=== PATIENT | male | born 1950 | race Caucasian/White ===

== ENCOUNTER 2024-05-25 21:58 | Inpatient (IN) ==
[2024-05-25] MEDS: ALBUT/IPRATROP 3MG/0.5MG NEB 3 ML VIAL NEB STA (22:26)
[2024-05-25] MEDS: methylPREDNISolone 125 MG/2 ML VIAL IV STA (22:26)
[2024-05-25 22:27] LABS: Basophils # (auto) 0.03 K/uL (0.00-0.20); Basophils % (auto) 0.2 %; Eosinophils # (auto) 0.05 K/uL (0.00-0.50); Eosinophils % (auto) 0.3 %; Hematocrit (blood only) 29.8 % (42.0-52.0); Hemoglobin 9.2 g/dl (14.0-18.0); Immature Granulocytes # (auto) 0.15 K/uL (0.01-0.20); Immature Granulocytes % (auto) 0.8 %; Lymphocytes # (auto) 3.88 K/uL (1.20-3.40); Mean Corpuscular Hemoglobin 24.3 pg (25.0-34.0); Mean Corpuscular Hgb Conc 30.9 g/dL (32.0-36.0); Mean Corpuscular Volume 78.6 fL (80.0-100.0); Mean Platelet Volume 9.2 fL (9.4-12.4); Monocytes % (auto) 7.2 %; Neutrophils # (auto) 13.93 K/uL (1.40-6.50); Neutrophils % (auto) 71.5 %; Platelet Count 342 K/uL (130-400); RDW Coefficient of Variation 16.8 % (11.5-14.5); RDW Standard Deviation 47.7 fL (36.4-46.3); Red Blood Count 3.79 M/uL (4.70-6.10); White Blood Count 19.44 K/ul (4.8-10.8)
[2024-05-25 22:44] LABS: Albumin Globulin Ratio 1.2 (0.9-2); BUN Creatinine Ratio 24.3 (10-20); Bilirubin,Total 0.3 mg/dl (0.2-1.0); Calcium 9.4 mg/dl (8.6-10.3); Creatinine Clr Calc Pharmacy 61.7 ml/min; Globulin 3.4 gm/dl (2.5-4.0); Magnesium 2.1 mg/dl (1.7-2.4); Potassium 4.4 mmol/L (3.5-5.1); Total Protein 7.4 gm/dl (6.0-8.3)
--- NOTE | 2024-05-25 22:45 | Emergency Department Note ---
Impression & Plan SOB (shortness of breath), COVID-19, COPD exacerbation, Leukocytosis, CHF (congestive heart failure), Cardiomegaly, Atrial fibrillation, Anemia ED Provider Note NAME: YOSHI ESTRADA AGE: 74 SEX: M : 1950 ARRIVES VIA: Walk-In INFORMANT: [Patient] ED PROVIDER(S): [Ramin Carlson MD] CHIEF COMPLAINT: Illness HISTORY OF PRESENT ILLNESS: The patient is a 74-year-old male who has felt weak, washed out and short of breath for several weeks. He saw his doctor's office and they told him he had a COPD flare. He was placed on antibiotics. He finished the antibiotics a week ago and does not think they have helped. Patient does have a nebulizer machine at home. He states that he feels he has to cough but when he coughs, he cannot get anything out. There has been no fever, no vomiting, no chest pain. No sick contacts. He lives alone. PMHx/PSHx/Social Hx: See Below PHYSICAL EXAM: GENERAL: Patient is in no acute distress. HEENT: No acute trauma, normocephalic atraumatic, mucous membranes moist, no nasal congestion. NECK: No stridor, no adenopathy, no meningismus, trachea is midline. LUNGS: Scattered wheezing heard, no crackles, breath sounds quite diminished bilaterally HEART: Irregular rhythm, no obvious murmur. Mildly tachycardic. ABDOMEN: Soft, nontender, no peritonitis. EXTREMITIES: No cyanosis, full range of motion of all the joints without pain or difficulty. Mild bilateral pedal edema. NEUROLOGIC: Oriented x 3, no acute motor or sensory deficits, no focal weakness. SKIN: No jaundice, no diaphoresis. DIFFERENTIAL DIAGNOSIS: Exacerbation of COPD, viral illness, pneumonia, CHF, anemia, [place], among others. EMERGENCY DEPARTMENT PROCEDURES: MEDICAL DECISION MAKING: There is a significant leukocytosis at 19,000, this could be consistent with infection or just the stress of his situation. Looking back at previous testing, he has had a slightly elevated white count before, last year the value was around 15. The patient was anemic with a hemoglobin of 9.2. This is a 3 point drop for him, certainly, this could be contributing to his dyspnea. There was a normal platelet count. No coagulopathy. VBG did not show acidosis or CO2 retention. Renal panel testing was essentially unrevealing. No electrolyte abnormality in need of emergent correction. No worrisome liver enzyme elevation. ECG shows atrial fibrillation, no acute ischemia. Cardiac enzyme testing x 1 was not consistent with acute cardiac injury. BNP was elevated consistent with CHF and fluid overload. Chest x-ray does appear to show heart failure as well as cardiomegaly. No focal infiltrate. Patient did have pedal edema on exam. Respiratory bio fire was positive for COVID-19. The patient was given IV Lasix to encourage diuresis. He received IV Solu- Medrol, 1 inch of nitroglycerin paste, he was given 2 DuoNebs. Patient is feeling improved, he has had a significant diuresis. He is breathing easier. He feels less short of breath. Given the x-ray findings and his presentation, a CT of the chest was ordered. There was no PE or focal pneumonia. I do think the patient requires a hospital stay. He is fluid overloaded, he is anemic, he has been short of breath for weeks despite outpatient treatment, he has COVID-19 and this is flared his COPD. He requires further diuresis and respiratory care. His hemoglobin will need to be trended. I did speak with the patient, I spoke with case management and the on-call hospitalist. The reason for his dyspnea is multifactorial. Prior/Outside records/notes reviewed: None ECG per my interpretation: Indication was shortness of breath. The ECG shows atrial fibrillation with some nonspecific ST change and some baseline artifact. There is no ST elevation, no PVCs. The QTc is 442. Continuous Cardiac Monitoring per my interpretation: An order was placed for continuous cardiac monitoring. The monitor shows a rate of 109 with atrial fibrillation. Imaging/x-ray results per my interpretation: Chest x-ray shows cardiomegaly and what appears to be heart failure. Chronic Medical/Social conditions affecting care: Advanced age, history of COPD. Care/Management discussed with: Case management and the on-call hospitalist. Level of care consideration(s): After review of the information above and other included data: --I believe the patient requires escalation of care to admission Critical Care Note: I have personally spent 43 minutes of critical care time in the direct management of this patient. This includes bedside care, interpretation of diagnostic studies, and testing, discussion with consultants, patient, and family members, and other required patient management activities. This 43 minutes is in excess of all separately billable procedures. DISPOSITION: Admission Past Med/Surg History Problem List Anemia (Acute) Atrial fibrillation (Acute) Cardiomegaly (Acute) CHF (congestive heart failure) (Acute) Leukocytosis (Acute) COPD exacerbation (Acute) COVID-19 (Acute) SOB (shortness of breath) (Acute) Facial contusion (Acute) Stomach problems (Chronic) Renal failure (Acute) Dehydration (Acute) Hyperkalemia (Acute) Dehydration (Acute 02/13/13) Acute renal failure (Acute 02/13/13) Cellulitis (Acute) Cellulitis (Acute) Medical History COPD (chronic obstructive pulmonary disease) Social History Smoking Status: Current every day smoker Tobacco Type: Cigarettes Feels Safe at Home: Yes Allergies Allergies Allergy/AdvReac Type Severity Reaction Status Date / Time sulfamethoxazole Allergy Intermediate HIVES-PER Verified 05/26/24 01:42 [From Bactrim] [facility] [place] trimethoprim [From Bactrim] Allergy Intermediate HIVES-PER Verified 05/26/24 01:42 [facility] [place] Home Meds Home Medications Medication Instructions Recorded Confirmed albuterol sulfate 90 mcg/actuation 2 puff inhalation Q4H PRN Wheezing 05/26/24 05/26/24 aerosol inhaler amlodipine 5 mg tablet 5 mg PO QAM 05/26/24 05/26/24 apixaban 5 mg tablet (Eliquis) 5 mg PO BID 05/26/24 05/26/24 atorvastatin 40 mg tablet 40 mg PO QAM 05/26/24 05/26/24 budesonide-formoterol HFA 160 2 puff inhalation BID 05/26/24 05/26/24 mcg-4.5 mcg/actuation aerosol inhaler (Symbicort) esomeprazole magnesium 40 mg 40 mg PO DAILYBB 05/26/24 05/26/24 capsule,delayed release famotidine 40 mg tablet 40 mg PO HS 05/26/24 05/26/24 fluvoxamine 100 mg tablet 100 mg PO HS 05/26/24 05/26/24 folic acid 1 mg tablet 1 mg PO QAM 05/26/24 05/26/24 furosemide 40 mg tablet (Lasix) 60 mg PO QAM 05/26/24 05/26/24 levocetirizine 5 mg tablet (Xyzal) 2.5 mg PO PM 05/26/24 05/26/24 metoprolol tartrate 50 mg tablet 50 mg PO BID 05/26/24 05/26/24 montelukast 10 mg tablet 10 mg PO HS 05/26/24 05/26/24 (Singulair) mupirocin 2 % topical ointment 1 applic topical BID PRN Skin 05/26/24 05/26/24 Irritation nitroglycerin 0.4 mg sublingual 0.4 mg sublingual DIRECTED PRN 05/26/24 05/26/24 tablet (Nitrostat) Chest Pain nystatin 100,000 unit/gram topical 1 applic topical TID 05/26/24 05/26/24 powder ondansetron 4 mg disintegrating 4 mg PO Q8H PRN NAUSEA/VOMITING 05/26/24 05/26/24 tablet potassium chloride 10 mEq 10 meq PO QAM 05/26/24 05/26/24 tablet,extended release quetiapine 25 mg tablet (Seroquel) 50 mg PO HS 05/26/24 05/26/24 sodium chloride 0.65 % nasal spray 1 spray intranasal DIRECTED PRN 05/26/24 05/26/24 aerosol (Saline Nasal) Congestion Results & Data (ED) Vital Signs Vital Signs - 24 hr 05/25/24 22:00 05/25/24 22:06 05/25/24 22:13 Temperature 36.6 C Temperature Source Oral Pulse Rate 101 H 79 109 H Pulse Rate [Apical] Pulse Rhythm Regular Regular Pulse Rhythm [Apical] Pulse Strength Normal Pulse Strength [Apical] Respiratory Rate 22 18 Respiratory Effort / Characteristics Non-Labored Spontaneous Respiratory Depth Normal Respiratory Pattern Regular Blood Pressure 153/79 H Blood Pressure [Right Arm] Blood Pressure Mean 103 Blood Pressure Mean [Right Arm] Blood Pressure Position Sitting Blood Pressure Position [Right Arm] Pulse Oximetry 94 96 Oxygen Delivery Method Room Air Room Air Sepsis Recent Fever Within 48 Hours No Sepsis New/Unexplained Change in Mental Status No Sepsis Action Taken by Nursing No Action Required 05/26/24 00:00 05/26/24 01:52 Temperature Temperature Source Pulse Rate 105 H Pulse Rate [Apical] 85 Pulse Rhythm Pulse Rhythm [Apical] Regular Pulse Strength Pulse Strength [Apical] Normal Respiratory Rate 18 Respiratory Effort / Characteristics Non-Labored Spontaneous Respiratory Depth Normal Respiratory Pattern Regular Blood Pressure Blood Pressure [Right Arm] 151/75 H Blood Pressure Mean Blood Pressure Mean [Right Arm] 100 Blood Pressure Position Blood Pressure Position [Right Arm] Sitting Pulse Oximetry 97 Oxygen Delivery Method Room Air Sepsis Recent Fever Within 48 Hours Sepsis New/Unexplained Change in Mental Status Sepsis Action Taken by Custodial Medications Current Medication List: was personally reviewed by me Laboratory Data Attestation: I reviewed the patient's lab results. 05/25/24 22:11 05/25/24 22:11 Lab Results 05/25/24 05/25/24 05/26/24 Range/Units 22:11 22:25 00:26 WBC 19.44 H (4.8-10.8) K/ul RBC 3.79 L (4.70-6.10) M/uL Hgb 9.2 L (14.0-18.0) g/dl Hct 29.8 L (42.0-52.0) % MCV 78.6 L (80.0-100.0) fL MCH 24.3 L (25.0-34.0) pg MCHC 30.9 L (32.0-36.0) g/dL RDW Std Deviation 47.7 H (36.4-46.3) fL RDW Coeff of [place] 16.8 H (11.5-14.5) % Plt Count 342 (130-400) K/uL MPV 9.2 L (9.4-12.4) fL Immature Gran % (Auto) 0.8 % Neut % (Auto) 71.5 % Lymph % (Auto) 20.0 % [place] % (Auto) 7.2 % Eos % (Auto) 0.3 % Baso % (Auto) 0.2 % Neut # (Auto) 13.93 H (1.40-6.50) K/uL Lymph # (Auto) 3.88 H (1.20-3.40) K/uL [place] # (Auto) 1.40 H (0.11-0.59) K/uL Eos # (Auto) 0.05 (0.00-0.50) K/uL Baso # (Auto) 0.03 (0.00-0.20) K/uL Immature Gran # (Auto) 0.15 (0.01-0.20) K/uL PT 11.9 (9.0-12.0) Seconds INR 1.1 (0.9-1.1) APTT 26 (21-31) Seconds PTT Ratio 1.0 VBG pH 7.42 H (7.36-7.41) VBG pCO2 40 (38-50) mmHg VBG pO2 51 mmHg VBG HCO3 26 mmol/L VBG O2 Saturation 83.8 % VBG Base Excess 1.3 mEq/L Sodium 138 (136-145) mmol/L Potassium 4.4 (3.5-5.1) mmol/L Chloride 104 (98-107) mmol/L Carbon Dioxide 26 (21-32) mmol/L Anion Gap 8 (3-11) BUN 28 H (6-23) mg/dl Creatinine 1.15 (0.6-1.4) mg/dl Est Cr Clr Drug Dosing 61.7 ml/min eGFR 66.37 BUN/Creatinine Ratio 24.3 H (10-20) Glucose 245 H (70-99(Fasting)) mg/dl Calcium 9.4 (8.6-10.3) mg/dl Magnesium 2.1 (1.7-2.4) mg/dl Total Bilirubin 0.3 (0.2-1.0) mg/dl AST 18 (13-39) U/L ALT 24 (7-52) U/L Alkaline Phosphatase 91 (34-104) U/L Troponin I High Sens 7.9 (0-20) pg/ml B-Natriuretic Peptide 532 H (0-100) pg/ml Total Protein 7.4 (6.0-8.3) gm/dl Albumin 4.0 (3.4-5.0) gm/dl Globulin 3.4 (2.5-4.0) gm/dl Albumin/Globulin Ratio 1.2 (0.9-2) Urine Color Yellow Urine Appearance Clear (Clear) Urine pH 7.5 (4.5-7.5) Ur Specific [place] 1.011 (1.000-1.030) Urine Protein Negative (Negative) Urine Glucose (UA) Negative (Negative) Urine Ketones Negative (Negative) Urine Blood 1+ H (Negative) Urine Nitrite Negative (Negative) Urine Bilirubin Negative (Negative) Urine Urobilinogen Negative (Negative) Ur Leukocyte Esterase Negative (Negative) Urine WBC (Auto) 0-5 (0-5) /hpf Urine RBC (Auto) 11-20 H (0-2) /hpf U Hyaline Cast (Auto) 0-2 (0-2) /lpf U Epithel Cells (Auto) 0-2 (0-2) /hpf Urine Bacteria (Auto) None Seen (None Seen) Adenovirus (PCR) Not Detected (NotDetected) B. pertussis DNA (PCR) Not Detected (NotDetected) B.parapertussis DNA PCR Not Detected (NotDetected) C. pneumoniae DNA (PCR) Not Detected (NotDetected) Coronavirus OC43 (PCR) Not Detected (NotDetected) Coronavirus HKU1 (PCR) Not Detected (NotDetected) Coronavirus 229E (PCR) Not Detected (NotDetected) SARS-CoV-2 (PCR) DETECTED A (NotDetected) Coronavirus NL63 (PCR) Not Detected (NotDetected) Human Metapneumovir PCR Not Detected (NotDetected) Influenza Type A (PCR) Not Detected (NotDetected) Influenza Type B (PCR) Not Detected (NotDetected) M. pneumoniae (PCR) Not Detected (NotDetected) Parainfluenza 1 (PCR) Not Detected (NotDetected) Parainfluenza 2 (PCR) Not Detected (NotDetected) Parainfluenza 3 (PCR) Not Detected (NotDetected) Parainfluenza 4 (PCR) Not Detected (NotDetected) RSV (PCR) Not Detected (NotDetected) Entero/Rhino (PCR) Not Detected (NotDetected) Administered Medications Discontinued Medications Albuterol (Albut/Ipratrop 3mg/0.5mg Neb 3 Ml Vial) 3 ml NEB NOW STA; Protocol Stop: 05/25/24 22:21 Last Admin: 05/25/24 22:26 Dose: 3 ml Documented By: IDD Albuterol (Albut/Ipratrop 3mg/0.5mg Neb 3 Ml Vial) 3 ml NEB NOW STA; Protocol Stop: 05/26/24 00:09 Last Admin: 05/26/24 01:26 Dose: 3 ml Documented By: TERRY Furosemide (Furosemide 40 Mg/4 Ml Vial) 40 mg IV ONE ONE Stop: 05/25/24 23:25 Last Admin: 05/25/24 23:51 Dose: 40 mg Documented By: JERRELL Ioversol (Optiray 320 125ml) 125 ml IV ONCE ONE Stop: 05/25/24 23:57 Last Admin: 05/25/24 23:56 Dose: 118 ml Documented By: MICHAEL Methylprednisolone (Methylprednisolone 125 Mg/2 Ml Vial) 60 mg IV NOW STA Stop: 05/25/24 22:21 Last Admin: 05/25/24 22:26 Dose: 60 mg Documented By: JERRELL Nitroglycerin (Nitroglycerin 2% Ointment 30gm Tube) 1 inch EXT NOW STA Stop: 05/25/24 23:25 Last Admin: 05/25/24 23:51 Dose: 1 inch Documented By: JERRELL Imaging Data Radiologist's Impression: Chest X-Ray 05/25/24 22:06 Exam(s): XR CXR 1 VIEW EXAM: XR Chest, 1 View CLINICAL HISTORY: Reason for exam: Dyspnea. TECHNIQUE: Frontal view of the chest. COMPARISON: January 05, 2013. FINDINGS: Lungs: Generalized prominence of interstitial vascular markings likely representing mild CHF. No focal pulmonary consolidation. No pulmonary mass. Pleural space: Unremarkable. No pneumothorax or pleural fluid. Heart: Cardiomegaly. Mediastinum: Unremarkable. Normal mediastinal contour. Bones/joints: No acute findings. IMPRESSION: Generalized prominence of interstitial vascular markings likely representing mild CHF. Cardiomegaly. Electronically signed by: Jc Storey MD 05/26/24 00:52 AM Chest CTA 05/25/24 23:24 EXAM: CT angio chest PE protocol CLINICAL HISTORY: PE. CHEST PAIN WITH COUGH TECHNIQUE: Contiguous 3.[address] angiographic images of the chest were acquired with the administration of intravenous contrast. Coronal and sagittal reconstructions were obtained. 118 ml optiray 320 intravenous contrast was administered for post-contrast images. One of these 3D techniques was utilized: Maximum Intensity Pixel (MIP), 3D Reconstructed Images, Volume Rendered Images, Surface Shaded Rendering. One of the following dose reduction techniques was utilized for this exam: Automated exposure control, adjustment of the mA and/or kV according to patient size, and use of iterative reconstruction. DLP: 933.97 mGy-cm COMPARISON: None. FINDINGS: Aorta: The thoracic aorta is normal in caliber. No evidence of an aneurysm, or dissection. The aortic arch and descending thoracic aorta are unremarkable apart from atherosclerotic vascular calcifications Pulmonary Arteries: Pulmonary arteries are normal in size and opacification. No evidence of pulmonary embolism. No stenosis or filling defects. Superior Vena Cava (SVC) and Inferior Vena Cava (IVC): Normal opacification and caliber. No evidence of thrombus or obstruction. Reflux of contrast is seen in the IVC. Coronary Arteries: Coronary artery calcifications are seen. Mediastinum: Subcentimeter mediastinal lymph nodes are seen. Heart: The heart size appears enlarged. No pericardial effusion. Lungs: Lungs are clear with no evidence of consolidation, nodules, or masses. Paraseptal emphysematous changes are seen in the apical regions. No pleural effusion or thickening. Atelectatic changes in the lingula and right middle lobe. The evaluation is limited due to motion-related artifacts. Bones: Degenerative changes in the visualized spine. Soft Tissues: Normal appearance of the visualized soft tissues. No abnormal masses or fluid collections. IMPRESSION: 1. No evidence of acute pulmonary embolism. 2. The evaluation is limited due to motion-related artifacts. 3. Reflux of contrast is seen in the IVC. 4. Atherosclerotic aortic and coronary artery calcifications. 5. Paraseptal emphysematous changes are seen in the apical regions. 6. Atelectatic changes in the lingula and right middle lobe. Electronically signed by Drew Sands 05-26-2024 01:58 AM Discharge Plan Visit Data Chief Complaint: Illness Stated Complaint: "DOESN'T FEEL RIGHT" ED Provider: Ramin Carlson Discharge Problem: SOB (shortness of breath), COVID-19, COPD exacerbation, Leukocytosis, CHF (congestive heart failure), Cardiomegaly, Atrial fibrillation, Anemia Patient Disposition: Admitted As Inpatient Condition: Serious Forms Stand Alone Forms: [employer] Prescriptions Prescriptions: No Action quetiapine [Seroquel] 25 mg Tablet 50 mg PO HS furosemide [Lasix] 40 mg Tablet 60 mg PO QAM atorvastatin 40 mg Tablet 40 mg PO QAM famotidine 40 mg Tablet 40 mg PO HS potassium chloride 10 mEq Tablet Extended Release 10 meq PO QAM amlodipine 5 mg Tablet 5 mg PO QAM fluvoxamine 100 mg Tablet 100 mg PO HS esomeprazole magnesium 40 mg Capsule,Delayed Release(Dr/Ec) 40 mg PO DAILYBB metoprolol tartrate 50 mg Tablet 50 mg PO BID nitroglycerin [Nitrostat] 0.4 mg Tablet, Sublingual 0.4 mg sublingual DIRECTED PRN (Reason: Chest Pain) folic acid 1 mg Tablet 1 mg PO QAM montelukast [Singulair] 10 mg Tablet 10 mg PO HS mupirocin 2 % Ointment 1 applic TOPICAL BID PRN (Reason: Skin Irritation) nystatin 100,000 unit/gram Powder 1 applic TOPICAL TID Rx Instructions: APPLY TO LOWER ABD albuterol sulfate 90 mcg/actuation Hfa Aerosol Inhaler 2 puff INHALATION Q4H PRN (Reason: Wheezing) ondansetron [Zofran ODT] 4 mg Tablet,Disintegrating 4 mg PO Q8H PRN (Reason: NAUSEA/VOMITING) Saline Nasal 0.65 % Aerosol,[place] 1 spray INTRANASAL DIRECTED PRN (Reason: Congestion) budesonide-formoterol [Symbicort] 160-4.5 mcg/actuation Hfa Aerosol Inhaler 2 puff INHALATION BID levocetirizine [Xyzal] 5 mg Tablet 2.5 mg PO PM Eliquis 5 mg Tablet 5 mg PO BID Referrals Referrals: PCP,NO [Physician] - Discharge Problem: Leukocytosis Qualifiers: Leukocytosis type: unspecified Qualified Code(s): D72.829 - Elevated white blood cell count, unspecified CHF (congestive heart failure) Qualifiers: Heart failure type: unspecified Heart failure chronicity: acute Qualified Code(s): I50.9 - Heart failure, unspecified Atrial fibrillation Qualifiers: Atrial fibrillation type: unspecified Qualified Code(s): I48.91 - Unspecified atrial fibrillation Anemia Qualifiers: Anemia type: unspecified type Qualified Code(s): D64.9 - Anemia, unspecified
[2024-05-25 22:49] LABS: Base Excess VBG 1.3 mEq/L; HCO3 VBG 26 mmol/L; Oxygen Saturation VBG 83.8 %; PCO2 VBG 40 mmHg (38-50); PO2 VBG 51 mmHg; pH VBG 7.42 (7.36-7.41)
[2024-05-25 22:51] LABS: Troponin I High Sensitivity 7.9 pg/ml (0-20)
[2024-05-25 23:20] LABS: INR 1.1 (0.9-1.1); Partial Thromboplastin Time 26 Seconds (21-31); Prothrombin Time 11.9 Seconds (9.0-12.0)
[2024-05-25 23:25] LABS: Adenovirus PCR Not Detected (NotDetected); Bordetella parapertussis PCR Not Detected (NotDetected); Bordetella pertussis PCR Not Detected (NotDetected); Chlamydia pneumoniae PCR Not Detected (NotDetected); Coronavirus 229E PCR Not Detected (NotDetected); Coronavirus CoV-2 (COVID19)PCR DETECTED (NotDetected); Coronavirus HKU1 PCR Not Detected (NotDetected); Coronavirus NL63 PCR Not Detected (NotDetected); Coronavirus OC43PCR Not Detected (NotDetected); Human Metapneumovirus PCR Not Detected (NotDetected); Influenza A PCR Not Detected (NotDetected); Influenza B PCR Not Detected (NotDetected); Mycoplasma pneumoniae PCR Not Detected (NotDetected); Parainfluenza Virus 1 PCR Not Detected (NotDetected); Parainfluenza Virus 2 PCR Not Detected (NotDetected); Parainfluenza Virus 3 PCR Not Detected (NotDetected); Parainfluenza Virus 4 PCR Not Detected (NotDetected); Respiratory Syncytial VirusPCR Not Detected (NotDetected); Rhinovirus/Enterovirus PCR Not Detected (NotDetected)
[2024-05-25] MEDS: NITROGLYCERIN 2% OINTMENT 30GM TUBE EXT STA (23:51)
[2024-05-25] MEDS: FUROSEMIDE 40 MG/4 ML VIAL IV ONE (23:51)
[2024-05-25] MEDS: OPTIRAY 320 125ml IV ONE (23:56)
[2024-05-26 00:52] LABS: Appearance Urine Clear (Clear); Bacteria Urine Automated None Seen (None Seen); Bilirubin Urine Negative (Negative); Blood Urine 1+ (Negative); Cast Urine Automated 0-2 /lpf (0-2); Color Urine Yellow; Epithelial Cell Urine Auto 0-2 /hpf (0-2); Glucose Urine UA Negative (Negative); Ketones Urine Negative (Negative); Leukocyte Esterase Urine Negative (Negative); Nitrite Urine Negative (Negative); Protein Urine Negative (Negative); Specific Gravity Urine 1.011 (1.000-1.030); Urobilinogen Urine Negative (Negative); WBC Urine Automated 0-5 /hpf (0-5); pH Urine 7.5 (4.5-7.5)
--- NOTE | 2024-05-26 00:54 | XRay Report ---
Exam(s): XR CXR 1 VIEW EXAM: XR Chest, 1 View CLINICAL HISTORY: Reason for exam: Dyspnea. TECHNIQUE: Frontal view of the chest. COMPARISON: January 05, 2013. FINDINGS: Lungs: Generalized prominence of interstitial vascular markings likely representing mild CHF. No focal pulmonary consolidation. No pulmonary mass. Pleural space: Unremarkable. No pneumothorax or pleural fluid. Heart: Cardiomegaly. Mediastinum: Unremarkable. Normal mediastinal contour. Bones/joints: No acute findings. IMPRESSION: Generalized prominence of interstitial vascular markings likely representing mild CHF. Cardiomegaly. Electronically signed by: Jc Storey MD 05/26/24 00:52 AM
[2024-05-26] MEDS: ALBUT/IPRATROP 3MG/0.5MG NEB 3 ML VIAL NEB STA (01:26)
--- NOTE | 2024-05-26 01:58 | CT Scan Report ---
EXAM: CT angio chest PE protocol CLINICAL HISTORY: PE. CHEST PAIN WITH COUGH TECHNIQUE: Contiguous 3.[address] angiographic images of the chest were acquired with the administration of intravenous contrast. Coronal and sagittal reconstructions were obtained. 118 ml optiray 320 intravenous contrast was administered for post-contrast images. One of these 3D techniques was utilized: Maximum Intensity Pixel (MIP), 3D Reconstructed Images, Volume Rendered Images, Surface Shaded Rendering. One of the following dose reduction techniques was utilized for this exam: Automated exposure control, adjustment of the mA and/or kV according to patient size, and use of iterative reconstruction. DLP: 933.97 mGy-cm COMPARISON: None. FINDINGS: Aorta: The thoracic aorta is normal in caliber. No evidence of an aneurysm, or dissection. The aortic arch and descending thoracic aorta are unremarkable apart from atherosclerotic vascular calcifications Pulmonary Arteries: Pulmonary arteries are normal in size and opacification. No evidence of pulmonary embolism. No stenosis or filling defects. Superior Vena Cava (SVC) and Inferior Vena Cava (IVC): Normal opacification and caliber. No evidence of thrombus or obstruction. Reflux of contrast is seen in the IVC. Coronary Arteries: Coronary artery calcifications are seen. Mediastinum: Subcentimeter mediastinal lymph nodes are seen. Heart: The heart size appears enlarged. No pericardial effusion. Lungs: Lungs are clear with no evidence of consolidation, nodules, or masses. Paraseptal emphysematous changes are seen in the apical regions. No pleural effusion or thickening. Atelectatic changes in the lingula and right middle lobe. The evaluation is limited due to motion-related artifacts. Bones: Degenerative changes in the visualized spine. Soft Tissues: Normal appearance of the visualized soft tissues. No abnormal masses or fluid collections. IMPRESSION: 1. No evidence of acute pulmonary embolism. 2. The evaluation is limited due to motion-related artifacts. 3. Reflux of contrast is seen in the IVC. 4. Atherosclerotic aortic and coronary artery calcifications. 5. Paraseptal emphysematous changes are seen in the apical regions. 6. Atelectatic changes in the lingula and right middle lobe. Electronically signed by Drew Sands 05-26-2024 01:58 AM
--- NOTE | 2024-05-26 06:27 | History & Physical Report ---
Date of Service May 26, 2024 Assessment & Plan (1) COVID: Plan: 74-year-old male with past medical history significant for hyperlipidemia, diabetes, COPD, obstructive sleep apnea, chronic heart failure with preserved ejection fraction, paroxysmal atrial fibrillation, aortic root enlargement, ascending aortic aneurysm, hypertension, nonrheumatic aortic valve insufficiency, GERD, obesity, BPH, decreased hearing of both ears, tobacco use disorder, insomnia, depression, anxiety presents with ongoing cough and found to have COVID. Looking at the epic he also had COVID-positive on April 16, 2024. Patient was having cough and congestion and went to [facility] on 05/14/2024 and was prescribed azithromycin and prednisone. Seems patient did not tolerated the azithromycin. Patient says he has an antibiotic at home, 750 mg tablet possibly Levaquin. He comes t today because of feeling weak and short of breath and ongoing cough per er. in the ER received Solu-Medrol, Lasix and nebs and Nitropaste. Currently patient sitting in the chair. Very hard of hearing. Says his main complaint is cough. Sometimes bringing up phlegm. He is not getting better. Currently denies any shortness of breath. Denies chest pain. Denies headache. Denies runny nose or sore throat. Denies abdominal pain. Denies body aches. States appetite is good. Normal bowel and bladder movements. Hemodynamics are okay. COVID Has cough Seems initially complained of shortness of breath and weak CTA chest no PE and no acute findings Because of his COVID conditions we will do remdesivir possibly short course and follow remdesivir labs IV Decadron 6 mg daily COVID precautions Close monitor Possible COPD exacerbation Continue home inhalers Nebs as needed Decadron as above Heart failure with preserved ejection fraction Has some edema in the legs Please a dose of IV Lasix 40 mg in the ER Continue home Lasix 60 mg daily potassium supplement We will monitor Atrial fibrillation On metoprolol tartrate and Eliquis Hypertension Continue amlodipine, Lasix and metoprolol tartrate IV labetalol as needed Anemia Hemoglobin 9.2 Hemoglobin was 12.2 on 07/2023 on outpatient labs Will check stool for Hemoccult Will follow iron studies, vitamin B12 folate levels Follow labs. Leukocytosis Recent steroid His baseline WBC seems 13-15 on outpatient labs Possibly from smoking Follow labs Diabetes Not on meds Insulin sliding scale Closely monitor while on steroids Follow HbA1c levels Depression Anxiety Insomnia On Seroquel, fluvoxamine GERD Esomeprazole and famotidine Hyperlipidemia Statin Ongoing tobacco abuse Counseling DVT prophylaxis Eliquis Disposition Med/telemetry Full code History of Present Illness Chief Complaint: Cough and COVID Primary Care Provider: Julia Harman MD 74-year-old male with past medical history significant for hyperlipidemia, diabetes, COPD, obstructive sleep apnea, chronic heart failure with preserved ejection fraction, paroxysmal atrial fibrillation, aortic root enlargement, ascending aortic aneurysm, hypertension, nonrheumatic aortic valve insufficiency , GERD, obesity, BPH, decreased hearing of both ears, tobacco use disorder, insomnia, depression, anxiety presents with ongoing cough and found to have COVID. Looking at the epic he also had COVID-positive on April 16, 2024. Patient was having cough and congestion and went to [facility] clinic on 05/14/2024 and was prescribed azithromycin and prednisone. Seems patient did not tolerated the azithromycin. Patient says he has an antibiotic at home, 750 mg tablet possibly Levaquin. He comes t today because of feeling weak and short of breath and ongoing cough per er. in the ER received Solu-Medrol, Lasix and nebs and Nitropaste. Currently patient sitting in the chair. Very hard of hearing. Says his main complaint is cough. Sometimes bringing up phlegm. He is not getting better. Currently denies any shortness of breath. Denies chest pain. Denies headache. Denies runny nose or sore throat. Denies abdominal pain. Denies body aches. States appetite is good. Normal bowel and bladder movements. Hemodynamics are okay. Past medical history. As mentioned above Past surgical history. Colonoscopy cystoscopy EGD. EGD with endoscopic ultrasound. DC cardioversion. Vein stripping. Knee arthroscopies. Nasal polypectomy. Appendectomy. TURP. Tonsillectomy and adenoidectomy. Social history. Smokes 1.5 pack a day for last 30 years. No alcohol use. No drug use. Family history. Mother had diabetes. Father had stroke. Allergies Allergy/AdvReac Type Severity Reaction Status Date / Time sulfamethoxazole Allergy Intermediate HIVES-PER Verified 05/26/24 01:42 [From Bactrim] [facility] MED LIST trimethoprim [From Bactrim] Allergy Intermediate HIVES-PER Verified 05/26/24 01:42 [facility] MED LIST Home Medications Medication Instructions Recorded Confirmed Type albuterol sulfate 90 mcg/actuation 2 puff inhalation Q4H PRN Wheezing 05/26/24 05/26/24 History aerosol inhaler amlodipine 5 mg tablet 5 mg PO QAM 05/26/24 05/26/24 History apixaban 5 mg tablet (Eliquis) 5 mg PO BID 05/26/24 05/26/24 History atorvastatin 40 mg tablet 40 mg PO QAM 05/26/24 05/26/24 History budesonide-formoterol HFA 160 2 puff inhalation BID 05/26/24 05/26/24 History mcg-4.5 mcg/actuation aerosol inhaler (Symbicort) esomeprazole magnesium 40 mg 40 mg PO DAILYBB 05/26/24 05/26/24 History capsule,delayed release famotidine 40 mg tablet 40 mg PO HS 05/26/24 05/26/24 History fluvoxamine 100 mg tablet 100 mg PO HS 05/26/24 05/26/24 History folic acid 1 mg tablet 1 mg PO QAM 05/26/24 05/26/24 History furosemide 40 mg tablet (Lasix) 60 mg PO QAM 05/26/24 05/26/24 History levocetirizine 5 mg tablet (Xyzal) 2.5 mg PO PM 05/26/24 05/26/24 History metoprolol tartrate 50 mg tablet 50 mg PO BID 05/26/24 05/26/24 History montelukast 10 mg tablet 10 mg PO HS 05/26/24 05/26/24 History (Singulair) mupirocin 2 % topical ointment 1 applic topical BID PRN Skin 05/26/24 05/26/24 History Irritation nitroglycerin 0.4 mg sublingual 0.4 mg sublingual DIRECTED PRN 05/26/24 05/26/24 History tablet (Nitrostat) Chest Pain nystatin 100,000 unit/gram topical 1 applic topical TID 05/26/24 05/26/24 History powder ondansetron 4 mg disintegrating 4 mg PO Q8H PRN NAUSEA/VOMITING 05/26/24 05/26/24 History tablet potassium chloride 10 mEq 10 meq PO QAM 05/26/24 05/26/24 History tablet,extended release quetiapine 25 mg tablet (Seroquel) 50 mg PO HS 05/26/24 05/26/24 History sodium chloride 0.65 % nasal spray 1 spray intranasal DIRECTED PRN 05/26/24 05/26/24 History aerosol (Saline Nasal) Congestion Past Med/Surg History Problem List (Updated 05/26/24 @ 06:23 by Luis Fernando Velasco MD) COVID Anemia (Acute) Atrial fibrillation (Acute) Cardiomegaly (Acute) CHF (congestive heart failure) (Acute) Leukocytosis (Acute) COPD exacerbation (Acute) COVID-19 (Acute) SOB (shortness of breath) (Acute) Facial contusion (Acute) Stomach problems (Chronic) Renal failure (Acute) Dehydration (Acute) Hyperkalemia (Acute) Dehydration (Acute 02/13/13) Acute renal failure (Acute 02/13/13) Cellulitis (Acute) Cellulitis (Acute) Medical History COPD (chronic obstructive pulmonary disease) Social History Smoking Status: Current every day smoker Tobacco Type: Cigarettes Feels Safe at Home: Yes Review of Systems Review of Systems: All systems reviewed & are unremarkable except as noted in HPI & below Physical Exam Physical Exam: General- Not in distress Head- atraumatic Eyes- PERRL. ENT- oropharynx clear Neck- supple, no JVD. Lungs- clear to auscultation mild b/l rhonchi Heart- regular rhythm; no murmur, no gallop. Abdomen- normal bowel sounds, soft, nontender, no distension Extremities- b/l pretibial edema present, no erythema seen Neuro- alert, oriented PERRL, no facial palsy; no dysarthria; moves extremities Results & Data Results & Data Vital Signs (Past 12 Hours) Vital Signs Temp Pulse Pulse Resp BP BP Pulse Ox 05/26/24 06:10 87 05/26/24 04:00 89 18 171/83 H 99 05/26/24 02:00 93 H 18 145/74 H 97 05/26/24 01:52 105 H 05/26/24 00:00 85 18 151/75 H 97 05/25/24 22:13 109 H 05/25/24 22:06 79 18 96 03/17/25 22:00 36.6 C 101 H 22 153/79 H 94 O2 Del Method 05/26/24 06:10 05/26/24 04:00 Room Air 05/26/24 02:00 Room Air 05/26/24 01:52 05/26/24 00:00 Room Air 05/25/24 22:13 05/25/24 22:06 Room Air 05/25/24 22:00 Room Air Diagnostic Findings Laboratory Results WBC 19.44 K/ul (4.8-10.8) H 05/25/24 22:11 RBC 3.79 M/uL (4.70-6.10) L 05/25/24 22:11 Hgb 9.2 g/dl (14.0-18.0) L 05/25/24 22:11 Hct 29.8 % (42.0-52.0) L 05/25/24 22:11 MCV 78.6 fL (80.0-100.0) L 05/25/24 22:11 MCH 24.3 pg (25.0-34.0) L 05/25/24 22:11 MCHC 30.9 g/dL (32.0-36.0) L 05/25/24 22:11 RDW Std Deviation 47.7 fL (36.4-46.3) H 05/25/24 22:11 RDW Coeff of [place] 16.8 % (11.5-14.5) H 05/25/24 22:11 Plt Count 342 K/uL (130-400) 05/25/24 22:11 MPV 9.2 fL (9.4-12.4) L 05/25/24 22:11 Immature Gran % (Auto) 0.8 % 05/25/24 22:11 Neut % (Auto) 71.5 % 05/25/24 22:11 Lymph % (Auto) 20.0 % 05/25/24 22:11 [place] % (Auto) 7.2 % 05/25/24 22:11 Eos % (Auto) 0.3 % 05/25/24 22:11 Baso % (Auto) 0.2 % 05/25/24 22:11 Neut # (Auto) 13.93 K/uL (1.40-6.50) H 05/25/24 22:11 Lymph # (Auto) 3.88 K/uL (1.20-3.40) H 05/25/24 22:11 [place] # (Auto) 1.40 K/uL (0.11-0.59) H 05/25/24 22:11 Eos # (Auto) 0.05 K/uL (0.00-0.50) 05/25/24 22:11 Baso # (Auto) 0.03 K/uL (0.00-0.20) 05/25/24 22:11 Immature Gran # (Auto) 0.15 K/uL (0.01-0.20) 05/25/24 22:11 PT 11.9 Seconds (9.0-12.0) 05/25/24 22:11 INR 1.1 (0.9-1.1) 05/25/24 22:11 APTT 26 Seconds (21-31) 05/25/24 22:11 PTT Ratio 1.0 05/25/24 22:11 VBG pH 7.42 (7.36-7.41) H 05/25/24 22:25 VBG pCO2 40 mmHg (38-50) 05/25/24 22:25 VBG pO2 51 mmHg 05/25/24 22:25 VBG HCO3 26 mmol/L 05/25/24 22:25 VBG O2 Saturation 83.8 % 05/25/24 22:25 VBG Base Excess 1.3 mEq/L 05/25/24 22:25 Sodium 138 mmol/L (136-145) 05/25/24 22:11 Potassium 4.4 mmol/L (3.5-5.1) 05/25/24 22:11 Chloride 104 mmol/L (98-107) 05/25/24 22:11 Carbon Dioxide 26 mmol/L (21-32) 05/25/24 22:11 Anion Gap 8 (3-11) 05/25/24 22:11 BUN 28 mg/dl (6-23) H 05/25/24 22:11 Creatinine 1.15 mg/dl (0.6-1.4) 05/25/24 22:11 Est Cr Clr Drug Dosing 61.7 ml/min 05/25/24 22:11 eGFR 66.37 05/25/24 22:11 BUN/Creatinine Ratio 24.3 (10-20) H 05/25/24 22:11 Glucose 245 mg/dl (70-99(Fasting)) H 05/25/24 22:11 Calcium 9.4 mg/dl (8.6-10.3) 05/25/24 22:11 Magnesium 2.1 mg/dl (1.7-2.4) 05/25/24 22:11 Total Bilirubin 0.3 mg/dl (0.2-1.0) 05/25/24 22:11 AST 18 U/L (13-39) 05/25/24 22:11 ALT 24 U/L (7-52) 05/25/24 22:11 Alkaline Phosphatase 91 U/L (34-104) 05/25/24 22:11 Troponin I High Sens 7.9 pg/ml (0-20) 05/25/24 22:11 B-Natriuretic Peptide 532 pg/ml (0-100) H 05/25/24 22:11 Total Protein 7.4 gm/dl (6.0-8.3) 05/25/24 22:11 Albumin 4.0 gm/dl (3.4-5.0) 05/25/24 22:11 Globulin 3.4 gm/dl (2.5-4.0) 05/25/24 22:11 Albumin/Globulin Ratio 1.2 (0.9-2) 05/25/24 22:11 Urine Color Yellow 05/26/24 00:26 Urine Appearance Clear (Clear) 05/26/24 00: Urine pH 7.5 (4.5-7.5) 05/26/24 00:26 Ur Specific [place] 1.011 (1.000-1.030) 05/26/24 00:26 Urine Protein Negative (Negative) 05/26/24 00:26 Urine Glucose (UA) Negative (Negative) 05/26/24 00: Urine Ketones Negative (Negative) 05/26/24 00: Urine Blood 1+ (Negative) H 05/26/24 00:26 Urine Nitrite Negative (Negative) 05/26/24 00: Urine Bilirubin Negative (Negative) 05/26/24 00: Urine Urobilinogen Negative (Negative) 05/26/24 00:26 Ur Leukocyte Esterase Negative (Negative) 05/26/24 00:26 Urine WBC (Auto) 0-5 /hpf (0-5) 05/26/24 00:26 Urine RBC (Auto) 11-20 /hpf (0-2) H 05/26/24 00:26 U Hyaline Cast (Auto) 0-2 /lpf (0-2) 05/26/24 00:26 U Epithel Cells (Auto) 0-2 /hpf (0-2) 05/26/24 00:26 Urine Bacteria (Auto) None Seen (None Seen) 05/26/24 00:26 Adenovirus (PCR) Not Detected (NotDetected) 05/25/24 22:11 B. pertussis DNA (PCR) Not Detected (NotDetected) 05/25/24 22:11 B.parapertussis DNA PCR Not Detected (NotDetected) 05/25/24 22:11 C. pneumoniae DNA (PCR) Not Detected (NotDetected) 05/25/24 22:11 Coronavirus OC43 (PCR) Not Detected (NotDetected) 05/25/24 22:11 Coronavirus HKU1 (PCR) Not Detected (NotDetected) 05/25/24 22:11 Coronavirus 229E (PCR) Not Detected (NotDetected) 05/25/24 22:11 SARS-CoV-2 (PCR) DETECTED (NotDetected) A 05/25/24 22:11 Coronavirus NL63 (PCR) Not Detected (NotDetected) 05/25/24 22:11 Human Metapneumovir PCR Not Detected (NotDetected) 05/25/24 22:11 Influenza Type A (PCR) Not Detected (NotDetected) 05/25/24 22:11 Influenza Type B (PCR) Not Detected (NotDetected) 05/25/24 22:11 M. pneumoniae (PCR) Not Detected (NotDetected) 05/25/24 22:11 Parainfluenza 1 (PCR) Not Detected (NotDetected) 05/25/24 22:11 Parainfluenza 2 (PCR) Not Detected (NotDetected) 05/25/24 22:11 Parainfluenza 3 (PCR) Not Detected (NotDetected) 05/25/24 22:11 Parainfluenza 4 (PCR) Not Detected (NotDetected) 05/25/24 22:11 RSV (PCR) Not Detected (NotDetected) 05/25/24 22:11 Entero/Rhino (PCR) Not Detected (NotDetected) 05/25/24 22:11 Impressions Chest X-Ray 05/25/24 22:06 Exam(s): XR CXR 1 VIEW EXAM: XR Chest, 1 View CLINICAL HISTORY: Reason for exam: Dyspnea. TECHNIQUE: Frontal view of the chest. COMPARISON: January 05, 2013. FINDINGS: Lungs: Generalized prominence of interstitial vascular markings likely representing mild CHF. No focal pulmonary consolidation. No pulmonary mass. Pleural space: Unremarkable. No pneumothorax or pleural fluid. Heart: Cardiomegaly. Mediastinum: Unremarkable. Normal mediastinal contour. Bones/joints: No acute findings. IMPRESSION: Generalized prominence of interstitial vascular markings likely representing mild CHF. Cardiomegaly. Electronically signed by: Jc Storey MD 05/26/24 00:52 AM Chest CTA 05/25/24 23:24 EXAM: CT angio chest PE protocol CLINICAL HISTORY: PE. CHEST PAIN WITH COUGH TECHNIQUE: Contiguous 3.[address] angiographic images of the chest were acquired with the administration of intravenous contrast. Coronal and sagittal reconstructions were obtained. 118 ml optiray 320 intravenous contrast was administered for post-contrast images. One of these 3D techniques was utilized: Maximum Intensity Pixel (MIP), 3D Reconstructed Images, Volume Rendered Images, Surface Shaded Rendering. One of the following dose reduction techniques was utilized for this exam: Automated exposure control, adjustment of the mA and/or kV according to patient size, and use of iterative reconstruction. DLP: 933.97 mGy-cm COMPARISON: None. FINDINGS: Aorta: The thoracic aorta is normal in caliber. No evidence of an aneurysm, or dissection. The aortic arch and descending thoracic aorta are unremarkable apart from atherosclerotic vascular calcifications Pulmonary Arteries: Pulmonary arteries are normal in size and opacification. No evidence of pulmonary embolism. No stenosis or filling defects. Superior Vena Cava (SVC) and Inferior Vena Cava (IVC): Normal opacification and caliber. No evidence of thrombus or obstruction. Reflux of contrast is seen in the IVC. Coronary Arteries: Coronary artery calcifications are seen. Mediastinum: Subcentimeter mediastinal lymph nodes are seen. Heart: The heart size appears enlarged. No pericardial effusion. Lungs: Lungs are clear with no evidence of consolidation, nodules, or masses. Paraseptal emphysematous changes are seen in the apical regions. No pleural effusion or thickening. Atelectatic changes in the lingula and right middle lobe. The evaluation is limited due to motion-related artifacts. Bones: Degenerative changes in the visualized spine. Soft Tissues: Normal appearance of the visualized soft tissues. No abnormal masses or fluid collections. IMPRESSION: 1. No evidence of acute pulmonary embolism. 2. The evaluation is limited due to motion-related artifacts. 3. Reflux of contrast is seen in the IVC. 4. Atherosclerotic aortic and coronary artery calcifications. 5. Paraseptal emphysematous changes are seen in the apical regions. 6. Atelectatic changes in the lingula and right middle lobe. Electronically signed by Drew Sands 05-26-2024 01:58 AM ECG Additional Comments: ECG. Atrial fibrillation rate of 86. No acute ST changes seen. Code Status & VTE Plan VTE Prophylaxis Plan VTE Prophylaxis will be ordered: Yes
--- OUTSIDE RECORDS SUMMARY | 2024-05-26 06:28 | External Medical Summary | Summary of Care ---
Author Name Unknown Organization [facility] Address [address] [place] [address] Phone [phone] Care Team Providers Care Pigment Pusher Name Role Phone Julia Harman MD Primary Care Provi radhika Reason for Visit * Reason Onset Date Comments Appointment 05/22/2024 Encounter Details Date Type Department Care Team ([facility] st Contact Info) Description 05/22/2024 Telephone Family [address] [phone] Julia Harman MD [address] [place] [phone] Appointment Allergies Active Allergy Reactions Criticality Noted Date Comments Sulfamethoxazole-Trimethoprim Hives 2021 denies documented as of this encounter (statuses as of 05/25/2024) Medications CPAP every night at bedtime. Active Nicotine 7 MG/24HR Transdermal Patch 24 Hour (Nicoderm CQ)Indications:Toba account development representative use disorder One 7 mg patch daily for 2 weeks; Remove old patch daily; and then stop. 14 Patch 1 07/16/19 24 Active Additional Information Patient not taking.Reported on 05/14/2024 Nitroglycerin 0.4 MG Sublingual Tablet Sublingual (Nitrostat) Place 1 Tablet under the tongue as needed for Pain, Chest. Maximum 3 doses. 30 Tablet 07/23/19 24 Active Folic Acid 1 MG Oral TabletIndications:F olic acid deficiency Take 1 Tablet by mouth in the morning. 90 Tablet 3 09/10/19 24 Active Montelukast Sodium 10 MG Oral Tablet (Singulair)Indicati ons:Allergic rhinitis TAKE ONE TABLET BY MOUTH EVERY DAY AT BEDTIME 100 Tablet 3 09/18/19 24 Active Atorvastatin Calcium 40 MG Oral Tablet (Lipitor)Indication s:SOB (shortness of breath),Aortic root enlargement (HCC) Take 1 Tablet by mouth in the morning. 100 Tablet 3 10/21/19 24 Active Levocetirizine Dihydrochloride 5 MG Oral Tablet Take 0.5 Tablets by mouth every evening. 90 Tablet 1 12/16/19 24 Active Furosemide 40 MG Oral Tablet (Lasix)Indications: Chronic heart failure with preserved ejection fraction (HCC) Take 1.5 Tablets by mouth in the morning. 45 Tablet 5 12/17/19 24 Active Potassium Chloride ER 10 MEQ Oral Tablet Extended Release Take 1 Tablet by mouth in the morning. 90 Tablet 1 01/16/20 24 Active Eliquis 5 MG Oral Tablet (Apixaban)Indicatio ns:Atrial fibrillation, unspecified type (HCC) Take 1 Tablet by mouth in the morning and 1 Tablet before bedtime. 60 Tablet 5 02/18/20 24 Active amLODIPine Besylate 5 MG Oral Tablet (Norvasc) Take 1 Tablet by mouth in the morning. 90 Tablet 1 02/24/20 24 Active fluvoxaMINE Maleate 100 MG Oral Tablet (Luvox) TAKE ONE TABLET BY MOUTH EVERY DAY AT BEDTIME 90 Tablet 1 03/06/20 24 Active Metoprolol Tartrate 50 MG Oral Tablet (Lopressor)Indicati ons:Persistent atrial fibrillation (HCC) Take 1 Tablet by mouth in the morning and 1 Tablet before bedtime. 90 Tablet 1 03/25/19 25 Active Saline Nasal Rodessa 0.65 % Nasal Solution (SM Nasal Rodessa Saline)Indications: Nasal dryness Administer 1 Rodessa into nostril as needed for Congestion. 30 mL 12 5 3:38 PM EST 03/27/19 25 Active Nystatin 709874 UNIT/GM External Powder (Nystop)Indications :Intertrigo Apply topically to affected area 3 times a day. Apply to lower abdomen 15 g 04/13/19 25 Active QUEtiapine Fumarate 25 MG Oral Tablet (SEROquel)Indicatio ns:Insomnia, unspecified type Take 2 Tablets by mouth at bedtime. 60 Tablet 2 04/11/19 25 Active Esomeprazole Magnesium 40 MG Oral Capsule Delayed Release Take 1 Capsule by mouth daily before breakfast. 90 Capsule 3 04/25/19 25 Active Budesonide-Formoter ol Fumarate 160-4.5 MCG/ACT Inhalation Aerosol (Symbicort)Indicati ons:COPD, moderate (HCC) inhale 2 puffs by mouth in the morning and 2 puffs before bedtime 30.6 g 3 05/01/19 25 Active Albuterol Sulfate HFA 108 (90 Base) MCG/ACT Inhalation Aerosol SolutionIndications :COPD, moderate (HCC) INHALE TWO PUFFS BY MOUTH EVERY FOUR HOURS NEEDED FOR WHEEZING 54 g 3 05/01/19 25 Active Mupirocin 2 % External Ointment (Bactroban)Indicati ons:Nasal vestibulitis Apply topically to affected area 2 times a day. 22 g 5 3:44 PM EST 05/01/19 25 Active Famotidine 40 MG Oral Tablet (Pepcid)Indications :Gastroesophageal reflux disease without esophagitis Take 1 Tablet by mouth every night at bedtime. 90 Tablet 05/06/19 25 Active Ondansetron 4 MG Oral Tablet Disintegrating (Zofran)Indications :Nausea Place 1 Tablet on tongue every 8 hours as needed for Nausea. dissolve on tongue. 10 Tablet 05/20/19 25 Active documented as of this encounter (statuses as of 05/25/2024) Active Problems Problem Noted Date Diagnosed Date Nonrheumatic mitral valve regurgitation 01/14/20 24 Hypertensive heart disease with congestive heart failure 12/30/2023 PAF (paroxysmal atrial fibrillation) 10/21/2023 Aortic root enlargement 10/21/2023 Diabetes mellitus without complication Assessment & Plan (10/18/2023 3:00 PM EDT): A1C has been slowly trending up. Now at 7.0 Ascending aortic aneurysm 08/09/2023 Nonrheumatic aortic valve insufficiency 08/09/19 24 Chronic heart failure with preserved ejection fr action 08/09/2023 Assessment & Plan (10/30/2023 1:49 PM EDT): Lasix 40mg daily Assessment & Plan (10/18/2023 3:00 PM EDT): Lasix 40mg daily Body mass index (BMI) 40.0-44.9, adult Assessment & Plan (07/17/2023 8:49 AM EDT): Pt has been losing weight. We discussed food options and I provided education surrounding healthier food choices. Persistent atrial fibrillation 07/01/2023 Assessment & Plan (10/30/2023 1:49 PM EDT): Eliqus 5mg BID Metoprolol 50mg BID Assessment & Plan (10/18/2023 2:56 PM EDT): Eliqus 5mg BID Metoprolol 50mg BID Assessment & Plan (07/17/2023 8:57 AM EDT): Eliqus 5mg BID Metoprolol 50mg BID COPD, group C, by GOLD 2017 classification 06/18 Overview: Per COPD GOLD Classification Assessment & Plan (10/30/2023 1:49 PM EDT): Symbicort 2 puffs twice daily Assessment & Plan (10/18/2023 3:02 PM EDT): Symbicort 2 puffs twice daily BPH (benign prostatic hyperplasia) 05/16/2022 Overview (05/16/2022): Added automatically from request for surgery [id number] Decreased hearing of both ears 11/11/2021 Wears dentures 01/01/2020 Anxiety state 03/17/2019 Assessment & Plan (07/17/2023 8:56 AM EDT): Luvox 100mg QHS Moderate episode of recurrent major depressive d isorder 01/06/2018 Assessment & Plan (10/18/2023 2:58 PM EDT): Currently on Luvox 100mg daily Hyperlipidemia with target LDL less than 130 Overview (07/11/2015): ICD-10 update of inactive term ARMIDA (obstructive sleep apnea) 02/20/2013 Insomnia 02/20/2013 HTN, GOAL BELOW 140/90 01/31/2009 Overview (01/31/2009): Modified per HTN protocol #16. Gastroesophageal reflux disease without esophagi tis Assessment & Plan (07/17/2023 2:53 PM EDT): Esomeprazole and Pepcid daily Tobacco use disorder Assessment & Plan (10/30/2023 1:54 PM EDT): Claims that he is trying to quit smoking. Assessment & Plan (10/18/2023 2:56 PM EDT): Claims that he is trying to quit smoking. Assessment & Plan (07/17/2023 8:48 AM EDT): Pt expresses the wish to quit smoking. Nicotine patch explained to pt and ordered. documented as of this encounter (statuses as of 05/25/2024) Resolved Problems Problem Noted Date Diagnosed Date Resolved Date SOB (shortness of breath) 10/21/2023 Acute CHF (congestive heart failure) 07/23/2023 08/09/2023 ELFEGO (acute kidney injury) 07/23/2023 Leukocytosis 07/23/2023 12/11/2023 Chest pain 07/23/2023 07/29/2023 Depression, unspecified 07/16/202307/09 Overview (07/24/2023): A more specified dx for depression is on the PL Prediabetes 02/21/2023 12/17/2023 Morbid obesity with body mas s index (BMI) of 40.0 to 44.9 in adult 01/06/2018 07/12/2022 Senile purpura 06/17/2017 05/15/2021 Body mass index (BMI) of 40. 0 to 44.9 in adult 12/10/2016 01/06/2018 Overview: Per Obesity protocol #1 Morbid obesity due to excess calories 12/03/2016 01/06/2018 History of hematuria 05/30/2016 017 Loose stools 11/19/2013 05/31/2014 Stress at home 11/19/2013 05/31/2014 COPD, moderate 04/07/2013 06/21/2022 Overview: Per COPD GOLD Classification Arthritis of back 02/20/2013 12/03/2016 ALLERGIC RHINITIS - MIXED TYPE 01/19/2008 12/03/2016 HTN, goal to be determined 1 04/02/2008 Overview (01/31/2009): Modified per HTN protocol #16. Major depressive disorder Overview (01/01/2017): ICD-10 update of inactive term documented as of this encounter (statuses as of 05/25/2024) Immunizations Name Administration Dates Next Due COVID-19 mRNA, LNP-s, No Pre serve, 2-Dose Series (Moderna) 05/17/2020,04/19/2020 Pneumococcal Conjugate Vacc, 13 Valent (Prevnar) 12/09/2017,08/01/2015 Pneumococcal Conjugate Vacci ne, 20-valent ([id number]) 12/18/2023(Deferred: Patient Refused) Pneumococcal Polysaccharide PPV23 (Pneumovax) 12/15/2018,02/14/2013 Seasonal Influenza Vac., MDV , IM, 0.5 mL (Fluzone) 12/01/2013,11/23/2012 Seasonal Influenza, High Dos e, Trivalent, PF, IM (Fluzone HD) 12/18/2023(Deferred: Patient Refused) Seasonal Influenza, PF, 6 M & above, IM , (FluLaval or Fluzone) 12/03/2016 Seasonal Influenza, Quadriva lent Hd (Fluzone Hd) 12/25/2022,11/10/2021,11/19/2020 Seasonal Influenza, Quadriva lent Hd, 65+ Yrs 12/18/2019 Seasonal Influenza, Quadriva lent, No Preserve, IM 12/09/2014 Seasonal Influenza, Trivalen t, Adjuvanted, 65+ YRS, PF, (Fluad) 12/01/2018,12/09/2017 TD - Tetanus/Diptheria (ADULT) 11/10/2022 TDAP (age 10 and older)(Boostrix) 12/01/2013 Varicella Zoster Vaccine (Adult) 07/15/2013 Zoster Vaccine Recombinant (Shingrix) 03/30/2019 ,12/15/2018 documented as of this encounter Social History Tobacco Use Types Packs/Day Years Used Date Smoking Tobacco: Some Days Cigarettes 1.5 30 Smokeless Tobacco: Never Alcohol Use Standard Drinks/Week Comments No 0 (1 standard drink = 0.6 oz pur e alcohol) PHQ-2 Answer Date Recorded PHQ Adult Total Score 0 03/30/2024 Hunger Vital Sign Answer Date Recorded Within the past 12 months, y ou worried that your food would run out before you got the money to buy more. Never true 03/30/19 25 Within the past 12 months, t he food you bought just didn't last and you didn't have money to get more. Never true 03/30/2024 Childcare Answer Date Recorded Do you feel overwhelmed with taking care of a child, family member or friend? No 03/30/2024 Does your family need help f inding childcare? (Household - for ages 0-17 years) Not on file 03/30/2024 Clothing Answer Date Recorded Have you been unable to get clothing when it was really needed? No 03/30/2024 Is your family able to get c lothes or diapers when needed? (Household - for ages 0-17 years) Not on file 03/30/2024 Personal Safety Answer Date Recorded Do you feel unsafe or have concerns for your saf ety? No 03/30/2024 Do you have concerns for you r family's safety? (Household - for ages 0-17 years) Not on file 03/30/2024 Utilities Answer Date Recorded Do you have trouble paying y our heating, water, or electric bill? No 03/30/2024 Is your family able to pay t he heat, water, or electric bill? (Household - for ages 0-17 years) Not on file 03/30/2024 Does your family have access to good internet? (Household - for ages 0-17 years) Not on file 03/30/2024 Employment Status Answer Date Recorded Are you unemployed or without regular income? No 03/30/2024 Does the household have a re gular source of income? (Household - for ages 0-17 years) Not on file 03/30/2024 Social Connections Answer Date Recorded How often do you feel lonely or isolated from th ose around you? Never 03/30/2024 Financial Resource Strain Answer Date R ecorded Do you have any trouble payi ng for your medications, or do you think you might in the future? No 03/30/2024 Does your family have troubl e paying for medicine? (Household - for ages 0-17 years) Not on file 03/30/2024 Transportation Needs Answer Date Record ed READ ONLY Do you have troubl e getting a ride to medical visits or work? Never True 03/30/2024 Does your family have a hard time getting a ride to doctors visits? (Household - for ages 0-17 years) Not on file 03/30/2024 Has lack of transportation k ept you from medical appointments, meetings, work, or from getting things needed for daily living? Check all that apply. No 03/30/2024 Do you (or your family) have trouble finding or paying for a ride (transportation)? (Household - for ages 0-17 years) Not on file 03/30/2024 Housing Stability Answer Date Recorded Do you currently live in a s helter or have no steady place to sleep at night? No 03/30/2024 READ ONLY Do you think you a re at risk of becoming homeless? No 03/30/2024 Does your family worry about paying for your home or becoming homeless? (Household - for ages 0-17 years) Not on file 0 03/30/2024 Are you homeless or worried that you might be in the future? No 03/30/2024 Are you (or your family) dorian eless or worried that you might be in the future? (Household - for ages 0-17 years) Not on file Food Insecurity Answer Date Recorded Do you need food for this week? No 03/30/2024 Are you able to get enough f ood for your family? (Household - for ages 0-17 years) Not on file 03/30/2024 Does your family need food t his week? (Household - for ages 0-17 years) Not on file 03/30/2024 Do you always have enough fo od for your family? (Household - for ages 0-17 years) Not on file 03/30/2024 Food Insecurity Answer Date Recorded Within the past 12 months, y ou worried that your food would run out before you got the money to buy more. Never true 03/30/19 25 Within the past 12 months, t he food you bought just didn't last and you didn't have money to get more. Never true 03/30/2024 Do you need food for this week? No 03/30/2024 Sex and Gender Information Value Date Recorded Sex Assigned at Male 07/14/2018 2:42 PM EDT Legal Sex Male 5:14 AM EST Gender Identity Male 07/14/2018 2:42 PM EDT Sexual Orientation Straight 07/14/2018 2: 42 PM EDT documented as of this encounter Functional Status * Are you deaf or do you have serious difficulty hearing? Answer Date of Assessment Author No 07/23/2023 1:27 AM Karen Garcia RN * Are you blind or do you have serious difficulty seeing, even when wearing glasses? Answer Date of Assessment Author No 07/23/2023 1:27 AM Karen Garcia RN * Do you have serious difficulty walking or climbing stairs? (5 years old or older) Answer Date of Assessment Author No 07/23/2023 1:27 AM Karen Garcia RN * Do you have difficulty dressing or bathing? (5 years old or older) Answer Date of Assessment Author No 07/23/2023 1:27 AM Karen Garcia RN * Because of a physical, mental, or emotional condition, do you have difficulty doing errands alone such as visiting a doctors office or shopping? (15 years old or older) Answer Date of Assessment Author No 07/23/2023 1:27 AM Karen Garcia RN documented as of this encounter Mental Status * Because of a physical, mental, or emotional condition, do you have serious difficulty concentrating, remembering, or making decisions? (5 years old or older) Answer Entry Date Author No 07/23/2023 1:27 AM EDT Karen Montenegro RN documented in this encounter Miscellaneous Notes * Telephone Encounter - Angeles Luna LPN - 05/25/2024 2:14 PM EDT Phone call to pt to schedule appt for back pain. Pt states "I'm not coming. Bye." and hung up phone. * Telephone Encounter - Krystal Bhakta OSA - 05/22/2024 2:31 PM EDT No Appointments Available What Visit Type is needed? Acute Were surrounding clinics offered? No, explain no appt were available in surrounding area Call Details are required. Please review Patient declined available appointment(s)?: No Were other providers in the clinic offered? N/A Pt was notified of 48 turn around time documented in this encounter Plan of Treatment Upcoming Encounters Date Type Department Care Team ([facility] st Contact Info) Description 06/24/2024 2:45 PM EDT Office Visit Cardiology [facility] [address] [place] [phone] Vero Gee CRNP [address] [place] [address] 06/29/2024 4:40 PM EDT Office Visit Family Practice [facility] [address] [place] [address] Lexie Ball PA-C [address] [place] [address] 07/13/2024 3:20 PM EDT Office Visit [facility] [address] [place] [phone] Sandra Vuong, [address] [place] [address] Health Maintenance Due Date Last Done Comments Diabetic Foot Exam 05/20/1968 Adult Wellness Visit 05/20/2015 COVID-19 Vaccine ( season) 2023 05/17/2020, 04/19/2020 Influenza Vaccine (FLU shot) (#1) 2023 12/25/2022, 11/10/2021, 11/19/2020, Additional history exists HbA1c 01/23/2024 07/23/2023, 07/09, 12/25/2022, Additional history exists Albumin/Creatinine Ratio 07/21/2024 07/22/2023, 05/09 GFR 07/22/2024 07/23/2023, 07/09, 07/22/2023, Additional history exists DISCUSS TOBACCO CESSATION (REFER TO SMARTSET #3293) 12/16/2024 12/17/2023 (Discussed), 08/01/2015 (Discussed) Depression Monitoring 03/30/2025 03/30/2024 Diabetic Eye Exam 05/01/2025 05/01/2024, , 11/03/2013 O2 ASSESSMENT COMPLETED IN PAST YEAR FOR COPD 05/14/2025 05/14/2024 DTap/Tdap Vaccines (3 - Td or Tdap) 11/10/2032 11/10/2022, 11/10/2022, 12/01/2013 Colonoscopy Discontinued 09/05/2018, 05/11, 06/07/2008 Colorectal Cancer Screening Discontinued Pneumococcal Vaccine: 50+ Years Completed 12/15/2018, 12/09/2017, 08/01/2015, Additional history exists Zoster Vaccines Completed 03/30/2019, 09/2018, 07/15/2013 Lung Cancer Screening Completed 06/01/2021 Alpha-1 Antitrypsin Completed 07/22/2023 Cologuard Discontinued Fecal Occult Blood Test Discontinued HPV (Gardasil) Vaccine Aged Out No lo nger eligible based on patient's age to complete this topic Hepatitis B Vaccine Aged Out No longe r eligible based on patient's age to complete this topic MENINGOCOCCAL (MENACTRA/MENVEO) Aged Out No longer eligible based on patient's age to complete this topic Meningitis B Vaccine (Bexsero/Trumemba) Aged Out No longer eligible based on patient's age to complete this topic Sigmoidoscopy Discontinued documented as of this encounter Medical Devices Not on filedocumented as of this encounter Advance Directives * Full Code (Latest Code Status on File) Date Activated Date Inactivated Comments 07/23/2023 1:26 AM 07/23/2023 5:33 PM This order r eflects the patients wishes and were consensually agreed upon. Question Answer Comments Discussion of Advance Directives occurred with: Patient Does the patient have a Living Will? No Does the patient have Health Care Power of Attor rizwana? No * Full Code Date Activated Date Inactivated Comments 07/12/2022 3:05 PM 07/13/2022 4:33 PM This order ref lects the patients wishes and were consensually agreed upon. Question Answer Comments Discussion of Advance Directives occurred with: Patient * Full Code Date Activated Date Inactivated Comments 07/12/2022 10:30 AM 07/12/2022 3:05 PM This order re flects the patients wishes and were consensually agreed upon. Question Answer Comments Discussion of Advance Directives occurred with: Patient Healthcare Agents on File Name Relationship Healthcare Agent Relationshi p Communication Jam Angellatesha Cousin First Alternate Health Care Agent (per Health Care Power of Glass Beveler document) Care Teams Pigment Pusher Relationship Specialty Start Date End Date Julia Harman MD [address] [place] [phone] PCP - General Family Medicine 06/15/23 documented as of this encounter
--- OUTSIDE RECORDS SUMMARY | 2024-05-26 06:28 | External Medical Summary | Summary of Care ---
Author Name Unknown Organization [facility] Address [address] [place] [address] Phone [phone] Care Team Providers Care Data Management Specialist Name Role Phone Julia Harman MD Primary Care Provi radhika Reason for Visit * Reason Onset Date Comments Scheduling 05/25/2024 Encounter Details Date Type Department Care Team ([facility] st Contact Info) Description 05/25/2024 Telephone Family [address] [phone] Julia Harman MD [address] [place] [phone] Scheduling Allergies Active Allergy Reactions Criticality Noted Date Comments Sulfamethoxazole-Trimethoprim Hives 2021 denies documented as of this encounter (statuses as of 05/25/2024) Medications CPAP every night at bedtime. 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 30 mL 12 5 3:38 PM EST 03/27/19 25 Active Nystatin 214817 UNIT/GM External Powder (Nystop)Indications :Intertrigo Apply topically [...] (05/16/2022): Added automatically from request for surgery [id number] Decreased hearing of both ears 11/11/2021 Wears [...] (Prevnar) 12/09/2017,08/01/2015 Pneumococcal Conjugate Vacci ne, 20-valent ([id number]) 12/18/2023(Deferred: Patient Refused) Pneumococcal Polysaccharide PPV23 (Pneumovax) [...] encounter Miscellaneous Notes * Telephone Encounter - Francine Adame TECH - 05/25/2024 2:20 PM EDT Patient calling to request new PCP. Transferred pt to scheduling for further assistance. Thank you, Francine Adame [employer] [facility] 05/25/2024, 2:21 PM documented in this encounter Plan of Treatment Upcoming Encounters Date Type Department Care Team ([facility] st Contact Info) Description 06/24/2024 2:45 PM EDT Office Visit Cardiology [facility] [address] [place] [phone] Vero Gee CRNP [address] [place] [address] 06/29/2024 4:40 PM EDT Office Visit Family Practice [facility] [address] [place] [phone] Lexie Ball PA-C [address] [place] [address] 07/13/2024 3:20 PM EDT Office Visit [facility] Disorders Ctr [facility] [address] [place] [phone] Sandra Vuong, [address] [place] [address] Health Maintenance Due Date Last Done Comments Diabetic Foot Exam 05[birth year]20/1968 Adult Wellness Visit 05/20/2015 COVID-19 Vaccine ( season) 2023 05/17/2020, 04/19/2020 Influenza Vaccine (FLU shot) (#1) 2023 12/25/2022, 11/10/2021, 11/19/2020, Additional history exists HbA1c 01/23/2024 07/23/2023, 07/09, 12/25/2022, Additional history exists Albumin/Creatinine Ratio 07/21/2024 07/22/2023, 05/09 GFR 07/22/2024 07/23/2023, 07/09, 07/22/2023, Additional history exists DISCUSS TOBACCO CESSATION (REFER TO SMARTSET #3291) 12/16/2024 12/17/2023 (Discussed), 08/01/2015 (Discussed) Depression Monitoring [...] Agents on File Name Relationship [facility] Jam Rachel Cousin First Alternate Health Care Agent (per Health Care Power of Administrative Resources Associate document) Care Teams Data Management Specialist Relationship Specialty Start Date End Date Julia Harman MD [address] [place] [phone] PCP - General Family Medicine 06/15/23 documented as of this encounter
--- OUTSIDE RECORDS SUMMARY | 2024-05-26 06:28 | External Medical Summary ---
Author Name Unknown Address Unknown Organization [id number] [address] [place] [address] Laboratory Report Ordering Provider Test Date Status PADMINI ALVARADO 05/23/2024 19:50:00 Jess l Observation Date Value Abnormality Reference (Units ) Status aPTT 05/23/2024 20:13 39.0 Above high normal 22.6- 34.3 (SEC) Final Performing Location [facility] [address] [place] [address]
--- OUTSIDE RECORDS SUMMARY | 2024-05-26 06:28 | External Medical Summary ---
Author Name Unknown Address Unknown Organization R4H:[facility] [address] [address] Laboratory Report Ordering Provider Test Date Status YANIV MEDARDOAVISJOSEFINA 05/23/2024 19:50:00 Jess l Observation Date Value Abnormality Reference (Units ) Status WBC 05/23/2024 20:04 12.9 Above high normal 4.0-9.1 (X10E+09/L) Final RBC 05/23/2024 20:04 3.72 Below low normal 4.6-6.1 (X10E+12/L) Final Hemoglobin 05/23/2024 20:04 9.1 Below low normal 13.4-17.5 (g/dL) Final Hematocrit 05/23/2024 20:04 28.5 Below low normal 40.0-51.0 (%) Final MCV 05/23/2024 20:04 76.7 Below low normal 79-92 (fL) Final MCH 05/23/2024 20:04 24.4 Below low normal 26.0-32.0 (pg) Final MCHC 05/23/2024 20:04 31.9 Below low normal 32-37 (g/dL) Final Platelets 05/23/2024 20:04 342 Above high normal 150-330 (X10E+09/L) Final RDW 05/23/2024 20:04 18.0 Above high normal 11.6-14.4 (%) Final Neutrophils 05/23/2024 20:04 67.1 34.0-67.9 (%) Final Lymphocytes 05/23/2024 20:04 20.9 Below low normal 21.8-53.1 (%) Final Monocytes 05/23/2024 20:04 7.6 5.3-12.2 (%) Final Eosinophils 05/23/2024 20:04 3.7 0.8-7.0 (%) Final Basophils 05/23/2024 20:04 0.7 0.1-1.2 (%) Final Absolute Neutrophils 05/23/2024 20:04 8.70 Above high normal 1.6-6.1 (X10E+09/L) Final Absolute Lymphocytes 05/23/2024 20:04 2.70 1.3-3.6 (X10e+03/uL) Final Absolute Monocytes 05/23/2024 20:04 1.00 Above high normal 0.3-0.8 (X10E+09/L) Final Absolute Eosinophils 05/23/2024 20:04 0.50 0.00-0.50 (X10E+09/L) Final Absolute Basophils 05/23/2024 20:04 0.10 0.00-0.10 (X10E+09/L) Final Performing Location [facility] [address] [address]
--- OUTSIDE RECORDS SUMMARY | 2024-05-26 06:28 | External Medical Summary ---
Author Name Unknown Address Unknown Organization R4LH:[facility] [address] [address] Laboratory Report Ordering Provider Test Date Status PADMINI ALVARADO 05/23/2024 20:51:00 Jess l Observation Date Value Abnormality Reference (Units ) Status High Sensitivity Troponin I 05/23/2024 21:16 3 <18 (ng/L) Final H[employer] Access hs-Tro ponin I assay Performing Location [facility] [address] [address]
--- OUTSIDE RECORDS SUMMARY | 2024-05-26 06:28 | External Medical Summary ---
Author Name Unknown Address Unknown Organization R4LH:[facility] [address] [address] Laboratory Report Ordering Provider Test Date Status PADMINI ALVARADO 05/23/2024 19:50:00 Jess l Observation Date Value Abnormality Reference (Units ) Status Prothrombin Time 05/23/2024 20:12 16.5 Above high garcia l 11.9-14.5 (Sec) Final INR 05/23/2024 20:12 1.3 Fin al Performing Location [facility] [address] [address]
--- OUTSIDE RECORDS SUMMARY | 2024-05-26 06:28 | External Medical Summary ---
Author Name Unknown Address Unknown Organization R4LH:[facility] [address] [address] Laboratory Report Ordering Provider Test Date Status PADMINI ALVARADO 05/23/2024 19:50:00 Jess l Observation Date Value Abnormality Reference (Units ) Status B-Type Natriuretic Peptide 05/23/2024 20:27 318 Above high normal <100 (pg/mL) Final Less than 100 pg/mL: heart f ailure is improbable. Greater than 100 pg/mL; heart failure is increasingly probable. At levels greater than 500 pg/mL; heart failure is the most likely diagnosis. BNP results should always be interpreted in the context of other clinical information, especially in the range between 100 and 500 pg/mL. *NEJM 350, No.7; [id number]; 04/22/03 Performing Location [facility] [address] [address]
--- OUTSIDE RECORDS SUMMARY | 2024-05-26 06:29 | External Medical Summary | Summary of Care ---
Author Name Unknown Organization [facility] Address [address] [place] [address] Phone [phone] Care Team Providers Care Supervisor Vegetable Farming Name Role Phone Julia Harman MD Primary Care Provi radhika Reason for Visit * Reason Onset Date Comments Information 05/11/2024 DM eye Encounter Details Date Type Department Care Team ([facility] st Contact Info) Description 05/11/2024 Telephone Family [address] [phone] Julia Harman MD [address] [place] [phone] Information (DM eye) Allergies Active Allergy Reactions Criticality Noted Date Comments Sulfamethoxazole-Trimethoprim Hives 2021 denies documented as of this encounter (statuses as of 05/12/2024) Medications CPAP every night at bedtime. Active Nicotine 7 MG/24HR Transdermal Patch 24 Hour (Nicoderm CQ)Indications:Toba manager account management use disorder One 7 mg patch daily for 2 weeks; Remove old patch daily; and then stop. 14 Patch 1 07/16/19 24 Active Additional Information Patient not taking.Reported on 05/01/2024 Nitroglycerin 0.4 MG Sublingual Tablet Sublingual (Nitrostat) [...] Tablet 1 03/25/19 25 Active Saline Nasal Dexter 0.65 % Nasal Solution (SM Nasal Dexter Saline)Indications: Nasal dryness Administer 1 Dexter into nostril as needed for Congestion. 30 mL 12 5 3:38 PM EST 03/27/19 25 Active Additional Information Patient not taking.Reported on 04/09/2024 Nystatin 372337 UNIT/GM External Powder (Nystop)Indications :Intertrigo Apply topically [...] WHEEZING 54 g 3 05/01/19 25 Active Cephalexin 500 MG Oral Capsule (Keflex)Indications :Nasal vestibulitis Take 1 Capsule by mouth in the morning and 1 Capsule at noon and 1 Capsule before bedtime. 21 Capsule 5 3:44 PM EST 05/01/19 25 Active Mupirocin 2 % External Ointment (Bactroban)Indicati ons:Nasal vestibulitis Apply topically to affected area 2 times a day. 22 g 5 3:44 PM EST 05/01/19 25 Active Famotidine 40 MG Oral Tablet (Pepcid)Indications :Gastroesophageal reflux disease without esophagitis Take 1 Tablet by mouth every night at bedtime. 90 Tablet 05/06/19 25 Active documented as of this encounter (statuses as of 05/12/2024) Active Problems Problem Noted Date Diagnosed Date [...] (05/16/2022): Added automatically from request for surgery [id number] Decreased hearing of both ears 11/11/2021 Wears [...] as of this encounter (statuses as of 05/12/2024) Resolved Problems Problem Noted Date Diagnosed Date Resolved Date SOB (shortness of breath) 10/21/2023 Acute CHF (congestive heart failure) 07/23/2023 08/09/2023 ELFEGO (acute kidney injury) 07/23/2023 Leukocytosis 07/23/2023 12/11/2023 Chest pain 07/23/2023 07/29/2023 Depression, unspecified 07/16/2023 0507/2023 Overview (07/24/2023): A more specified dx for [...] as of this encounter (statuses as of 05/12/2024) Immunizations Name Administration Dates Next Due COVID-19 mRNA, LNP-s, No Pre serve, 2-Dose Series (Moderna) 05/17/2020,04/19/2020 Pneumococcal Conjugate Vacc, 13 Valent (Prevnar) 12/09/2017,08/01/2015 Pneumococcal Conjugate Vacci ne, 20-valent ([id number]) 12/18/2023(Deferred: Patient Refused) Pneumococcal Polysaccharide PPV23 (Pneumovax) [...] encounter Miscellaneous Notes * Telephone Encounter - Yessenia Mullen LPN - 05/11/2024 3:34 PM EST Patient with a positive Diabetic Retinopathy scan OR uninterpretable Diabetic Retinopathy exam. Theimages are not able to be interpreted. Outreach action taken: Left Message Yessenia Mullen LPN documented in this encounter Plan of Treatment Upcoming Encounters Date Type Department Care Team ([facility] Contact Info) Description 05/22/2024 2:15 PM EDT Office Visit Podiatry [facility] [address] [facility] [address] [place] [phone] Drew Carbajal, LEOBARDO [address] [place] [address] 06/24/2024 2:45 PM EDT Office Visit Cardiology [address] [place] [phone] Vero Gee CRNP [address] [place] [address] 06/29/2024 4:40 PM EDT Office Visit Family Practice [facility] [address] [place] [address] Lexie Ball PA-C [address] [place] [address] 07/13/2024 3:20 PM EDT Office Visit Sleep Disorders Ctr [facility] [address] [phone] Sandra Vuong, [address] [address] Health Maintenance Due Date Last Done Comments Diabetic Foot Exam 05/20/1967 Cologuard 1994 Fecal Occult Blood Test 1994 Sigmoidoscopy 1994 Adult Wellness Visit 05/20/2015 COVID-19 Vaccine ( [...] ASSESSMENT COMPLETED IN PAST YEAR FOR COPD 05/01/2025 05/01/2024 Lipid Panel 07/21/2028 07/22/2023, 03/12, 08/24/2020, Additional history exists Colonoscopy 09/05/2028 09/05/2018, 05/11, 06/07/2008 Colorectal Cancer Screening 09/05/2028 DTap/Tdap Vaccines (3 - Td or Tdap) 11/10/2032 11/10/2022, 11/10/2022, 12/01/2013 Pneumococcal Vaccine: 50+ Years Completed 12/15/2018, 12/09/2017, 08/01/2015, Additional history exists Zoster Vaccines Completed 03/30/2019, 09/2018, 07/15/2013 AAA Screening Completed 12/09/2020, 07/10, 08/06/2018, Additional history exists Lung Cancer Screening Completed 06/01/2021 Alpha-1 Antitrypsin Completed 07/22/2023 HPV (Gardasil) Vaccine Aged Out No lo [...] on patient's age to complete this topic documented as of this encounter Medical Devices [...] Agents on File Name Relationship [facility] Jam Rachel Cousin First Alternate Health Care Agent (per Health Care Power of Internet Manager document) Care Teams Supervisor Vegetable Farming Relationship Specialty Start Date End Date Julia Harman MD [address] [place] [phone] PCP - General Family Medicine 06/15/23 documented as of this encounter
--- OUTSIDE RECORDS SUMMARY | 2024-05-26 06:29 | External Medical Summary ---
Author Name Unknown Address Unknown Organization R4H:[facility] [address] [address] Laboratory Report Ordering Provider Test Date Status AVIS ALVARADOJOSEFINA 05/23/2024 19:50:00 Jess l Observation Date Value Abnormality Reference (Units ) Status Glucose 05/23/2024 20:18 226 Above high normal 70-99 (mg/dL) Final BUN 05/23/2024 20:18 20 Above high normal 7-18 (mg/dL) Final Creatinine 05/23/2024 20:18 1.07 0.60-1.30 (m g/dL) Final eGFR 05/23/2024 20:18 72 >59 (mL/min/1 .73m2) Final eGFR = 142 X [min(Scr/k,1)]* *a [max(Scr/k,1)-1.200x0.9938age X 1.012 [if female] Where Scr is serum creatinine; k is 0.7 for females and 0.9 males; a is -0.241 for females and -0.302 for males; min indicates the minimum of Scr/k or 1, max indicates the maximum of Scr/k or 1 Sodium 05/23/2024 20:18 138 136-145 (mmol /L) Final Potassium 05/23/2024 20:18 4.3 3.6-5.0 (mmol /L) Final Chloride 05/23/2024 20:18 104 101-111 (mmol /L) Final CO2 05/23/2024 20:18 21 21-31 (mmol/L ) Final Anion Gap 05/23/2024 20:18 17 Above high normal 6-16 (mmol/L) Final Calcium 05/23/2024 20:18 8.7 8.4-10.5 (mg/ dL) Final Total Protein 05/23/2024 20:18 6.7 6.0-8.3 ( g/dL) Final Albumin 05/23/2024 20:18 3.3 3.2-5.5 (g/dL ) Final Bilirubin, Total 05/23/2024 20:18 0.3 0.2-1. 0 (mg/dL) Final AST 05/23/2024 20:18 21 10-42 (U/L) F inal ALT 05/23/2024 20:18 16 10-60 (U/L) F inal Alkaline Phosphatase 05/23/2024 20:18 92 42 -121 (U/L) Final Performing Location [facility] [address] [place] [address]
--- OUTSIDE RECORDS SUMMARY | 2024-05-26 06:29 | External Medical Summary | Summary of Care ---
Author Name Unknown Organization [facility] Address [address] [place] [address] Phone [phone] Care Team Providers Care School Speech Language Pathologist Name Role Phone Julia Veras MD Primary Care Provi radhkia Reason for Visit * Reason Comments eRx-Medication Refill Encounter Details Date Type Department Care Team ([facility] Contact Info) Description 05/04/2024 Refill Family Practice [address] [phone] Julia Veras MD [address] [place] [phone] Gastroesophageal reflux disease without esophagitis Allergies Active Allergy Reactions Criticality Noted Date Comments Sulfamethoxazole-Trimethoprim Hives 2021 denies documented as of this encounter (statuses as of 05/06/2024) Medications CPAP every night at bedtime. Active Nicotine 7 MG/24HR Transdermal Patch 24 Hour (Nicoderm CQ)Indications:Tob acco use disorder One 7 mg patch daily for 2 weeks; Remove old patch daily; and then stop. 14 Patch 1 Active Additional Information Patient not taking.Reported on 05/01/2024 Nitroglycerin 0.4 MG Sublingual Tablet Sublingual (Nitrostat) Place 1 Tablet under the tongue as needed for Pain, Chest. Maximum 3 doses. 30 Tablet Active Folic Acid 1 MG Oral TabletIndications: Folic acid deficiency Take 1 Tablet by mouth in the morning. 90 Tablet 3 024 Active Montelukast Sodium 10 MG Oral Tablet (Singulair)Indicat ions:Allergic rhinitis TAKE ONE TABLET BY MOUTH EVERY DAY AT BEDTIME 100 Tablet 3 024 Active Atorvastatin Calcium 40 MG Oral Tablet (Lipitor)Indicatio ns:SOB (shortness of breath),Aortic root enlargement (HCC) Take 1 Tablet by mouth in the morning. 100 Tablet 3 024 Active Levocetirizine Dihydrochloride 5 MG Oral Tablet Take 0.5 Tablets by mouth every evening. 90 Tablet 1 024 Active Furosemide 40 MG Oral Tablet (Lasix)Indications :Chronic heart failure with preserved ejection fraction (HCC) Take 1.5 Tablets by mouth in the morning. 45 Tablet 5 024 Active Potassium Chloride ER 10 MEQ Oral Tablet Extended Release Take 1 Tablet by mouth in the morning. 90 Tablet 1 024 Active Eliquis 5 MG Oral Tablet (Apixaban)Indicati ons:Atrial fibrillation, unspecified type (HCC) Take 1 Tablet by mouth in the morning and 1 Tablet before bedtime. 60 Tablet 5 024 Active amLODIPine Besylate 5 MG Oral Tablet (Norvasc) Take 1 Tablet by mouth in the morning. 90 Tablet 1 024 Active fluvoxaMINE Maleate 100 MG Oral Tablet (Luvox) TAKE ONE TABLET BY MOUTH EVERY DAY AT BEDTIME 90 Tablet 1 024 Active Metoprolol Tartrate 50 MG Oral Tablet (Lopressor)Indicat ions:Persistent atrial fibrillation (HCC) Take 1 Tablet by mouth in the morning and 1 Tablet before bedtime. 90 Tablet 1 025 Active Saline Nasal [place] 0.65 % Nasal Solution (SM Nasal [place] Saline)Indications :Nasal dryness Administer 1 [place] into nostril as needed for Congestion. 30 mL 12 03/27/19 25 3:38 PM EST 025 Active Additional Information Patient not taking.Reported on 04/09/2024 Nystatin [id number] UNIT/GM External Powder (Nystop)Indication s:Intertrigo Apply topically to affected area 3 times a day. Apply to lower abdomen 15 g 025 Active QUEtiapine Fumarate 25 MG Oral Tablet (SEROquel)Indicati ons:Insomnia, unspecified type Take 2 Tablets by mouth at bedtime. 60 Tablet 2 025 Active Esomeprazole Magnesium 40 MG Oral Capsule Delayed Release Take 1 Capsule by mouth daily before breakfast. 90 Capsule 3 025 Active Budesonide-Formote rol Fumarate 160-4.5 MCG/ACT Inhalation Aerosol (Symbicort)Indicat ions:COPD, moderate (HCC) inhale 2 puffs by mouth in the morning and 2 puffs before bedtime 30.6 g 3 025 Active Albuterol Sulfate HFA 108 (90 Base) MCG/ACT Inhalation Aerosol SolutionIndication s:COPD, moderate (HCC) INHALE TWO PUFFS BY MOUTH EVERY FOUR HOURS NEEDED FOR WHEEZING 54 g 3 025 Active Cephalexin 500 MG Oral Capsule (Keflex)Indication s:Nasal vestibulitis Take 1 Capsule by mouth in the morning and 1 Capsule at noon and 1 Capsule before bedtime. 21 Capsule 05/01/19 25 3:44 PM EST 025 Active Mupirocin 2 % External Ointment (Bactroban)Indicat ions:Nasal vestibulitis Apply topically to affected area 2 times a day. 22 g 05/01/19 25 3:44 PM EST 025 Active Famotidine 40 MG Oral Tablet (Pepcid)Indication s:Gastroesophageal reflux disease without esophagitis Take 1 Tablet by mouth every night at bedtime. 90 Tablet 025 Active Famotidine 40 MG Oral Tablet (Pepcid)Indication s:Gastroesophageal reflux disease without esophagitis Take 1 Tablet by mouth every night at bedtime. 90 Tablet 2 024 2024 Discontinued documented as of this encounter (statuses as of 05/06/2024) Active Problems Problem Noted Date Diagnosed Date [...] (05/16/2022): Added automatically from request for surgery [id number] Decreased hearing of both ears 11/11/2021 Wears [...] as of this encounter (statuses as of 05/06/2024) Resolved Problems Problem Noted Date Diagnosed Date [...] as of this encounter (statuses as of 05/06/2024) Immunizations Name Administration Dates Next Due COVID-19 mRNA, LNP-s, No Pre serve, 2-Dose Series (Moderna) 05/17/2020,04/19/2020 Pneumococcal Conjugate Vacc, 13 Valent (Prevnar) 12/09/2017,08/01/2015 Pneumococcal Conjugate Vacci ne, 20-valent ([id number]) 12/18/2023(Deferred: Patient Refused) Pneumococcal Polysaccharide PPV23 (Pneumovax) [...] 03/30/2024 Does the household have a re lar source of income? (Household - for ages [...] of Assessment Author No 07/23/2023 1:27 AM EDT Karen Montenegro, RN * Are you blind or do you have serious difficulty seeing, even when wearing glasses? Answer Date of Assessment Author No 07/23/2023 1:27 AM EDT Karen Montenegro, RN * Do you have serious difficulty walking or climbing stairs? (5 years old or older) Answer Date of Assessment Author No 07/23/2023 1:27 AM YELENAT Karen Montenegro, RN * Do you have difficulty dressing or bathing? (5 years old or older) Answer Date of Assessment Author No 07/23/2023 1:27 AM Karen Garcia, RN * Because of a physical, mental, or emotional condition, do you have difficulty doing errands alone such as visiting a doctors office or shopping? (15 years old or older) Answer Date of Assessment Author No 07/23/2023 1:27 AM EDT Karen Montenegro, RN documented as of this encounter Mental Status * Because of a physical, mental, or emotional condition, do you have serious difficulty concentrating, remembering, or making decisions? (5 years old or older) Answer Entry Date Author No 07/23/2023 1:27 AM EDT Karen Montenegro RN documented in this encounter Miscellaneous Notes * Telephone Encounter - Katherine Aguirre RP - 05/06/2024 2:23 PM EST Signed Prescriptions: Disp Refills Famotidine 40 MG Oral Tablet (Pepcid) 90 Tab*0 Sig: Take 1 Tablet by mouth every night at bedtime.Authorizing Provider: JULIA VERAS User: KATHERINE AGUIRRE * Telephone Encounter - Katherine Aguirre RPh - 05/06/2024 2:23 PM EST RX authorized for this fill only as pt will be due for labs around the time of next refill . Zero additional refills given until upcoming appt. 06/29/2024 Thank you, Katherine Aguirre, PharmD Clinical Pharmacist [facility] 05/06/24 2:23 PM [phone] documented in this encounter Plan of Treatment Upcoming Encounters Date Type Department Care Team (Late st Contact Info) Description 05/22/2024 2:15 PM EDT Office Visit Podiatry [address] [place] [address] Drew Carbajal, LEOBARDO [address] [place] [address] 06/24/2024 2:45 PM EDT Office Visit Cardiology [facility] [address] [facility] [address] [place] [phone] Vero Gee CRNP [address] [place] [address] 06/29/2024 4:40 PM EDT Office Visit Family Practice [facility] [address] [place] [phone] Lexie Ball PA-C [address] [place] [address] 07/13/2024 3:20 PM EDT Office Visit Sleep Disorders Ctr [facility] [address] [phone] Sandra Vuong, [address] [address] Health Maintenance Due Date Last Done Comments [...] exists DISCUSS TOBACCO CESSATION (REFER TO SMARTSET #[id number]) 12/16/2024 12/17/2023 (Discussed), 08/01/2015 (Discussed) Depression Monitoring [...] Not on filedocumented as of this encounter Visit Diagnoses Diagnosis Tobacco use disorder- Primary Body mass index (BMI) 40.0-44.9, adult (HCC) Anxiety state Anxiety state, unspecified Persistent atrial fibrillation (HCC) Atrial fibrillation COPD, group C, by GOLD 2017 classification (HCC) ARMIDA (obstructive sleep apnea) Obstructive sleep apnea (adult) (pediatric) Hyperlipidemia with target LDL less than 130 Other and unspecified hyperlipidemia Gastroesophageal reflux disease without esophagitis Esophageal reflux Benign prostatic hyperplasia (BPH) with straining on urination Tobacco use disorder- Primary Moderate episode of recurrent major depressive disorder (HCC) Diabetes mellitus without complication (HCC) Type II or unspecified type diabetes mellitus without mention of complication, not stated as uncontrolled Chronic heart failure with preserved ejection fraction (HCC) Persistent atrial fibrillation (HCC) Atrial fibrillation COPD, group C, by GOLD 2017 classification (HCC) Skin lesion- Primary Unspecified disorder of skin and subcutaneous tissue Chronic heart failure with preserved ejection fraction (HCC) Persistent atrial fibrillation (HCC) Atrial fibrillation COPD, group C, by GOLD 2017 classification (HCC) Tobacco use disorder Gastroesophageal reflux disease without esophagitis Esophageal reflux documented in this encounter Advance Directives * Full Code [...] Agents on File Name Relationship Healthcare Agent [facility] p Communication Jam Rachel Cousin First Alternate Health Care Agent (per Health Care Power of Simulation Analyst document) Care Teams School Speech Language Pathologist Relationship Specialty Start Date End Date Julia Veras MD [address] [place] [phone] PCP - General Family Medicine 06/15/23 documented as of this encounter
--- OUTSIDE RECORDS SUMMARY | 2024-05-26 06:29 | External Medical Summary | Summary of Care ---
Author Name Unknown Organization [facility] Address [address] [place] [address] Phone [phone] Care Team Providers Care Student Records Coordinator Name Role Phone Julia Harman MD Primary Care Provi radhika Reason for Visit * Reason Comments Acute Pt reports a head co ld and a lot of sneezing. Encounter Details Date Type Department Care Team ([facility] Contact Info) Description 05/14/2024 2:00 PM EST Office Visit [facility] [address] [place] [phone] Megan Coker PA-C [address] [place] [address] Risk and functional assessment*; Sinobronchitis Allergies Active Allergy Reactions Criticality Noted Date Comments Sulfamethoxazole-Trimethoprim Hives 2021 denies documented as of this encounter (statuses as of 05/14/2024) Medications CPAP every night at bedtime. Active Nicotine 7 MG/24HR Transdermal Patch 24 Hour (Nicoderm CQ)Indications:Toba tobacco scrap sifter use disorder One 7 mg patch daily [...] Tablet 1 03/25/19 25 Active Saline Nasal [place] 0.65 % Nasal Solution (SM Nasal [place] Saline)Indications: Nasal dryness Administer 1 [place] into nostril as needed for Congestion. 30 mL 12 5 3:38 PM EST 03/27/19 25 Active Nystatin 793968 UNIT/GM External Powder (Nystop)Indications :Intertrigo Apply topically [...] at bedtime. 90 Tablet 05/06/19 25 Active Azithromycin 250 MG Oral Tablet (Zithromax Z-Eder)Indications:S inobronchitis Take two tablets by mouth on first day, then 1 tablet daily until gone 6 Tablet 5 2:21 PM EST 05/15/19 25 Active predniSONE 20 MG Oral Tablet (Deltasone)Indicati ons:Sinobronchitis Take 2 Tablets by mouth in the morning for 5 days. 10 Tablet 5 2:21 PM EST 05/15/19 25 025 Active GNP Earwax Removal Drops 6.5 % Otic Solution (Carbamide Peroxide)Indication s:Impacted cerumen of right ear Administer 4 Drops to the right ear in the morning and 4 Drops before bedtime. Do all this for 5 days. Fill ear canal and insert cotton plug. Remove plug after 15 to 30 minutes.. 15 mL 5 4:20 PM EST 04/16/19 25 025 Discontin ued(Medic ation List Clean Up) Cephalexin 500 MG Oral Capsule (Keflex)Indications :Nasal vestibulitis Take 1 Capsule by mouth in the morning and 1 Capsule at noon and 1 Capsule before bedtime. 21 Capsule 5 3:44 PM EST 05/01/19 25 025 Discontin ued(Medic ation List Clean Up) documented as of this encounter (statuses as of 05/14/2024) Active Problems Problem Noted Date Diagnosed Date Nonrheumatic mitral valve regurgitation 01/14/20 24 Hypertensive heart disease with congestive heart failure 12/30/2023 PAF (paroxysmal atrial fibrillation) 10/21/2023 Aortic root enlargement 10/21/2023 Diabetes mellitus without complication Assessment & Plan (10/18/2023 3:00 PM EDT): A1C has been slowly trending up. Now at 7.0 Ascending aortic aneurysm 08/09/2023 Nonrheumatic aortic valve insufficiency 08/09/19 Chronic heart failure with preserved ejection fr action 08/09/2023 Assessment & Plan (10/30/2023 1:49 PM EDT): Lasix 40mg daily Assessment & Plan (10/18/2023 3:00 PM EDT): Lasix 40mg daily Body mass index (BMI) 40.0-44.9, adult 4 Assessment & Plan (07/17/2023 8:49 AM EDT): [...] (05/16/2022): Added automatically from request for surgery [id number] Decreased hearing of both ears 11/11/2021 Wears [...] as of this encounter (statuses as of 05/14/2024) Resolved Problems Problem Noted Date Diagnosed Date [...] as of this encounter (statuses as of 05/14/2024) Immunizations Name Administration Dates Next Due COVID-19 mRNA, LNP-s, No Pre serve, 2-Dose Series (Moderna) 05/17/2020,04/19/2020 Pneumococcal Conjugate Vacc, 13 Valent (Prevnar) 12/09/2017,08/01/2015 Pneumococcal Conjugate Vacci ne, 20-valent ([id number]) 12/18/2023(Deferred: Patient Refused) Pneumococcal Polysaccharide PPV23 (Pneumovax) [...] PM EDT documented as of this encounter Last Filed Vital Signs Vital Sign Reading Time Taken Comments Blood Pressure 111/68 05/14/2024 1:54 PM EST Pulse 57 05/14/2024 1:54 PM EST Temperature 36.7 C (98.1 F) 05/14/2024 1:54 PM ES T Respiratory Rate 18 05/14/2024 1:54 PM EST Oxygen Saturation 98% 05/14/2024 1:54 PM EST Inhaled Oxygen Concentration - - Weight 119.3 kg (263 lb) 05/14/2024 1:54 PM EST Height - - Body Mass Index 42.47 03/27/2024 2:51 PM EST documented in this encounter Functional Status * Are you [...] Entry Date Author No 07/23/2023 1:27 AM Karen Garcia RN documented in this encounter Patient Instructions * Patient Instructions* Pamela Mims, MED ASSIST - 05/14/2024 1:57 PM EST Treating Urinary Incontinence in Men (This education is for all patients over 65 regardless of symptoms) You can't always control the release of urine. You may leak urine. Or you may not be able to hold your urine until you can get to a bathroom. This is called urinary incontinence. The problem can be managed. Talk to your doctor about your treatment options. Taking Medications Prescription medications may help you. They may: Help the sphincter to work better. (This is the muscle that closes to keep urine from leaking out of the bladder.) Help stop the bladder from meggan too often to push urine out. Help the bladder muscles contract with more force. Help relax the sphincter muscle and allow urine to flow more freely. Making Changes to Your Routine Certain changes in your daily routine may help. These include: Avoiding caffeine and alcohol. Using timed voiding. This is following a schedule for drinking fluids and urinating. Doing Kegel exercises daily. These exercises involve tightening the muscles in your sphincter and around your bladder to help strengthen them. Your doctor can explain how to do them. Using a Catheter A catheter is a narrow tube that is inserted through the urethra into the bladder. It drains urine.A condom catheter covers the penis. It channels urine into a collection bag. It is worn most of thetime. Intermittent catheterization means inserting a catheter to drain the bladder, then removing it. This is done on a regular schedule. Having Surgery If other options don't work, surgery may be recommended. If surgery is an option, your healthcare provider can discuss it with you and explain its risks and benefits. Healing After Prostate Surgery Surgery on the prostate gland can cause incontinence. Most often, the incontinence is only for a short time. It clears up when healing is complete. Very rarely, prostate surgery can result in permanent incontinence. documented in this encounter Progress Notes * Megan Coker PA-C - 05/14/2024 2:10 PM EST Images from the original note were not included. History of Present Illness Gaurav Hall is a 73 year old male that presents for Acute (Pt reports a head cold and a lot of sneezing. ) Pt here today for evaluation cough and congestion. Pt states that it started last week. Pt states that productive cough is getting worse. Pt denies any fever. He does admit to some slight shortness of breath. He states that he does not feel himself. Azithromycin 250 MG Oral Tablet (Zithromax Z-Eder) predniSONE 20 MG Oral Tablet (Deltasone) Famotidine 40 MG Oral Tablet (Pepcid) Albuterol Sulfate HFA 108 (90 Base) MCG/ACT Inhalation Aerosol Solution Budesonide-Formoterol Fumarate 160-4.5 MCG/ACT Inhalation Aerosol (Symbicort) Mupirocin 2 % External Ointment (Bactroban) Esomeprazole Magnesium 40 MG Oral Capsule Delayed Release Nystatin 264565 UNIT/GM External Powder (Nystop) QUEtiapine Fumarate 25 MG Oral Tablet (SEROquel) Saline Nasal [place] 0.65 % Nasal Solution (SM Nasal [place] Saline) Metoprolol Tartrate 50 MG Oral Tablet (Lopressor) fluvoxaMINE Maleate 100 MG Oral Tablet (Luvox) amLODIPine Besylate 5 MG Oral Tablet (Norvasc) Eliquis 5 MG Oral Tablet (Apixaban) Potassium Chloride ER 10 MEQ Oral Tablet Extended Release Furosemide 40 MG Oral Tablet (Lasix) Levocetirizine Dihydrochloride 5 MG Oral Tablet Atorvastatin Calcium 40 MG Oral Tablet (Lipitor) Montelukast Sodium 10 MG Oral Tablet (Singulair) Folic Acid 1 MG Oral Tablet Nitroglycerin 0.4 MG Sublingual Tablet Sublingual (Nitrostat) CPAP Cephalexin 500 MG Oral Capsule (Keflex) Nicotine 7 MG/24HR Transdermal Patch 24 Hour (Nicoderm CQ) Review of patient's allergies indicates: Allergen Reactions Bactrim [Sulfamethoxazole-Trimethoprim] Hives denies Patient Active Problem List Diagnosis Date Noted Nonrheumatic mitral valve regurgitation [I34.0] 01/14/2024 Hypertensive heart disease with congestive heart failure (HCC) [I11.0] 12/30/2023 PAF (paroxysmal atrial fibrillation) ([facility]) [I48.0] 10/21/2023 Aortic root enlargement ([facility]) [I77.89] 10/21/2023 Diabetes mellitus without complication ([facility]) [E11.9] 10/18/2023 Ascending aortic aneurysm ([facility]) [I71.21] 08/09/2023 Nonrheumatic aortic valve insufficiency [I35.1] 08/09/2023 Chronic heart failure with preserved ejection fraction ([facility]) [I50.32] 08/09/2023 Body mass index (BMI) 40.0-44.9, adult ([facility]) [Z68.41] 07/16/2023 Persistent atrial fibrillation ([facility]) [I48.19] 07/01/2023 COPD, group C, by GOLD 2017 classification ([facility]) [J44.9] 06/18/2022 Per COPD GOLD Classification BPH (benign prostatic hyperplasia) [N40.0] 05/16/2022 Added automatically from request for surgery [id number] Decreased hearing of both ears [H91.93] 11/11/2021 Wears dentures [Z97.2] 01/01/2020 Anxiety state [F41.1] 03/17/2019 Moderate episode of recurrent major depressive disorder (HCC) [F33.1] 01/06/2018 Hyperlipidemia with target LDL less than 130 [E78.5] 02/20/2013 ICD-10 update of inactive term ARMIDA (obstructive sleep apnea) [G47.33] 02/20/2013 Insomnia [G47.00] 02/20/2013 HTN, GOAL BELOW 140/90 [I10] 01/31/2009 Modified per HTN protocol #16. Gastroesophageal reflux disease without esophagitis [K21.9] Tobacco use disorder [F17.200] Social History Socioeconomic History Marital status: Single Spouse name: Not on file Number of children: Not on file Years of education: Not on file Highest education level: Not on file Occupational History Not on file Tobacco Use Smoking status: Some Days Current packs/day: 1.50 Average packs/day: 1.5 packs/day for 30.0 years (45.0 ttl pk-yrs) Types: Cigarettes Smokeless tobacco: Never Vaping Use Vaping status: Never Used Substance and Sexual Activity Alcohol use: No Drug use: No Sexual activity: Not Currently Other Topics Concern Not on file Social History Narrative [employer] INFORMATION ENVIRONMENTAL HISTORY: Type of Home: Apartment - floor level 2nd Type of Heating System: Oil Air Conditioning: Yes Patient's bedroom and Living room Basement: Unfinished Home have cockroaches: No Irritants in the home: None Patient's bedroom location: Floor: second Type of selena: Carpeting Beds: Number: 1 Type of beds: Mattress and Box spring Pillows: Number: 2 Type of pillows: Synthetic (hypoallergenic, polyester) Bedroom contains: Stuffed animals Pets: none [place]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 (Adult - for ages 18 years and over): No Does your family have trouble paying for medicine? (Household - for ages 0-17 years): Not on file Food Insecurity: No Food Insecurity (03/30/2024) Food Insecurity Worried About Running Out of Food in the Last Year: Never true Ran Out of Food in the Last Year: Never true Do you need food for this week? (Adult - for ages 18 years and over): No Transportation Needs: No Transportation Needs (03/30/2024) Transportation Needs Do you have trouble getting a ride to medical visits or work? (Adult - for ages 18 years and over):Never True Does your family have a hard time getting a ride to doctors visits? (Household - for ages 0-17 years): Not on file Has lack of transportation kept you from medical appointments, meetings, work, or from getting things needed for daily living? Check all that apply. (Adult - for ages 18 years and over): No Do you (or your family) have trouble finding or paying for a ride (transportation)? (Household - for ages 0-17 years): Not on file Social Connections: Socially Integrated (03/30/2024) Social Connections How often do you feel lonely or isolated from those around you? (Adult - for ages 18 years and over): Never Housing Stability: Low Risk (03/30/2024) Housing Stability Do you currently live in a long-term or have no steady place to sleep at night? (Adult - for ages 18 years and over): No Do you think you are at risk of becoming homeless? (Adult - for ages 18 years and over): No Does your family worry about paying for your home or becoming homeless? (Household - for ages 0-17 years): Not on file Are you homeless or worried that you might be in the future? (Adult - for ages 18 years and over): No Are you (or your family) homeless or worried that you might be in the future? (Household - for ages0-17 years): Not on file Past Surgical History: Procedure Laterality Date COLONOSCOPY 06/07/2008 diverticulosis CYSTOSCOPY 12/24/2014 EGD, FLEXIBLE, DIAGNOSTIC 10/17/2011 hiatal hernia EGD, FLEXIBLE, DIAGNOSTIC 12/07/2019 gastritis / ESOPHAGOGASTRODUODENOSCOPY (EGD), FLEXIBLE, TRANSORAL, DIAGNOSTIC performed by Bryanna Hurt DO at ENDOSCOPY [facility] EGD, W/ENDOSCOPIC US 12/07/2019 normal / ESOPHAGOGASTRODUODENOSCOPY (EGD), FLEXIBLE, TRANSORAL, ENDOSCOPIC ULTRASOUND performed by Bryanna Shah DO at ENDOSCOPY [facility] HEART ELECTROCONVERSION, EXTERNAL N/A 08/16/2023 DC CARDIOVERSION performed by Thiago Celeste DO at [facility] INFORMATION Vein Stripping INFORMATION knee arthroscopies at [place] INTRANASAL BIOPSY Nasal polypectomy - Dr. Akhtar REMOVAL OF APPENDIX REMOVAL OF PROSTATE (TURP) N/A 07/12/2022 TRANSURETHRAL RESECTION PROSTATE ELECTROSURGICAL performed by Robbie Moreno MD at [facility] REMOVE TONSILS & ADENOIDS, UNDER 12 T & A, age<12 Family History Problem Relation Name Age of Onset Diabetes Mother Stroke Father Review of Systems Constitutional: Positive for fatigue. HENT: Positive for congestion, postnasal drip, sinus pressure and sneezing. Respiratory: Positive for cough. Cardiovascular: Negative. Physical Exam BP 111/68 | Pulse 57 | Temp 98.1 F (36.7 C) (Tympanic) | Resp 18 | Wt 263 lb (119.3 kg) | SpO2 98% | BMI 42.47 kg/m | BSA 2.36 m Physical Exam Constitutional: Appearance: Normal appearance. Cardiovascular: Rate and Rhythm: Normal rate and regular rhythm. Pulmonary: Effort: Pulmonary effort is normal. Breath sounds: Wheezing present. Skin: General: Skin is warm. Neurological: Mental Status: He is alert. I have reviewed most recent labs CMP Assessment and Plan Risk and functional assessment Sinobronchitis - Azithromycin 250 MG Oral Tablet (Zithromax Z-Eder); Take two tablets by mouth on first day, then 1tablet daily until gone - predniSONE 20 MG Oral Tablet (Deltasone); Take 2 Tablets by mouth in the morning for 5 days. - Fluids, rest. Pt can continue with mucinex. Take all of meds as prescribed. Call office if symptoms worsen or persist. Wrap-Up Time: I spent a total of 20-29 minutes (exact time 25 mins) on the date of service in preparation, delivery, and documentation of the care provided to Gaurav Hall excluding any time spent in the performance of separately billed services. documented in this encounter Nursing Notes * Pamela Mims MED ASSIST - 05/14/2024 1:57 PM EST The patient has been properly identified by confirmation of name and date of . Chief Complaint Patient presents with Acute Pt reports a head cold and a lot of sneezing. documented in this encounter Plan of Treatment Upcoming Encounters Date Type Department Care Team (Late st Contact Info) Description 05/22/2024 2:15 PM EDT Office Visit Podiatry [address] [phone] Drew Carbajal, DPM [address] [place] [address] 06/24/2024 2:45 PM EDT Office Visit Cardiology [address] [place] [phone] Vero Gee CRNP [address] [place] [phone] 06/29/2024 4:40 PM EDT Office Visit Family Practice [address] [phone] Lexie Ball PA-C [address] [place] [phone] 07/13/2024 3:20 PM EDT Office Visit [facility] [address] [place] [phone] Sandra Vuong, DO [address] [place] [id number] Health Maintenance Due Date Last Done Comments [...] IN PAST YEAR FOR COPD 05/14/2025 05/14/2024 Lipid Panel 07/21/2028 07/22/2023, 03/12, 08/24/2020, Additional [...] COPD, group C, by GOLD 2017 classification ([facility]) ARMIDA (obstructive sleep apnea) Obstructive sleep apnea [...] GOLD 2017 classification (HCC) Tobacco use disorder Risk and functional assessment- Primary Screening for unspecified condition Sinobronchitis Unspecified sinusitis (chronic) documented in this encounter Advance Directives * [...] Agents on File Name Relationship Healthcare Agent [facility] Communication Jam Virginie Cousin First Alternate Health Care Agent (per Health Care Power of Power Plant Operator document) Care Teams Student Records Coordinator Relationship Specialty Start Date End Date Julia Harman MD [address] [place] [phone] PCP - General Family Medicine 06/15/23 documented as of this encounter
--- OUTSIDE RECORDS SUMMARY | 2024-05-26 06:30 | External Medical Summary | Summary of Care ---
Author Name Unknown Organization [facility] Address [address] [place] [address] Phone [phone] Care Team Providers Care Drapery Seamstress Name Role Phone Julia Harman MD Primary Care Provi radhika Reason for Visit * Reason Comments Acute Pt had head cold sta rt 3-4 days ago , symptoms include fatigue, coughing, headache, nausea. Denies productive cough and fever.Would also like right nostril looked at, says it is in pain today. Diabetic Eye exam accepted after appointment. Encounter Details Date Type Department Care Team ([facility] st Contact Info) Description 05/01/2024 3:00 PM EST Office Visit [address] [phone] Aggie Aguirre MD 21 [facility] [place] [id number] Upper respiratory tract infection, unspecified type*; Nasal vestibulitis; COPD, moderate (HCC); Diabetes mellitus without complication (HCC) Allergies Active Allergy Reactions Criticality Noted Date Comments Sulfamethoxazole-Trimethoprim Hives 2021 denies documented as of this encounter (statuses as of 05/02/2024) Medications CPAP every night at bedtime. Active Nicotine 7 MG/24HR Transdermal Patch 24 Hour (Nicoderm CQ)Indications:Tob acco use disorder One 7 mg patch daily for 2 weeks; Remove old patch daily; and then stop. 14 Patch 1 024 Active Additional Information Patient not taking.Reported on 05/01/2024 Nitroglycerin 0.4 MG Sublingual Tablet Sublingual (Nitrostat) Place 1 Tablet under the tongue as needed for Pain, Chest. Maximum 3 doses. 30 Tablet 024 Active Famotidine 40 MG Oral Tablet (Pepcid)Indication s:Gastroesophageal reflux disease without esophagitis Take 1 Tablet by mouth every night at bedtime. 90 Tablet 2 024 Active Folic Acid 1 MG Oral TabletIndications: [...] 90 Tablet 1 025 Active Saline Nasal [place] 0.65 % Nasal Solution (SM Nasal [place] Saline)Indications :Nasal dryness Administer 1 [place] into nostril as needed for Congestion. 30 mL 12 03/27/19 25 3:38 PM EST 025 Active Additional Information Patient not taking.Reported on 04/09/2024 Nystatin 392644 UNIT/GM External Powder (Nystop)Indication s:Intertrigo Apply topically [...] 05/01/19 25 3:44 PM EST 025 Active Budesonide-Formote rol Fumarate 160-4.5 MCG/ACT Inhalation Aerosol (Symbicort)Indicat ions:COPD, moderate (HCC) inhale 2 puffs by mouth in the morning and 2 puffs before bedtime 30.6 g 3 024 2024 Discontinued(R efill) Albuterol Sulfate HFA 108 (90 Base) MCG/ACT Inhalation Aerosol SolutionIndication s:COPD, moderate (HCC) INHALE TWO PUFFS BY MOUTH EVERY FOUR HOURS NEEDED FOR WHEEZING 54 g 3 024 2024 Discontinued(R efill) Dextromethorphan-g uaiFENesin 10-100 MG/5ML Oral SyrupIndications:A cute cough Take 5 mL by mouth every 6 hours as needed for Cough. 120 mL 04/16/19 25 4:20 PM EST 025 2024 Discontinued(M edication List Clean Up) Cephalexin 500 MG Oral Capsule (Keflex)Indication s:Nasal vestibulitis Take 1 Capsule by mouth in the morning and 1 Capsule at noon and 1 Capsule before bedtime. Do all this for 7 days. 21 Capsule 025 2024 Discontinued Mupirocin 2 % External Ointment (Bactroban)Indicat ions:Nasal vestibulitis Apply topically to affected area 2 times a day for 7 days. 22 g 025 2024 Discontinued documented as of this encounter (statuses as of 05/02/2024) Active Problems Problem Noted Date Diagnosed Date Nonrheumatic mitral valve regurgitation 01/14/20 24 Hypertensive heart disease with congestive heart failure 12/30/2023 PAF (paroxysmal atrial fibrillation) 10/21/2023 Aortic root enlargement 10/21/2023 Diabetes mellitus without complication 4 Assessment & Plan (10/18/2023 3:00 PM EDT): [...] (05/16/2022): Added automatically from request for surgery [id number] Decreased hearing of both ears 11/11/2021 Wears [...] as of this encounter (statuses as of 05/02/2024) Resolved Problems Problem Noted Date Diagnosed Date [...] as of this encounter (statuses as of 05/02/2024) Immunizations Name Administration Dates Next Due COVID-19 mRNA, LNP-s, No Pre serve, 2-Dose Series (Moderna) 05/17/2020,04/19/2020 Pneumococcal Conjugate Vacc, 13 Valent (Prevnar) 12/09/2017,08/01/2015 Pneumococcal Conjugate Vacci ne, 20-valent ([id number]) 12/18/2023(Deferred: Patient Refused) Pneumococcal Polysaccharide PPV23 (Pneumovax) [...] Sign Reading Time Taken Comments Blood Pressure 126/72 05/01/2024 3:05 PM EST Pulse 55 05/01/2024 3:05 PM EST Temperature 36.8 C (98.2 F) 05/01/2024 3:05 PM ES T Respiratory Rate - - Oxygen Saturation 98% 05/01/2024 3:05 PM EST Inhaled Oxygen Concentration - - Weight 120.3 kg (265 lb 3.2 oz) 05/01/2024 3:05 PM EST Height - - Body Mass Index 42.83 03/27/2024 2:51 PM EST documented in this encounter Functional Status * Are you deaf or do you have serious difficulty hearing? Answer Date of Assessment Author No 07/23/2023 1:27 AM Karen Garcia, PORTIA * Are you blind or do you have serious difficulty seeing, even when wearing glasses? Answer Date of Assessment Author No 07/23/2023 1:27 AM Karen Garcia, PORTIA * Do you have serious difficulty walking or climbing stairs? (5 years old or older) Answer Date of Assessment Author No 07/23/2023 1:27 AM Karen Garcia, RN * Do you have difficulty dressing [...] of Assessment Author No 07/23/2023 1:27 AM EDKaren Guardado RN documented as of this encounter Mental Status * Because of a physical, mental, or emotional condition, do you have serious difficulty concentrating, remembering, or making decisions? (5 years old or older) Answer Entry Date Author No 07/23/2023 1:27 AM Karen Garcia RN documented in this encounter Progress Notes * Ra Prasad CMA - 05/01/2024 4:05 PM EST The importance of having a yearly diabetic eye exam has been discussed with patient. Order and/or Referral placed along with patient instructions. Provider made aware. Ra Prasad CMA The importance of having a yearly diabetic eye exam has been discussed with patient. Order and/or Referral placed along with patient instructions. Provider made aware. Ra Prasad CMA * Aggie Aguirre MD - 05/01/2024 3:11 PM EST Images from the original note were not included. History of Present Illness Gaurav Hall is a 73 year old male that presents for Acute (Pt had head cold start 3-4 days ago , symptoms include fatigue, coughing, headache, nausea. Denies productive cough and fever./Would also like right nostril looked at, says it is in pain today. /Diabetic Eye exam accepted after appointment. ) Acute visit. Patient reports "head cold" for couple of days (mild cough, nasal congestion, "not feeling right" , +/- wheezing). No fever/chills/SOB/BLACKWELL. Normal appetite Pain in the right nostril for 2 weeks, no injury No known sick contact. No OTC medications. Recent COVID-19 infection two weeks ago Tobacco use: 1 cig per day. Known COPD, needs refills. Physical Exam Vitals: 05/01/24 1505 Temp: 98.2 F (36.8 C) Pulse: 55 SpO2: 98% BP: 126/72 BP Readings from Last 3 Encounters: 05/01/24 126/72 04/16/24 128/68 03/27/24 122/70 Wt Readings from Last 3 Encounters: 05/01/24 265 lb 3.2 oz (120.3 kg) 04/16/24 260 lb 8 oz (118.2 kg) 03/27/24 265 lb 8 oz (120.4 kg) BMI Readings from Last 3 Encounters: 05/01/24 42.83 kg/m 04/16/24 42.07 kg/m 03/27/24 42.87 kg/m Physical Exam Constitutional: General: He is not in acute distress. Appearance: Normal appearance. He is obese. He is not ill-appearing. HENT: Head: Normocephalic and atraumatic. Right Ear: Ear canal and external ear normal. There is impacted cerumen. Left Ear: Tympanic membrane, ear canal and external ear normal. Nose: Nose normal. Comments: Tenderness inside right nostril Mouth/Throat: Mouth: Mucous membranes are moist. Pharynx: Oropharynx is clear. Eyes: Conjunctiva/sclera: Conjunctivae normal. Pupils: Pupils are equal, round, and reactive to light. Cardiovascular: Rate and Rhythm: Normal rate and regular rhythm. Pulses: Normal pulses. Pulmonary: Effort: Pulmonary effort is normal. Breath sounds: Wheezing present. Comments: Few wheezes BL, decreased at bases Abdominal: General: Bowel sounds are normal. There is no distension. Palpations: Abdomen is soft. Tenderness: There is no abdominal tenderness. Musculoskeletal: Cervical back: Neck supple. Right lower leg: No edema. Left lower leg: No edema. Skin: General: Skin is warm and dry. Findings: No rash. Neurological: Mental Status: He is alert and oriented to person, place, and time. Psychiatric: Mood and Affect: Mood normal. Behavior: Behavior normal. I have reviewed the following results: None Assessment and Plan 1. Upper respiratory tract infection, unspecified type (Primary) - supportive care discussed 2. Nasal vestibulitis - Cephalexin 500 MG Oral Capsule (Keflex); Take 1 Capsule by mouth in the morning and 1 Capsule at noon and 1 Capsule before bedtime. Dispense: 21 Capsule; Refill: 0 - Mupirocin 2 % External Ointment (Bactroban); Apply topically to affected area 2 times a day. Dispense: 22 g; Refill: 0 3. COPD, moderate (HCC) - Budesonide-Formoterol Fumarate 160-4.5 MCG/ACT Inhalation Aerosol (Symbicort); inhale 2 puffs by mouth in the morning and 2 puffs before bedtime Dispense: 30.6 g; Refill: 3 - Albuterol Sulfate HFA 108 (90 Base) MCG/ACT Inhalation Aerosol Solution; INHALE TWO PUFFS BY MOUTH EVERY FOUR HOURS NEEDED FOR WHEEZING Dispense: 54 g; Refill: 3 - refills 4. Diabetes mellitus without complication (HCC) - TELEMEDICINE DIABETIC EYE Wrap-Up As needed Time: I spent a total of 20-29 minutes (exact time 25 mins) on the date of service in preparation, delivery, and documentation of the care provided to Gaurav Hall excluding any time spent in the performance of separately billed services. documented in this encounter Plan of Treatment Upcoming Encounters Date Type Department Care Team ([facility] Contact Info) Description 05/22/2024 2:15 PM EDT Office Visit Podiatry [address] [phone] Drew Carbajal, DPDarien [address] [place] [address] 06/24/2024 2:45 PM EDT Office Visit Cardiology [address] [place] [phone] Vero Gee CRNP [address] [place] [address] 06/29/2024 4:40 PM EDT Office Visit Family Practice [address] [phone] Lexie Ball PA-C [address] [place] [address] 07/13/2024 3:20 PM EDT Office Visit Sleep Disorders Ctr [facility] [address] [phone] VuongSandra Marla, DO [address] [address] Health Maintenance Due Date Last Done Comments [...] Not on filedocumented as of this encounter Procedures Procedure Name Priority Date/Time Associated Diagnosis Comments TELEMEDICINE DIABETIC EYE Routine 05/01/2024 Diabetes mellitus without complication (HCC) documented in this encounter Results * TELEMEDICINE DIABETIC EYE (05/01/2024) 05/01/2024 us Aggie Aguirre MD DIGITAL PHOTOGRAPHY Final Result documented in this encounter Visit Diagnoses Diagnosis Tobacco use [...] GOLD 2017 classification (HCC) Tobacco use disorder Upper respiratory tract infection, unspecified type- Primary Nasal vestibulitis Other diseases of nasal cavity and sinuses COPD, moderate (HCC) Chronic airway obstruction, not elsewhere classified Diabetes mellitus without complication (HCC) Type II or unspecified type diabetes mellitus without mention of complication, not stated as uncontrolled documented in this encounter Advance Directives * [...] Agents on File Name Relationship [facility] Agent [facility] Communication Jam Rachel Cousin First Alternate Health Care Agent (per Health Care Power of Pasting Machine Operator document) Care Teams Drapery Seamstress Relationship Specialty Start Date End Date Julia Harman MD [address] [place] [phone] PCP - General Family Medicine 06/15/23 documented as of this encounter
--- OUTSIDE RECORDS SUMMARY | 2024-05-26 06:30 | External Medical Summary | Summary of Care ---
Author Name Unknown Organization [facility] Address [address] [place] [address] Phone [phone] Care Team Providers Care Cloth Mender Name Role Phone Julia Harman MD Primary Care Provi ardhika Reason for Visit * Reason Onset Date Comments Test Results 04/17/2024 Encounter Details Date Type Department Care Team ([facility] st Contact Info) Description 04/17/2024 [address]phone [address] [place] [phone] Aggie Aguirre MD [address] [place] [address] Test Results Allergies Active Allergy Reactions Criticality Noted Date Comments Sulfamethoxazole-Trimethoprim Hives 2021 denies documented as of this encounter (statuses as of 05/06/2024) Medications CPAP every night at bedtime. Active Nicotine 7 MG/24HR Transdermal Patch 24 Hour (Nicoderm CQ)Indications:Toba business account leader use disorder One 7 mg patch daily for 2 weeks; Remove old patch daily; and then stop. 14 Patch 1 07/16/19 24 Active Additional Information Patient not taking.Reported on 05/01/2024 Nitroglycerin 0.4 MG Sublingual Tablet Sublingual (Nitrostat) Place 1 Tablet under the tongue as needed for Pain, Chest. Maximum 3 doses. 30 Tablet 07/23/19 24 Active Famotidine 40 MG Oral Tablet (Pepcid)Indications :Gastroesophageal reflux disease without esophagitis Take 1 Tablet by mouth every night at bedtime. 90 Tablet 2 08/29/19 24 Active Folic Acid 1 MG Oral [...] Tablet 1 03/25/19 25 Active Saline Nasal [place] 0.65 % Nasal Solution (SM Nasal [place] Saline)Indications: Nasal dryness Administer 1 [place] into nostril as needed for Congestion. 30 mL 12 5 3:38 PM EST 03/27/19 25 Active Additional Information Patient not taking.Reported on 04/09/2024 Nystatin 632337 UNIT/GM External Powder (Nystop)Indications :Intertrigo Apply topically to affected area 3 times a day. Apply to lower abdomen 15 g 04/13/19 25 Active QUEtiapine Fumarate 25 MG Oral Tablet (SEROquel)Indicatio ns:Insomnia, unspecified type Take 2 Tablets by mouth at bedtime. 60 Tablet 2 04/11/19 25 Active documented as of this encounter (statuses as of 05/06/2024) Active Problems Problem Noted Date Diagnosed Date Nonrheumatic mitral valve regurgitation 01/14/20 Hypertensive heart disease with congestive heart failure [...] (05/16/2022): Added automatically from request for surgery [id number] Decreased hearing of both ears 11/11/2021 Wears [...] 01/19/2008 12/03/2016 HTN, goal to be determined 04/02/2008 Overview (01/31/2009): Modified per HTN protocol #16. Major depressive disorder Overview (01/01/2017): ICD-10 update of inactive term documented as of this encounter (statuses as of 05/06/2024) Immunizations Name Administration Dates Next Due COVID-19 mRNA, LNP-s, No Pre serve, 2-Dose Series (Moderna) 05/17/2020,04/19/2020 Pneumococcal Conjugate Vacc, 13 Valent (Prevnar) 12/09/2017,08/01/2015 Pneumococcal Conjugate Vacci ne, 20-valent ([id number]) 12/18/2023(Deferred: Patient Refused) Pneumococcal Polysaccharide PPV23 (Pneumovax) [...] Author No 07/23/2023 1:27 AM YELENAT Karen Montenegro RN * Do you have serious difficulty walking or climbing stairs? (5 years old or older) Answer Date of Assessment Author No 07/23/2023 1:27 AM EDKaren Guardado RN * Do you have difficulty dressing [...] Karen Garcia RN documented in this encounter Miscellaneous Notes * Telephone Encounter - Leilani Kaye CCMA - 04/17/2024 9:34 AM EST Noted * Telephone Encounter - Melonie Riddle OSA - 04/17/2024 9:23 AM EST Patient has been notified of the message. Patient has no further questions. Patient states unable to do the chest xray today but will have it done soon. * Telephone Encounter - Aggie Aguirre MD - 04/17/2024 7:48 AM EST Component Ref Range & Units SARS-CoV-2 (COVID-19) Result Negative Positive Abnormal Patient has COVID-19 Please continue supportive care, no antibiotic at this time. Please remind him to do chest xray documented in this encounter Plan of Treatment Upcoming Encounters Date Type Department Care Team ([facility] st Contact Info) Description 05/22/2024 2:15 PM EDT Office Visit Podiatry [address] [place] [phone] Drew Carbajal, DPM [address] [place], [place] [phone] 06/24/2024 2:45 PM EDT Office Visit Cardiology [address] [place] [phone] Vero Gee CRNP [address] [place] [address] 06/29/2024 4:40 PM EDT Office Visit Family Practice [address] [phone] Lexie Ball PA-C [address] [place] [address] 07/13/2024 3:20 PM EDT Office Visit Sleep Disorders Ctr [facility] [address] [place] [phone] Sandra Vuong, [address] [address] Health Maintenance Due Date Last Done Comments [...] Not on filedocumented as of this encounter Additional Health Concerns Infection Onset Date Last Indicated Resolved Time SARS-CoV-2 (COVID-19) 04/16/2024 04/16/20242024 12:21 AM EST documented as of this encounter Advance Directives * Full Code (Latest Code Status on File) Date Activated Date Inactivated Comments 07/23/2023 1:26 AM 07/23/2023 5:33 PM This order reflects the patients wishes and were consensually agreed [...] Agents on File Name Relationship [facility] Communication Jam Rachel Cousin First Alternate Health Care Agent (per Health Care Power of Agency Sales Management Assistant document) Care Teams Cloth Mender Relationship Specialty Start Date End Date Julia Harman MD [address] [place] [phone] PCP - General Family Medicine 06/15/23 documented as of this encounter
--- OUTSIDE RECORDS SUMMARY | 2024-05-26 06:30 | External Medical Summary | Summary of Care ---
Author Name Unknown Organization [facility] Address [address] [place] [address] Phone [phone] Care Team Providers Care Contestant Coordinator Name Role Phone Julia Harman MD Primary Care Provi radhika Reason for Visit * Reason Onset Date Comments Advice 05/04/2024 Encounter Details Date Type Department Care Team ([facility] st Contact Info) Description 05/04/2024 Telephone Family [address] [phone] Julia Harman MD [address] [place] [phone] Advice Allergies Active Allergy Reactions Criticality Noted Date Comments Sulfamethoxazole-Trimethoprim Hives 2021 denies documented as of this encounter (statuses as of 05/05/2024) Medications CPAP every night at bedtime. Active Nicotine 7 MG/24HR Transdermal Patch 24 Hour (Nicoderm CQ)Indications:Toba accounts receivable associate use disorder One 7 mg patch daily for 2 weeks; Remove old patch daily; and then stop. 14 Patch 1 07/16/19 Active Additional Information Patient not taking.Reported on 05/01/2024 Nitroglycerin 0.4 MG Sublingual Tablet Sublingual (Nitrostat) Place 1 Tablet under the tongue as needed for Pain, Chest. Maximum 3 doses. 30 Tablet 07/23/19 Active Famotidine 40 MG Oral Tablet (Pepcid)Indications [...] Tablet 1 03/25/19 25 Active Saline Nasal Telephone 0.65 % Nasal Solution (SM Nasal Telephone Saline)Indications: Nasal dryness Administer 1 Telephone into nostril as needed for Congestion. 30 mL 12 5 3:38 PM EST 03/27/19 25 Active Additional Information Patient not taking.Reported on 04/09/2024 Nystatin 030101 UNIT/GM External Powder (Nystop)Indications :Intertrigo Apply topically [...] 5 3:44 PM EST 05/01/19 25 Active documented as of this encounter (statuses as of 05/05/2024) Active Problems Problem Noted Date Diagnosed Date [...] (05/16/2022): Added automatically from request for surgery [id number] Decreased hearing of both ears 11/11/2021 Wears [...] as of this encounter (statuses as of 05/05/2024) Resolved Problems Problem Noted Date Diagnosed Date [...] as of this encounter (statuses as of 05/05/2024) Immunizations Name Administration Dates Next Due COVID-19 mRNA, LNP-s, No Pre serve, 2-Dose Series (Moderna) 05/17/2020,04/19/2020 Pneumococcal Conjugate Vacc, 13 Valent (Prevnar) 12/09/2017,08/01/2015 Pneumococcal Conjugate Vacci ne, 20-valent ([id number]) 12/18/2023(Deferred: Patient Refused) Pneumococcal Polysaccharide PPV23 (Pneumovax) [...] 1:27 AM YELENAT Karen Montenegro RN * Are you blind or do you have serious difficulty seeing, even when wearing glasses? Answer Date of Assessment Author No 07/23/2023 1:27 AM YELENAT Karen Montenegro, PORTIA * Do you have serious difficulty walking or climbing stairs? (5 years old or older) Answer Date of Assessment Author No 07/23/2023 1:27 AM Karen Garcia, PORT[place] * Do you have difficulty dressing or [...] encounter Miscellaneous Notes * Telephone Encounter - Wilma Dhillon CCMA - 05/05/2024 10:21 AM EST Called and spoke with patient. States he threw them out. No other concerns at this time. * Telephone Encounter - Aggie Aguirre MD - 05/04/2024 4:30 PM EST Please discontinue Keflex. * Telephone Encounter - Rafaela Christine LPN - 05/04/2024 2:19 PM EST Pt calling due to the keflex makes him feel funny, like in a foggy. Cold/Cough has improved. He is inquiring if ABX could be changed or if he can just stop them? Please advise. * Telephone Encounter - Briana Benavides OSA - 05/04/2024 2:16 PM EST Reason for patient's call: increased medication making patient feel different has questions for nurse Caller was transferred to Rafaela at the nurse line. documented in this encounter Plan of Treatment Upcoming Encounters Date Type Department Care Team (Late st Contact Info) Description 05/22/2024 2:15 PM EDT Office Visit Podiatry [address] [place] [phone] Drew Carbajal, LEOBARDO [facility] [place] [address] 06/24/2024 2:45 PM EDT Office Visit Cardiology [facility] [address] [facility] [address] [place] [address] Vero Gee CRNP [address] [place] [address] 06/29/2024 4:40 PM EDT Office Visit Family Practice [facility] [address] [place] [phone] Lexie Ball PA-C [address] [place] [address] 07/13/2024 3:20 PM EDT Office Visit Sleep Disorders Ctr [facility] [address] [place] [phone] Sandra Vuong DO [address] [address] Health Maintenance Due Date Last Done Comments [...] Agents on File Name Relationship Healthcare Agent [facility] p Communication Jam Rachel Cousin First Alternate Health Care Agent (per Health Care Power of Woodwork Teacher document) Care Teams Contestant Coordinator Relationship Specialty Start Date End Date Julia Harman MD [address] [place] [phone] PCP - General Family Medicine 06/15/23 documented as of this encounter
--- OUTSIDE RECORDS SUMMARY | 2024-05-26 06:30 | External Medical Summary | Summary of Care ---
Author Name Unknown Organization [facility] Address [address] [place] [address] Phone [phone] Care Team Providers Care Aircraft Time Clerk Name Role Phone Julia Veras MD Primary Care Provi radhika Reason for Visit * Reason Onset Date Comments Medication Refill 04/24/2024 Encounter Details Date Type Department Care Team ([facility] st Contact Info) Description 04/24/2024 Refill Family [address] [phone] Julia Veras MD [address] [place] [phone] Allergies Active Allergy Reactions Criticality Noted Date Comments Sulfamethoxazole-Trimethoprim Hives 2021 denies documented as of this encounter (statuses as of 04/25/2024) Medications CPAP every night at bedtime. Active Budesonide-Formoter ol Fumarate 160-4.5 MCG/ACT Inhalation Aerosol (Symbicort)Indicati ons:COPD, moderate (HCC) inhale 2 puffs by mouth in the morning and 2 puffs before bedtime 30.6 g 3 03/27/19 24 Active Nicotine 7 MG/24HR Transdermal Patch 24 Hour (Nicoderm CQ)Indications:Toba piccoloist use disorder One 7 mg patch daily for 2 weeks; Remove old patch daily; and then stop. 14 Patch 1 07/16/19 24 Active Additional Information Patient not taking.Reported on 04/09/2024 Nitroglycerin 0.4 MG Sublingual Tablet Sublingual (Nitrostat) [...] morning. 90 Tablet 1 01/16/20 24 Active Albuterol Sulfate HFA 108 (90 Base) MCG/ACT Inhalation Aerosol SolutionIndications :COPD, moderate (HCC) INHALE TWO PUFFS BY MOUTH EVERY FOUR HOURS NEEDED FOR WHEEZING 54 g 3 01/23/20 24 Active Eliquis 5 MG Oral Tablet [...] Tablet 1 03/25/19 25 Active Saline Nasal [place] 0.65 % Nasal Solution (SM Nasal [place] Saline)Indications: Nasal dryness Administer 1 [place] into nostril as needed for Congestion. 30 mL 12 5 3:38 PM EST 03/27/19 25 Active Additional Information Patient not taking.Reported on 04/09/2024 Nystatin [id number] UNIT/GM External Powder (Nystop)Indications :Intertrigo Apply topically to affected area 3 times a day. Apply to lower abdomen 15 g 04/13/19 25 Active QUEtiapine Fumarate 25 MG Oral Tablet (SEROquel)Indicatio ns:Insomnia, unspecified type Take 2 Tablets by mouth at bedtime. 60 Tablet 2 04/11/19 25 Active Dextromethorphan-gu aiFENesin 10-100 MG/5ML Oral SyrupIndications:Ac salvador cough Take 5 mL by mouth every 6 hours as needed for Cough. 120 mL 5 4:20 PM EST 04/16/19 25 Active Esomeprazole Magnesium 40 MG Oral Capsule Delayed Release Take 1 Capsule by mouth daily before breakfast. 90 Capsule 3 04/25/19 25 Active Esomeprazole Magnesium 40 MG Oral Capsule Delayed Release TAKE 1 CAPSULE by mouth ONE TIME DAILY BEFORE BREAKFAST 90 Capsule 3 04/19/19 24 025 Discontin ued(Refil l) documented as of this encounter (statuses as of 04/25/2024) Active Problems Problem Noted Date Diagnosed Date [...] (05/16/2022): Added automatically from request for surgery [id number] Decreased hearing of both ears 11/11/2021 Wears [...] as of this encounter (statuses as of 04/25/2024) Resolved Problems Problem Noted Date Diagnosed Date [...] as of this encounter (statuses as of 04/25/2024) Immunizations Name Administration Dates Next Due COVID-19 mRNA, LNP-s, No Pre serve, 2-Dose Series (Moderna) 05/17/2020,04/19/2020 Pneumococcal Conjugate Vacc, 13 Valent (Prevnar) 12/09/2017,08/01/2015 Pneumococcal Conjugate Vacci ne, 20-valent ([id number]) 12/18/2023(Deferred: Patient Refused) Pneumococcal Polysaccharide PPV23 (Pneumovax) [...] encounter Miscellaneous Notes * Telephone Encounter - Julia Veras MD - 04/25/2024 1:34 PM EST Signed Prescriptions: Disp Refills Esomeprazole Magnesium 40 MG Oral Capsule *90 Cap*3 Sig: Take 1 Capsule by mouth daily before breakfast. Authorizing Provider: JULIA VERAS * Telephone Encounter - Karli Marcus OSA - 04/24/2024 11:50 AM EST Faxed request from pharmacy. documented in this encounter Plan of Treatment Upcoming Encounters Date Type Department Care Team ([facility] st Contact Info) Description 05/22/2024 2:15 PM EDT Office Visit Podiatry [address] [place] [phone] Drew Carbajal, LEOBARDO [address] [place] [address] 06/24/2024 2:45 PM EDT Office Visit Cardiology [address] [place] [address] Vero Gee CRNP [address] [place] [address] 06/29/2024 4:40 PM EDT Office Visit Family Practice [facility] [address] [place] [address] Lexie Ball PA-C [address] [place] [address], [place] [address] 07/13/2024 3:20 PM EDT [facility] [address] [place] [phone] Sandra Vuong, [address] [place] [address] Health Maintenance Due Date Last Done Comments Diabetic Foot Exam 05/20/1967 Cologuard 1994 Fecal Occult Blood Test 1994 Sigmoidoscopy 1994 Adult Wellness Visit 05/20/2015 Diabetic Eye Exam 04/24/2022 04/24/2021, 11/03/2013 COVID-19 Vaccine ( season) 2023 05/17/2020, 04/19/2020 Influenza Vaccine (FLU shot) (#1) 2023 12/25/2022, 11/10/2021, 11/19/2020, Additional history exists HbA1c 01/23/2024 07/23/2023, 07/09, 12/25/2022, Additional history exists Albumin/Creatinine Ratio 07/21/2024 07/22/2023, 05/09 GFR 07/22/2024 07/23/2023, 07/09, 07/22/2023, Additional history exists DISCUSS TOBACCO CESSATION (REFER TO SMARTSET #3291) 12/16/2024 12/17/2023 (Discussed), 08/01/2015 (Discussed) Depression Monitoring 03/30/2025 03/30/2024 O2 ASSESSMENT COMPLETED IN PAST YEAR FOR COPD 04/16/2025 04/16/2024 Lipid Panel 07/21/2028 07/22/2023, 03/12, 08/24/2020, Additional [...] Last Indicated Resolved Time SARS-CoV-2 (COVID-19) 04/16/2024 04/16/2024 documented as of this encounter Advance Directives [...] Relationship Healthcare Agent Relationshi p Communication [facility] Cousin First Alternate Health Care Agent (per Health Care Power of Repairer Evaporator document) Care Teams Aircraft Time Clerk Relationship Specialty Start Date End Date Julia Veras MD [address] [place] [phone] PCP - General Family Medicine 06/15/23 documented as of this encounter
--- OUTSIDE RECORDS SUMMARY | 2024-05-26 06:30 | External Medical Summary | Summary of Care ---
Author Name [facility] [address] [place] [address] Phone [phone] Care Team Providers Care Supervisor Salvage Name Role Phone Julia Harman MD Primary Care Provi radhika Reason for Visit * Reason Onset Date Comments Encounter Created in Error 04/22/2024 Encounter Details Date Type Department Care Team (Latest Contact Info) Description 04/22/2024 Medication Management [facility] [address] [place], [place] [phone] Abel Quintero, [facility] [address] [place] [address] Encounter created in error Allergies Active Allergy Reactions Criticality Noted Date Comments Sulfamethoxazole-Trimethoprim Hives 2021 denies documented as of this encounter (statuses as of 04/23/2024) Medications CPAP every night at bedtime. Active Budesonide-Formoter ol Fumarate 160-4.5 MCG/ACT Inhalation Aerosol (Symbicort)Indicati ons:COPD, moderate (HCC) inhale 2 puffs by mouth in the morning and 2 puffs before bedtime 30.6 g 3 03/27/19 24 Active Esomeprazole Magnesium 40 MG Oral Capsule Delayed Release TAKE 1 CAPSULE by mouth ONE TIME DAILY BEFORE BREAKFAST 90 Capsule 3 04/19/19 24 Active Nicotine 7 MG/24HR Transdermal Patch 24 Hour (Nicoderm CQ)Indications:Toba accounts collector use disorder One 7 mg patch daily [...] Tablet 1 03/25/19 25 Active Saline Nasal [place] 0.65 % Nasal Solution (SM Nasal [place] Saline)Indications: Nasal dryness Administer 1 [place] into nostril as needed for Congestion. 30 mL 12 5 3:38 PM EST 03/27/19 25 Active Additional Information Patient not taking.Reported on 04/09/2024 Nystatin [id number] UNIT/GM External Powder (Nystop)Indications :Intertrigo Apply topically to affected area 3 times a day. Apply to lower abdomen 15 g 04/13/19 25 Active QUEtiapine Fumarate 25 MG Oral Tablet (SEROquel)Indicatio ns:Insomnia, unspecified type Take 2 Tablets by mouth at bedtime. 60 Tablet 2 04/11/19 25 Active Dextromethorphan-gu aiFENesin 10-100 MG/5ML Oral SyrupIndications:Ac hydab[place] cough Take 5 mL by mouth every 6 hours as needed for Cough. 120 mL 5 4:20 PM EST 04/16/19 25 Active documented as of this encounter (statuses as of 04/23/2024) Active Problems Problem Noted Date Diagnosed Date [...] (05/16/2022): Added automatically from request for surgery [id number] Decreased hearing of both ears 11/11/2021 Wears [...] as of this encounter (statuses as of 04/23/2024) Resolved Problems Problem Noted Date Diagnosed Date [...] as of this encounter (statuses as of 04/23/2024) Immunizations Name Administration Dates Next Due COVID-19 mRNA, LNP-s, No Pre serve, 2-Dose Series (Moderna) 05/17/2020,04/19/2020 Pneumococcal Conjugate Vacc, 13 Valent (Prevnar) 12/09/2017,08/01/2015 Pneumococcal Conjugate Vacci ne, 20-valent ([id number]) 12/18/2023(Deferred: Patient Refused) Pneumococcal Polysaccharide PPV23 (Pneumovax) [...] documented in this encounter Progress Notes * SwineShaq crowder CPhT - 04/22/2024 3:49 PM EST This encounter was created in error. 04/22/2024, 3:49 PM, SHAQ DELANEY CPhT documented in this encounter Plan of Treatment Upcoming Encounters Date Type Department Care Team ([facility] st Contact Info) Description 05/22/2024 2:15 PM EDT Office Visit Podiatry [facility] 68 [facility] [address] [place] [phone] Drew Carbajal, LEOBARDO [address] [place] [address] 06/24/2024 2:45 PM EDT Office Visit Cardiology [facility] 68 [facility] [address] [place] [phone] Vero Gee CRNP [address] [place] [address] 06/29/2024 4:40 PM EDT Office Visit Family Practice [facility] [address] [place] [phone] Lexie Ball PA-C [address] [place] [address] 07/13/2024 3:20 PM EDT Office Visit Sleep Disorders Ctr [facility] [address] [place] [phone] Sandra Vuong, [address] [place] [address] Health Maintenance Due Date Last Done Comments [...] by GOLD 2017 classification ([facility]) Skin lesion- Primary Unspecified disorder of skin and subcutaneous tissue Chronic heart failure with preserved ejection fraction (HCC) Persistent atrial fibrillation (HCC) Atrial fibrillation COPD, group C, by GOLD 2017 classification (HCC) Tobacco use disorder Medication management- Primary Encounter for long-term (current) use of other medications Encounter Created In Error documented in this encounter Additional Health Concerns Infection Onset [...] Relationship Healthcare Agent Relationshi p Communication Jam Rachel Cousin First Alternate Health Care Agent (per Health Care Power of Wire Transfer Clerk document) Care Teams Supervisor Salvage Relationship Specialty Start Date End Date Julia Harman MD [address] [place] [phone] PCP - General Family Medicine 06/15/23 documented as of this encounter
--- OUTSIDE RECORDS SUMMARY | 2024-05-26 06:30 | External Medical Summary | Summary of Care ---
Author Name Unknown Organization [facility] Address [address] [place] [address] Phone [phone] Care Team Providers Care Ginner Helper Name Role Phone Julia Harman MD Primary Care Provi rdahika Reason for Visit * Reason Onset Date Comments Appointment 04/28/2024 Encounter Details Date Type Department Care Team ([facility] st Contact Info) Description 04/28/2024 Telephone Family [address] [phone] Julia Harman MD [address] [place] [phone] Appointment Allergies Active Allergy Reactions Criticality Noted Date Comments Sulfamethoxazole-Trimethoprim Hives 2021 denies documented as of this encounter (statuses as of 04/28/2024) Medications CPAP every night at bedtime. 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 30 mL 12 5 3:38 PM EST 03/27/19 25 Active Additional Information Patient not taking.Reported on 04/09/2024 Nystatin [id number] UNIT/GM External Powder (Nystop)Indications :Intertrigo Apply topically [...] breakfast. 90 Capsule 3 04/25/19 25 Active documented as of this encounter (statuses as of 04/28/2024) Active Problems Problem Noted Date Diagnosed Date [...] (05/16/2022): Added automatically from request for surgery [id number] Decreased hearing of both ears 11/11/2021 Wears [...] as of this encounter (statuses as of 04/28/2024) Resolved Problems Problem Noted Date Diagnosed Date [...] as of this encounter (statuses as of 04/28/2024) Immunizations Name Administration Dates Next Due COVID-19 mRNA, LNP-s, No Pre serve, 2-Dose Series (Moderna) 05/17/2020,04/19/2020 Pneumococcal Conjugate Vacc, 13 Valent (Prevnar) 12/09/2017,08/01/2015 Pneumococcal Conjugate Vacci ne, 20-valent ([id number]) 12/18/2023(Deferred: Patient Refused) Pneumococcal Polysaccharide PPV23 (Pneumovax) [...] encounter Miscellaneous Notes * Telephone Encounter - Dinesh Foss - 04/28/2024 2:30 PM EST Patient appears to already be scheduled for 05/01/2024 * Telephone Encounter - Leilani Kaye CCMA - 04/28/2024 2:21 PM EST Please assist in scheduling. * Telephone Encounter - Kaya Alvarez OSA - 04/28/2024 2:19 PM EST Patient called again lookig for an appt No Appointments Available What Visit Type is needed? Acute Were surrounding clinics offered? Yes Call Details are required. Please review Patient declined available appointment(s)?: Yes, explain: wants [facility] only and only wants to see a DR and not a nurse Were other providers in the clinic offered? Yes * Telephone Encounter - Meena Mace OSA - 04/28/2024 2:15 PM EST No Appointments Available What Visit Type is needed? Acute Were surrounding clinics offered? Yes Call Details are required. Please review Patient declined available appointment(s)?: Yes, explain: wants [facility] only and only wants to see a DR and not a nurse Were other providers in the clinic offered? Yes documented in this encounter Plan of Treatment Upcoming Encounters Date Type Department Care Team ([facility] Contact Info) Description 05/01/2024 3:00 PM EST Office Visit [address] [place] [phone] Aggie Aguirre MD [address] [place] [address] [place] [address] 05/22/2024 2:15 PM EDT Office Visit Podiatry [facility] 68 [facility] 203 [place] [address] Drew Carbajal, LEOBARDO [address] [place] [address] 06/24/2024 2:45 PM EDT Office Visit Cardiology [facility] 68 [facility] 203 [place] [address] Vero Gee CRNP [address] [place] [address] 06/29/2024 4:40 PM EDT Office Visit Family Practice [facility] 68 [place] [phone] Lexie Ball PA-C [address] [place] [address] 07/13/2024 3:20 PM EDT Office Visit Sleep Disorders Ctr [facility] [address] [facility] [place] [phone] Sandra Vuong DO [address] [place] [address] Health Maintenance Due Date Last Done Comments [...] exists DISCUSS TOBACCO CESSATION (REFER TO SMARTSET #7500) 12/16/2024 12/17/2023 (Discussed), 08/01/2015 (Discussed) Depression Monitoring [...] Agents on File Name Relationship Healthcare Agent [facility] p Communication Jam Angellatesha Cousin First Alternate Health Care Agent (per Health Care Power of Adult Crossing Guard document) Care Teams Ginner Helper Relationship Specialty Start Date End Date Julia Harman MD [address] [place] [phone] PCP - General Family Medicine 06/15/23 documented as of this encounter
--- OUTSIDE RECORDS SUMMARY | 2024-05-26 06:30 | External Medical Summary | Summary of Care ---
Author Name Unknown [facility] [address] [place] [address] Phone [phone] Care Team Providers Care Director Business Travel Name Role Phone Julia Harman MD Primary Care Provi radhika Reason for Visit * Reason Onset Date Comments Encounter Created in Error 04/22/2024 Encounter Details Date Type Department Care Team (Latest Contact Info) Description 04/22/2024 Medication Management [facility] [address] [place], [place] [phone] Abel Quintero, 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 30 mL 12 5 3:38 PM EST 03/27/19 25 Active Additional Information Patient not taking.Reported on 04/09/2024 Nystatin [id number] UNIT/GM External Powder (Nystop)Indications :Intertrigo Apply topically to affected area 3 times a day. Apply to lower abdomen 15 g 04/13/19 25 Active QUEtiapine Fumarate 25 MG Oral Tablet (SEROquel)Indicatio ns:Insomnia, unspecified type Take 2 Tablets by mouth at bedtime. 60 Tablet 2 04/11/19 25 Active Dextromethorphan-gu aiFENesin 10-100 MG/5ML Oral SyrupIndications:Ac inupiat cough Take 5 mL by mouth every [...] (05/16/2022): Added automatically from request for surgery [id number] Decreased hearing of both ears 11/11/2021 Wears [...] (Prevnar) 12/09/2017,08/01/2015 Pneumococcal Conjugate Vacci ne, 20-valent ([id number]) 12/18/2023(Deferred: Patient Refused) Pneumococcal Polysaccharide PPV23 (Pneumovax) [...] Notes * SwineShaq crowder CPhT - 04/22/2024 3:48 PM EST This encounter was created in error. 04/22/2024, 3:48 PM, SHAQ DELANEY CPhT documented in this encounter Plan of Treatment Upcoming Encounters Date Type Department Care Team ([facility] st Contact Info) Description 05/22/2024 2:15 PM EDT Office Visit Podiatry [facility] 68 [facility] 203 [place] [phone] Drew Carbajal, LEOBARDO [address] [place] [address] 06/24/2024 2:45 PM EDT Office Visit Cardiology [facility] 68 [facility] 203 [place] [phone] Vero Gee CRNP [address] [place] [address] 06/29/2024 4:40 PM EDT Office Visit Family Practice [facility] 68 [place] [phone] Lexie Ball PA-C 68 [place] [address] 07/13/2024 3:20 PM EDT Office Visit Sleep Disorders Ctr [facility] [address] [place] [phone] Sandra Vuong, [address] [place] [phone] Health Maintenance Due Date Last Done Comments [...] COPD, group C, by GOLD 2017 classification ([facility]) ARMIDA (obstructive sleep apnea) Obstructive sleep apnea [...] COPD, group C, by GOLD 2017 classification ([facility]) Skin lesion- Primary Unspecified disorder of skin and subcutaneous tissue Chronic heart failure with preserved ejection fraction (HCC) Persistent atrial fibrillation (HCC) Atrial fibrillation COPD, group C, by GOLD 2017 classification (HCC) Tobacco use disorder Encounter Created In Error- Primary documented in this encounter Additional Health Concerns [...] Care Agent (per Health Care Power of Finance Advisor document) Care Teams Director Business Travel Relationship Specialty Start Date End Date Julia Harman MD [address] [place] [phone] PCP - General Family Medicine 06/15/23 documented as of this encounter
--- OUTSIDE RECORDS SUMMARY | 2024-05-26 06:31 | External Medical Summary ---
Author Name Unknown Address Unknown Organization K01:[facility] [place] [address] [facility] [address] Laboratory Report Ordering Provider Test Date Status BROOKE AGUAYO 04/16/2024 15:58:08 Final Observation Date Value Abnormality Reference (Units ) Status SARS Coronavirus 2 04/16/2024 15:58:08 Positive Abnormal N egative Final SARS-CoV2 Coronavirus RNA de tected by PCR (amplified probe). Test results reported to [facility].
This automated test was developed and its performance characteristics determined by [facility]. It has not been cleared or approved by the U.S. Food and Drug Administration (FDA). FDA does not require this test to go thru premarket FDA review. This test is used for clinical purposes. It should not be regarded as investigational or for research. This laboratory is certified under the Clinical Laboratory Improvement Amendments (CLIA) as qualified to perform high complexity clinical laboratory testing.

This test is a nucleic acid amplification test (NAAT), a reverse transcriptase polymerase chain reaction (RT-PCR) test, or a Centers for Disease Control- acceptable equivalent. The test is performed in a high complexity Clinical Laboratory Improvement Amendments-(CLIA) certified laboratory. The test is acceptable for SARS-CoV-2 diagnosis, surveillance, and travel within the [place] and to most countries. Please check with local testing authorities about requirements before travel.

The validation of bronchial specimens, tracheal aspirates, and sputum for this assay was developed and performance characteristics determined by [facility]. The validation of alternate specimen types has not been cleared or approved by the U.S. Food and Drug Administration (FDA). It has been determined that such clearance or approval is not necessary. Influenza virus A RNA [Prese nce] in Specimen by MARCO with probe detection 04/16/2024 15:58:08 Negative Negative Final No Influenza A RNA detected by PCR (amplified probe) Influenza virus B RNA [Prese nce] in Specimen by MARCO with probe detection 04/16/2024 15:58:08 Negative Negative Final No Influenza B RNA detected by PCR (amplified probe) Respiratory syncytial virus RNA [Identifier] in Specimen by MARCO with probe detection 04/16/2024 15:58:08 Negative Negative Final No Respiratory Syncytial Vir us RNA detected by PCR (amplified probe) Performing Location [facility] [place] [facility] [address]. [facility] [address]
--- OUTSIDE RECORDS SUMMARY | 2024-05-26 06:31 | External Medical Summary | Summary of Care ---
Author Name Unknown Organization [facility] Address [address] [place] [address] Phone [phone] Care Team Providers Care Sample Paster Name Role Phone Julia Harman MD Primary Care Provi radhika Encounter Details Date Type Department Care Team (Late st Contact Info) Description 03/30/2024 Population Health External Data Unspecified Department Allergies Active Allergy Reactions Criticality Noted Date Comments Sulfamethoxazole-Trimethoprim Hives 2021 denies documented as of this encounter (statuses as of 03/30/2024) Medications CPAP every night at bedtime. 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 14 Patch 1 07/16/19 24 Active Additional Information Patient not taking.Reported on 03/30/2024 Nitroglycerin 0.4 MG Sublingual Tablet Sublingual (Nitrostat) Place 1 Tablet under the tongue as needed for Pain, Chest. Maximum 3 doses. 30 Tablet 07/23/19 24 Active Additional Information Patient not taking.Reported on 03/30/2024 Famotidine 40 MG Oral Tablet (Pepcid)Indications :Gastroesophageal [...] morning. 45 Tablet 5 12/17/19 24 Active Furosemide 20 MG Oral Tablet (Lasix)Indications: Chronic heart failure with preserved ejection fraction (HCC) Take 3 Tablets by mouth daily as needed (Edema, weight gain). Take NEEDED for weight gain or leg swelling as described in your diuretic titration plan. 30 Tablet 3 12/17/19 24 Active Potassium Chloride ER 10 [...] bedtime. 90 Tablet 1 03/25/19 25 Active Nystatin 677957 UNIT/GM External Powder (Nystop)Indications :Intertrigo Apply topically to affected area 3 times a day for 14 days. Apply to lower abdomen 15 g 5 3:38 PM EST 03/27/19 25 025 Active predniSONE 20 MG Oral Tablet (Deltasone)Indicati ons:COPD exacerbation (HCC) Take 1 Tablet by mouth in the morning for 5 days. 5 Tablet 5 3:38 PM EST 03/27/19 25 025 Active Azithromycin 250 MG Oral Tablet (Zithromax)Indicati ons:COPD exacerbation (HCC) Take 2 tabs by mouth on the first day, then 1 tab daily on days two through five 6 Tablet 5 3:38 PM EST 03/27/19 25 025 Active QUEtiapine Fumarate 25 MG Oral Tablet (SEROquel)Indicatio ns:Insomnia, unspecified type Take 1 Tablet by mouth at bedtime. 30 Tablet 5 5 3:38 PM EST 03/27/19 25 Active Saline Nasal Beaver 0.65 % Nasal Solution (SM Nasal Beaver Saline)Indications: Nasal dryness Administer 1 Beaver into nostril as needed for Congestion. 30 mL 12 5 3:38 PM EST 03/27/19 25 Active documented as of this encounter (statuses as of 03/30/2024) Active Problems Problem Noted Date Diagnosed Date [...] (05/16/2022): Added automatically from request for surgery [id number] Decreased hearing of both ears 11/11/2021 Wears [...] as of this encounter (statuses as of 03/30/2024) Resolved Problems Problem Noted Date Diagnosed Date [...] as of this encounter (statuses as of 03/30/2024) Immunizations Name Administration Dates Next Due COVID-19 mRNA, LNP-s, No Pre serve, 2-Dose Series (Moderna) 05/17/2020,04/19/2020 Pneumococcal Conjugate Vacc, 13 Valent (Prevnar) 12/09/2017,08/01/2015 Pneumococcal Conjugate Vacci ne, 20-valent ([id number]) 12/18/2023(Deferred: Patient Refused) Pneumococcal Polysaccharide PPV23 (Pneumovax) [...] Date Recorded PHQ Adult Total Score 0 01/15/2024 Hunger Vital Sign Answer Date Recorded Within [...] ages 0-17 years) Not on file 03/30/2024 Sex and Gender Information Value Date [...] Karen Montenegro RN documented in this encounter Plan of Treatment Upcoming Encounters Date Type Department Care Team (Late st Contact Info) Description 04/17/2024 2:30 PM EST Home Visit [facility] [address] [place] [address] Karen Rubin PA-C [address] [place] [address] Esperanza Graham, Community Health Claims Counsel [address] [place] [address] 05/22/2024 2:15 PM EDT Office Visit Podiatry [address] [place] [phone] Drew Carbajal, [place] [address] [place] [address] 06/24/2024 2:45 PM EDT Office Visit Cardiology [facility] [address] [facility] [address] [place] [phone] Vero Gee CRNP [address] [place] [address] 06/29/2024 4:40 PM EDT Office Visit Family Practice [facility] [address] [place] [phone] Lexie Ball PA-C [address] [place] [address] 07/13/2024 3:20 PM EDT Office Visit [facility] [address] [place] [phone] Sandra Vuong, [address] [place] [address] Health Maintenance Due Date Last Done Comments [...] 12/16/2024 12/17/2023 (Discussed), 08/01/2015 (Discussed) Depression Monitoring 01/14/2025 01/15/2024 O2 ASSESSMENT COMPLETED IN PAST YEAR FOR COPD 03/27/2025 03/27/2024 Lipid Panel 07/21/2028 07/22/2023, 03/12, 08/24/2020, Additional [...] Agents on File Name Relationship Healthcare Agent [facility] Communication Jam Angeltamarlyly Cousin First Alternate Health Care Agent (per Health Care Power of Concrete Finisher document) Care Teams Sample Paster Relationship Specialty Start Date End Date Julia Harman MD [address] [place] [phone] PCP - General Family Medicine 06/15/23 documented as of this encounter
--- OUTSIDE RECORDS SUMMARY | 2024-05-26 06:31 | External Medical Summary | Summary of Care ---
Author Name Unknown Organization [facility] Address [address] [place] [address] Phone [phone] Care Team Providers Care General Farmer Name Role Phone Julia Veras MD Primary Care Provi radhika Reason for Visit * Reason Onset Date Comments Medication Refill 04/11/2024 Encounter Details Date Type Department Care Team ([facility] st Contact Info) Description 04/11/2024 Refill Family [address] [phone] Julia Veras MD [address] [place] [phone] Intertrigo Allergies Active Allergy Reactions Criticality Noted Date Comments Sulfamethoxazole-Trimethoprim Hives 2021 denies documented as of this encounter (statuses as of 04/13/2024) Medications CPAP every night at bedtime. Active Vitamin D3 50 MCG (1999) Oral CapsuleIndications: Vitamin D deficiency TAKE 1 CAPSULE BY MOUTH ONCE DAILY 90 Capsule 3 12/01/19 23 Active Additional Information Patient not taking.Reported on 04/09/2024 Budesonide-Formoter ol Fumarate 160-4.5 MCG/ACT Inhalation Aerosol (Symbicort)Indicati ons:COPD, moderate (HCC) inhale 2 puffs by mouth in the morning and 2 puffs before bedtime 30.6 g 3 03/27/19 24 Active Additional Information Patient not taking.Reported on 04/09/2024 Esomeprazole Magnesium 40 MG Oral Capsule Delayed Release TAKE 1 CAPSULE by mouth ONE TIME DAILY BEFORE BREAKFAST 90 Capsule 3 04/19/19 24 Active Nicotine 7 MG/24HR Transdermal Patch 24 Hour (Nicoderm CQ)Indications:[employer]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 30 Tablet 3 12/17/19 24 Active Additional Information Patient not taking.Reported on 04/09/2024 Potassium Chloride ER 10 MEQ Oral Tablet [...] Tablet 1 03/25/19 25 Active Saline Nasal Stryker 0.65 % Nasal Solution (SM Nasal Stryker Saline)Indications: Nasal dryness Administer 1 Stryker into nostril as needed for Congestion. 30 mL 12 5 3:38 PM EST 03/27/19 25 Active Additional Information Patient not taking.Reported on 04/09/2024 Nystatin 085581 UNIT/GM External Powder (Nystop)Indications :Intertrigo Apply topically to affected area 3 times a day. Apply to lower abdomen 15 g 04/13/19 25 Active Nystatin 084132 UNIT/GM External Powder (Nystop)Indications :Intertrigo Apply topically to affected area 3 times a day for 14 days. Apply to lower abdomen 15 g 5 3:38 PM EST 03/27/19 25 025 Discontin ued(Refil l) documented as of this encounter (statuses as of 04/13/2024) Active Problems Problem Noted Date Diagnosed Date [...] (05/16/2022): Added automatically from request for surgery [id number] Decreased hearing of both ears 11/11/2021 Wears [...] as of this encounter (statuses as of 04/13/2024) Resolved Problems Problem Noted Date Diagnosed Date [...] as of this encounter (statuses as of 04/13/2024) Immunizations Name Administration Dates Next Due COVID-19 mRNA, LNP-s, No Pre serve, 2-Dose Series (Moderna) 05/17/2020,04/19/2020 Pneumococcal Conjugate Vacc, 13 Valent (Prevnar) 12/09/2017,08/01/2015 Pneumococcal Conjugate Vacci ne, 20-valent ([id number]) 12/18/2023(Deferred: Patient Refused) Pneumococcal Polysaccharide PPV23 (Pneumovax) [...] 07/23/2023 1:27 AM Karen Garcia, [place] * Because of a physical, mental, or [...] Telephone Encounter - Julia Veras MD - 04/13/2024 9:21 AM EST Signed Prescriptions: Disp Refills Nystatin 161028 UNIT/GM External Powder (N*15 g 0 Sig: Apply topically to affected area 3 times a day. Apply to lower abdomen Authorizing Provider: JULIA VERAS * Telephone Encounter - Essie Ernandez CPhT - 04/11/2024 10:36 AM EST Did you pend patient's preferred pharmacy and medication before forwarding?yes Pharmacy: [id number] [address] [facility] Pending Prescriptions: Disp Refills Nystatin 594426 UNIT/GM External Powder (*15 g 0 Sig: Apply topically to affected area 3 times a day. Apply to lower abdomen Last Visit: 03/27/2024 (in office), 06/16/2020 (telemedicine) Next Visit: 06/29/2024 If no future appointments scheduled, and last appointment is greater than a year ago, please schedule patient for a follow-up appointment Last date the medication was ordered: 03/27/24 Is this request for a controlled substance?No Urine Drug Screen: Results for orders placed or performed in visit on 04/06/22 PAIN MANAGEMENT DRUG PANEL, URINE Result Value Amphetamines Screen, U Negative Benzodiazepines Screen, U Refer to confirmation results (A) Cannabinoids Screen, U Negative Cocaine Metabolite Screen, U Negative Fentanyl Screen, U Negative Hydrocodone Screen, U Negative Methadone Metabolite Screen, U Negative Morphine/Codeine Screen, U Negative Oxycodone Screen, U Negative Valid Interpretation Normal Creatinine, U 219 Narrative Cutoff Concentrations: Drug Level Amphetamines 500 ng/mL Benzodiazepines 100 ng/mL Cannabinoids 50 ng/mL Cocaine Metabolite 150 ng/mL Fentanyl 1 ng/mL Hydrocodone / Hydromorphone 300 ng/mL Methadone Metabolite 100 ng/mL Morphine / Codeine 300 ng/mL Oxycodone / Oxymorphone 100 ng/mL Screening results are presumptive and can only be used for medical purposes. Confirmatory testing is available upon request. *Note: Due to a large number of results and/or encounters for the requested time period, some results have not been displayed. A complete set of results can be found in Results Review. Patient Phone Numbers Labs: Lab Results Component Value Date/Time CREAT 1.2 07/23/2023 05:24 AM CREAT 0.9 11/26/2019 11:22 AM POTASSIUM 3.8 07/23/2023 05:24 AM POTASSIUM 4.4 11/26/2019 11:22 AM TSH 1.46 07/22/2023 10:21 PM TSH 1.77 03/25/2019 10:33 AM LDL 68 07/22/2023 03:50 PM LDL 62 04/06/2022 01:17 PM LDL 70 03/25/2019 10:33 AM LDL 65 06/17/2017 03:10 PM ALT 20 07/22/2023 10:21 PM ALT 19 11/26/2019 11:22 AM HGBA1C 7.0 (H) 07/23/2023 02:30 AM HGBA1C 5.8 05/31/2016 09:20 AM documented in this encounter Plan of Treatment Upcoming Encounters Date Type Department Care Team ([facility] st Contact Info) Description 05/22/2024 2:15 PM EDT Office Visit Podiatry [address] [place] [phone] Drew Carbajal DPM [address] [place], [place] [phone] 06/24/2024 2:45 PM EDT Office Visit Cardiology [address] [place] [phone] Vero Gee CRNP [address] [place] [address] 06/29/2024 4:40 PM EDT Office Visit Family [facility] [address] [place] [phone] Lexie Ball PA-C [address] [place] [address] 07/13/2024 3:20 PM EDT Office Visit [facility] Disorders Ctr [facility] [address] [place] [phone] Sandra Vuong DO [address] [place] [address] Health Maintenance Due Date Last Done Comments [...] exists DISCUSS TOBACCO CESSATION (REFER TO SMARTSET #[id number]) 12/16/2024 12/17/2023 (Discussed), 08/01/2015 (Discussed) O2 ASSESSMENT COMPLETED IN PAST YEAR FOR COPD 03/27/2025 03/27/2024 Depression Monitoring 03/30/2025 03/30/2024 Lipid Panel 07/21/2028 07/22/2023, 03/12, 08/24/2020, Additional [...] Primary Body mass index (BMI) 40.0-44.9, adult ([facility]) Anxiety state Anxiety state, unspecified Persistent atrial fibrillation (HCC) Atrial fibrillation COPD, group C, by GOLD 2017 classification ([facility]) ARMIDA (obstructive sleep apnea) Obstructive [...] COPD, group C, by GOLD 2017 classification ([facility]) Skin lesion- Primary Unspecified disorder of skin and subcutaneous tissue Chronic heart failure with preserved ejection fraction (HCC) Persistent atrial fibrillation (HCC) Atrial fibrillation COPD, group C, by GOLD 2017 classification ([facility]) Tobacco use disorder Intertrigo Other specified erythematous condition documented in this encounter Advance Directives * [...] Agents on File Name Relationship [facility] Jam Rachel Cousin First Alternate Health Care Agent (per Health Care Power of Prosthetic Technician document) Care Teams General Farmer Relationship Specialty Start Date End Date Julia Veras MD [address] [place] [phone] PCP - General Family Medicine 06/15/23 documented as of this encounter
--- OUTSIDE RECORDS SUMMARY | 2024-05-26 06:31 | External Medical Summary | Summary of Care ---
Author Name Unknown Organization [facility] Address [address] [place] [address] Phone [phone] Care Team Providers Care Manager Of Operations Name Role Phone Julia Harman MD Primary Care Provi radhika Encounter Details Date Type Department Care Team (Latest Contact Info) Description 04/09/2024 Medication Management [facility] [address], [place] [phone] [facility] [address] [place] [address] Medication management* Allergies Active Allergy Reactions Criticality Noted Date Comments Sulfamethoxazole-Trimethoprim Hives 2021 denies documented as of this encounter (statuses as of 04/17/2024) Medications CPAP every night at bedtime. Active [...] MG/24HR Transdermal Patch 24 Hour (Nicoderm CQ)Indications:Toba administrative accountant use disorder One 7 mg patch [...] Tablet 1 03/25/19 25 Active Saline Nasal [place] 0.65 % Nasal Solution (SM Nasal [place] Saline)Indications: Nasal dryness Administer 1 [place] into nostril as needed for Congestion. 30 mL 12 5 3:38 PM EST 03/27/19 25 Active Additional Information Patient not taking.Reported on 04/09/2024 Nystatin 933868 UNIT/GM External Powder (Nystop)Indications :Intertrigo Apply topically to affected area 3 times a day. Apply to lower abdomen 15 g 04/13/19 25 Active QUEtiapine Fumarate 25 MG Oral Tablet (SEROquel)Indicatio ns:Insomnia, unspecified type Take 2 Tablets by mouth at bedtime. 60 Tablet 2 04/11/19 25 Active Vitamin D3 50 MCG (1999 UT) Oral CapsuleIndications: Vitamin D deficiency TAKE 1 CAPSULE BY MOUTH ONCE DAILY 90 Capsule 3 12/01/19 23 025 Discontin ued(Medic ation List Clean Up) Furosemide 20 MG Oral Tablet (Lasix)Indications: Chronic heart failure with preserved ejection fraction (HCC) Take 3 Tablets by mouth daily as needed (Edema, weight gain). Take NEEDED for weight gain or leg swelling as described in your diuretic titration plan. 30 Tablet 3 12/17/19 24 025 Discontin ued(Medic ation List Clean Up) Clotrimazole-Betame thasone 1-0.05 % External Cream (Lotrisone) Apply topically to affected area 2 times a day for 28 days. To affected (lower abdomen) area for 4 weeks, or until healed. 45 g 1 01/01/20 24 025 Discontin ued(Medic ation List Clean Up) Mupirocin 2 % External Ointment (Bactroban) Apply topically to affected area 3 times a day for 14 days. To affected area for up to 14 days. Apply to nostril. 22 g 1 01/01/20 24 025 Discontin ued(Medic ation List Clean Up) Nystatin 348453 UNIT/GM External Powder (Nystop)Indications :Intertrigo Apply topically to affected area 3 times a day for 14 days. Apply to lower abdomen 15 g 5 3:38 PM EST 03/27/19 25 025 Discontin ued(Refil l) predniSONE 20 MG Oral Tablet (Deltasone)Indicati ons:COPD exacerbation (HCC) Take 1 Tablet by mouth in the morning for 5 days. 5 Tablet 5 3:38 PM EST 03/27/19 25 025 Discontin ued(Medic ation List Clean Up) Azithromycin 250 MG Oral Tablet (Zithromax)Indicati ons:COPD exacerbation (HCC) Take 2 tabs by mouth on the first day, then 1 tab daily on days two through five 6 Tablet 5 3:38 PM EST 03/27/19 25 025 Discontin ued(Medic ation List Clean Up) QUEtiapine Fumarate 25 MG Oral Tablet (SEROquel)Indicatio ns:Insomnia, unspecified type Take 1 Tablet by mouth at bedtime. 30 Tablet 5 5 3:38 PM EST 03/27/19 25 025 Discontin ued(Refil l) Debrox 6.5 % Otic Solution (Carbamide Peroxide)Indication s:Bilateral impacted cerumen Administer 5 Drops into ears once for 1 dose. Fill ear canal and insert cotton plug. Remove plug after 15 to 30 minutes. 15 mL 5 3:38 PM EST 03/27/19 25 025 Discontin ued(Medic ation List Clean Up) documented as of this encounter (statuses as of 04/17/2024) Active Problems Problem Noted Date Diagnosed Date [...] (05/16/2022): Added automatically from request for surgery [id number] Decreased hearing of both ears 11/11/2021 Wears [...] as of this encounter (statuses as of 04/17/2024) Resolved Problems Problem Noted Date Diagnosed Date [...] as of this encounter (statuses as of 04/17/2024) Immunizations Name Administration Dates Next Due COVID-19 mRNA, LNP-s, No Pre serve, 2-Dose Series (Moderna) 05/17/2020,04/19/2020 Pneumococcal Conjugate Vacc, 13 Valent (Prevnar) 12/09/2017,08/01/2015 Pneumococcal Conjugate Vacci ne, 20-valent ([id number]) 12/18/2023(Deferred: Patient Refused) Pneumococcal Polysaccharide PPV23 (Pneumovax) [...] documented in this encounter Progress Notes * Uma Washburn, [facility] - 04/09/2024 11:18 AM EST Gaurav Hall is a 73 year old male. Objective: Review of patient's allergies indicates: Allergen Reactions Bactrim [Sulfamethoxazole-Trimethoprim] Hives denies Current Outpatient Medications - WARNING: List may be incomplete due to filtering Medication Sig Dispense Refill Nystatin 061371 UNIT/GM External Powder (Nystop) Apply topically to affected area 3 times a day. Apply to lower abdomen 15 g 0 QUEtiapine Fumarate 25 MG Oral Tablet (SEROquel) Take 2 Tablets by mouth at bedtime. 60 Tablet 2 Metoprolol Tartrate 50 MG Oral Tablet (Lopressor) Take 1 Tablet by mouth in the morning and 1 Tablet before bedtime. 90 Tablet 1 fluvoxaMINE Maleate 100 MG Oral Tablet (Luvox) TAKE ONE TABLET BY MOUTH EVERY DAY AT BEDTIME 90 Tablet 1 amLODIPine Besylate 5 MG Oral Tablet (Norvasc) Take 1 Tablet by mouth in the morning. 90 Tablet 1 Eliquis 5 MG Oral Tablet (Apixaban) Take 1 Tablet by mouth in the morning and 1 Tablet before bedtime. 60 Tablet 5 Albuterol Sulfate HFA 108 (90 Base) MCG/ACT Inhalation Aerosol Solution INHALE TWO PUFFS BY MOUTH EVERY FOUR HOURS NEEDED FOR WHEEZING 54 g 3 Potassium Chloride ER 10 MEQ Oral Tablet Extended Release Take 1 Tablet by mouth in the morning. 90Tablet 1 Furosemide 40 MG Oral Tablet (Lasix) Take 1.5 Tablets by mouth in the morning. 45 Tablet 5 Levocetirizine Dihydrochloride 5 MG Oral Tablet Take 0.5 Tablets by mouth every evening. 90 Tablet 1 Atorvastatin Calcium 40 MG Oral Tablet (Lipitor) Take 1 Tablet by mouth in the morning. 100 Tablet 3 Montelukast Sodium 10 MG Oral Tablet (Singulair) TAKE ONE TABLET BY MOUTH EVERY DAY AT BEDTIME 100 Tablet 3 Folic Acid 1 MG Oral Tablet Take 1 Tablet by mouth in the morning. 90 Tablet 3 Famotidine 40 MG Oral Tablet (Pepcid) Take 1 Tablet by mouth every night at bedtime. 90 Tablet 2 Nitroglycerin 0.4 MG Sublingual Tablet Sublingual (Nitrostat) Place 1 Tablet under the tongue as needed for Pain, Chest. Maximum 3 doses. 30 Tablet 0 Esomeprazole Magnesium 40 MG Oral Capsule Delayed Release TAKE 1 CAPSULE by mouth ONE TIME DAILY BEFORE BREAKFAST 90 Capsule 3 Budesonide-Formoterol Fumarate 160-4.5 MCG/ACT Inhalation Aerosol (Symbicort) inhale 2 puffs by mouth in the morning and 2 puffs before bedtime 30.6 g 3 Dextromethorphan-guaiFENesin 10-100 MG/5ML Oral Syrup Take 5 mL by mouth every 6 hours as needed for Cough. 120 mL 0 GNP Earwax Removal Drops 6.5 % Otic Solution (Carbamide Peroxide) Administer 4 Drops to the right ear in the morning and 4 Drops before bedtime. Do all this for 5 days. Fill ear canal and insert cotton plug. Remove plug after 15 to 30 minutes.. 15 mL 0 Saline Nasal [place] 0.65 % Nasal Solution (SM Nasal [place] Saline) Administer 1 [place] into nostril asneeded for Congestion. (Patient not taking: Reported on 04/09/2024) 30 mL 12 Nicotine 7 MG/24HR Transdermal Patch 24 Hour (Nicoderm CQ) One 7 mg patch daily for 2 weeks; Removeold patch daily; and then stop. (Patient not taking: Reported on 04/09/2024) 14 Patch 1 CPAP every night at bedtime. Immunization History Administered Date(s) Administered COVID-19 mRNA, LNP-s, No Preserve, 2-Dose Series (Moderna) 04/19/2020, 05/17/2020 Pneumococcal Conjugate Vacc, 13 Valent (Prevnar) 08/01/2015, 12/09/2017 Pneumococcal Polysaccharide PPV23 (Pneumovax) 02/14/2013, 12/15/2018 Seasonal Influenza Vac., MDV, IM, 0.5 mL (Fluzone) 11/23/2012, 12/01/2013 Seasonal Influenza, PF, 6 M & above, IM , (FluLaval or Fluzone) 12/03/2016 Seasonal Influenza, Quadrivalent Hd (Fluzone Hd) 11/19/2020, 11/10/2021, 12/25/2022 Seasonal Influenza, Quadrivalent Hd, 65+ Yrs 12/18/2019 Seasonal Influenza, Quadrivalent, No Preserve, IM 12/09/2014 Seasonal Influenza, Trivalent, Adjuvanted, 65+ YRS, PF, (Fluad) 12/09/2017, 12/01/2018 TD - Tetanus/Diptheria (ADULT) 11/10/2022 TDAP (age 10 and older)(Boostrix) 12/01/2013 Varicella Zoster Vaccine (Adult) 07/15/2013 Zoster Vaccine Recombinant (Shingrix) 12/15/2018, 03/30/2019 TMR Interventions TMR Needs Drug Therapy - DARBY Monotherapy: ALBUTEROL AER HFA TMR Needs Medication Assessment - DARBY Overuse: ALBUTEROL AER HFA Incomplete Encounter MTPs No medication therapy recommendations to display Complete Encounter MTPs No medication therapy recommendations to display Assessment & Plan Indication, effectiveness, safety and convenience of his medications were reviewed today. The patient's medical conditions were assessed, evaluated, and deemed meeting goals of drug therapy, with thefollowing exceptions. Additional Notes: Patient appears adherent to regimen. He denies issues with current medications and does not need refills. Rxs not filled with [facility] - gets pill packs with current pharmacy and would not like to switch at this time. Discussed inhaler regimen with patient. He reports using daily inhaler, but appears he is using albuterol only and at times overusing medication. He has not refilled Symbicort in some time and explained this is cause for worsening symptoms as patient requested the dose of his inhaler be increased since it is not working as well. Patient reports he is checking weight daily - denies issues with swelling and reviewed when to contact provider. Pt UTD on vaccines other than RSV. Labs UTD. Takeaway Information Who was the recipient of the CMR service: beneficiary Language Template for the Patient Takeaway: [place] I attest that I have reviewed and updated the patient's conditions, allergies, and medications to the best of my ability. Patient provided medication list gathered by: Ida Fox diet assistantKvng Washburn RPh 04/09/2024, 11:18 AM documented in this encounter Miscellaneous Notes * MTM To-Do-List - Uma Washburn RPh - 04/16/2024 5:06 PM EST Images from the original note were not included. What we talked about: What I should do: The importance of taking your medication as prescribed Your medicine works best when taken as prescribed. It can be hard to remember to take daily medications. Consider making it a part of your daily routine. Pair taking your medication with something you do every day, like brushing your teeth or eating a meal. Consider setting daily alarms to help remind yourself when it is time to take your medicine. Using a pill box can also help you organize your medicines. Pill boxes allow you to fill each day slot with your daily medicine and help you track when your next dose is due. What we talked about: What I should do: Your daily maintenance inhaler (Symbicort) Your Symbicort is your daily inhaler. This medication works like a vitamin for your lungs. It works best when taken daily and as prescribed, even if you don't feel it working as soon as you take it. It does not work immediately (or in the moment) like yourrescue inhaler. You will notice as you take it daily that overtime your breathing should get easier or shouldn't become worst. Your Symbicort should be taken as 2 puffs by mouth twice daily. What we talked about: What I should do: Monitoring for bleeding/bruising when taking Eliquis You are on a medication that can make you morelikely to bleed. If you notice any bruising that gets bigger, darker, or does not go away; or if you notice any blood in the toilet after you go to the bathroom or dark tarry stools, contact your doctor. What we talked about: What I should do: Checking your weight at home Weighing yourself daily will help you identify if your heart failure is getting worse. It is recommended that you weigh yourself at the same time every morning (after urinating, but before eating) wearing the same thing. Keep track of your weights on a daily basis. A weight gain of 3 pounds in one day or 5 pounds in one week indicates fluid accumulation and should be a sign to call your doctor. * MTM Personal Medication List - Uma Washburn, [facility] - 04/16/2024 5:04 PM EST Medication How I take it Why I use it Prescriber Albuterol Sulfate HFA 108 (90 Base) MCG/ACT Inhalation Aerosol Solution INHALE TWO PUFFS BY MOUTH EVERY FOUR HOURS NEEDED FOR WHEEZING COPD Julia Harman MD amLODIPine Besylate 5 MG Oral Tablet (Norvasc) Take 1 Tablet by mouth in the morning. Blood Pressure Julia Harman MD Atorvastatin Calcium 40 MG Oral Tablet (Lipitor) Take 1 Tablet by mouth in the morning. CholesterolPatricia [place] Ignacio Budesonide-Formoterol Fumarate 160-4.5 MCG/ACT Inhalation Aerosol (Symbicort) inhale 2 puffs by mouth in the morning and 2 puffs before bedtime COPD Julia Harman MD Eliquis 5 MG Oral Tablet (Apixaban) Take 1 Tablet by mouth in the morning and 1 Tablet before bedtime. Blood Thinner Julia Harman MD Esomeprazole Magnesium 40 MG Oral Capsule Delayed Release TAKE 1 CAPSULE by mouth ONE TIME DAILY BEFORE BREAKFAST Heartburn Gaurav Villegas PA-C Famotidine 40 MG Oral Tablet (Pepcid) Take 1 Tablet by mouth every night at bedtime. Heartburn Julia Harman MD fluvoxaMINE Maleate 100 MG Oral Tablet (Luvox) TAKE ONE TABLET BY MOUTH EVERY DAY AT BEDTIME Mood Disorder Julia Harman MD Folic Acid 1 MG Oral Tablet Take 1 Tablet by mouth in the morning. Low Folic Acid Julia Snell MD Furosemide 40 MG Oral Tablet (Lasix) Take 1.5 Tablets by mouth in the morning. Swelling Julia Harman MD Levocetirizine Dihydrochloride 5 MG Oral Tablet Take 0.5 Tablets by mouth every evening. Allergies Julia Harman MD Metoprolol Tartrate 50 MG Oral Tablet (Lopressor) Take 1 Tablet by mouth in the morning and 1 Tablet before bedtime. Blood Pressure/Heart Julia Harman MD Montelukast Sodium 10 MG Oral Tablet (Singulair) TAKE ONE TABLET BY MOUTH EVERY DAY AT BEDTIME Allergies/Breathing Julia Harman MD Nitroglycerin 0.4 MG Sublingual Tablet Sublingual (Nitrostat) Place 1 Tablet under the tongue as needed for Pain, Chest. Maximum 3 doses. Chest Pain Yadira Goldstein PA-C Nystatin [id number] UNIT/GM External Powder (Nystop) Apply a small amount topically to affected area 3 times a day. Skin Condition Julia Harman MD Potassium Chloride ER 10 MEQ Oral Tablet Extended Release Take 1 Tablet by mouth in the morning. Low Potassium Julia Harman MD QUEtiapine Fumarate 25 MG Oral Tablet (SEROquel) Take 2 Tablets by mouth at bedtime. Mood/Sleep Aleksandr Sheriff PA-C documented in this encounter Plan of Treatment Upcoming Encounters Date Type Department Care Team ([facility] Contact Info) Description 05/22/2024 2:15 PM EDT Office Visit Podiatry [address] [phone] Drew Carbajal, DPDarien [address] [place] [address] 06/24/2024 2:45 PM EDT Office Visit Cardiology [address] [phone] Vero Gee CRNP [address] [place] [address] 06/29/2024 4:40 PM EDT Office Visit Family Practice [address] [phone] Lexie Ball PA-C [address] [place] [address] 07/13/2024 3:20 PM EDT Office Visit Sleep Disorders [facility] [address] [facility] [place] [phone] Sandra Vuong, [address] [place] [address] Health Maintenance Due Date Last Done Comments [...] exists DISCUSS TOBACCO CESSATION (REFER TO SMARTSET #3299) 12/16/2024 12/17/2023 (Discussed), 08/01/2015 (Discussed) Depression Monitoring [...] for long-term (current) use of other medications documented in this encounter Advance Directives * [...] Agents on File Name Relationship Healthcare Agent [facility] Communication Jam Rachel Cousin First Alternate Health Care Agent (per Health Care Power of Figure Clerk document) Care Teams Manager Of Operations Relationship Specialty Start Date End Date Julia Harman MD [address] [place] [phone] PCP - General Family Medicine 06/15/23 documented as of this encounter
--- OUTSIDE RECORDS SUMMARY | 2024-05-26 06:31 | External Medical Summary | Summary of Care ---
Author Name Unknown Organization [facility] Address [address] [place] [address] Phone [phone] Care Team Providers Care Gm/Svp Global Publisher Business Name Role Phone Julia Harman MD Primary Care Provi radhika Reason for Visit * Reason Onset Date Comments Filling Problem 04/11/2024 Encounter Details Date Type Department Care Team ([facility] st Contact Info) Description 04/11/2024 Telephone Family [facility] [address] [place] [phone] Lexie Ball PA-C [address] [place] [address] Filling Problem Allergies Active Allergy Reactions Criticality Noted Date Comments Sulfamethoxazole-Trimethoprim Hives 2021 denies documented as of this encounter (statuses as of 04/11/2024) Medications CPAP every night at bedtime. Active [...] Tablet 1 03/25/19 25 Active Saline Nasal [place] 0.65 % Nasal Solution (SM Nasal [place] Saline)Indications: Nasal dryness Administer 1 [place] into nostril as needed for Congestion. 30 mL 12 5 3:38 PM EST 03/27/19 25 Active Additional Information Patient not taking.Reported on 04/09/2024 QUEtiapine Fumarate 25 MG Oral Tablet (SEROquel)Indicatio ns:Insomnia, unspecified type Take 2 Tablets by mouth at bedtime. 60 Tablet 2 04/11/19 25 Active QUEtiapine Fumarate 25 MG Oral Tablet (SEROquel)Indicatio ns:Insomnia, unspecified type Take 1 Tablet by mouth at bedtime. 30 Tablet 5 5 3:38 PM EST 03/27/19 25 025 Discontin ued(Refil l) documented as of this encounter (statuses as of 04/11/2024) Active Problems Problem Noted Date Diagnosed Date [...] (05/16/2022): Added automatically from request for surgery [id number] Decreased hearing of both ears 11/11/2021 Wears [...] as of this encounter (statuses as of 04/11/2024) Resolved Problems Problem Noted Date Diagnosed Date [...] as of this encounter (statuses as of 04/11/2024) Immunizations Name Administration Dates Next Due COVID-19 mRNA, LNP-s, No Pre serve, 2-Dose Series (Moderna) 05/17/2020,04/19/2020 Pneumococcal Conjugate Vacc, 13 Valent (Prevnar) 12/09/2017,08/01/2015 Pneumococcal Conjugate Vacci ne, 20-valent ([id number]) 12/18/2023(Deferred: Patient Refused) Pneumococcal Polysaccharide PPV23 (Pneumovax) [...] 07/23/2023 1:27 AM EDT Karen Montenegro RN * Are you blind or do you have serious difficulty seeing, even when wearing glasses? Answer Date of Assessment Author No 07/23/2023 1:27 AM EDT Karen Montenegro, [place] * Do you have serious difficulty walking or climbing stairs? (5 years old or older) Answer Date of Assessment Author No 07/23/2023 1:27 AM Karen Garcia RN * Do you have difficulty dressing or bathing? (5 years old or older) Answer Date of Assessment Author No 07/23/2023 1:27 AM EDT Karen Montenegro RN * Because of a physical, mental, or emotional condition, do you have difficulty doing errands alone such as visiting a doctors office or shopping? (15 years old or older) Answer Date of Assessment Author No 07/23/2023 1:27 AM YELENAT Karen Montenegro RN documented as of this encounter Mental Status * Because of a physical, mental, or emotional condition, do you have serious difficulty concentrating, remembering, or making decisions? (5 years old or older) Answer Entry Date Author No 07/23/2023 1:27 AM EDT Karen Monteengro RN documented in this encounter Miscellaneous Notes * Telephone Encounter - Marcelo Gonzalez [facility] - 04/11/2024 10:39 AM EST Pharmacy calling in to request a dose change on their QUEtiapine Fumarate 25 MG Oral Tablet (SEROquel) . Current dose: Sig - Route: Take 1 Tablet by mouth at bedtime. - Oral Requested dose: Take 2 tablets by mouth at bedtime Reason for request: Pharmacy stated Pt stated he has been taking 50 mg Preferred pharmacy: [id number] Pending Prescriptions: Disp Refills QUEtiapine Fumarate 25 MG Oral Tablet (SE*60 Tab*2 Sig: Take 2 Tablets by mouth at bedtime. Please approve if appropriate and agreeable. Thanks, Marcelo Gonzalez, PharmD Clinical Pharmacist [facility] [phone] 04/11/2024, 10:43 AM * Telephone Encounter - Essie Ernandez CPhT - 04/11/2024 10:33 AM EST Pt requesting HIGH PRIORITY due to out of med Pharmacy calling in to request a dose change on their QUEtiapine Fumarate 25 MG Oral Tablet (SEROquel) . Current dose: Sig - Route: Take 1 Tablet by mouth at bedtime. - Oral Requested dose: Take 2 tablets by mouth at bedtime Reason for request: Pharmacy stated Pt stated he has been taking 50 mg Preferred pharmacy: [id number] Patient unwilling to speak with pharmacist at this time. Routing to pharmacist pool to advise. Thank you, Essie Ernandez CPhT Senior Market Research Analyst II [facility] ([facility]) (Formerly [facility]) 04/11/2024,10:33 AM documented in this encounter Plan of Treatment Upcoming Encounters Date Type Department Care Team (Late st Contact Info) Description 05/22/2024 2:15 PM EDT Office Visit Podiatry [facility] [address] [facility] [address] [place] [phone] Drew Carbajal, LEOBARDO [address] [place] [address] 06/24/2024 2:45 PM EDT Office Visit Cardiology [facility] [address] [facility] [address] [place] [phone] Vero Gee CRNP [address] [place] [address] 06/29/2024 4:40 PM EDT Office Visit Family Practice [facility] [address] [place] [phone] Lexie Ball PA-C [address] [place] [address] 07/13/2024 3:20 PM EDT Office Visit Sleep Disorders Ctr [facility] [address] [place] [phone] Sandra Vuong, [address] [place] [address] Health Maintenance Due Date Last Done Comments [...] exists DISCUSS TOBACCO CESSATION (REFER TO SMARTSET #[id number]) 12/16/2024 12/17/2023 (Discussed), 08/01/2015 (Discussed) O2 ASSESSMENT [...] group C, by GOLD 2017 classification ([facility]) ARMIDA (obstructive sleep apnea) Obstructive sleep apnea [...] GOLD 2017 classification (HCC) Tobacco use disorder Insomnia, unspecified type documented in this encounter Advance Directives * [...] on File Name [facility] Communication Jam Rachel Cousin First Alternate Health Care Agent (per Health Care Power of Visual C Developer document) Care Teams Gm/Svp Global Publisher Business Relationship Specialty Start Date End Date Julia Harman MD [address] [place] [phone] PCP - General Family Medicine 06/15/23 documented as of this encounter
--- OUTSIDE RECORDS SUMMARY | 2024-05-26 06:31 | External Medical Summary | Summary of Care ---
Author Name Unknown Organization [facility] Address [address] [place] [address] Phone [phone] Care Team Providers Care Retail General Manager Name Role Phone Julia Harman MD Primary Care Provi radhika Reason for Visit * Reason Onset Date Comments Advice 03/28/2024 Encounter Details Date Type Department Care Team ([facility] Contact Info) Description 03/28/2024 Telephone Family [address] [phone] Julia Harman MD [address] [place] [phone] Advice Allergies Active Allergy Reactions Criticality [...] MG/24HR Transdermal Patch 24 Hour (Nicoderm CQ)Indications: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 30 [...] (05/16/2022): Added automatically from request for surgery [id number] Decreased hearing of both ears 11/11/2021 Wears [...] (Prevnar) 12/09/2017,08/01/2015 Pneumococcal Conjugate Vacci ne, 20-valent ([id number]) 12/18/2023(Deferred: Patient Refused) Pneumococcal Polysaccharide PPV23 (Pneumovax) [...] 1:27 AM EDT Karen Montenegro, PORTIA * Are you blind or do you have serious difficulty seeing, even when wearing glasses? Answer Date of Assessment Author No 07/23/2023 1:27 AM EDT Karen Montenegro, RN * Do you have serious difficulty walking or climbing stairs? (5 years old or older) Answer Date of Assessment Author No 07/23/2023 1:27 AM YELENAT Karen Montenegro RN * Do you have difficulty dressing [...] 1:27 AM EDT Karen Montenegro RN documented as of this encounter Mental Status * Because of a physical, mental, or emotional condition, do you have serious difficulty concentrating, remembering, or making decisions? (5 years old or older) Answer Entry Date Author No 07/23/2023 1:27 AM EDT Karen Montenegro RN documented in this encounter Miscellaneous Notes * Telephone Encounter - Aury Solares LPN - 03/30/2024 3:13 PM EST Please see other TE * Telephone Encounter - Tram Nicholas OSA - 03/28/2024 10:19 AM EST Pt was seen 03/27 and said he was prescribed sleeping medication and it isn't helping. Pt asking fora callback to discuss. Please advise. Thank you, ARMIDA Colón documented in this encounter Plan of Treatment Upcoming Encounters Date Type Department Care Team (Late st Contact Info) Description 04/17/2024 2:30 PM EST Home Visit [facility] [place] [address] [place] [address] Karen Rubin PA-C [address] [place] [address] Esperanza Graham, Community Health Inspector [employer] [address] [place] [address] 05/22/2024 2:15 PM EDT Office Visit Podiatry [address] [place] [address] Drew Carbajal, LEOBARDO [facility] [place] [address] 06/24/2024 2:45 PM EDT Office Visit Cardiology [facility] [address] [facility] [address] [place] [address] Vero Gee CRNP [address] [place] [address] 06/29/2024 4:40 PM EDT Office Visit Family Practice [facility] [address] [place] [phone] Lexie Ball PA-C [address] [place] [address] 07/13/2024 3:20 PM EDT Office Visit Sleep Disorders [facility] [address] [place] [phone] Sandra Vuong, [address] [address] Health Maintenance Due Date Last Done Comments [...] exists DISCUSS TOBACCO CESSATION (REFER TO SMARTSET #1765) 12/16/2024 12/17/2023 (Discussed), 08/01/2015 (Discussed) Depression Monitoring [...] Agents on File Name [facility] Virginie Cousin First Alternate Health Care Agent (per Health Care Power of Biodiesel Product Development Manager document) Care Teams Retail General Manager Relationship Specialty Start Date End Date Julia Harman MD [address] [place] [phone] PCP - General Family Medicine 06/15/23 documented as of this encounter
--- OUTSIDE RECORDS SUMMARY | 2024-05-26 06:31 | External Medical Summary | Summary of Care ---
Author Name Unknown Organization [facility] Address [address] [place] [address] Phone [phone] Care Team Providers Care Dentofacial Orthopedics Dentist Name Role Phone Julia Harman MD Primary Care Provi radhika Reason for Visit * Reason Comments Cold Symptoms Head cold, body ahce s, cough, goes not feel like his self - going on since saturday Encounter Details Date Type Department Care Team ([facility] Contact Info) Description 04/16/2024 3:00 PM EST Office Visit [facility] [address] [place] [phone] Aggie Aguirre MD [address] [place] [address] Upper respiratory tract infection, unspecified type*; Acute cough; Impacted cerumen of right ear Allergies Active Allergy Reactions Criticality Noted Date [...] MG/24HR Transdermal Patch 24 Hour (Nicoderm CQ)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 30 mL 12 5 3:38 PM EST 03/27/19 25 Active Additional Information Patient not taking.Reported on 04/09/2024 Nystatin [id number] UNIT/GM External Powder (Nystop)Indications :Intertrigo Apply topically to affected area 3 times a day. Apply to lower abdomen 15 g 04/13/19 25 Active QUEtiapine Fumarate 25 MG Oral Tablet (SEROquel)Indicatio ns:Insomnia, unspecified type Take 2 Tablets by mouth at bedtime. 60 Tablet 2 04/11/19 25 Active Dextromethorphan-gu aiFENesin 10-100 MG/5ML Oral SyrupIndications:Ac [place] cough Take 5 mL by mouth every 6 hours as needed for Cough. 120 mL 5 4:20 PM EST 04/16/19 25 Active GNP Earwax Removal Drops 6.5 % Otic Solution (Carbamide Peroxide)Indication s:Impacted cerumen of right ear Administer 4 Drops to the right ear in the morning and 4 Drops before bedtime. Do all this for 5 days. Fill ear canal and insert cotton plug. Remove plug after 15 to 30 minutes.. 15 mL 5 4:20 PM EST 04/16/19 25 025 Active documented as of this encounter (statuses [...] (05/16/2022): Added automatically from request for surgery [id number] Decreased hearing of both ears 11/11/2021 Wears [...] (Prevnar) 12/09/2017,08/01/2015 Pneumococcal Conjugate Vacci ne, 20-valent ([id number]) 12/18/2023(Deferred: Patient Refused) Pneumococcal Polysaccharide PPV23 (Pneumovax) [...] Sign [place] Time Taken Comments Blood Pressure 128/68 04/16/2024 2:52 PM EST Pulse 68 04/16/2024 2:52 PM EST Temperature 35.4 C (95.7 F) 04/16/2024 2:52 PM ES T Respiratory Rate - - Oxygen Saturation 98% 04/16/2024 2:52 PM EST Inhaled Oxygen Concentration - - Weight 118.2 kg (260 lb 8 oz) 04/16/2024 2:52 PM EST Height - - Body Mass Index 42.07 03/27/2024 2:51 PM EST documented in this [...] documented in this encounter Progress Notes * Aggie Aguirre MD - 04/16/2024 3:35 PM EST Images from the original note were not included. History of Present Illness Gaurav Hall is a 73 year old male that presents for Cold Symptoms (Head cold, body ahces, cough, goes not feel like his self - going on since saturday) Acute visit. Patient reports fatigue, myalgia, "head cold", cough, headache, runny nose for 5 days.No fever/chills. Patient had diarrhea on Saturday, it resolved. Patient reports normal appetite. NoSOB/BLACKWELL/wheezing. Patient feels better today. No OTC medications, no known sick contacts. PMH: COPD, DM2 (HbA1c 7), A.fib, ARMIDA Physical Exam Vitals: 04/16/24 1452 Temp: 95.7 F (35.4 C) Pulse: 68 SpO2: 98% BP: 128/68 BP Readings from Last 3 Encounters: 04/16/24 128/68 03/27/24 122/70 01/14/24 130/68 Wt Readings from Last 3 Encounters: 04/16/24 260 lb 8 oz (118.2 kg) 03/27/24 265 lb 8 oz (120.4 kg) 01/01/24 263 lb 6.4 oz (119.5 kg) BMI Readings from Last 3 Encounters: 04/16/24 42.07 kg/m 03/27/24 42.87 kg/m 01/01/24 42.51 kg/m Physical Exam Constitutional: General: He is not in acute distress. Appearance: Normal appearance. He is obese. He is not ill-appearing. HENT: Head: Normocephalic and atraumatic. Right Ear: External ear normal. Left Ear: Tympanic membrane, ear canal and external ear normal. Ears: Comments: Cerumen impaction Nose: Nose normal. Mouth/Throat: Mouth: Mucous membranes are moist. Pharynx: Posterior oropharyngeal erythema present. Eyes: Conjunctiva/sclera: Conjunctivae normal. Pupils: Pupils are equal, round, and reactive to light. Cardiovascular: Rate and Rhythm: Normal rate. Rhythm irregular. Pulses: Normal pulses. Pulmonary: Effort: Pulmonary effort is normal. Breath sounds: No wheezing, rhonchi or rales. Comments: Decreased air at bases Abdominal: General: Bowel sounds are normal. There is no distension. Palpations: Abdomen is soft. Tenderness: There is no abdominal tenderness. Musculoskeletal: Cervical back: Neck supple. Skin: General: Skin is warm and dry. Findings: No rash. Neurological: Mental Status: He is alert and oriented to person, place, and time. Psychiatric: Mood and Affect: Mood normal. Behavior: Behavior normal. I have reviewed the following results: None Assessment and Plan 1. Acute cough - XR CHEST 2 VIEWS - INFLUENZA A/B RSV SARS-COV2,PCR; Future - Dextromethorphan-guaiFENesin 10-100 MG/5ML Oral Syrup; Take 5 mL by mouth every 6 hours as neededfor Cough. Dispense: 120 mL; Refill: 0 - INFLUENZA A/B RSV SARS-COV2,PCR 2. Upper respiratory tract infection, unspecified type (Primary) - INFLUENZA A/B RSV SARS-COV2,PCR; Future - INFLUENZA A/B RSV SARS-COV2,PCR 3. Impacted cerumen of right ear - GNP Earwax Removal Drops 6.5 % Otic Solution (Carbamide Peroxide); Administer 4 Drops to the right ear in the morning and 4 Drops before bedtime. Do all this for 5 days. Fill ear canal and insert cotton plug. Remove plug after 15 to 30 minutes.. Dispense: 15 mL; Refill: 0 Wrap-Up As needed Time: I spent a total of 20-29 minutes (exact time 25 mins) on the date of service in preparation, delivery, and documentation of the care provided to Gaurav Hall excluding any time spent in the performance of separately billed services. documented in this encounter Nursing Notes * Dara Aguilar CCMA - 04/16/2024 2:52 PM EST Chief Complaint Patient presents with Cold Symptoms Head cold, body ahces, cough, goes not feel like his self - going on since saturday documented in this encounter Plan of Treatment Upcoming Encounters Date Type Department Care Team (Late st Contact Info) Description 05/22/2024 2:15 PM EDT Office Visit Podiatry [address] Drew Carbajal, DPM [address] [place] [address] 06/24/2024 2:45 PM EDT Office Visit Cardiology [address] [place] [phone] Vero Gee CRNP [address] [place] [address] 06/29/2024 4:40 PM EDT Office Visit Family [facility] [address] [place] [address] Lexie Ball PA-C [address] [place] [address] 07/13/2024 3:20 PM EDT Office Visit Sleep Disorders Ctr [facility] [address] [phone] Sandra Vuong, [address] [place] [address] Pending Results Name Type Priority Associated Diagnoses Date /Time INFLUENZA A/B RSV SARS-COV2,PCR Lab Routine Acute cough Upper respiratory tract infection, unspecified type 04/16/2024 3:58 PM EST Scheduled Orders Name Type Priority Associated Diagnoses Orde r Schedule XR CHEST 2 VIEWS Medical Imaging Routine Acute cough Ordered: 04/16/2024 INFLUENZA A/B RSV SARS-COV2,PCR Lab Routine Acute cough Upper respiratory tract infection, unspecified type Expected: 04/16/2024 (Approximate), Expires: 04/16/2025 Health Maintenance Due Date Last Done Comments [...] exists DISCUSS TOBACCO CESSATION (REFER TO SMARTSET #6397) 12/16/2024 12/17/2023 (Discussed), 08/01/2015 (Discussed) Depression Monitoring [...] Upper respiratory tract infection, unspecified type- Primary Acute cough Impacted cerumen of right ear Impacted cerumen documented in this encounter Advance Directives * [...] Agents on File Name Relationship Healthcare Agent [facility] Communication Jam Rachel Cousin First Alternate Health Care Agent (per Health Care Power of Speech Assistant document) Care Teams Dentofacial Orthopedics Dentist Relationship Specialty Start Date End Date Julia Harman MD [address] [place] [phone] PCP - General Family Medicine 06/15/23 documented as of this encounter
--- OUTSIDE RECORDS SUMMARY | 2024-05-26 06:31 | External Medical Summary | Summary of Care ---
Author Name Unknown Organization [facility] Address [address] [place] [address] Phone [phone] Care Team Providers Care Leaf Stamper Name Role Phone Julia Harman MD Primary Care Provi radhika Encounter Details Date Type Department Care Team (Late st Contact Info) Description 04/21/2024 Population Health External Data Unspecified Department Allergies Active Allergy Reactions Criticality Noted Date Comments Sulfamethoxazole-Trimethoprim Hives 2021 denies documented as of this encounter (statuses as of 04/22/2024) Medications CPAP every night at bedtime. Active [...] Transdermal Patch 24 Hour (Nicoderm CQ)Indications:Toba tobacco roller use disorder One 7 mg patch daily [...] Tablet 1 03/25/19 25 Active Saline Nasal [place] 0.65 % Nasal Solution (SM Nasal [place] Saline)Indications: Nasal dryness Administer 1 [place] into nostril as needed for Congestion. 30 mL 12 5 3:38 PM EST 03/27/19 25 Active Additional Information Patient not taking.Reported on 04/09/2024 Nystatin [id number] UNIT/GM External Powder (Nystop)Indications :Intertrigo Apply topically [...] as of this encounter (statuses as of 04/22/2024) Active Problems Problem Noted Date Diagnosed Date [...] (05/16/2022): Added automatically from request for surgery [id number] Decreased hearing of both ears 11/11/2021 Wears [...] as of this encounter (statuses as of 04/22/2024) Resolved Problems Problem Noted Date Diagnosed Date [...] as of this encounter (statuses as of 04/22/2024) Immunizations Name Administration Dates Next Due COVID-19 mRNA, LNP-s, No Pre serve, 2-Dose Series (Moderna) 05/17/2020,04/19/2020 Pneumococcal Conjugate Vacc, 13 Valent (Prevnar) 12/09/2017,08/01/2015 Pneumococcal Conjugate Vacci ne, 20-valent ([id number]) 12/18/2023(Deferred: Patient Refused) Pneumococcal Polysaccharide PPV23 (Pneumovax) [...] 1:27 AM YELENAT Karen Montenegro RN * Because of a [...] Karen Garcia RN documented in this encounter Plan of Treatment Upcoming Encounters Date Type Department Care Team (Late st Contact Info) Description 05/22/2024 2:15 PM EDT Office Visit Podiatry [address] [place] [phone] Drew Carbajal, LEOBARDO [facility] [place] [address] 06/24/2024 2:45 PM EDT Office Visit Cardiology [facility] [address] [facility] [address] [place] [address] Vero Gee CRNP [address] [place] [address] 06/29/2024 4:40 PM EDT Office Visit Family Practice [facility] [address] [place] [phone] Lexie Ball PA-C [address] [place] [address] 07/13/2024 3:20 PM EDT Office Visit Sleep Disorders Ctr [facility] [address] [place] [phone] Sandra Vuong, [address] [address] Health Maintenance Due Date Last Done Comments [...] history exists DISCUSS TOBACCO CESSATION (REFER TO TOMMY #3291) 12/16/2024 12/17/2023 (Discussed), 08/01/2015 (Discussed) Depression [...] Agents on File Name [facility] Jam Rachel Cousin First Alternate Health Care Agent (per Health Care Power of Environmental Conflict Manager document) Care Teams Leaf Stamper Relationship Specialty Start Date End Date Julia Harman MD [address] [place] [phone] PCP - General Family Medicine 06/15/23 documented as of this encounter
--- OUTSIDE RECORDS SUMMARY | 2024-05-26 06:32 | External Medical Summary | Summary of Care ---
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 Fellmongering Machine Operator Name Role Phone Julia Harman MD Primary Care Provi radhika Reason for Visit * Reason Comments Status Check Encounter Details Date Type Department Care Team (Latest Contact Info) Description 03/27/2024 3:00 PM EST [facility] [address] [place] [address] Lexie Ball PA-C [address] [place] [phone] Chronic heart failure with preserved ejection fraction ([facility])*; HTN, GOAL BELOW 140/90; Hyperlipidemia with target LDL less than 130; PAF (paroxysmal atrial fibrillation) ([facility]); COPD, group C, by GOLD 2017 classification ([facility]); ARMIDA (obstructive sleep apnea); Insomnia, unspecified type; COPD exacerbation ([facility]); Intertrigo; Nasal dryness; Bilateral impacted cerumen; Gastroesophageal reflux disease without esophagitis Allergies Active Allergy Reactions Criticality Noted Date Comments Sulfamethoxazole-Trimethoprim Hives 2021 denies documented as of this encounter (statuses as of 03/27/2024) Medications CPAP every night at bedtime. 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 14 Patch 1 07/16/19 24 Active Additional Information Patient not taking.Reported on 11/20/2023 Nitroglycerin 0.4 MG Sublingual Tablet Sublingual (Nitrostat) Place 1 Tablet under the tongue as needed for Pain, Chest. Maximum 3 doses. 30 Tablet 07/23/19 24 Active Additional Information Patient not taking.Reported on 11/20/2023 Famotidine 40 MG Oral Tablet (Pepcid)Indications :Gastroesophageal [...] 90 Tablet 1 03/25/19 25 Active Nystatin 978344 UNIT/GM External Powder (Nystop)Indications :Intertrigo Apply topically [...] PM EST 03/27/19 25 Active Saline Nasal [place] 0.65 % Nasal Solution (SM Nasal [place] Saline)Indications: Nasal dryness Administer 1 [place] into nostril as needed for Congestion. 30 mL 12 5 3:38 PM EST 03/27/19 25 Active Debrox 6.5 % Otic Solution (Carbamide Peroxide)Indication s:Bilateral impacted cerumen Administer 5 Drops into ears once for 1 dose. Fill ear canal and insert cotton plug. Remove plug after 15 to 30 minutes. 15 mL 5 3:38 PM EST 03/27/19 25 025 Active Zolpidem Tartrate 5 MG Oral Tablet (Ambien)Indications :Insomnia, unspecified type TAKE 1 TABLET BY MOUTH ONCE DAILY AT BEDTIME ONLY IF NEEDED FOR SLEEP 30 Tablet 03/06/20 24 025 Discontin ued(Medic ation List Clean Up) documented as of this encounter (statuses as of 03/27/2024) Active Problems Problem Noted Date Diagnosed Date [...] (05/16/2022): Added automatically from request for surgery [id number] Decreased hearing of both ears 11/11/2021 Wears [...] as of this encounter (statuses as of 03/27/2024) Resolved Problems Problem Noted Date Diagnosed Date [...] as of this encounter (statuses as of 03/27/2024) Immunizations Name Administration Dates Next Due COVID-19 mRNA, LNP-s, No Pre serve, 2-Dose Series (Moderna) 05/17/2020,04/19/2020 Pneumococcal Conjugate Vacc, 13 Valent (Prevnar) 12/09/2017,08/01/2015 Pneumococcal Conjugate Vacci ne, 20-valent ([id number]) 12/18/2023(Deferred: Patient Refused) Pneumococcal Polysaccharide PPV23 (Pneumovax) [...] the money to buy more. Never true 03/27/19 25 Within the past 12 months, t he food you bought just didn't last and you didn't have money to get more. Never true 03/27/2024 Childcare Answer Date Recorded Do you feel overwhelmed with taking care of a child, family member or friend? No 03/27/2024 Does your family need help f inding childcare? (Household - for ages 0-17 years) Not on file 03/27/2024 Clothing Answer Date Recorded Have you been unable to get clothing when it was really needed? No 03/27/2024 Is your family able to get c lothes or diapers when needed? (Household - for ages 0-17 years) Not on file 03/27/2024 Personal Safety Answer Date Recorded Do you feel unsafe or have concerns for your saf ety? No 03/27/2024 Do you have concerns for you r family's safety? (Household - for ages 0-17 years) Not on file 03/27/2024 Utilities Answer Date Recorded Do you have trouble paying y our heating, water, or electric bill? No 03/27/2024 Is your family able to pay t he heat, water, or electric bill? (Household - for ages 0-17 years) Not on file 03/27/2024 Does your family have access to good internet? (Household - for ages 0-17 years) Not on file 03/27/2024 Employment Status Answer Date Recorded Are you unemployed or without regular income? No 03/27/2024 Does the household have a re gular source of income? (Household - for ages 0-17 years) Not on file 03/27/2024 Social Connections Answer Date Recorded How often do you feel lonely or isolated from th ose around you? Never 03/27/2024 Financial Resource Strain Answer Date R ecorded Do you have any trouble payi ng for your medications, or do you think you might in the future? No 03/27/2024 Does your family have troubl e paying for medicine? (Household - for ages 0-17 years) Not on file 03/27/2024 Transportation Needs Answer Date Record ed READ ONLY Do you have troubl e getting a ride to medical visits or work? Never True 03/27/2024 Does your family have a hard time getting a ride to doctors visits? (Household - for ages 0-17 years) Not on file 03/27/2024 Has lack of transportation k ept you from medical appointments, meetings, work, or from getting things needed for daily living? Check all that apply. No 03/27/2024 Do you (or your family) have trouble finding or paying for a ride (transportation)? (Household - for ages 0-17 years) Not on file 03/27/2024 Housing Stability Answer Date Recorded Do you currently live in a s helter or have no steady place to sleep at night? No 03/27/2024 READ ONLY Do you think you a re at risk of becoming homeless? No 03/27/2024 Does your family worry about paying for your home or becoming homeless? (Household - for ages 0-17 years) Not on file 0 03/27/2024 Are you homeless or worried that you might be in the future? No 03/27/2024 Are you (or your family) dorian eless or worried that you might be in the future? (Household - for ages 0-17 years) Not on file Food Insecurity Answer Date Recorded Do you need food for this week? No 03/27/2024 Are you able to get enough f ood for your family? (Household - for ages 0-17 years) Not on file 03/27/2024 Does your family need food t his week? (Household - for ages 0-17 years) Not on file 03/27/2024 Do you always have enough fo od for your family? (Household - for ages 0-17 years) Not on file 03/27/2024 Sex and Gender Information Value Date Recorded Sex Assigned at Male 07/14/2018 2:42 PM EDT Legal Sex Male 5:14 AM EST Gender Identity Male 07/14/2018 2:42 PM EDT Sexual Orientation Straight 07/14/2018 2: 42 PM EDT documented as of this encounter Last Filed Vital Signs Vital Sign Reading Time Taken Comments Blood Pressure 122/70 03/27/2024 2:51 PM EST Pulse 54 03/27/2024 2:51 PM EST Temperature 36.5 C (97.7 F) 03/27/2024 2:51 PM ES T Respiratory Rate 12 03/27/2024 2:51 PM EST Oxygen Saturation 97% 03/27/2024 2:51 PM EST Inhaled Oxygen Concentration - - Weight 120.4 kg (265 lb 8 oz) 03/27/2024 2:51 PM EST Height 167.6 cm (5' 5.98") 03/27/2024 2:51 PM ES T Body Mass Index 42.87 03/27/2024 2:51 PM EST documented in this encounter Functional Status * Are you deaf or do you have serious difficulty hearing? Answer Date of Assessment Author No 07/23/2023 1:27 AM EDT Karen Montenegro RN * Are you blind or do you have serious difficulty seeing, even when wearing glasses? Answer Date of Assessment Author No 07/23/2023 1:27 AM EDT Karen Montenegro RN * Do you have [...] Karen Montenegro RN documented in this encounter Progress Notes * Lexie Ball PA-C - 03/27/2024 4:08 PM EST Images from the original note were not included. Subjective Gaurav Hall is a 73 year old male that presents for Status Check History of Present Illness The patient, with a history of COPD, HFpEF, PAF on Eliqius, hypertension, type 2 diabetes, and hyperlipidemia, presents with insomnia, anxiety, nasal congestion, a rash, and a COPD exacerbation. He reports long-standing difficulty sleeping, despite previous trials of Ambien, which was ineffective. He typically goes to bed late, around midnight or 1 AM, and often watches TV in bed. He has tried a s creen-free hour before bed without success. He also uses a CPAP machine for sleep apnea, which he reports is not helping him sleep. The patient also reports feeling anxious, though he denies a history of anxiety. He has nasal congestion and discomfort, which has been present for a couple of days. He denies shortness of breath andis using a rescue inhaler for his COPD. The patient also reports a rash on his stomach, which is diagnosed as intertrigo and is prescribed nystatin powder for treatment. He has a history of depression and is prescribed Seroquel to help with sleep and depression. The patient also mentions a scab on his arm that has been present for a less than one month. Current Outpatient Medications Medication Sig Dispense Refill CPAP every night at bedtime. Vitamin D3 50 MCG (1999 UT) Oral Capsule TAKE 1 CAPSULE BY MOUTH ONCE DAILY 90 Capsule 3 Budesonide-Formoterol Fumarate 160-4.5 MCG/ACT Inhalation Aerosol (Symbicort) inhale 2 puffs by mouth in the morning and 2 puffs before bedtime 30.6 g 3 Esomeprazole Magnesium 40 MG Oral Capsule Delayed Release TAKE 1 CAPSULE by mouth ONE TIME DAILY BEFORE BREAKFAST 90 Capsule 3 Famotidine 40 MG Oral Tablet (Pepcid) Take 1 Tablet by mouth every night at bedtime. 90 Tablet 2 Folic Acid 1 MG Oral Tablet Take 1 Tablet by mouth in the morning. 90 Tablet 3 Montelukast Sodium 10 MG Oral Tablet (Singulair) TAKE ONE TABLET BY MOUTH EVERY DAY AT BEDTIME 100 Tablet 3 Atorvastatin Calcium 40 MG Oral Tablet (Lipitor) Take 1 Tablet by mouth in the morning. 100 Tablet 3 Levocetirizine Dihydrochloride 5 MG Oral Tablet Take 0.5 Tablets by mouth every evening. 90 Tablet 1 Furosemide 40 MG Oral Tablet (Lasix) Take 1.5 Tablets by mouth in the morning. 45 Tablet 5 Furosemide 20 MG Oral Tablet (Lasix) Take 3 Tablets by mouth daily as needed (Edema, weight gain). Take NEEDED for weight gain or leg swelling as described in your diuretic titration plan. 30 Tablet 3 Potassium Chloride ER 10 MEQ Oral Tablet Extended Release Take 1 Tablet by mouth in the morning. 90Tablet 1 Albuterol Sulfate HFA 108 (90 Base) MCG/ACT Inhalation Aerosol Solution INHALE TWO PUFFS BY MOUTH EVERY FOUR HOURS NEEDED FOR WHEEZING 54 g 3 Eliquis 5 MG Oral Tablet (Apixaban) Take 1 Tablet by mouth in the morning and 1 Tablet before bedtime. 60 Tablet 5 amLODIPine Besylate 5 MG Oral Tablet (Norvasc) Take 1 Tablet by mouth in the morning. 90 Tablet 1 fluvoxaMINE Maleate 100 MG Oral Tablet (Luvox) TAKE ONE TABLET BY MOUTH EVERY DAY AT BEDTIME 90 Tablet 1 Metoprolol Tartrate 50 MG Oral Tablet (Lopressor) Take 1 Tablet by mouth in the morning and 1 Tablet before bedtime. 90 Tablet 1 Nystatin 155658 UNIT/GM External Powder (Nystop) Apply topically to affected area 3 times a day for14 days. Apply to lower abdomen 15 g 0 predniSONE 20 MG Oral Tablet (Deltasone) Take 1 Tablet by mouth in the morning for 5 days. 5 Tablet0 Azithromycin 250 MG Oral Tablet (Zithromax) Take 2 tabs by mouth on the first day, then 1 tab dailyon days two through five 6 Tablet 0 QUEtiapine Fumarate 25 MG Oral Tablet (SEROquel) Take 1 Tablet by mouth at bedtime. 30 Tablet 5 Saline Nasal [place] 0.65 % Nasal Solution (SM Nasal [place] Saline) Administer 1 [place] into nostril asneeded for Congestion. 30 mL 12 Debrox 6.5 % Otic Solution (Carbamide Peroxide) Administer 5 Drops into ears once for 1 dose. Fill ear canal and insert cotton plug. Remove plug after 15 to 30 minutes. 15 mL 0 Nicotine 7 MG/24HR Transdermal Patch 24 Hour (Nicoderm CQ) One 7 mg patch daily for 2 weeks; Removeold patch daily; and then stop. (Patient not taking: Reported on 11/20/2023) 14 Patch 1 Nitroglycerin 0.4 MG Sublingual Tablet Sublingual (Nitrostat) Place 1 Tablet under the tongue as needed for Pain, Chest. Maximum 3 doses. (Patient not taking: Reported on 11/20/2023) 30 Tablet 0 No current facility-administered medications for this visit. Objective Vitals: 03/27/24 1451 Temp: 97.7 F (36.5 C) Pulse: 54 Resp: 12 SpO2: 97% BP: 122/70 BMI: 42.87 Physical Exam HEENT: Nasal mucosa dry. Ears full of wax. CHEST: Wheezing upon auscultation. CARDIOVASCULAR: Heart sounds regular, no murmurs. SKIN: Scab on arm, painful. I have reviewed the following results: Results DIAGNOSTIC Echocardiography: Enlarged aortic root (02/2024) Stress echocardiography: Normal findings (01/09/2024) Assessment and Plan Assessment & Plan Insomnia Chronic difficulty sleeping. Failed Ambien. Patient has poor sleep hygiene (late bedtime, screen time before bed). Concurrent use of CPAP for sleep apnea. -Start Seroquel 25mg at bedtime for sleep and depression. -Encourage improved sleep hygiene:earlier bedtime, no screens 1 hour before bed. COPD Exacerbation Increased use of rescue inhaler. Audible wheezing on exam.. -Start Azithromycin (Z-Eder) for 5 days. -Start Prednisone, to be taken in the morning to minimize sleep disturbance. Intertrigo Rash on abdomen, likely yeast-related. Patient prefers powder over cream. -Prescribe Nystatin powder, apply three times daily. Nasal Dryness Recent onset, causing discomfort and bleeding. -Recommend [id number] nasal saline spray for moisture. Skin Lesion Scab on arm. If persistent, may require dermatology referral. -Advise patient to monitor and report if lesion persists for more than 4 weeks. Ear Wax Bilateral ear wax noted on exam. Patient declined in-office cleaning. -Prescribe Debrox ear drops to help loosen wax. Paroxysmal atrial fibrillation, heart failure with preserved ejection fraction, hypertension Patient follows with Cardiology On Eliquis Patient takes 60 mg of Lasix in the morning and 60 mg if needed for increased swelling (also on 10Meq Potassium) On Lopressor 50 mg twice daily, amlodipine 5 mg General Health Maintenance -Order fasting labs as patient is due for routine monitoring. -Continue current medications for hypertension, heart failure, and type 2 diabetes. -Encourage smoking cessation. Chronic heart failure with preserved ejection fraction (HCC) (Primary) HTN, GOAL BELOW 140/90 Hyperlipidemia with target LDL less than 130 PAF (paroxysmal atrial fibrillation) ([facility]) COPD, group C, by GOLD 2017 classification ([facility]) ARMIDA (obstructive sleep apnea) Insomnia, unspecified type - QUEtiapine Fumarate 25 MG Oral Tablet (SEROquel); Take 1 Tablet by mouth at bedtime. COPD exacerbation ([facility]) - predniSONE 20 MG Oral Tablet (Deltasone); Take 1 Tablet by mouth in the morning for 5 days. - Azithromycin 250 MG Oral Tablet (Zithromax); Take 2 tabs by mouth on the first day, then 1 tab daily on days two through five Intertrigo - Nystatin [id number] UNIT/GM External Powder (Nystop); Apply topically to affected area 3 times a day for 14 days. Apply to lower abdomen Nasal dryness - Saline Nasal [place] 0.65 % Nasal Solution (SM Nasal [place] Saline); Administer 1 [place] into nostrilas needed for Congestion. Bilateral impacted cerumen - Debrox 6.5 % Otic Solution (Carbamide Peroxide); Administer 5 Drops into ears once for 1 dose. Fill ear canal and insert cotton plug. Remove plug after 15 to 30 minutes. Gastroesophageal reflux disease without esophagitis Wrap-Up Follow Up: Return in about 3 months (around 06/25/2024), or if symptoms worsen or fail to improve, for Fasting Labs Soon. | For: Fasting Labs Soon Time: I spent a total of 40-54 minutes (exact time 40 mins) on the date of service in preparation, delivery, and documentation of the care provided to Gaurav Hall excluding any time spent in the performance of separately billed services. Text in this note was generated using an ambient documentation service. I discussed the use of a device to record and summarize our discussion today. All persons present during the encounter consented to its use. documented in this encounter Nursing Notes * Aury Solares LPN - 03/27/2024 2:49 PM EST The patient has been properly identified by confirmation of name and date of . Chief Complaint Patient presents with Status Check Patient is here for a 3 mo follow up. C/O that he is not able to sleep and would like something forsleep. Mentions that he has a rash on his belly and nose congestion and cough for a few days. documented in this encounter Plan of Treatment Upcoming Encounters Date Type Department Care Team ([facility] st Contact Info) Description 04/17/2024 2:30 PM EST Home Visit [facility] [place] [address] [place] [address] Karen Rubin PA-C [address] [place] [address] Esperanza Graham, [facility] Die Cast Supervisor [address] [place] [address] 05/22/2024 2:15 PM EDT Office Visit Podiatry [facility] [address] [facility] [address] [place] [address] Drew Carbajal, DPDarien [address] [place] [address] 06/24/2024 2:45 PM EDT Office Visit Cardiology [address] [place] [phone] Vero Gee CRNP [address] [place], [place] [id number] 06/29/2024 4:40 PM EDT Office Visit Family Practice [facility] [address] [place] [phone] Lexie Ball PA-C [address] [place] [address] 07/13/2024 3:20 PM EDT Office Visit Sleep Disorders Ctr [facility] [address] [place] [phone] Sandra Vuong, [address] [place] [address] Health Maintenance Due Date Last Done Comments [...] COPD, group C, by GOLD 2017 classification ([facility]) ARMIDA (obstructive sleep apnea) Obstructive [...] COPD, group C, by GOLD 2017 classification ([facility]) Skin lesion- Primary Unspecified disorder of skin and subcutaneous tissue Chronic heart failure with preserved ejection fraction (HCC) Persistent atrial fibrillation (HCC) Atrial fibrillation COPD, group C, by GOLD 2017 classification (HCC) Tobacco use disorder Chronic heart failure with preserved ejection fraction (HCC)- Primary HTN, GOAL BELOW 140/90 Unspecified essential hypertension Hyperlipidemia with target LDL less than 130 Other and unspecified hyperlipidemia PAF (paroxysmal atrial fibrillation) (HCC) Atrial fibrillation COPD, group C, by GOLD 2017 classification (HCC) ARMIDA (obstructive sleep apnea) Obstructive sleep apnea (adult) (pediatric) Insomnia, unspecified type COPD exacerbation (HCC) Obstructive chronic bronchitis with exacerbation Intertrigo Other specified erythematous condition Nasal dryness Other diseases of nasal cavity and sinuses Bilateral impacted cerumen Impacted cerumen Gastroesophageal reflux disease without esophagitis Esophageal reflux [...] on File Name Relationship Healthcare Agent [facility] Communication Jam Virginie Cousin First Alternate Health Care Agent (per Health Care Power of Blasting Worker document) Care Teams Fellmongering Machine Operator Relationship Specialty Start Date End Date Julia Harman MD [address] [place] [phone] PCP - General Family Medicine 06/15/23 documented as of this encounter
--- OUTSIDE RECORDS SUMMARY | 2024-05-26 06:32 | External Medical Summary | Summary of Care ---
Author Name Unknown Organization [facility] Address [address] [place] [address] Phone [phone] Care Team Providers Care Needle Loom Weaver Name Role Phone Julia Veras MD Primary Care Provi radhika Reason for Visit * Reason Comments eRx-Medication Refill Encounter Details Date Type Department Care Team ([facility] Contact Info) Description 03/04/2024 Refill Family [address] [phone] Julia Veras MD [address] [place] [phone] Allergies Active Allergy Reactions Criticality Noted Date Comments Sulfamethoxazole-Trimethoprim Hives 2021 denies documented as of this encounter (statuses as of 03/06/2024) Medications CPAP every night at bedtime. Active Vitamin D3 50 MCG (1999) Oral CapsuleIndications :Vitamin D deficiency TAKE 1 CAPSULE BY MOUTH ONCE DAILY 90 Capsule 3 023 Active Budesonide-Formote rol Fumarate 160-4.5 MCG/ACT Inhalation Aerosol (Symbicort)Indicat ions:COPD, moderate (HCC) inhale 2 puffs by mouth in the morning and 2 puffs before bedtime 30.6 g 3 024 Active Esomeprazole Magnesium 40 MG Oral Capsule Delayed Release TAKE 1 CAPSULE by mouth ONE TIME DAILY BEFORE BREAKFAST 90 Capsule 3 024 Active Nicotine 7 MG/24HR Transdermal Patch 24 [...] Maximum 3 doses. 30 Tablet 024 Active Additional Information Patient not taking.Reported on 11/20/2023 Famotidine 40 MG Oral Tablet (Pepcid)Indication s:Gastroesophageal [...] the morning. 45 Tablet 5 024 Active Furosemide 20 MG Oral Tablet (Lasix)Indications :Chronic heart failure with preserved ejection fraction (HCC) Take 3 Tablets by mouth daily as needed (Edema, weight gain). Take NEEDED for weight gain or leg swelling as described in your diuretic titration plan. 30 Tablet 3 024 Active Metoprolol Tartrate 50 MG Oral Tablet (Lopressor)Indicat ions:Persistent atrial fibrillation (HCC) Take 1 Tablet by mouth in the morning and 1 Tablet before bedtime. 90 Tablet 1 024 Active Potassium Chloride ER 10 MEQ Oral Tablet Extended Release Take 1 Tablet by mouth in the morning. 90 Tablet 1 024 Active Albuterol Sulfate HFA 108 (90 Base) MCG/ACT Inhalation Aerosol SolutionIndication s:COPD, moderate (HCC) INHALE TWO PUFFS BY MOUTH EVERY FOUR HOURS NEEDED FOR WHEEZING 54 g 3 024 Active Eliquis 5 MG Oral Tablet (Apixaban)Indicati ons:Atrial fibrillation, unspecified type (HCC) Take 1 Tablet by mouth in the morning and 1 Tablet before bedtime. 60 Tablet 5 Active amLODIPine Besylate 5 MG Oral Tablet (Norvasc) Take 1 Tablet by mouth in the morning. 90 Tablet 1 Active fluvoxaMINE Maleate 100 MG Oral Tablet (Luvox) TAKE ONE TABLET BY MOUTH EVERY DAY AT BEDTIME 90 Tablet 1 024 Active fluvoxaMINE Maleate 100 MG Oral Tablet (Luvox) TAKE ONE TABLET BY MOUTH EVERY DAY AT BEDTIME 90 Tablet 1 024 2023 Discontinued Zolpidem Tartrate 5 MG Oral Tablet (Ambien)Indication s:Insomnia, unspecified type TAKE 1 TABLET BY MOUTH ONCE DAILY AT BEDTIME ONLY IF NEEDED FOR SLEEP 30 Tablet 024 2023 Discontinued documented as of this encounter (statuses as of 03/06/2024) Active Problems Problem Noted Date Diagnosed Date [...] (05/16/2022): Added automatically from request for surgery [id number] Decreased hearing of both ears 11/11/2021 Wears [...] as of this encounter (statuses as of 03/06/2024) Resolved Problems Problem Noted Date Diagnosed Date [...] as of this encounter (statuses as of 03/06/2024) Immunizations Name Administration Dates Next Due COVID-19 mRNA, LNP-s, No Pre serve, 2-Dose Series (Moderna) 05/17/2020,04/19/2020 Pneumococcal Conjugate Vacc, 13 Valent (Prevnar) 12/09/2017,08/01/2015 Pneumococcal Conjugate Vacci ne, 20-valent ([id number]) 12/18/2023(Deferred: Patient Refused) Pneumococcal Polysaccharide PPV23 (Pneumovax) [...] the money to buy more. Never true 03/14/19 24 Within the past 12 months, t he food you bought just didn't last and you didn't have money to get more. Never true 03/14/2023 Childcare Answer Date Recorded Do you feel overwhelmed with taking care of a child, family member or friend? No 03/14/2023 Does your family need help f inding childcare? (Household - for ages 0-17 years) Not on file 03/14/2023 Clothing Answer Date Recorded Have you been unable to get clothing when it was really needed? No 03/14/2023 Is your family able to get c lothes or diapers when needed? (Household - for ages 0-17 years) Not on file 03/14/2023 Personal Safety Answer Date Recorded Do you feel unsafe or have concerns for your saf ety? No 07/23/2023 Do you have concerns for you r family's safety? (Household - for ages 0-17 years) Not on file 07/23/2023 Utilities Answer Date Recorded Do you have trouble paying y our heating, water, or electric bill? No 07/23/2023 Is your family able to pay t he heat, water, or electric bill? (Household - for ages 0-17 years) Not on file 07/23/2023 Does your family have access to good internet? (Household - for ages 0-17 years) Not on file 07/23/2023 Employment Status Answer Date Recorded Are you unemployed or without regular income? No 03/14/2023 Does the household have a re gular source of income? (Household - for ages 0-17 years) Not on file 03/14/2023 Social Connections Answer Date Recorded How often do you feel lonely or isolated from th ose around you? Never 03/14/2023 Financial Resource Strain Answer Date R ecorded Do you have any trouble payi ng for your medications, or do you think you might in the future? No 03/14/2023 Does your family have troubl e paying for medicine? (Household - for ages 0-17 years) Not on file 03/14/2023 Transportation Needs Answer Date Record ed READ ONLY Do you have troubl e getting a ride to medical visits or work? Never True 07/23/2023 Does your family have a hard time getting a ride to doctors visits? (Household - for ages 0-17 years) Not on file 07/23/2023 Has lack of transportation k ept you from medical appointments, meetings, work, or from getting things needed for daily living? Check all that apply. (Adult - for ages 18 years and over) Not on file 07/23/2023 Do you (or your family) have trouble finding or paying for a ride (transportation)? (Household - for ages 0-17 years) Not on file 07/23/2023 Housing Stability Answer Date Recorded Do you currently live in a s helter or have no steady place to sleep at night? No 07/23/2023 READ ONLY Do you think you a re at risk of becoming homeless? No 07/23/2023 Does your family worry about paying for your home or becoming homeless? (Household - for ages 0-17 years) Not on file 0 07/23/2023 Are you homeless or worried that you might be in the future? (Adult - for ages 18 years and over) Not on file Are you (or your family) dorian eless or worried that you might be in the future? (Household - for ages 0-17 years) Not on file Food Insecurity Answer Date Recorded Do you need food for this week? No 07/23/2023 Are you able to get enough f ood for your family? (Household - for ages 0-17 years) Not on file 07/23/2023 Does your family need food t his week? (Household - for ages 0-17 years) Not on file 07/23/2023 Do you always have enough fo od for your family? (Household - for ages 0-17 years) Not on file 07/23/2023 Sex and Gender Information Value Date Recorded [...] Telephone Encounter - Julia Veras MD - 03/06/2024 2:02 PM EST Signed Prescriptions: Disp Refills fluvoxaMINE Maleate 100 MG Oral Tablet (Patricia*90 Tab*1 Sig: TAKE ONE TABLET BY MOUTH EVERY DAY AT BEDTIME Authorizing Provider: JULIA VERAS * Telephone Encounter - Izabel Do [facility] - 03/06/2024 9:38 AM ESTPending Prescriptions: Disp Refills fluvoxaMINE Maleate 100 MG Oral Tablet (Patricia*90 Tab*1 Sig: TAKE ONE TABLET BY MOUTH EVERY DAY AT BEDTIME * Telephone Encounter - Izabel Do RP - 03/06/2024 9:38 AM EST [facility] is currently not authorized to approve refills for the pended medication(s) per refill protocol. Please approve if appropriate. Thanks, Izabel Do, PharmD Clinical Pharmacist [facility] ([facility]) [phone] 03/06/2024 9:38 AM * Telephone Encounter - Izabel Do RP - 03/06/2024 9:38 AM EST Pending Prescriptions: Disp Refills fluvoxaMINE Maleate 100 MG Oral Tablet (L*90 Tab*1 Sig: TAKE ONE TABLET BY MOUTH EVERY DAY AT BEDTIME Last Visit: 01/01/2024 (in office), 06/16/2020 (telemedicine) Next Visit: 03/17/2024 If no future appointments scheduled, and last appointment is greater than a year ago, please schedule patient for a follow-up appointment Last date the medication was ordered: 09/04 Pharmacy: [id number] [address] [facility] Is this request for a controlled substance? No Urine Drug Screen: Results for orders placed [...] 02:30 AM HGBA1C 5.8 05/31/2016 09:20 AM * Telephone Encounter - Interface, [facility] - 03/06/2024 6:02 AM EST Pending Prescriptions: Disp Refills fluvoxaMINE Maleate 100 MG Oral Tablet [Ph*90 Tab*0 Sig: TAKE ONE TABLET BY MOUTH EVERY DAY AT BEDTIME documented in this encounter Plan of Treatment Upcoming Encounters Date Type Department Care Team ([facility] Contact Info) Description 03/17/2024 4:00 PM EST Office Visit Family [address] [phone] Julia Veras MD [address] [place] [phone] 04/17/2024 2:30 PM EST Home Visit [facility] [place], [facility] [address] [place] [address] Karen Rubin PA-C [address] [place] [address] Esperanza Graham, Community Health Machine Pecan Picker [address] [place] [phone] 05/22/2024 2:15 PM EDT Office Visit Podiatry [address] [phone] Drew Carbajal, LEOBARDO [address] [place] [address] 06/24/2024 2:45 PM EDT Office Visit Cardiology [address] [place] [phone] Vero Gee CRNP [address] [facility], [place] [address] 07/13/2024 3:20 PM EDT Office Visit Sleep Disorders Ctr [facility] [address] [place] [phone] Sandra Vuong, [address] [place] [address] Health Maintenance Due Date Last Done Comments [...] exists DISCUSS TOBACCO CESSATION (REFER TO SMARTSET #[id number]) 12/16/2024 12/17/2023 (Discussed), 08/01/2015 (Discussed) O2 ASSESSMENT COMPLETED IN PAST YEAR FOR COPD 01/13/2025 01/14/2024 Depression Monitoring 01/14/2025 01/15/2024 Lipid Panel 07/21/2028 07/22/2023, 03/12, 08/24/2020, Additional [...] Agents on File Name Relationship Healthcare Agent [facility] p Communication Jam Rachel Cousin First Alternate Health Care Agent (per Health Care Power of Technical Data Analyst document) Care Teams Needle Loom Weaver Relationship Specialty Start Date End Date Julia Veras MD [address] [place] [phone] PCP - General Family Medicine 06/15/23 documented as of this encounter
--- OUTSIDE RECORDS SUMMARY | 2024-05-26 06:32 | External Medical Summary | Summary of Care ---
Author Name Unknown Organization [facility] Address [address] [place] [address] Phone [phone] Care Team Providers Care Gauger Chief Name Role Phone Julia Harman MD Primary Care Provi radhika Encounter Details Date Type Department Care Team ( st Contact Info) Description 03/12/2024 Population Health External Data Unspecified Department Allergies Active Allergy Reactions Criticality Noted Date Comments Sulfamethoxazole-Trimethoprim Hives 2021 denies documented as of this encounter (statuses as of 03/17/2024) Medications CPAP every night at bedtime. 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 30 Tablet 3 12/17/19 24 Active Metoprolol Tartrate 50 MG Oral Tablet (Lopressor)Indicati ons:Persistent atrial fibrillation (HCC) Take 1 Tablet by mouth in the morning and 1 Tablet before bedtime. 90 Tablet 1 12/31/19 24 Active Potassium Chloride ER 10 MEQ [...] morning. 90 Tablet 1 02/24/20 24 Active Zolpidem Tartrate 5 MG Oral Tablet (Ambien)Indications :Insomnia, unspecified type TAKE 1 TABLET BY MOUTH ONCE DAILY AT BEDTIME ONLY IF NEEDED FOR SLEEP 30 Tablet 03/06/20 24 Active fluvoxaMINE Maleate 100 MG Oral Tablet (Luvox) TAKE ONE TABLET BY MOUTH EVERY DAY AT BEDTIME 90 Tablet 1 03/06/20 24 Active documented as of this encounter (statuses as of 03/17/2024) Active Problems Problem Noted Date Diagnosed Date [...] (05/16/2022): Added automatically from request for surgery [id number] Decreased hearing of both ears 11/11/2021 Wears [...] as of this encounter (statuses as of 03/17/2024) Resolved Problems Problem Noted Date Diagnosed Date [...] as of this encounter (statuses as of 03/17/2024) Immunizations Name Administration Dates Next Due COVID-19 mRNA, LNP-s, No Pre serve, 2-Dose Series (Moderna) 05/17/2020,04/19/2020 Pneumococcal Conjugate Vacc, 13 Valent (Prevnar) 12/09/2017,08/01/2015 Pneumococcal Conjugate Vacci ne, 20-valent ([id number]) 12/18/2023(Deferred: Patient Refused) Pneumococcal Polysaccharide PPV23 (Pneumovax) [...] Care Team (Late st Contact Info) Description 03/17/2024 4:00 PM EST Office Visit [address] [phone] Julia Harman MD [address] [place] [phone] 04/17/2024 2:30 PM EST [facility] [place] [address] [place] [address] Karen Rubin PA-C [address] [place] [address] Esperanza Graham, Community Health Diamond Merchant [address] [place] [phone] 05/22/2024 2:15 PM EDT Office Visit Podiatry [facility] [address] [facility] [address] [place] [phone] Drew Carbajal, DPM [address] [place] [address] 06/24/2024 2:45 PM EDT Office Visit Cardiology [facility] [address] [facility] [address] [place] [phone] Vero Gee CRNP [address] [place] [address] 07/13/2024 3:20 PM EDT Office Visit Sleep Disorders Ctr [facility] [address] [place] [phone] Sandra Vuong, [address] [place] [address] Health Maintenance Due Date Last Done Comments [...] SMARTSET #[id number]) 12/16/2024 12/17/2023 (Discussed), 08/01/2015 (Discussed) O2 ASSESSMENT [...] Relationship Healthcare Agent Relationshi p Communication Jam Virginie Cousin First Alternate Health Care Agent (per Health Care Power of Debubblizer document) Care Teams Gauger Chief Relationship Specialty Start Date End Date Julia Harman MD [address] [place] [phone] PCP - General Family Medicine 06/15/23 documented as of this encounter
--- OUTSIDE RECORDS SUMMARY | 2024-05-26 06:32 | External Medical Summary | Summary of Care ---
Author Name Unknown Organization [facility] Address [address] [place] [address] Phone [phone] Care Team Providers Care Drug Safety Physician Name Role Phone Julia Harman MD Primary Care Provi radhika Reason for Visit * Reason Onset Date Comments Advice 03/28/2024 Encounter Details Date Type Department Care Team ([facility] Contact Info) Description 03/28/2024 Telephone Family [address] [phone] Julia Harman MD [address] [place] [phone] Advice Allergies Active Allergy Reactions Criticality Noted Date Comments Sulfamethoxazole-Trimethoprim Hives 2021 denies documented as of this encounter (statuses as of 03/29/2024) Medications CPAP every night at bedtime. 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 30 mL 12 5 3:38 PM EST 03/27/19 25 Active documented as of this encounter (statuses as of 03/29/2024) Active Problems Problem Noted Date Diagnosed Date [...] (05/16/2022): Added automatically from request for surgery [id number] Decreased hearing of both ears 11/11/2021 Wears [...] as of this encounter (statuses as of 03/29/2024) Resolved Problems Problem Noted Date Diagnosed Date [...] as of this encounter (statuses as of 03/29/2024) Immunizations Name Administration Dates Next Due COVID-19 mRNA, LNP-s, No Pre serve, 2-Dose Series (Moderna) 05/17/2020,04/19/2020 Pneumococcal Conjugate Vacc, 13 Valent (Prevnar) 12/09/2017,08/01/2015 Pneumococcal Conjugate Vacci ne, 20-valent ([id number]) 12/18/2023(Deferred: Patient Refused) Pneumococcal Polysaccharide PPV23 (Pneumovax) [...] 1:27 AM EDT Karen Montenegro, RN documented in this encounter Miscellaneous Notes * Telephone Encounter - Tram Nicholas OSA - 03/28/2024 10:19 AM EST Pt was seen 03/27 and said he was prescribed sleeping medication and it isn't helping. Pt asking fora callback to discuss. Please advise. Thank you, ARMIDA Colón documented in this encounter Plan of Treatment Upcoming Encounters Date Type Department Care Team ([facility] st Contact Info) Description 04/17/2024 2:30 PM EST [facility] [place] [address] [place] [address] Karen Rubin PA-C [address] [place] [address] Esperanza Graham, Community Health General Partner [address] [place] [address] 05/22/2024 2:15 PM EDT Office Visit Podiatry [address] [place] [phone] Drew Carbajal, LEOBARDO [address] [place] [address] 06/24/2024 2:45 PM EDT Office Visit Cardiology [address] [place] [phone] Vero Gee CRNP [address] [place] [address] 06/29/2024 4:40 PM EDT Office Visit Family [facility] [address] [place] [phone] Lexie Ball PA-C [address] [place] [address] 07/13/2024 3:20 PM EDT Office Visit Sleep Disorders Ctr [facility] [address] [place] [phone] Sandra Vuong DO [address] [place] [address] Health Maintenance Due Date Last Done Comments [...] exists DISCUSS TOBACCO CESSATION (REFER TO SMARTSET #[id number]) 12/16/2024 12/17/2023 (Discussed), 08/01/2015 (Discussed) Depression Monitoring [...] File Name Relationship [facility] Communication Jam Rachel Cousin First Alternate Health Care Agent (per Health Care Power of Automobile Taillight Assembler document) Care Teams Drug Safety Physician Relationship Specialty Start Date End Date Julia Harman MD [address] [place] [phone] PCP - General Family Medicine 06/15/23 documented as of this encounter
--- OUTSIDE RECORDS SUMMARY | 2024-05-26 06:32 | External Medical Summary | Summary of Care ---
Author Name Unknown Organization [facility] Address [address] [place] [address] Phone [phone] Care Team Providers Care Egg Packer Name Role Phone Julia Veras MD Primary Care Provi radhika Reason for Visit * Reason Comments eRx-Medication Refill Encounter Details Date Type Department Care Team ([facility] Contact Info) Description 03/25/2024 Refill Family Practice [address] [phone] Julia Veras MD [address] [place] [phone] Persistent atrial fibrillation (HCC) Allergies Active Allergy Reactions Criticality Noted Date Comments Sulfamethoxazole-Trimethoprim Hives 2021 denies documented as of this encounter (statuses as of 03/25/2024) Medications CPAP every night at bedtime. Active [...] titration plan. 30 Tablet 3 024 Active Potassium Chloride ER 10 MEQ [...] the morning. 90 Tablet 1 024 Active Zolpidem Tartrate 5 MG Oral Tablet (Ambien)Indication s:Insomnia, unspecified type TAKE 1 TABLET BY MOUTH ONCE DAILY AT BEDTIME ONLY IF NEEDED FOR SLEEP 30 Tablet 024 Active fluvoxaMINE Maleate 100 MG Oral Tablet (Luvox) TAKE ONE TABLET BY MOUTH EVERY DAY AT BEDTIME 90 Tablet 1 024 Active Metoprolol Tartrate 50 MG Oral Tablet (Lopressor)Indicat ions:Persistent atrial fibrillation (HCC) Take 1 Tablet by mouth in the morning and 1 Tablet before bedtime. 90 Tablet 1 025 Active Metoprolol Tartrate 50 MG Oral Tablet (Lopressor)Indicat ions:Persistent atrial fibrillation (HCC) Take 1 Tablet by mouth in the morning and 1 Tablet before bedtime. 90 Tablet 1 024 2024 Discontinued documented as of this encounter (statuses as of 03/25/2024) Active Problems Problem Noted Date Diagnosed Date [...] (05/16/2022): Added automatically from request for surgery [id number] Decreased hearing of both ears 11/11/2021 Wears [...] as of this encounter (statuses as of 03/25/2024) Resolved Problems Problem Noted Date Diagnosed Date [...] as of this encounter (statuses as of 03/25/2024) Immunizations Name Administration Dates Next Due COVID-19 mRNA, LNP-s, No Pre serve, 2-Dose Series (Moderna) 05/17/2020,04/19/2020 Pneumococcal Conjugate Vacc, 13 Valent (Prevnar) 12/09/2017,08/01/2015 Pneumococcal Conjugate Vacci ne, 20-valent ([id number]) 12/18/2023(Deferred: Patient Refused) Pneumococcal Polysaccharide PPV23 (Pneumovax) [...] years and over) Not on file 07/23/2023 READ ONLY Do you think you [...] Date Author No 07/23/2023 1:27 AM Karen Gracia RN documented in this encounter Miscellaneous Notes * Telephone Encounter - Uma Washburn, [facility] - 03/25/2024 12:38 PM EST Signed Prescriptions: Disp Refills Metoprolol Tartrate 50 MG Oral Tablet (Lop*90 Tab*1 Sig: Take 1 Tablet by mouth in the morning and 1 Tablet before bedtime.Authorizing Provider: JULIA VERAS User: UMA WASHBURN -------- documented in this encounter Plan of Treatment Upcoming Encounters Date Type Department Care Team ([facility] Contact Info) Description 03/27/2024 3:00 PM EST Office Visit Family [address] [phone] Lexie Ball PA-C [address] [place] [address] 04/17/2024 2:30 PM EST Home Visit [facility] [address] [place] [address] Karen Rubin PA-C [address] [place] [address] Esperanza Graham, Community Health Biogeographer [address] [place] [address] 05/22/2024 2:15 PM EDT Office Visit Podiatry [address] [phone] Drew Carbajal, LEOBARDO [address] [place] [address] 06/24/2024 2:45 PM EDT Office Visit Cardiology [address] [place] [phone] Vero Gee CRNP [address] [place] [address] 07/13/2024 3:20 PM EDT Office Visit Sleep Disorders Ctr [facility] [address] [place] [phone] Vuong Sandra Gutiérrez, [address] [place] [address] Health Maintenance Due Date Last Done Comments [...] GOLD 2017 classification (HCC) Tobacco use disorder Persistent atrial fibrillation (HCC) Atrial fibrillation documented in this encounter Advance Directives * [...] Care Agent (per Health Care Power of Community Reinvestment Act Officer document) Care Teams Egg Packer Relationship Specialty Start Date End Date Julia Veras MD [address] [place] [phone] PCP - General Family Medicine 06/15/23 documented as of this encounter
--- OUTSIDE RECORDS SUMMARY | 2024-05-26 06:32 | External Medical Summary | Summary of Care ---
Author Name Unknown Organization [facility] Address [address] [place] [place] [address] Phone [phone] Care Team Providers Care Billet Sawyer Name Role Phone Julia Hamran MD Primary Care Provi radhiak Reason for Visit * Reason Onset Date Comments [facility]: Maintenance 12/26/2023 Encounter Details Date Type Department Care Team ([facility] st Contact Info) Description 12/26/2023 Telephone [facility] [place] [address] [place] [address] Macarena Watson, RN [address] [place] [address] [facility]: Maintenance Allergies Active Allergy Reactions Criticality Noted Date Comments Sulfamethoxazole-Trimethoprim Hives 2021 denies documented as of this encounter (statuses as of 03/26/2024) Medications CPAP every night at bedtime. Active [...] MG/24HR Transdermal Patch 24 Hour (Nicoderm CQ)Indications:Toba installment account checker use disorder One 7 mg patch daily [...] plan. 30 Tablet 3 12/17/19 24 Active documented as of this encounter (statuses as of 03/26/2024) Active Problems Problem Noted Date Diagnosed Date [...] (05/16/2022): Added automatically from request for surgery [id number] Decreased hearing of both ears 11/11/2021 Wears [...] as of this encounter (statuses as of 03/26/2024) Resolved Problems Problem Noted Date Diagnosed Date [...] as of this encounter (statuses as of 03/26/2024) Immunizations Name Administration Dates Next Due COVID-19 mRNA, LNP-s, No Pre serve, 2-Dose Series (Moderna) 05/17/2020,04/19/2020 Pneumococcal Conjugate Vacc, 13 Valent (Prevnar) 12/09/2017,08/01/2015 Pneumococcal Conjugate Vacci ne, 20-valent ([id number]) 12/18/2023(Deferred: Patient Refused) Pneumococcal Polysaccharide PPV23 (Pneumovax) [...] 03/14/2023 Does the household have a re lar [...] encounter Miscellaneous Notes * Telephone Encounter - Macarena Watson RN - 12/26/2023 8:42 AM EDT Please [place] the patient from [facility] [place] Device(s)/IVR to be discontinued: scale due to noncompliance. Thank you. documented in this encounter Plan of Treatment Upcoming Encounters Date Type Department Care Team ([facility] Contact Info) Description 03/27/2024 3:00 PM EST Office Visit Family [address] [phone] Lexie Ball PA-C [address] [place] [address] 04/17/2024 2:30 PM EST Home Visit [facility], [place] [address] [place] [address] Karen Rubin PA-C [address] [place] [address] Esperanza Graham, Community Health Surface Ship Usw Supervisor [facility] [place] [address] 05/22/2024 2:15 PM EDT Office Visit Podiatry [address] [place] [phone] Drew Carbajal, LEOBARDO [address] [place] [address] 06/24/2024 2:45 PM EDT Office Visit Cardiology [facility] [address] [facility] [address] [place] [address] Vero Gee CRNP [address] [place] [address] 07/13/2024 3:20 PM EDT Office Visit [facility] [address] [place] [place] [phone] Sandra Vuong DO [address] [address] Health Maintenance Due Date Last Done Comments [...] exists DISCUSS TOBACCO CESSATION (REFER TO SMARTSET #4882) 12/16/2024 12/17/2023 (Discussed), 08/01/2015 (Discussed) O2 ASSESSMENT [...] on File Name Relationship Healthcare Agent [facility] Communication Jam Rachel Cousin First Alternate Health Care Agent (per Health Care Power of Network Relations Consultant document) Care Teams Billet Sawyer Relationship Specialty Start Date End Date Julia Harman MD [address] [place] [phone] PCP - General Family Medicine 06/15/23 documented as of this encounter
--- OUTSIDE RECORDS SUMMARY | 2024-05-26 06:32 | External Medical Summary | Summary of Care ---
Author Name Unknown Organization [facility] Address [address] [place] [address] Phone [phone] Care Team Providers Care Economic Historian Name Role Phone Julia Harman MD Primary Care Provi radhika Encounter Details Date Type Department Care Team (Late st Contact Info) Description 03/24/2024 Population Health External Data Unspecified Department Allergies [...] MG/24HR Transdermal Patch 24 Hour (Nicoderm CQ)Indications:Toba accordion repairer use disorder One 7 mg patch daily [...] (05/16/2022): Added automatically from request for surgery [id number] Decreased hearing of both ears 11/11/2021 Wears [...] (Prevnar) 12/09/2017,08/01/2015 Pneumococcal Conjugate Vacci ne, 20-valent ([id number]) 12/18/2023(Deferred: Patient Refused) Pneumococcal Polysaccharide PPV23 (Pneumovax) [...] Care Team (Late st Contact Info) Description 03/27/2024 3:00 PM EST Office Visit [address] [phone] Lexie Ball PA-C [address] [place] [address] 04/17/2024 2:30 PM EST Home Visit [facility] [place] [address] [place] [address] Karen Rubin PA-C [address] [place] [address] Esperanza Graham, Community Health Supervisor [employer] [address] [place] [address] 05/22/2024 2:15 PM EDT Office Visit Podiatry [facility] [address] [facility] [address] [place] [address] Drew Carbajal, DPM [address] [place] [address] 06/24/2024 2:45 PM EDT Office Visit Cardiology [facility] [address] [facility] [address] [place] [address] Vero Gee CRNP [address] [place] [address] 07/13/2024 3:20 PM EDT Office Visit Sleep Disorders Ctr [facility] [address] [place] [phone] Sandra Vuong, [address] [address] Health Maintenance Due Date Last Done Comments [...] on File Name Relationship Healthcare [facility] Communication Jam Rachel Cousin First Alternate Health Care Agent (per Health Care Power of Bell Spinner document) Care Teams Economic Historian Relationship Specialty Start Date End Date Julia Harman MD [address] [place] [phone] PCP - General Family Medicine 06/15/23 documented as of this encounter
--- OUTSIDE RECORDS SUMMARY | 2024-05-26 06:33 | External Medical Summary | Summary of Care ---
Author Name Unknown Organization [facility] Address [address] [place] [address] Phone [phone] Care Team Providers Care Market Reporter Name Role Phone Julia Harman MD Primary Care Provi radhika Reason for Visit * Reason Comments Diabetic Foot Care c Encounter Details Date Type Department Care Team ([facility] st Contact Info) Description 02/21/2024 3:00 PM EST Office Visit Podiatry [address] [place] [address] Drew Carbajal, DPM [address] [place] [address] Onychomycosis*; Pain due to onychomycosis of toenail of left foot Allergies Active Allergy Reactions Criticality Noted Date Comments Sulfamethoxazole-Trimethoprim Hives 2021 denies documented as of this encounter (statuses as of 02/21/2024) Medications CPAP every night at bedtime. Active Vitamin D3 50 MCG (1999) Oral CapsuleIndications: Vitamin D deficiency TAKE 1 CAPSULE BY MOUTH ONCE DAILY 90 Capsule 3 12/01/19 23 Active amLODIPine Besylate 5 MG Oral Tablet (Norvasc) TAKE 1 TABLET BY MOUTH ONCE DAILY 90 Tablet 3 02/17/20 23 Active Budesonide-Formoter ol Fumarate 160-4.5 MCG/ACT [...] Patch 24 Hour (Nicoderm CQ)Indications:Toba accounts payable professional use disorder One 7 mg patch daily [...] bedtime. 90 Tablet 2 08/29/19 24 Active fluvoxaMINE Maleate 100 MG Oral Tablet (Luvox) TAKE ONE TABLET BY MOUTH EVERY DAY AT BEDTIME 90 Tablet 1 09/05/19 24 Active Folic Acid 1 MG Oral [...] WHEEZING 54 g 3 01/23/20 24 Active Zolpidem Tartrate 5 MG Oral Tablet (Ambien)Indications :Insomnia, unspecified type TAKE 1 TABLET BY MOUTH ONCE DAILY AT BEDTIME ONLY IF NEEDED FOR SLEEP 30 Tablet 02/05/20 24 Active Eliquis 5 MG Oral Tablet (Apixaban)Indicatio ns:Atrial fibrillation, unspecified type (HCC) Take 1 Tablet by mouth in the morning and 1 Tablet before bedtime. 60 Tablet 5 02/18/20 24 Active documented as of this encounter (statuses as of 02/21/2024) Active Problems Problem Noted Date Diagnosed Date [...] (05/16/2022): Added automatically from request for surgery [id number] Decreased hearing of both ears 11/11/2021 Wears [...] as of this encounter (statuses as of 02/21/2024) Resolved Problems Problem Noted Date Diagnosed Date [...] as of this encounter (statuses as of 02/21/2024) Immunizations Name Administration Dates Next Due COVID-19 mRNA, LNP-s, No Pre serve, 2-Dose Series (Moderna) 05/17/2020,04/19/2020 Pneumococcal Conjugate Vacc, 13 Valent (Prevnar) 12/09/2017,08/01/2015 Pneumococcal Conjugate Vacci ne, 20-valent ([id number]) 12/18/2023(Deferred: Patient Refused) Pneumococcal Polysaccharide PPV23 (Pneumovax) [...] documented in this encounter Progress Notes * Drew Carbajal, LEOBARDO - 02/21/2024 2:54 PM EST Subjective: Patient presents in office today for nail care. Patient states that left great toenail has been painful and ingrown HISTORY Past Medical History: Diagnosis Date Anxiety Atrial fibrillation (HCC) BPH (benign prostatic hyperplasia) Chronic rhinitis Chronic sinusitis COPD (chronic obstructive pulmonary disease) (HCC) Depressive disorder, not elsewhere classified Diverticulosis 06/07/2008 colonoscopy Esophageal reflux Hiatal hernia 10/17/2011 EGD HTN, goal to be determined Leukocytosis 07/23/2023 Obesity Obstructive sleep apnea of adult SOB (shortness of breath) 10/21/2023 Tobacco use disorder Past Surgical History: Procedure Laterality Date COLONOSCOPY 06/07/2008 diverticulosis CYSTOSCOPY 12/24/2014 EGD, FLEXIBLE, DIAGNOSTIC 10/17/2011 hiatal hernia EGD, FLEXIBLE, DIAGNOSTIC 12/07/2019 gastritis / ESOPHAGOGASTRODUODENOSCOPY (EGD), FLEXIBLE, TRANSORAL, DIAGNOSTIC performed by Bryanna Hurt DO at ENDOSCOPY [facility] EGD, W/ENDOSCOPIC US 12/07/2019 normal / ESOPHAGOGASTRODUODENOSCOPY (EGD), FLEXIBLE, TRANSORAL, ENDOSCOPIC ULTRASOUND performed by Bryanna Shah DO at ENDOSCOPY [facility] HEART ELECTROCONVERSION, EXTERNAL N/A 08/16/2023 DC CARDIOVERSION performed by Thiago Celeste DO at [facility] INFORMATION Vein Stripping INFORMATION knee arthroscopies at [place] INTRANASAL BIOPSY Nasal polypectomy - Dr. Akhtar REMOVAL OF APPENDIX REMOVAL OF PROSTATE (TURP) N/A 07/12/2022 TRANSURETHRAL RESECTION PROSTATE ELECTROSURGICAL performed by Robbie Moreno MD at OR [facility] REMOVE TONSILS & ADENOIDS, UNDER 12 T & A, age<12 Family History Problem Relation Name Age of Onset Diabetes Mother Stroke Father Social History Socioeconomic History Marital status: Spouse name: Not on file Number of children: Not on file Years of education: Not on file Highest education level: Not on file Occupational History Not on file Social Needs Financial resource strain: Not on file Food insecurity Worry: Never true Inability: Never true Transportation needs Medical: Not on file Non-medical: Not on file Tobacco Use Smoking status: Current Every Day Smoker Packs/day: 2.00 Years: 30.00 Pack years: 60.00 Types: Cigarettes Smokeless tobacco: Never Used Tobacco comment: no passive smoke Substance and Sexual Activity Alcohol use: No Drug use: No Sexual activity: Not Currently Lifestyle Physical activity Days per week: Not on file Minutes per session: Not on file Stress: Not on file Relationships Social connections Talks on phone: Not on file Gets together: Not on file Attends mandaen service: Not on file Active member of club or organization: Not on file Attends meetings of clubs or organizations: Not on file Relationship status: Not on file Intimate partner violence Fear of current or ex partner: Not on file Emotionally abused: Not on file Physically abused: Not on file Forced sexual activity: Not on file Other Topics Concern Not on file Social [...] learning" Entered by: Jc Smith MD 01/19/2008 Vaping/E-Cigarette Use Vaping/E-Cigarette Use Never User Vaping/E-Cigarette Substances Nicotine No Cannabidiol (CBD) No Vaping/E-Cigarette Devices Disposable No Current Outpatient Medications Medication Sig Dispense Refill CPAP every night at bedtime. Vitamin D3 50 MCG (2000 UT) Oral Capsule TAKE 1 CAPSULE BY MOUTH ONCE DAILY 90 Capsule 3 amLODIPine Besylate 5 MG Oral Tablet (Norvasc) TAKE 1 TABLET BY MOUTH ONCE DAILY 90 Tablet 3 Budesonide-Formoterol Fumarate 160-4.5 MCG/ACT Inhalation Aerosol (Symbicort) inhale 2 puffs by mouth in the morning and 2 puffs before bedtime 30.6 g 3 Esomeprazole Magnesium 40 MG Oral Capsule Delayed Release TAKE 1 CAPSULE by mouth ONE TIME DAILY BEFORE BREAKFAST 90 Capsule 3 Nicotine 7 MG/24HR Transdermal Patch 24 Hour (Nicoderm CQ) One 7 mg patch daily for 2 weeks; Removeold patch daily; and then stop. (Patient not taking: Reported on 11/20/2023) 14 Patch 1 Nitroglycerin 0.4 MG Sublingual Tablet Sublingual (Nitrostat) Place 1 Tablet under the tongue as needed for Pain, Chest. Maximum 3 doses. (Patient not taking: Reported on 11/20/2023) 30 Tablet 0 Famotidine 40 MG Oral Tablet (Pepcid) Take 1 Tablet by mouth every night at bedtime. 90 Tablet 2 fluvoxaMINE Maleate 100 MG Oral Tablet (Luvox) TAKE ONE TABLET BY MOUTH EVERY DAY AT BEDTIME 90 Tablet 1 Folic Acid 1 MG Oral Tablet Take [...] your diuretic titration plan. 30 Tablet 3 Metoprolol Tartrate 50 MG Oral Tablet (Lopressor) Take 1 Tablet by mouth in the morning and 1 Tablet before bedtime. 90 Tablet 1 Potassium Chloride ER 10 MEQ Oral Tablet Extended Release Take 1 Tablet by mouth in the morning. 90Tablet 1 Albuterol Sulfate HFA 108 (90 Base) MCG/ACT Inhalation Aerosol Solution INHALE TWO PUFFS BY MOUTH EVERY FOUR HOURS NEEDED FOR WHEEZING 54 g 3 Zolpidem Tartrate 5 MG Oral Tablet (Ambien) TAKE 1 TABLET BY MOUTH ONCE DAILY AT BEDTIME ONLY IF NEEDED FOR SLEEP 30 Tablet 0 Eliquis 5 MG Oral Tablet (Apixaban) Take 1 Tablet by mouth in the morning and 1 Tablet before bedtime. 60 Tablet 5 No current facility-administered medications for this visit. ROS EXAM: CONSTITUTIONAL: No change in weight, No weakness, No fatigue and No fevers, sweats, or chills EXTREMITIES: No pain, redness or swelling on the joints SKIN/INTEGUMENTARY: No edema, No rash and No itching NEUROLOGIC: Normal balance, No headaches, No seizures and No weakness Objective: Vascular examination: DP 2/4 bilateral PT 2/4 bilateral SPVFT 3sec Dermatological examination: Left great toenail appears mycotic and painful Mycotic 4,5 right Orthopedic examination: unremarkable Neurological examination: Epicritic sensation intact Assessment: The primary encounter diagnosis was Onychomycosis. A diagnosis of Pain due to onychomycosis of toenail of left foot was also pertinent to this visit. Plan: 1. Debridement of painful mycotic toenails(3) documented in this encounter Nursing Notes * Aida Ramirez CMA - 02/21/2024 2:43 PM EST Diabetic rfc documented in this encounter Plan of Treatment Upcoming Encounters Date Type Department Care Team ([facility] st Contact Info) Description 02/24/2024 2:45 PM EST Office Visit Cardiology [address] [place] [phone] Vero Gee CRNP [address] [place] [address] 03/17/2024 4:00 PM EST Office Visit Family Practice [place] [phone] Julia Harman MD [address] [place] [phone] 04/17/2024 2:30 PM EST Home Visit [facility] [address] [place] [address] Karen Rubin PA-C [address] [place] [address] Esperanza Graham, Community Health Organizational Development Specialist [address] [place] [address] 05/22/2024 2:15 PM EDT Office Visit Podiatry [address] [place] [phone] Drew Carbajal DPM [address] [place] [address] 07/13/2024 3:20 PM EDT Office Visit Sleep Disorders Ctr [facility] [address] [place] [phone] Sandra Vuong DO [address] [place] [address] Scheduled Orders Name Type Priority Associated Diagnoses Orde r Schedule DEBRIDEMENT OF NAIL(S) 1-5 Procedures Routine Onychomycosis Pain due to onychomycosis of toenail of left foot Ordered: 02/21/2024 Health Maintenance Due Date Last Done Comments [...] exists DISCUSS TOBACCO CESSATION (REFER TO SMARTSET #4436) 12/16/2024 12/17/2023 (Discussed), 08/01/2015 (Discussed) O2 ASSESSMENT COMPLETED IN PAST YEAR FOR COPD 01/13/2025 01/14/2024 Depression Monitoring 01/14/2025 01/15/2024 Lipid Panel 07/21/2028 07/22/2023, 03/12, 08/24/2020, Additional history exists Colonoscopy 09/05/2028 09/05/2018, 05/11, 06/07/2008 Colorectal Cancer Screening 09/05/2028 DTap/Tdap Vaccines (3 - Td or Tdap) 11/10/2032 11/10/2022, 11/10/2022, 12/01/2013 Pneumococcal Vaccine: 65+ Years Completed 12/15/2018, 12/09/2017, 08/01/2015, Additional history [...] GOLD 2017 classification (HCC) Tobacco use disorder Onychomycosis- Primary Dermatophytosis of nail Pain due to onychomycosis of toenail of left foot documented in this encounter Advance Directives * [...] Agents on File Name Relationship Healthcare [facility] Jam Virginie Cousin First Alternate Health Care Agent (per Health Care Power of Greenhouse Staff document) Care Teams Market Reporter Relationship Specialty Start Date End Date Julia Harman MD [address] [place] [phone] PCP - General Family Medicine 06/15/23 documented as of this encounter
--- OUTSIDE RECORDS SUMMARY | 2024-05-26 06:33 | External Medical Summary | Summary of Care ---
Author Name Unknown Organization [facility] Address [address] [place] [address] Phone [phone] Care Team Providers Care City Councilman Name Role Phone Julia eVras MD Primary Care Provi radhika Reason for Visit * Reason Comments eRx-Medication Refill Encounter Details Date Type Department Care Team ([facility] Contact Info) Description 02/29/2024 Refill Family Practice [address] [phone] Julia Veras MD [address] [place] [phone] Insomnia, unspecified type Allergies Active Allergy Reactions Criticality Noted Date [...] (05/16/2022): Added automatically from request for surgery [id number] Decreased hearing of both ears 11/11/2021 Wears [...] (Prevnar) 12/09/2017,08/01/2015 Pneumococcal Conjugate Vacci ne, 20-valent ([id number]) 12/18/2023(Deferred: Patient Refused) Pneumococcal Polysaccharide PPV23 (Pneumovax) [...] Encounter - Julia Veras MD - 03/06/2024 1:58 PM EST Signed Prescriptions: Disp Refills Zolpidem Tartrate 5 MG Oral Tablet (Ambien)30 Tab*0 Sig: TAKE 1 TABLET BY MOUTH ONCE DAILY AT BEDTIME ONLY IF NEEDED FOR SLEEP Authorizing Provider: JULIA VERAS * Telephone Encounter - Interface, E-Rx Ss Inbound - 03/04/2024 2:11 PM EST Pending Prescriptions: Disp Refills Zolpidem Tartrate 5 MG Oral Tablet [Pharma*30 Tab*0 Sig: TAKE 1 TABLET BY MOUTH ONCE DAILY AT BEDTIME ONLY IF NEEDED FOR SLEEP * Telephone Encounter - Interface, E-Rx Ss Inbound - 03/02/2024 2:11 PM EST Pending Prescriptions: Disp Refills Zolpidem Tartrate 5 MG Oral Tablet [Pharma*30 Tab*0 Sig: TAKE 1 TABLET BY MOUTH ONCE DAILY AT BEDTIME ONLY IF NEEDED FOR SLEEP * Telephone Encounter - Sanju Esqueda, [facility] - 03/02/2024 2:10 PM ESTPending Prescriptions: Disp Refills Zolpidem Tartrate 5 MG Oral Tablet [Pharma*30 Tab*0 Sig: TAKE 1 TABLET BY MOUTH ONCE DAILY AT BEDTIME ONLY IF NEEDED FOR SLEEP * Telephone Encounter - Sanju Esqueda [facility] - 03/02/2024 2:09 PM EST I have reviewed the patients controlled substance dispensing history in the Prescription Drug Monitoring Program in compliance with the [facility] regulations before prescribing a controlled substance. PDMP checked on 03/02/2024. Pending Prescriptions: Disp Refills Zolpidem Tartrate 5 MG Oral Tablet (Ambie*30 Tab*0 Sig: TAKE 1 TABLET BY MOUTH ONCE DAILY AT BEDTIME ONLY IF NEEDED FOR SLEEP Last Visit: 01/01/2024 (in office), 06/16/2020 (telemedicine) Next Visit: 03/17/2024 Date medication was last filled: 02-05-24 Date medication is due for refill: 03-05-24 Pharmacy: [id number] [address] [facility] Is this request for a controlled substance? Yes and Urine Drug Screen Not completed Toxicology results: Results for orders placed or performed in [...] results can be found in Results Review. Please approve if appropriate. Sanju Esqueda, Chrissy.Ph. Clinical Pharmacist [facility] ([facility]) [address] [place] [phone] : [phone] 03/02/2024,2:09 PM documented in this encounter Plan of Treatment Upcoming Encounters Date Type Department Care Team ([facility] st Contact Info) Description 03/17/2024 4:00 PM EST Office Visit Family [address] [phone] Julia Veras MD [address] [place] [phone] 04/17/2024 2:30 PM EST [facility] [place] [place] [address] [place] [address] Karen Rubin PA-C [address] [place] [address] Esperanza Graham, Community Health Sales Vendor [address] [place] [address] 05/22/2024 2:15 PM EDT Office Visit Podiatry [address] [phone] Drew Carbajal, LEOBARDO [address] [place] [address] 06/24/2024 2:45 PM EDT Office Visit Cardiology [address] [place] [phone] Vero Gee CRNP [address] [place] [address] 07/13/2024 3:20 PM EDT Office Visit [facility] [address] [place] [phone] Sandra Vuong, [address] [place] [address] Health Maintenance Due Date Last Done Comments [...] [facility] Communication Jam Virginie Cousin First Alternate Health Care Agent (per Health Care Power of Grinding Machine Operator document) Care Teams City Councilman Relationship Specialty Start Date End Date Julia Veras MD [address] [place] [phone] PCP - General Family Medicine 06/15/23 documented as of this encounter
--- OUTSIDE RECORDS SUMMARY | 2024-05-26 06:33 | External Medical Summary | Summary of Care ---
Author Name Unknown Organization [facility] Address [address] [place] [address] Phone [phone] Care Team Providers Care Wearing Apparel Folder Name Role Phone Julia Veras MD Primary Care Provi radhika Reason for Visit * Reason Onset Date Comments Medication Refill 02/24/2024 Encounter Details Date Type Department Care Team ([facility] st Contact Info) Description 02/24/2024 Refill Family [facility] [address] [place] [address] Maurilio Kovacs PA-C [address] [place] [address] Allergies Active Allergy Reactions Criticality Noted Date Comments Sulfamethoxazole-Trimethoprim Hives 2021 denies documented as of this encounter (statuses as of 02/24/2024) Medications CPAP every night at bedtime. Active [...] Patch 24 Hour (Nicoderm CQ)Indications:Toba accounts payable manager use disorder One 7 mg patch [...] morning. 90 Tablet 1 02/24/20 24 Active amLODIPine Besylate 5 MG Oral Tablet (Norvasc) TAKE 1 TABLET BY MOUTH ONCE DAILY 90 Tablet 3 02/17/20 23 024 Discontin ued(Refil l) documented as of this encounter (statuses as of 02/24/2024) Active Problems Problem Noted Date Diagnosed Date [...] daily Body mass index (BMI) 40.0-44.9, adult 05/07/202 4 Assessment & Plan (07/17/2023 8:49 AM [...] (05/16/2022): Added automatically from request for surgery [id number] Decreased hearing of both ears 11/11/2021 Wears [...] as of this encounter (statuses as of 02/24/2024) Resolved Problems Problem Noted Date Diagnosed Date [...] as of this encounter (statuses as of 02/24/2024) Immunizations Name Administration Dates Next Due COVID-19 mRNA, LNP-s, No Pre serve, 2-Dose Series (Moderna) 05/17/2020,04/19/2020 Pneumococcal Conjugate Vacc, 13 Valent (Prevnar) 12/09/2017,08/01/2015 Pneumococcal Conjugate Vacci ne, 20-valent ([id number]) 12/18/2023(Deferred: Patient Refused) Pneumococcal Polysaccharide PPV23 (Pneumovax) [...] encounter Miscellaneous Notes * Telephone Encounter - Lacey Dorman CRNP - 02/24/2024 10:14 AM EST Signed Prescriptions: Disp Refills amLODIPine Besylate 5 MG Oral Tablet (Norv*90 Tab*1 Sig: Take 1 Tablet by mouth in the morning. Authorizing Provider: JULIA VERAS Ordering User: LACEY DORMAN * Telephone Encounter - Lacey Dorman CRNP - 02/24/2024 8:08 AM EST Pending Prescriptions: Disp Refills amLODIPine Besylate 5 MG Oral Tablet (Norv*90 Tab*3 Sig: Take 1 Tablet by mouth in the morning. * Telephone Encounter - Karli Marcus OSA - 02/24/2024 7:03 AM EST Faxed request from the pharmacy. documented in this encounter Plan of Treatment Upcoming Encounters Date Type Department Care Team ([facility] st Contact Info) Description 02/24/2024 2:45 PM EST Office Visit Cardiology [address] [place] [address] Vero Gee CRNP [address] [place] [address] 03/17/2024 4:00 PM EST Office Visit Family Practice [place] [phone] Julia Veras MD [address] [place] [phone] 04/17/2024 2:30 PM EST Home Visit [facility] [address] [place] [address] Karen Rubin PA-C [address] [place] [address] Esperanza Graham, [facility] Dry Cell And Battery Assembler [address] [place] [address] 05/22/2024 2:15 PM EDT Office Visit Podiatry [address] [place] [address] Drew Carbajal, [facility] [address] [place] [address] 07/13/2024 3:20 PM EDT Office Visit [facility] [address] [place] [phone] Sandra Vuong, [address] [address] Health Maintenance Due Date Last Done Comments [...] Agents on File Name Relationship [facility] Jam Rachel Cousin First Alternate Health Care Agent (per Health Care Power of Linseed Oil Temperer document) Care Teams Wearing Apparel Folder Relationship Specialty Start Date End Date Julia Veras MD [address] [place] [phone] PCP - General Family Medicine 06/15/23 documented as of this encounter
--- OUTSIDE RECORDS SUMMARY | 2024-05-26 06:34 | External Medical Summary | Summary of Care ---
Author Name Unknown Organization [facility] Address [address] [place] [address] Phone [phone] Care Team Providers Care Reach Truck Operator Name Role Phone Julia Veras MD Primary Care Provi radhika Reason for Visit * Reason Comments eRx-Medication Refill Encounter Details Date Type Department Care Team ([facility] Contact Info) Description 02/04/2024 Refill Family Practice [address] [phone] Julia Veras MD [address] [place] [phone] Insomnia, unspecified type Allergies Active Allergy Reactions Criticality Noted Date Comments Sulfamethoxazole-Trimethoprim Hives 2021 denies documented as of this encounter (statuses as of 02/05/2024) Medications CPAP every night at bedtime. Active Vitamin D3 50 MCG (1999) Oral CapsuleIndications :Vitamin D deficiency TAKE 1 CAPSULE BY MOUTH ONCE DAILY 90 Capsule 3 023 Active amLODIPine Besylate 5 MG Oral Tablet (Norvasc) TAKE 1 TABLET BY MOUTH ONCE DAILY 90 Tablet 3 023 Active Budesonide-Formote rol Fumarate 160-4.5 [...] at bedtime. 90 Tablet 2 024 Active fluvoxaMINE Maleate 100 MG Oral Tablet (Luvox) TAKE ONE TABLET BY MOUTH EVERY DAY AT BEDTIME 90 Tablet 1 024 Active Folic Acid 1 MG Oral [...] titration plan. 30 Tablet 3 024 Active Eliquis 5 MG Oral Tablet (Apixaban)Indicati ons:Atrial fibrillation, unspecified type (HCC) Take 1 Tablet by mouth in the morning and 1 Tablet before bedtime. 60 Tablet 1 024 Active Metoprolol Tartrate 50 [...] FOR WHEEZING 54 g 3 024 Active Zolpidem Tartrate 5 MG Oral Tablet (Ambien)Indication s:Insomnia, unspecified type TAKE 1 TABLET BY MOUTH ONCE DAILY AT BEDTIME ONLY IF NEEDED FOR SLEEP 30 Tablet 024 Active Zolpidem Tartrate 5 MG Oral Tablet (Ambien)Indication s:Insomnia, unspecified type TAKE 1 TABLET BY MOUTH ONCE DAILY AT BEDTIME ONLY IF NEEDED FOR SLEEP 30 Tablet 024 2023 Discontinued documented as of this encounter (statuses as of 02/05/2024) Active Problems Problem Noted Date Diagnosed Date [...] (05/16/2022): Added automatically from request for surgery [id number] Decreased hearing of both ears 11/11/2021 Wears [...] as of this encounter (statuses as of 02/05/2024) Resolved Problems Problem Noted Date Diagnosed Date [...] as of this encounter (statuses as of 02/05/2024) Immunizations Name Administration Dates Next Due COVID-19 mRNA, LNP-s, No Pre serve, 2-Dose Series (Moderna) 05/17/2020,04/19/2020 Pneumococcal Conjugate Vacc, 13 Valent (Prevnar) 12/09/2017,08/01/2015 Pneumococcal Conjugate Vacci ne, 20-valent ([id number]) 12/18/2023(Deferred: Patient Refused) Pneumococcal Polysaccharide PPV23 (Pneumovax) [...] Telephone Encounter - Julia Veras MD - 02/05/2024 12:22 PM EST Signed Prescriptions: Disp Refills Zolpidem Tartrate 5 MG Oral Tablet (Ambien)30 Tab*0 Sig: TAKE 1 TABLET BY MOUTH ONCE DAILY AT BEDTIME ONLY IF NEEDED FOR SLEEP Authorizing Provider: JULIA VERAS * Telephone Encounter - Sid Mccall, [facility] - 02/05/2024 9:32 AM ESTPending Prescriptions: Disp Refills Zolpidem Tartrate 5 MG Oral Tablet [Pharma*30 Tab*0 Sig: TAKE 1 TABLET BY MOUTH ONCE DAILY AT BEDTIME ONLY IF NEEDED FOR SLEEP * Telephone Encounter - Sid Mccall, [facility] - 02/05/2024 9:32 AM EST I have reviewed the patients controlled substance dispensing history in the Prescription Drug Monitoring Program in compliance with the [facility] regulations before prescribing a controlled substance. PDMP checked on 02/05/2024. Pending Prescriptions: Disp Refills Zolpidem Tartrate 5 MG Oral Tablet (Ambie*30 Tab*0 Sig: TAKE 1 TABLET BY MOUTH ONCE DAILY AT BEDTIME ONLY IF NEEDED FOR SLEEP Last Visit: 01/01/2024 (in office), 06/16/2020 (telemedicine) Next Visit: 03/17/2024 Date medication was last filled: 01/08/24 Date medication is due for refill: 02/06/24 Pharmacy: [id number] [facility] Is this request for a controlled substance? [...] in Results Review. Please approve if appropriate. Thank You, Sid Hansen [facility] Clinical Pharmacist [facility] ([facility]) 02/05/2024, 9:32 AM documented in this encounter Plan of Treatment Upcoming Encounters Date Type Department Care Team (Late st Contact Info) Description 02/12/2024 11:40 AM EST Office Visit General Surgery [address] MD [address] [place] [address] 02/21/2024 3:00 PM EST [place] [address] Drew Carbajal DPM [address] [place] [address] 02/24/2024 2:45 PM EST Office Visit Cardiology [address] Vero Gee CRNP [address] [place] [address] 03/17/2024 4:00 PM EST Office Visit [facility] [address] [place] [address] Julia Veras MD [address] [place] [phone] 04/17/2024 2:30 PM EST Home Visit [facility] [address] [place] [address] Karen Rubin PA-C [address] [place] [address] Esperanza Graham, Community Health Candy Mixer [address] [place] [address] 07/13/2024 3:20 PM EDT Office Visit [facility] Disorders Ctr [facility] [address] [place] [phone] Sandra Vuong DO [address] [address] Health Maintenance Due Date Last Done Comments [...] exists DISCUSS TOBACCO CESSATION (REFER TO SMARTSET #5638) 12/16/2024 12/17/2023 (Discussed), 08/01/2015 (Discussed) O2 ASSESSMENT [...] Agents on File Name Relationship Healthcare Agent [facility] Communication Jam Rachel Cousin First Alternate Health Care Agent (per Health Care Power of Resident Care Associate document) Care Teams Reach Truck Operator Relationship Specialty Start Date End Date Julia Veras MD [address] [place] [phone] PCP - General Family Medicine 06/15/23 documented as of this encounter
--- OUTSIDE RECORDS SUMMARY | 2024-05-26 06:34 | External Medical Summary | Summary of Care ---
Author Name Unknown Organization [facility] Address [address] [place] [address] Phone [phone] Care Team Providers Care Teleservices Representative Name Role Phone Julia Harman MD Primary Care Provi radhika Reason for Visit * Reason Comments Acute Pt c/o rash forming under bellybutton. Pt also complaining about pain in right nostril in pain, feels as if he was cut. Encounter Details Date Type Department Care Team ([facility] Contact Info) Description 01/01/2024 2:00 PM EDT Office Visit [facility] [address] [place] [address] Aleksandr Sheriff PA-C [address] [place] [address] Rhinitis, unspecified type*; Atopic dermatitis, unspecified type Allergies Active Allergy Reactions Criticality Noted Date Comments Sulfamethoxazole-Trimethoprim Hives 2021 denies documented as of this encounter (statuses as of 01/29/2024) Medications CPAP every night at bedtime. Active [...] your diuretic titration plan. 30 Tablet 3 Active Eliquis 5 MG Oral Tablet (Apixaban)Indicati ons:Atrial fibrillation, unspecified type (HCC) Take 1 Tablet by mouth in the morning and 1 Tablet before bedtime. 60 Tablet 1 Active Metoprolol Tartrate 50 MG Oral Tablet (Lopressor)Indicat ions:Persistent atrial fibrillation (HCC) Take 1 Tablet by mouth in the morning and 1 Tablet before bedtime. 90 Tablet 1 024 Active Clotrimazole-Betam ethasone 1-0.05 % External Cream (Lotrisone) Apply topically to affected area 2 times a day for 28 days. To affected (lower abdomen) area for 4 weeks, or until healed. 45 g 1 024 2023 Active Potassium Chloride ER 10 MEQ Oral Tablet Extended Release Take 1 Tablet by mouth in the morning. 90 Tablet 024 2023 Discontinued Zolpidem Tartrate 5 MG Oral Tablet (Ambien)Indication s:Insomnia, unspecified type TAKE 1 TABLET BY MOUTH ONCE DAILY AT BEDTIME ONLY IF NEEDED FOR SLEEP 30 Tablet 024 2023 Discontinued Albuterol Sulfate HFA 108 (90 Base) MCG/ACT Inhalation Aerosol SolutionIndication s:COPD, moderate (HCC) INHALE TWO PUFFS BY MOUTH EVERY FOUR HOURS NEEDED FOR WHEEZING 18 g 024 2023 Discontinued Mupirocin 2 % External Ointment (Bactroban) Apply topically to affected area 3 times a day for 14 days. To affected area for up to 14 days. Apply to nostril. 22 g 1 024 2023 documented as of this encounter (statuses as of 01/29/2024) Active Problems Problem Noted Date Diagnosed Date [...] (05/16/2022): Added automatically from request for surgery [id number] Decreased hearing of both ears 11/11/2021 Wears [...] as of this encounter (statuses as of 01/29/2024) Resolved Problems Problem Noted Date Diagnosed Date [...] as of this encounter (statuses as of 01/29/2024) Immunizations Name Administration Dates Next Due COVID-19 mRNA, LNP-s, No Pre serve, 2-Dose Series (Moderna) 05/17/2020,04/19/2020 Pneumococcal Conjugate Vacc, 13 Valent (Prevnar) 12/09/2017,08/01/2015 Pneumococcal Conjugate Vacci ne, 20-valent ([id number]) 12/18/2023(Deferred: Patient Refused) Pneumococcal Polysaccharide PPV23 (Pneumovax) [...] Sign Reading Time Taken Comments Blood Pressure 132/74 01/01/2024 1:50 PM EDT Pulse 98 01/01/2024 1:50 PM EDT Temperature 36.8 C (98.2 F) 01/01/2024 1:50 PM ED T Respiratory Rate - - Oxygen Saturation 98% 01/01/2024 1:50 PM EDT Inhaled Oxygen Concentration - - Weight 119.5 kg (263 lb 6.4 oz) 01/01/2024 1:50 PM EDT Height - - Body Mass Index 42.51 08/16/2023 8:54 AM EDT documented in this encounter Functional Status * [...] documented in this encounter Progress Notes * Aleksandr Sheriff PA-C - 01/01/2024 1:55 PM EDT Images from the original note were not included. History of Present Illness Gaurav Hall is a 73 year old male that presents for Acute (Pt c/o rash forming under bellybutton. Pt also complaining about pain in right nostril in pain, feels as if he was cut.) He has pain of his right nostril for the past month. Denies any trauma or injury. He has not tried any OTC therapy. 2. He has a rash under his abdomen. Physical Exam Vitals: 01/01/24 1350 Temp: 98.2 F (36.8 C) Pulse: 98 SpO2: 98% BP: 132/74 General: alert and no distress Head: Normocephalic, No masses, lesions, tenderness or abnormalities Eye Exam: PERRLA, extraocular movements intact, conjunctiva are pink and non- injected, sclera clear Ears: External ears normal, Canals clear, TM's Normal Nose: mucosal edema, mucosal erythema Oropharynx: no exudate, no erythema, lips, buccal mucosa, and tongue normal, and mucous membranes are moist Neck: supple, no adenopathy, no bruits, thyroid normal size, non-tender, without nodularity Lymph: no palpable lymphadenopathy Heart: regular rate & rhythm, no murmur, and no gallops Lungs: chest symmetric with normal AP diameter, no chest deformities noted, no chest wall tenderness, lungs clear to auscultation Assessment and Plan Rhinitis, unspecified type Mupirocin prescribed. This has worked well for her in the past. Atopic dermatitis, unspecified type Clotrimazole-Betamethasone prescribed. Wrap-Up Aleksandr Sheriff PA-C documented in this encounter Nursing Notes * Ra Prasad CMA - 01/01/2024 1:49 PM EDT The patient has been properly identified by confirmation of name and date of . Chief Complaint Patient presents with Acute Pt c/o rash forming under bellybutton. Pt also complaining about pain in right nostril in pain, feels as if he was cut. documented in this encounter Plan of Treatment Upcoming Encounters Date Type Department Care Team ([facility] st Contact Info) Description 02/12/2024 11:40 AM EST Office Visit General Surgery [address] Shelby MD [address] [place] [address] 02/21/2024 3:00 PM EST Office Visit Podiatry [address] Drew Carbajal DPM [address] [place] [address] 02/24/2024 2:45 PM EST Office Visit Cardiology [place] [phone] Vero Gee CRNP [address] [place] [address] 03/17/2024 4:00 PM EST Office Visit [facility] [address] [place] [address] Julia Harman MD [address] [place] [address] 04/17/2024 2:30 PM EST Home Visit [facility] [address] [place] [address] Karen Rubin PA-C [address] [place] [address] Esperanza Graham, Community Health Soda Tester [address] [place] [address] 07/13/2024 3:20 PM EDT Office Visit [facility] [address] [place] [phone] Sandra Vuong, [address] [address] Health Maintenance Due Date Last Done Comments [...] exists DISCUSS TOBACCO CESSATION (REFER TO SMARTSET #5906) 12/16/2024 12/17/2023 (Discussed), 08/01/2015 (Discussed) O2 ASSESSMENT [...] GOLD 2017 classification (HCC) Tobacco use disorder Rhinitis, unspecified type- Primary Atopic dermatitis, unspecified type documented in this encounter Advance [...] Agents on File Name Relationship Healthcare Agent [facility] Communication Jam Rachel Cousin First Alternate Health Care Agent (per Health Care Power of Shift Production Associate document) Care Teams Teleservices Representative Relationship Specialty Start Date End Date Julia Harman MD [address] [place] [phone] PCP - General Family Medicine 06/15/23 documented as of this encounter
--- OUTSIDE RECORDS SUMMARY | 2024-05-26 06:34 | External Medical Summary | Summary of Care ---
Author Name Unknown Organization [facility] Address [address] [place] [address] Phone [phone] Care Team Providers Care Protein Purification Scientist Name Role Phone Julia Harman MD Primary Care Provi radhika Reason for Visit * Reason Onset Date Comments Test Results 01/14/2024 Encounter Details Date Type Department Care Team ([facility] Contact Info) Description 01/14/2024 Telephone Family [address] [phone] Julia Harman MD [address] [place] [phone] Test Results Allergies Active Allergy Reactions Criticality Noted Date Comments Sulfamethoxazole-Trimethoprim Hives 2021 denies documented as of this encounter (statuses as of 01/15/2024) Medications Medication Sig Dispensed Refills Start Date End Date Status CPAP every night at bedtime. Active Vitamin D3 50 MCG (1999) Oral CapsuleIndications:Vi tamin D deficiency TAKE 1 CAPSULE BY MOUTH ONCE DAILY 90 Capsule 3 11/30/2022 Active amLODIPine Besylate 5 MG Oral Tablet (Norvasc) TAKE 1 TABLET BY MOUTH ONCE DAILY 90 Tablet 3 02/16/2023 Active Budesonide-Formoterol Fumarate 160-4.5 MCG/ACT Inhalation Aerosol (Symbicort)Indication s:COPD, moderate (HCC) inhale 2 puffs by mouth in the morning and 2 puffs before bedtime 30.6 g 3 03/27/2023 Active Esomeprazole Magnesium 40 MG Oral Capsule Delayed Release TAKE 1 CAPSULE by mouth ONE TIME DAILY BEFORE BREAKFAST 90 Capsule 3 04/19/2023 Active Nicotine 7 MG/24HR Transdermal Patch 24 Hour (Nicoderm CQ)Indications:Tobacc o use disorder One 7 mg patch daily for 2 weeks; Remove old patch daily; and then stop. 14 Patch 1 07/16/2023 Active Additional Information Patient not taking.Reported on 11/20/2023 Nitroglycerin 0.4 MG Sublingual Tablet Sublingual (Nitrostat) Place 1 Tablet under the tongue as needed for Pain, Chest. Maximum 3 doses. 30 Tablet 07/23/2023 Active Additional Information Patient not taking.Reported on 11/20/2023 Famotidine 40 MG Oral Tablet (Pepcid)Indications:G astroesophageal reflux disease without esophagitis Take 1 Tablet by mouth every night at bedtime. 90 Tablet 2 08/29/2023 Active fluvoxaMINE Maleate 100 MG Oral Tablet (Luvox) TAKE ONE TABLET BY MOUTH EVERY DAY AT BEDTIME 90 Tablet 1 09/05/2023 Active Folic Acid 1 MG Oral TabletIndications:Fol ic acid deficiency Take 1 Tablet by mouth in the morning. 90 Tablet 3 09/10/2023 Active Montelukast Sodium 10 MG Oral Tablet (Singulair)Indication s:Allergic rhinitis TAKE ONE TABLET BY MOUTH EVERY DAY AT BEDTIME 100 Tablet 3 09/18/2023 Active Potassium Chloride ER 10 MEQ Oral Tablet Extended Release Take 1 Tablet by mouth in the morning. 90 Tablet 10/21/2023 Active Atorvastatin Calcium 40 MG Oral Tablet (Lipitor)Indications: SOB (shortness of breath),Aortic root enlargement (HCC) Take 1 Tablet by mouth in the morning. 100 Tablet 3 10/21/2023 Active Levocetirizine Dihydrochloride 5 MG Oral Tablet Take 0.5 Tablets by mouth every evening. 90 Tablet 1 12/16/2023 Active Furosemide 40 MG Oral Tablet (Lasix)Indications:Ch ronic heart failure with preserved ejection fraction (HCC) Take 1.5 Tablets by mouth in the morning. 45 Tablet 5 12/17/2023 Active Furosemide 20 MG Oral Tablet (Lasix)Indications:Ch ronic heart failure with preserved ejection fraction (HCC) Take 3 Tablets by mouth daily as needed (Edema, weight gain). Take NEEDED for weight gain or leg swelling as described in your diuretic titration plan. 30 Tablet 3 12/17/2023 Active Albuterol Sulfate HFA 108 (90 Base) MCG/ACT Inhalation Aerosol SolutionIndications:C OPD, moderate (HCC) INHALE TWO PUFFS BY MOUTH EVERY FOUR HOURS NEEDED FOR WHEEZING 18 g 12/17/2023 Active Eliquis 5 MG Oral Tablet (Apixaban)Indications :Atrial fibrillation, unspecified type (HCC) Take 1 Tablet by mouth in the morning and 1 Tablet before bedtime. 60 Tablet 1 12/30/2023 Active Metoprolol Tartrate 50 MG Oral Tablet (Lopressor)Indication s:Persistent atrial fibrillation (HCC) Take 1 Tablet by mouth in the morning and 1 Tablet before bedtime. 90 Tablet 1 12/31/2023 Active Clotrimazole-Betameth asone 1-0.05 % External Cream (Lotrisone) Apply topically to affected area 2 times a day for 28 days. To affected (lower abdomen) area for 4 weeks, or until healed. 45 g 1 01/01/2024 Active Mupirocin 2 % External Ointment (Bactroban) Apply topically to affected area 3 times a day for 14 days. To affected area for up to 14 days. Apply to nostril. 22 g 1 01/01/2024 4 Active Zolpidem Tartrate 5 MG Oral Tablet (Ambien)Indications:I nsomnia, unspecified type TAKE 1 TABLET BY MOUTH ONCE DAILY AT BEDTIME ONLY IF NEEDED FOR SLEEP 30 Tablet 01/08/2024 Active documented as of this encounter (statuses as of 01/15/2024) Active Problems Problem Noted Date Diagnosed Date Nonrheumatic mitral valve regurgitation 01/14/20 24 Hypertensive heart disease with congestive heart failure 12/30/2023 PAF (paroxysmal atrial fibrillation) 10/21/2023 Aortic root enlargement 10/21/2023 Diabetes mellitus without complication Last Assessment & Plan: A1C has been slowly trending up. Now at 7.0 Ascending aortic aneurysm 08/09/2023 Nonrheumatic aortic valve insufficiency 08/09/19 24 Chronic heart failure with preserved ejection fr action 08/09/2023 Last Assessment & Plan: Lasix 40mg daily Body mass index (BMI) 40.0-44.9, adult Last Assessment & Plan: Pt has been losing weight. We discussed food options and I provided education surrounding healthier food choices. Persistent atrial fibrillation 07/01/2023 Last Assessment & Plan: Eliqus 5mg BID Metoprolol 50mg BID COPD, group C, by GOLD 2017 classification 06/18 Overview: Per COPD GOLD Classification Last Assessment & Plan: Symbicort 2 puffs twice daily BPH (benign prostatic hyperplasia) 05/16/2022 Overview: Added automatically from request for surgery [id number] Decreased hearing of both ears 11/11/2021 Wears dentures 01/01/2020 Anxiety state 03/17/2019 Last Assessment & Plan: Luvox 100mg QHS Moderate episode of recurrent major depressive d isorder 01/06/2018 Last Assessment & Plan: Currently on Luvox 100mg daily Hyperlipidemia with target LDL less than 130 Overview: ICD-10 update of inactive term ARMIDA (obstructive sleep apnea) 02/20/2013 Insomnia 02/20/2013 HTN, GOAL BELOW 140/90 01/31/2009 Overview: Modified per HTN protocol #16. Gastroesophageal reflux disease without esophagi tis Last Assessment & Plan: Esomeprazole and Pepcid daily Tobacco use disorder Last Assessment & Plan: Claims that he is trying to quit smoking. documented as of this encounter (statuses as of 01/15/2024) Resolved Problems Problem Noted Date Diagnosed Date Resolved Date SOB (shortness of breath) 10/21/2023 Acute CHF (congestive heart failure) 07/23/2023 08/09/2023 ELFEGO (acute kidney injury) 07/23/2023 Leukocytosis 07/23/2023 12/11/2023 Chest pain 07/23/2023 07/29/2023 Depression, unspecified 07/16/202307/09 Overview: A more specified dx for depression is [...] HTN, goal to be determined 1 04/02/2008 Overview: Modified per HTN protocol #16. Major depressive disorder Overview: ICD-10 update of inactive term documented as of this encounter (statuses as of 01/15/2024) Immunizations Name Administration Dates Next Due COVID-19 mRNA, LNP-s, No Pre serve, 2-Dose Series (Moderna) 05/17/2020,04/19/2020 Pneumococcal Conjugate Vacc, 13 Valent (Prevnar) 12/09/2017,08/01/2015 Pneumococcal Conjugate Vacci ne, 20-valent ([id number]) 12/18/2023(Deferred: Patient Refused) Pneumococcal Polysaccharide PPV23 (Pneumovax) [...] pur e alcohol) PHQ-2 Answer Date Recorded PHQ-2 Score 0 07/14/2018 Hunger Vital Sign Answer Date Recorded Within [...] Assigned at Male 07/14/2018 2:42 PM EDT Gender Identity Male 07/14/2018 2:42 PM EDT Sexual Orientation Straight 07/14/2018 2: 42 PM EDT Job Start Date Occupation Industry Not on file Not on file Not on file documented as of this encounter Functional Status Functional Status Response Date of Assess ment Are you deaf or do you have serious difficulty h earing? No 07/23/2023 Are you blind or do you have serious difficulty seeing, even when wearing glasses? No 07/23/2023 Do you have serious difficul ty walking or climbing stairs? (5 years old or older) No 07/23/2023 Do you have difficulty dress ing or bathing? (5 years old or older) No 07/23/2023 Because of a physical, menta l, or emotional condition, do you have difficulty doing errands alone such as visiting a doctor s office or shopping? (15 years old or older) No 07/23/19 Cognitive Status Response Date of Assessm ent Because of a physical, menta l, or emotional condition, do you have serious difficulty concentrating, remembering, or making decisions? (5 years old or older) No 07/23/2023 documented as of this encounter Miscellaneous Notes * Telephone Encounter - Wilma Dhillon CCMA - 01/15/2024 10:55 AM EST Called and spoke with patient and gave information below. Patient verbalized understanding and states no other concerns at this time. * Telephone Encounter - Julia Harman MD - 01/15/2024 10:24 AM EST No he will not need surgery at this point - we will continue to monitor them * Telephone Encounter - Pamela Mims MED ASSIST - 01/15/2024 10:19 AM EST Pt is concerned and wants to know if he is going to have to have surgery for his leaky valve, if not what do you do about it. * Telephone Encounter - Keo Hickman LPN - 01/14/2024 3:50 PM EST ----- Message from Julia Harman MD sent at 01/14/2024 3:43 PM EST ----- Please notify patient his stress test was negative. It showed some leaky and enlarged valves which we had seen on previous echocardiograms. But overall things look good. documented in this encounter Plan of Treatment Upcoming Encounters Date Type Department Care Team (Late st Contact Info) Description 02/12/2024 11:40 AM EST Office Visit General Surgery [address] [place] [phone] Av Shelby MD [address] [place] [address] 02/21/2024 3:00 PM EST Office Visit Podiatry [facility] 68 [facility] [address] [place] [address] Drew Carbajal, LEOBARDO [address] [place] [address] 02/24/2024 2:45 PM EST Office Visit Cardiology [facility] 68 [facility] [address] [place] [phone] Vero Gee CRNP [address] [place] [address] 03/17/2024 4:00 PM EST Office Visit Family Practice [facility] [address] [place] [phone] Julia Harman MD [address] [place] [phone] 04/17/2024 2:30 PM EST Home Visit [facility] [place] [address] [place] [address] Karen Rubin PA-C [address] [place] [address] Esperanza Graham, Community Health Parts Puller [address] [place] [address] 07/13/2024 3:20 PM EDT Office Visit Sleep Disorders Ctr [facility] [address] [place] [phone] Sandra Vuong DO [address] [place] [address] Health Maintenance Due Date Last Done Comments Diabetic Foot Exam 05/20/1967 Cologuard 1994 Fecal Occult Blood Test 1994 Sigmoidoscopy 1994 Adult Wellness Visit 05/20/2015 Depression Monitoring 03/23/2020 03/23/2019 Diabetic Eye Exam 04/24/2022 04/24/2021, 11/03/2013 COVID-19 [...] IN PAST YEAR FOR COPD 01/13/2025 01/14/2024 Lipid Panel 07/21/2028 07/22/2023, 03/12, 08/24/2020, Additional [...] Care Agent (per Health Care Power of Recycling Tech document) Care Teams Protein Purification Scientist Relationship Specialty Start Date End Date Julia Harman MD [address] [place] [phone] PCP - General Family Medicine 06/15/23 documented as of this encounter
--- OUTSIDE RECORDS SUMMARY | 2024-05-26 06:34 | External Medical Summary | Summary of Care ---
Author Name Unknown Organization [facility] Address [address] [place] [place] [place] [place] [address] Phone [phone] Care Team Providers Care Electrician Bus Name Role Phone Julia Harman MD Primary Care Provi radhika Encounter Details Date Type Department Care Team ( st Contact Info) Description 01/16/2024 Population Health External Data Unspecified Department Allergies Active Allergy Reactions Criticality Noted Date Comments Sulfamethoxazole-Trimethoprim Hives 2021 denies documented as of this encounter (statuses as of 01/23/2024) Medications CPAP every night at bedtime. Active [...] MG/24HR Transdermal Patch 24 Hour (Nicoderm CQ)Indications:[employer] strategic account executive use disorder One 7 mg patch daily [...] plan. 30 Tablet 3 12/17/19 24 Active Albuterol Sulfate HFA 108 (90 Base) MCG/ACT Inhalation Aerosol SolutionIndications :COPD, moderate (HCC) INHALE TWO PUFFS BY MOUTH EVERY FOUR HOURS NEEDED FOR WHEEZING 18 g 12/17/19 24 Active Eliquis 5 MG Oral Tablet (Apixaban)Indicatio ns:Atrial fibrillation, unspecified type (HCC) Take 1 Tablet by mouth in the morning and 1 Tablet before bedtime. 60 Tablet 1 12/30/19 24 Active Metoprolol Tartrate 50 MG Oral Tablet (Lopressor)Indicati ons:Persistent atrial fibrillation (HCC) Take 1 Tablet by mouth in the morning and 1 Tablet before bedtime. 90 Tablet 1 12/31/19 24 Active Clotrimazole-Betame thasone 1-0.05 % External Cream (Lotrisone) Apply topically to affected area 2 times a day for 28 days. To affected (lower abdomen) area for 4 weeks, or until healed. 45 g 1 01/01/20 24 024 Active Zolpidem Tartrate 5 MG Oral Tablet (Ambien)Indications :Insomnia, unspecified type TAKE 1 TABLET BY MOUTH ONCE DAILY AT BEDTIME ONLY IF NEEDED FOR SLEEP 30 Tablet 01/08/20 24 Active Potassium Chloride ER 10 MEQ Oral Tablet Extended Release Take 1 Tablet by mouth in the morning. 90 Tablet 1 01/16/20 24 Active documented as of this encounter (statuses as of 01/23/2024) Active Problems Problem Noted Date Diagnosed Date [...] (05/16/2022): Added automatically from request for surgery [id number] Decreased hearing of both ears 11/11/2021 Wears [...] as of this encounter (statuses as of 01/23/2024) Resolved Problems Problem Noted Date Diagnosed Date [...] as of this encounter (statuses as of 01/23/2024) Immunizations Name Administration Dates Next Due COVID-19 mRNA, LNP-s, No Pre serve, 2-Dose Series (Moderna) 05/17/2020,04/19/2020 Pneumococcal Conjugate Vacc, 13 Valent (Prevnar) 12/09/2017,08/01/2015 Pneumococcal Conjugate Vacci ne, 20-valent ([id number]) 12/18/2023(Deferred: Patient Refused) Pneumococcal Polysaccharide PPV23 (Pneumovax) [...] Entry Date Author No 07/23/2023 1:27 AM YELENAT Karen Montenegro RN documented in this encounter Plan of Treatment Upcoming Encounters Date Type Department Care Team (Late st Contact Info) Description 02/12/2024 11:40 AM EST Office Visit General Surgery [address] [place] [phone] Av Shelby MD [address] [place] [address] 02/21/2024 3:00 PM EST Office Visit Podiatry [address] [place] [phone] Drew Carbajal, LEOBARDO [address] [place] [address] 02/24/2024 2:45 PM EST Office Visit Cardiology [facility] [address] [facility] [address] [place] [phone] Vero Gee CRNP [address] [place] [address] 03/17/2024 4:00 PM EST Office Visit Family Practice [facility] [address] [place] [phone] Julia Harman MD [address] [place] [address] 04/17/2024 2:30 PM EST Home Visit [facility] [place] [address] [place] [address] Karen Rubin PA-C [address] [place] [address] Esperanza Graham, Community Health Tagman [address] [place] [address] 07/13/2024 3:20 PM EDT Office Visit Sleep Disorders Ctr [facility] [address] [place] [phone] Sandra Vuong, [address] [address] Health Maintenance Due Date Last Done Comments Diabetic Foot Exam 05/20/1967 Cologuard 1994 Fecal Occult Blood Test 1994 Sigmoidoscopy 1994 Adult Wellness Visit 05/20/2015 Diabetic Eye Exam 04/24/2022 04/24/2021, 11/03/2013 COVID-19 Vaccine (3 - 2024-25 season) 2023 05/17/2020, 04/19/2020 Influenza Vaccine (FLU [...] Agents on File Name Relationship [facility] Agent [facility] Communication Jam Rachel Cousin First Alternate Health Care Agent (per Health Care Power of Business Performance Specialist document) Care Teams Electrician Bus Relationship Specialty Start Date End Date Julia Harman MD [address] [place] [phone] PCP - General Family Medicine 06/15/23 documented as of this encounter
--- OUTSIDE RECORDS SUMMARY | 2024-05-26 06:34 | External Medical Summary | Summary of Care ---
Author Name Unknown Organization [facility] Address [address] [place] [address] Phone [phone] Care Team Providers Care Emergency Worker Name Role Phone Julia Harman MD Primary Care Provi radhika Reason for Visit * Reason Onset Date Comments Appointment 10/31/2023 Encounter Details Date Type Department Care Team ([facility] Contact Info) Description 10/31/2023 Telephone Dermatology [facility] [address] [place] [phone] Melchor Christopher PA-C [address] [place] [address] Appointment Allergies Active Allergy Reactions Criticality Noted Date Comments Sulfamethoxazole-Trimethoprim Hives 2021 denies documented as of this encounter (statuses as of 01/30/2024) Medications CPAP every night at bedtime. Active [...] Levocetirizine Dihydrochloride 5 MG Oral Tablet Take 1 Tablet by mouth every evening. 90 Tablet 3 023 2023 Discontinued Apixaban 5 MG Oral Tablet (Eliquis)Indicatio ns:Atrial fibrillation, unspecified type (HCC) Take 1 Tablet by mouth in the morning and 1 Tablet before bedtime. 60 Tablet 5 024 2023 Discontinued Metoprolol Tartrate 50 MG Oral Tablet (Lopressor)Indicat ions:Persistent atrial fibrillation (HCC) Take 1 Tablet by mouth in the morning and 1 Tablet before bedtime. 90 Tablet 1 08/26/ 024 2023 Discontinued Furosemide 40 MG Oral Tablet (Lasix) Take 1 Tablet by mouth in the morning. 30 Tablet 2 024 2023 Discontinued Potassium Chloride ER 10 MEQ Oral Tablet Extended Release Take 1 Tablet by mouth in the morning. 90 Tablet 2023 Discontinued documented as of this encounter (statuses as of 01/30/2024) Active Problems Problem Noted Date Diagnosed Date [...] (05/16/2022): Added automatically from request for surgery [id number] Decreased hearing of both ears 11/11/2021 Wears [...] as of this encounter (statuses as of 01/30/2024) Resolved Problems Problem Noted Date Diagnosed Date [...] as of this encounter (statuses as of 01/30/2024) Immunizations Name Administration Dates Next Due COVID-19 mRNA, LNP-s, No Pre serve, 2-Dose Series (Moderna) 05/17/2020,04/19/2020 Pneumococcal Conjugate Vacc, 13 Valent (Prevnar) 12/09/2017,08/01/2015 Pneumococcal Polysaccharide PPV23 (Pneumovax) 12/15/2018,02/14/2013 Seasonal Influenza Vac., MDV , IM, 0.5 mL (Fluzone) 12/01/2013,11/23/2012 Seasonal Influenza, PF, 6 M & above, [...] No 03/14/2023 Does the household have a [facility] source of income? (Household - for ages [...] encounter Miscellaneous Notes * Telephone Encounter - Skylar Espana OSA - 10/31/2023 12:56 PM EDT PT calling in for an appt. Last appt was 11/08/20. He has a referral on file. He states he has new lesions and can only do [place]. No appts available, PT does not have My G for fast pass. PT would like a call at [phone]. He does not have VM. Thank you! Skylar documented in this encounter Plan of Treatment Upcoming Encounters Date Type Department Care Team ([facility] Contact Info) Description 02/12/2024 11:40 AM EST Office Visit General Surgery [address] [place] [phone] Av Shelby MD [facility] [place] [address] 02/21/2024 3:00 PM EST Office Visit Podiatry [address] [place] [phone] Drew Carbajal DPM [address] [place] [address] 02/24/2024 2:45 PM EST Office Visit Cardiology [facility] [address] [facility] [address] [place] [address] Vero Gee CRNP [address] [place] [address] 03/17/2024 4:00 PM EST Office Visit Family Practice [facility] [address] [place] [phone] Julia Harman MD [address] [place] [phone] 04/17/2024 2:30 PM EST Home Visit [facility] [place] [address] [place] [address] Karen Rubin PA-C [address] [place] [address] Esperanza Graham, Community Health Sales Marketing Manager [address] [place] [address] 07/13/2024 3:20 PM EDT Office Visit Sleep Disorders Ctr [facility] [address] [place] [phone] Sandra Vuong, [address] [place] [address] Health Maintenance Due Date Last Done Comments [...] Agents on File Name Relationship [facility] Communication Jam Rachel Cousin First Alternate Health Care Agent (per Health Care Power of Quality Assurance Supervisor Final document) Care Teams Emergency Worker Relationship Specialty Start Date End Date Julia Harman MD [address] [place] [phone] PCP - General Family Medicine 06/15/23 documented as of this encounter
--- OUTSIDE RECORDS SUMMARY | 2024-05-26 06:34 | External Medical Summary | Summary of Care ---
Author Name Unknown Organization [facility] Address [address] [place] [address] Phone [phone] Care Team Providers Care Hand Cooper Helper Name Role Phone Julia Veras MD Primary Care Provi radhika Reason for Visit * Reason Comments eRx-Medication Refill Encounter Details Date Type Department Care Team ([facility] Contact Info) Description 01/22/2024 Refill Family [address] [phone] Julia Veras MD [address] [place] [phone] COPD, moderate (HCC) Allergies Active Allergy Reactions Criticality Noted [...] healed. 45 g 1 024 2023 Active Zolpidem Tartrate 5 MG Oral Tablet (Ambien)Indication s:Insomnia, unspecified type TAKE 1 TABLET BY MOUTH ONCE DAILY AT BEDTIME ONLY IF NEEDED FOR SLEEP 30 Tablet 024 Active Potassium Chloride ER 10 MEQ Oral Tablet Extended Release Take 1 Tablet by mouth in the morning. 90 Tablet 1 024 Active Albuterol Sulfate HFA 108 (90 Base) MCG/ACT Inhalation Aerosol SolutionIndication s:COPD, moderate (HCC) INHALE TWO PUFFS BY MOUTH EVERY FOUR HOURS NEEDED FOR WHEEZING 54 g 3 024 Active Albuterol Sulfate HFA 108 (90 Base) MCG/ACT Inhalation Aerosol SolutionIndication s:COPD, moderate (HCC) INHALE TWO PUFFS BY MOUTH EVERY FOUR HOURS NEEDED FOR WHEEZING 18 g 024 2023 Discontinued documented as of this [...] (05/16/2022): Added automatically from request for surgery [id number] Decreased hearing of both ears 11/11/2021 Wears [...] (Prevnar) 12/09/2017,08/01/2015 Pneumococcal Conjugate Vacci ne, 20-valent ([id number]) 12/18/2023(Deferred: Patient Refused) Pneumococcal Polysaccharide PPV23 (Pneumovax) [...] encounter Miscellaneous Notes * Telephone Encounter - Amanda Ortega [facility] - 01/23/2024 6:57 PM ESTSigned Prescriptions: Disp Refills Albuterol Sulfate HFA 108 (90 Base) MCG/AC*54 g 3 Sig: INHALE TWO PUFFS BY MOUTH EVERY FOUR HOURS NEEDED FOR WHEEZINGAuthorizing Provider: JULIA VERAS User: AMANDA ORTEGA documented in this encounter Plan of Treatment Upcoming Encounters Date Type Department Care Team ([facility] Contact Info) Description 02/12/2024 11:40 AM EST Office Visit General Surgery [address] Shelby MD [address] [place] [address] 02/21/2024 3:00 PM EST Office Visit Podiatry [place] [phone] Drew Carbajal, LEOBARDO [address] [place] [address] 02/24/2024 2:45 PM EST Office Visit Cardiology [place] [phone] Vero Gee CRNP [address] [place] [address] 03/17/2024 4:00 PM EST Office Visit Family Practice [address] Julia Veras MD [address] [place] [phone] 04/17/2024 2:30 PM EST Home Visit [facility] [address] [place] [address] Karen Rubin PA-C [address] [place] [address] Esperanza Graham, Community Health Policyholder Information Clerk [address] [place] [address] 07/13/2024 3:20 PM EDT [facility] [address] [place] [phone] Sandra Vuong, [address] [address] Health Maintenance Due Date Last Done Comments [...] exists DISCUSS TOBACCO CESSATION (REFER TO SMARTSET #7821) 12/16/2024 12/17/2023 (Discussed), 08/01/2015 (Discussed) O2 ASSESSMENT [...] GOLD 2017 classification (HCC) Tobacco use disorder COPD, moderate (HCC) Chronic airway obstruction, not elsewhere classified documented in this encounter Advance Directives * [...] File Name Relationship [facility] Communication Jam Rachel Cousin First Alternate Health Care Agent (per Health Care Power of Yoke Setter document) Care Teams Hand Cooper Helper Relationship Specialty Start Date End Date Julia Veras MD [address] [place] [phone] PCP - General Family Medicine 06/15/23 documented as of this encounter
--- OUTSIDE RECORDS SUMMARY | 2024-05-26 06:34 | External Medical Summary | Summary of Care ---
Author Name Unknown Organization [facility] Address [address] [place] [address] Phone [phone] Care Team Providers Care Chimney Mechanic Name Role Phone Julia Harman MD Primary Care Provi radhika Encounter Details Date Type Department Care Team (Late st Contact Info) Description 01/14/2024 2:30 PM EST Home Visit [facility] [place] [address] [place] [address] Macarena Watson, RN [address] [place] [address] Allergies Active Allergy Reactions Criticality Noted Date [...] Apply to nostril. 22 g 1 01/01/2024 Active Zolpidem Tartrate 5 MG Oral Tablet [...] Overview: Added automatically from request for surgery [id number] Decreased hearing of both ears 11/11/2021 Wears [...] (Prevnar) 12/09/2017,08/01/2015 Pneumococcal Conjugate Vacci ne, 20-valent ([id number]) 12/18/2023(Deferred: Patient Refused) Pneumococcal Polysaccharide PPV23 (Pneumovax) [...] on file documented as of this encounter Last Filed Vital Signs Vital Sign Reading Time Taken Comments Blood Pressure 130/68 01/14/2024 4:14 PM EST Pulse 94 01/14/2024 4:14 PM EST Temperature 35.9 C (96.6 F) 01/14/2024 4:14 PM ES T Respiratory Rate - - Oxygen Saturation 98% 01/14/2024 4:14 PM EST room air Inhaled Oxygen Concentration - - Weight - - Height - - Body Mass Index - - documented in this encounter Functional Status Functional Status Response [...] (15 years old or older) No 07/23/19 24 Cognitive Status Response Date of Assessm ent Because of a physical, menta l, or emotional condition, do you have serious difficulty concentrating, remembering, or making decisions? (5 years old or older) No 07/23/2023 documented as of this encounter Progress Notes * Macarena Watson RN - 01/14/2024 4:05 PM EST Current Concerns: torsten is a 73 y/o male being seen in his home for a routine [facility] visit. Another rjei let NCM in building. Pt answered his door complaining & swearing. He opened the door said "I m not dressed" & slammed the door shut. NCM waiting for a few min in the parmar. He eventually opened the door & allowed nurse into apartment. He denies current issues or needs. He has food in the home. Physical Exam: Physical Exam Constitutional: General: He is awake. Appearance: He is obese. HENT: Mouth/Throat: Mouth: Mucous membranes are moist. Eyes: Comments: Wears glasses Cardiovascular: Rate and Rhythm: Normal rate and regular rhythm. Pulses: Normal pulses. Pulmonary: Effort: Pulmonary effort is normal. Breath sounds: Normal breath sounds. Abdominal: General: Abdomen is flat. Palpations: Abdomen is soft. Musculoskeletal: General: Normal range of motion. Cervical back: Neck supple. Comments: Ambulated without issues Skin: General: Skin is warm and dry. Capillary Refill: Capillary refill takes less than 2 seconds. Neurological: Mental Status: He is alert and oriented to person, place, and time. GCS: GCS eye subscore is 4. GCS verbal subscore is 5. GCS motor subscore is 6. Psychiatric: Mood and Affect: Mood normal. Speech: Speech normal. Behavior: Behavior is agitated. Comments: Speaks loudly Review of Systems: Review of Systems HENT: Positive for hearing loss ([place]). Eyes: Wears glasses Respiratory: Negative for cough (occasional baseline NPC - denies today) and shortness of breath (reports [place] with walking - baseline is able to walk to local grocery store without issues). Wears CPAP at night Gastrointestinal: LBM today Genitourinary: Denies issues. Musculoskeletal: Ambulates without issues. Uses rolator when outside of home Psychiatric/Behavioral: Positive for agitation. Denies feeling anxious or depressed currently. Denies any hx of self harm Care Plan Goal Progress: Orders Placed: No orders of the defined types were placed in this encounter. Medications Given: Care Gaps: Care Gaps Care gaps closed this contact:: Education;Home based procedures;Medications (01/15/241456) Type of education: Clinical/disease (01/15/241456) Procedure performed: (discussed pt with Karen darling to graduate. placed refferral for level 2 OPCM) (01/15/241456) Type of medication care gap: Medication adherence (01/15/241456) documented in this encounter Plan of Treatment Upcoming Encounters Date Type Department Care Team ([facility] Contact Info) Description 02/12/2024 11:40 AM EST Office Visit General Surgery [place] [phone] Av Shelby MD [address] [place] [address] 02/21/2024 3:00 PM EST Office Visit Podiatry [address] [phone] Drew Carbajal DPM [address] [place] [address] 02/24/2024 2:45 PM EST Office Visit Cardiology [address] [phone] Vero Gee CRNP [address] [place], [place] [phone] 03/17/2024 4:00 PM EST Office Visit Family Practice [place] [phone] Julia Harman MD [address] [place] [phone] 04/17/2024 2:30 PM EST Home Visit [facility] [address] [place] [address] Karen Rubin PA-C [address] [place] [address] Esperanza Graham, Community Health Screen Printer Helper [address] [place] [address] 07/13/2024 3:20 PM EDT Office Visit [facility] Disorders Ctr [facility] [address] [place] [phone] Sandra Vuong DO [address] [address] Health Maintenance Due Date Last Done Comments [...] Care Agent (per Health Care Power of Deputy Commonwealth'S Attorney document) Care Teams Chimney Mechanic Relationship Specialty Start Date End Date Julia Harman MD [address] [place] [phone] PCP - General Family Medicine 06/15/23 documented as of this encounter
--- OUTSIDE RECORDS SUMMARY | 2024-05-26 06:34 | External Medical Summary | Summary of Care ---
Author Name Unknown Organization [facility] Address [address] [place] [address] Phone [phone] Care Team Providers Care Print Binding And Finishing Worker Name Role Phone Julia Veras MD Primary Care Provi radhika Reason for Visit * Reason Comments eRx-Medication Refill Encounter Details Date Type Department Care Team ([facility] Contact Info) Description 01/15/2024 Refill Family [address] [phone] Julia Veras MD [address] [place] [phone] Allergies Active Allergy Reactions Criticality Noted Date Comments Sulfamethoxazole-Trimethoprim Hives 2021 denies documented as of this encounter (statuses as of 01/16/2024) Medications Medication Sig Dispensed Refills Start Date End Date Status CPAP every night at bedtime. Active Vitamin D3 50 MCG (1999) Oral CapsuleIndications: Vitamin D deficiency TAKE 1 CAPSULE BY MOUTH ONCE DAILY 90 Capsule 3 3 Active amLODIPine Besylate 5 MG Oral Tablet (Norvasc) TAKE 1 TABLET BY MOUTH ONCE DAILY 90 Tablet 3 3 Active Budesonide-Formoter ol Fumarate 160-4.5 MCG/ACT Inhalation Aerosol (Symbicort)Indicati ons:COPD, moderate (HCC) inhale 2 puffs by mouth in the morning and 2 puffs before bedtime 30.6 g 3 4 Active Esomeprazole Magnesium 40 MG Oral Capsule Delayed Release TAKE 1 CAPSULE by mouth ONE TIME DAILY BEFORE BREAKFAST 90 Capsule 3 4 Active Nicotine 7 MG/24HR Transdermal Patch 24 Hour (Nicoderm CQ)Indications:[employer]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 14 Patch 1 4 Active Additional Information Patient not taking.Reported on 11/20/2023 Nitroglycerin 0.4 MG Sublingual Tablet Sublingual (Nitrostat) Place 1 Tablet under the tongue as needed for Pain, Chest. Maximum 3 doses. 30 Tablet 4 Active Additional Information Patient not taking.Reported on 11/20/2023 Famotidine 40 MG Oral Tablet (Pepcid)Indications :Gastroesophageal reflux disease without esophagitis Take 1 Tablet by mouth every night at bedtime. 90 Tablet 2 4 Active fluvoxaMINE Maleate 100 MG Oral Tablet (Luvox) TAKE ONE TABLET BY MOUTH EVERY DAY AT BEDTIME 90 Tablet 1 4 Active Folic Acid 1 MG Oral TabletIndications:F olic acid deficiency Take 1 Tablet by mouth in the morning. 90 Tablet 3 4 Active Montelukast Sodium 10 MG Oral Tablet (Singulair)Indicati ons:Allergic rhinitis TAKE ONE TABLET BY MOUTH EVERY DAY AT BEDTIME 100 Tablet 3 4 Active Atorvastatin Calcium 40 MG Oral Tablet (Lipitor)Indication s:SOB (shortness of breath),Aortic root enlargement (HCC) Take 1 Tablet by mouth in the morning. 100 Tablet 3 4 Active Levocetirizine Dihydrochloride 5 MG Oral Tablet Take 0.5 Tablets by mouth every evening. 90 Tablet 1 4 Active Furosemide 40 MG Oral Tablet (Lasix)Indications: Chronic heart failure with preserved ejection fraction (HCC) Take 1.5 Tablets by mouth in the morning. 45 Tablet 5 4 Active Furosemide 20 MG Oral Tablet (Lasix)Indications: Chronic heart failure with preserved ejection fraction (HCC) Take 3 Tablets by mouth daily as needed (Edema, weight gain). Take NEEDED for weight gain or leg swelling as described in your diuretic titration plan. 30 Tablet 3 4 Active Albuterol Sulfate HFA 108 (90 Base) MCG/ACT Inhalation Aerosol SolutionIndications :COPD, moderate (HCC) INHALE TWO PUFFS BY MOUTH EVERY FOUR HOURS NEEDED FOR WHEEZING 18 g 4 Active Eliquis 5 MG Oral Tablet (Apixaban)Indicatio ns:Atrial fibrillation, unspecified type (HCC) Take 1 Tablet by mouth in the morning and 1 Tablet before bedtime. 60 Tablet 1 4 Active Metoprolol Tartrate 50 MG Oral Tablet (Lopressor)Indicati ons:Persistent atrial fibrillation (HCC) Take 1 Tablet by mouth in the morning and 1 Tablet before bedtime. 90 Tablet 1 4 Active Clotrimazole-Betame thasone 1-0.05 % External Cream (Lotrisone) Apply topically to affected area 2 times a day for 28 days. To affected (lower abdomen) area for 4 weeks, or until healed. 45 g 1 4 01/29/20 24 Active Zolpidem Tartrate 5 MG Oral Tablet (Ambien)Indications :Insomnia, unspecified type TAKE 1 TABLET BY MOUTH ONCE DAILY AT BEDTIME ONLY IF NEEDED FOR SLEEP 30 Tablet 4 Active Potassium Chloride ER 10 MEQ Oral Tablet Extended Release Take 1 Tablet by mouth in the morning. 90 Tablet 1 4 Active Potassium Chloride ER 10 MEQ Oral Tablet Extended Release Take 1 Tablet by mouth in the morning. 90 Tablet 4 01/16/20 24 Discontinued documented as of this encounter (statuses as of 01/16/2024) Active Problems Problem Noted Date Diagnosed Date [...] Body mass index (BMI) 40.0-44.9, adult 4 Last Assessment & Plan: Pt has been [...] Overview: Added automatically from request for surgery [id number] Decreased hearing of both ears 11/11/2021 Wears [...] as of this encounter (statuses as of 01/16/2024) Resolved Problems Problem Noted Date Diagnosed Date [...] as of this encounter (statuses as of 01/16/2024) Immunizations Name Administration Dates Next Due COVID-19 mRNA, LNP-s, No Pre serve, 2-Dose Series (Moderna) 05/17/2020,04/19/2020 Pneumococcal Conjugate Vacc, 13 Valent (Prevnar) 12/09/2017,08/01/2015 Pneumococcal Conjugate Vacci ne, 20-valent ([id number]) 12/18/2023(Deferred: Patient Refused) Pneumococcal Polysaccharide PPV23 (Pneumovax) [...] encounter Miscellaneous Notes * Telephone Encounter - Wendy Cooley, [facility] - 01/16/2024 8:01 AM ESTSigned Prescriptions: Disp Refills Potassium Chloride ER 10 MEQ Oral Tablet E*90 Tab*1 Sig: Take 1 Tablet by mouth in the morning.Authorizing Provider: JULIA VERAS User: WENDY COOLEY documented in this encounter Plan of Treatment Upcoming Encounters Date Type Department Care Team ([facility] Contact Info) Description 02/12/2024 11:40 AM EST Office [place] [phone] Av Shelby MD [address] [place] [address] 02/21/2024 3:00 PM EST Office Visit Podiatry [place] [address] Drew Carbajal, LEOBARDO [address] [place] [address] 02/24/2024 2:45 PM EST Office Visit Cardiology [address] Vero Gee CRNP [address] [place] [address] 03/17/2024 4:00 PM EST [place] [phone] Julia Veras MD [address] [place], [place] [phone] 04/17/2024 2:30 PM EST Home Visit [facility] [address] [place] [address] Karen Rubin PA-C [address] [place] [address] Esperanza Graham, Community Health Resort Desk Clerk [address] [place] [address] 07/13/2024 3:20 PM EDT Office Visit [facility] Disorders Ctr [facility] [address] [place] [phone] Sandra Vuong DO [address] [address] Health Maintenance Due Date Last Done Comments [...] exists DISCUSS TOBACCO CESSATION (REFER TO SMARTSET #7920) 12/16/2024 12/17/2023 (Discussed), 08/01/2015 (Discussed) O2 ASSESSMENT [...] Care Agent (per Health Care Power of Director Of Estate document) Care Teams Print Binding And Finishing Worker Relationship Specialty Start Date End Date Julia Veras MD [address] [place] [phone] PCP - General Family Medicine 06/15/23 documented as of this encounter
--- OUTSIDE RECORDS SUMMARY | 2024-05-26 06:34 | External Medical Summary | Summary of Care ---
Author Name Unknown Organization [facility] Address [address] [place] [address] Phone [phone] Care Team Providers Care Senior Business Broker Name Role Phone Julia Veras MD Primary Care Provi radhika Reason for Visit * Reason Comments eRx-Medication Refill Encounter Details Date Type Department Care Team ([facility] Contact Info) Description 02/17/2024 Refill Family Practice [address] [phone] Julia Veras MD [address] [place] [phone] Atrial fibrillation, unspecified type (HCC) Allergies Active Allergy Reactions Criticality Noted Date Comments Sulfamethoxazole-Trimethoprim Hives 2021 denies documented as of this encounter (statuses as of 02/18/2024) Medications CPAP every night at bedtime. Active [...] NEEDED FOR SLEEP 30 Tablet 024 Active Eliquis 5 MG Oral Tablet (Apixaban)Indicati ons:Atrial fibrillation, unspecified type (HCC) Take 1 Tablet by mouth in the morning and 1 Tablet before bedtime. 60 Tablet 5 024 Active Eliquis 5 MG Oral Tablet (Apixaban)Indicati ons:Atrial fibrillation, unspecified type (HCC) Take 1 Tablet by mouth in the morning and 1 Tablet before bedtime. 60 Tablet 1 024 2023 Discontinued documented as of this encounter (statuses as of 02/18/2024) Active Problems Problem Noted Date Diagnosed Date [...] (05/16/2022): Added automatically from request for surgery [id number] Decreased hearing of both ears 11/11/2021 Wears [...] as of this encounter (statuses as of 02/18/2024) Resolved Problems Problem Noted Date Diagnosed Date [...] as of this encounter (statuses as of 02/18/2024) Immunizations Name Administration Dates Next Due COVID-19 mRNA, LNP-s, No Pre serve, 2-Dose Series (Moderna) 05/17/2020,04/19/2020 Pneumococcal Conjugate Vacc, 13 Valent (Prevnar) 12/09/2017,08/01/2015 Pneumococcal Conjugate Vacci ne, 20-valent ([id number]) 12/18/2023(Deferred: Patient Refused) Pneumococcal Polysaccharide PPV23 (Pneumovax) [...] encounter Miscellaneous Notes * Telephone Encounter - Hailey Corona [facility] - 02/18/2024 10:50 AM ESTSigned Prescriptions: Disp Refills Eliquis 5 MG Oral Tablet (Apixaban) 60 Tab*5 Sig: Take 1 Tablet by mouth in the morning and 1 Tablet before bedtime.Authorizing Provider: JULIA VERAS User: HAILEY CORONA documented in this encounter Plan of Treatment Upcoming Encounters Date Type Department Care Team ([facility] Contact Info) Description 02/21/2024 3:00 PM EST Office Visit Podiatry [place] [phone] Drew Carbajal, DPM [address] [place] [address] 02/24/2024 2:45 PM EST Office Visit Cardiology [place] [phone] Vero Gee CRNP [address] [place] [address] 03/17/2024 4:00 PM EST Office Visit Family Practice [place] [phone] Julia Veras MD [address] [place] [phone] 04/17/2024 2:30 PM EST [facility] [place] [address] [place] [address] Karen Rubin PA-C [address] [place] [address] Esperanza Graham, Community Health Inspector Type [facility] [address] [place], [place] [phone] 07/13/2024 3:20 PM EDT Office Visit [facility]tr [facility] [place] [address] [address] [phone] Sandra Vuong, [address] [place] [address] Health Maintenance Due Date Last Done Comments [...] GOLD 2017 classification (HCC) Tobacco use disorder Atrial fibrillation, unspecified type (HCC) documented in this encounter Advance Directives * [...] File Name Relationship [facility] Communication Jam Virginie Cousin First Alternate Health Care Agent (per Health Care Power of Supervisor Pleating document) Care Teams Senior Business Broker Relationship Specialty Start Date End Date Julia Veras MD [address] [place] [phone] PCP - General Family Medicine 06/15/23 documented as of this encounter
--- OUTSIDE RECORDS SUMMARY | 2024-05-26 06:35 | External Medical Summary | Summary of Care ---
Author Name Unknown Organization [facility] Address [address] [place] [address] Phone [phone] Care Team Providers Care Sales Vendor Name Role Phone Julia Harman MD Primary Care Provi radhika Encounter Details Date Type Department Care Team (Late st Contact Info) Description 01/09/2024 12:30 PM EDT Scheduled Telephone Care Coordination and Integration [address] [place] [address] Esperanza Graham, Community Health Machine Operator Assistant [address], [place] [phone] Allergies Active Allergy Reactions Criticality Noted Date Comments Sulfamethoxazole-Trimethoprim Hives 2021 denies documented as of this encounter (statuses as of 01/09/2024) Medications Medication Sig Dispensed Refills Start Date [...] as of this encounter (statuses as of 01/09/2024) Active Problems Problem Noted Date Diagnosed Date Hypertensive heart disease with congestive heart failure [...] Overview: Added automatically from request for surgery [id number] Decreased hearing of both ears 11/11/2021 Wears [...] as of this encounter (statuses as of 01/09/2024) Resolved Problems Problem Noted Date Diagnosed Date [...] as of this encounter (statuses as of 01/09/2024) Immunizations Name Administration Dates Next Due COVID-19 mRNA, LNP-s, No Pre serve, 2-Dose Series (Moderna) 05/17/2020,04/19/2020 Pneumococcal Conjugate Vacc, 13 Valent (Prevnar) 12/09/2017,08/01/2015 Pneumococcal Conjugate Vacci ne, 20-valent ([id number]) 12/18/2023(Deferred: Patient Refused) Pneumococcal Polysaccharide PPV23 (Pneumovax) [...] as of this encounter Progress Notes * Esperanza Graham, Community Health Machine Operator Assistant - 01/09/2024 4:19 PM EDT Telemedicine visit: No Community Health Machine Operator Assistant (JEANNETTE) documentation: Call placed to pt to advise of referral for [employer] Meal Box. [facility] had TT pt needed emergency food box. Call placed to pt. He has food now. He does appreciate the [employer] referral. He will wait for it to be delivered. He had a stress test done and is awaiting results. He currently is feeling well. Has no concerns. Reviewed 3 red flags 3 Red Flags S/sx of wound infection- surrounding redness. Warmth, purulent drainage [place] Increased sob Esperanza Graham Community Health Worker [phone] [email or web address] Electronically signed by Esperanza Graham [facility] Health Machine Operator Assistant at 01/09/2024 4:32 PM EDT * Espearnza Graham Community Health Machine Operator Assistant - 01/08/2024 4:06 PM EDT Telemedicine visit: No Community Health Machine Operator Assistant (JEANNETTE) documentation: Submitted referral on [employer] for [employer] Food Box for Pt. Pt had emergency food box from [facility] on 07/30/2023. Electronically signed by Esperanza Graham [facility] Health Machine Operator Assistant at 01/09/2024 4:32 PM EDT documented in this encounter Plan of Treatment Upcoming Encounters Date Type Department Care Team ([facility] st Contact Info) Description 01/14/2024 2:30 PM EST Home Visit [facility] [address] [place] [address] Macarena Watson RN [address] [place] [address] 02/12/2024 11:40 AM EST Office Visit General Surgery [address] [place] [address] Av Shelby MD [facility] [place] [address] 02/21/2024 3:00 PM EST Office Visit Podiatry [address] [place] [address] Drew Carbajal, DPM [address] [place] [address] 02/24/2024 2:45 PM EST Office Visit Cardiology [facility] [address] [facility] [address] [place] [address] Vero Gee CRNP [address] [place] [address] 03/17/2024 4:00 PM EST Office Visit Family Practice [facility] 68 [place] [address] Julia Harman MD [address] [place] [address] 04/17/2024 2:30 PM EST [facility] [place] [address] [place] [address] Karen Rubin PA-C [address] [place] [address] Esperanza Graham, Community Health Machine Operator Assistant [address] [place] [address] 07/13/2024 3:20 PM EDT Office Visit [facility] [address] [place] [phone] Sandra Vuong, [address] [place] [address] Health Maintenance Due Date Last Done Comments [...] ASSESSMENT COMPLETED IN PAST YEAR FOR COPD 12/31/2024 01/01/2024 Lipid Panel 07/21/2028 07/22/2023, 03/12, 08/24/2020, Additional [...] on File Name Relationship Healthcare Agent [facility] p Communication Jam Rachel Cousin First Alternate Health Care Agent (per Health Care Power of Ship Laborer document) Care Teams Sales Vendor Relationship Specialty Start Date End Date Julia Harman MD [address] [place] [phone] PCP - General Family Medicine 06/15/23 documented as of this encounter
--- OUTSIDE RECORDS SUMMARY | 2024-05-26 06:35 | External Medical Summary | Summary of Care ---
Author Name Unknown Organization [facility] Address [address] [place] [address] Phone [phone] Care Team Providers Care Clinical Pharmacy Manager Name Role Phone Julia Harman MD Primary Care Provi radhika Reason for Referral * Precert (Within 10 days (routine)) - Closed Specialty Diagnoses / Procedures Referred By Vilma vazquez Referred To Contact Cardiac Studies Diagnoses Other chest pain Procedures ECHO, STRESS (DOBUTAMINE) W/CONTRAST Julia Harman MD [address] [place] [phone] Referral ID Status Reason Start Date Expiration Date V isits Requested Visits Authorized [id number] Closed Precert 07/02/2023 09/13/2023 999 999 Reason for Visit * Precert (Within 10 days (routine)) - Closed Specialty Diagnoses / Procedures Referred By Vilma vazquez Referred To Contact Cardiac Studies Diagnoses Other chest pain Procedures ECHO, STRESS (DOBUTAMINE) W/CONTRAST Julia Harman MD [address] [place] [phone] Referral ID Status Reason Start Date Expiration Date V isits Requested Visits Authorized [id number] Closed Precert 07/02/2023 09/13/2023 999 999 Encounter Details Date Type Department Care Team (Latest Contact Info) Description 01/09/2024 9:35 AM EDT - 01/09/2024 11:59 PM EDT Hospital Encounter Cardiac Studies [facility], [address] [place] [address] Discharge Disposition: Home - Self Care Allergies Active Allergy Reactions Criticality Noted Date Comments Sulfamethoxazole-Trimethoprim Hives 2021 denies documented as of this encounter (statuses as of 01/10/2024) Medications Medication Sig Dispensed Refills Start Date [...] as of this encounter (statuses as of 01/10/2024) Active Problems Problem Noted Date Diagnosed Date [...] Overview: Added automatically from request for surgery [id number] Decreased hearing of both ears 11/11/2021 Wears [...] as of this encounter (statuses as of 01/10/2024) Resolved Problems Problem Noted Date Diagnosed Date [...] as of this encounter (statuses as of 01/10/2024) Immunizations Name Administration Dates Next Due COVID-19 mRNA, LNP-s, No Pre serve, 2-Dose Series (Moderna) 05/17/2020,04/19/2020 Pneumococcal Conjugate Vacc, 13 Valent (Prevnar) 12/09/2017,08/01/2015 Pneumococcal Conjugate Vacci ne, 20-valent ([id number]) 12/18/2023(Deferred: Patient Refused) Pneumococcal Polysaccharide PPV23 (Pneumovax) [...] Sign Reading Time Taken Comments Blood Pressure 147/62 01/09/2024 12:40 PM EDT Pulse - - Temperature - - Respiratory Rate - - Oxygen Saturation - - Inhaled Oxygen Concentration - - Weight - [...] No 07/23/2023 documented as of this encounter Plan of Treatment Upcoming Encounters Date Type Department Care Team ([facility] Contact Info) Description 01/14/2024 2:30 PM EST Home Visit [facility] [place], [facility] [address] [place] [address] Macarena Watson RN [address] [place] [address] 02/12/2024 11:40 AM EST Office Visit General Surgery [address] [place] [address] Av Shelby MD [facility]0 [place] [address] 02/21/2024 3:00 PM EST Office Visit Podiatry [address] [place] [address] Drew Carbajal, DPM [address] [place] [address] 02/24/2024 2:45 PM EST Office Visit Cardiology [facility] [address] [facility] [address] [place] [address] Vero Gee CRNP [address] [place] [address] 03/17/2024 4:00 PM EST Office Visit Family Practice [facility] [address] [place] [address] Julia Harman MD [address] [place] [address] 04/17/2024 2:30 PM EST [facility] [place] [facility] [address] [place] [address] Karen Rubin PA-C [address] [place] [address] Esperanza Graham, Community Health Erector Operator [address] [place] [address] 07/13/2024 3:20 PM EDT Office Visit [facility] [address] [place] [phone] Sandra Vuong, [address] [place] [address] Health Maintenance Due Date Last Done Comments [...] exists DISCUSS TOBACCO CESSATION (REFER TO SMARTSET #4524) 12/16/2024 12/17/2023 (Discussed), 08/01/2015 (Discussed) O2 ASSESSMENT [...] Procedure Name Priority Date/Time Associated Diagnosis Comments HC 2D TTE W/WO/W EXERCISE W/O SUP Routine 01/09/2024 12:41 PM EDT Other chest pain documented in this encounter Results * ECHO, STRESS (DOBUTAMINE) W/CONTRAST (01/09/2024 12:41 PM EDT) LEFT VENTRICULAR EJECTION FRACTION 65 % [facility] CARDIOLOGY 01/09/2024 11:3 5 AM EDT Julia Harman MD ECHOCARDIOL OGYesica [facility] CARDIOLOGY documented in this encounter Visit Diagnoses Diagnosis Other chest pain documented in this encounter Administered Medications Inactive Administered Medications - up to 3 most recent administrations Medication Order MAR Action Action Date Dose Rate Site atropine sulfate inj 2 mg 2 mg, IV Push, ONCE, On Rekha 01/09/24 at 1300, For 1 dose, May repeat up to 2mg total for Dobutamine Stress Only, Cardiac Studies_HODHOV Given 01/09/2024 12:38 PM EDT 1 mg DOBUTamine 250 mg in D5W 250 mL (peripheral) final conc 1000 mcg/mL Peripheral IV, 10 mcg/kg/min 119.5 kg (71.7 mL/hr), For Dobutamine Stress ONLY -- Start at 10 mcg/kg/min and titrate up to 40 mcg/kg/min in 3 min intervals., CONTINUOUS, Starting on Rekha 01/09/24 at 1215, Until Rekha 01/09/24 at 1414, Cardiac Studies_HODHOV New Bag 01/09/2024 12:15 PM EDT 10 mcg/kg/min 71.7 mL/hr Metoprolol Tartrate (Lopressor) inj 5 mg 5 mg, IV Push, Q5 MIN PRN Other, For Dobutamine Stress Only - For Hypertension, Tachycardia or Arrhythmias, Starting on Rekha 01/09/24 at 1237, Until Rekha 01/09/24 at 1436, For 2 hours, May repeat up to 10mg total for Dobutamine Stress Only, Cardiac Studies_HODHOV Given 01/09/2024 12:39 PM EDT 5 mg Given 01/09/2024 12:38 PM EDT 5 mg perflutren lipid microsphere inj SUSP 1.956 mg 1.956 mg, Intravenous, ONCE PRN Other, For Echo Only - Suboptimal Echo Images, Starting on Rekha 01/09/24 at 1147, Until Rekha 01/09/24 at 1346, For 2 hours, Administer IVP over 45 seconds, Cardiac Studies_HODHOV Given 01/09/2024 12:16 PM EDT 1.956 mg documented in this encounter Advance Directives * [...] Agents on File Name Relationship Healthcare Agent [facility] p Communication Jam Angellatesha Cousin First Alternate Health Care Agent (per Health Care Power of Licensed Final Expense Agents document) Care Teams Clinical Pharmacy Manager Relationship Specialty Start Date End Date Julia Harman MD [address] [place] [phone] PCP - General Family Medicine 06/15/23 documented as of this encounter
--- OUTSIDE RECORDS SUMMARY | 2024-05-26 06:37 | External Medical Summary | Summary of Care ---
Author Name Unknown Organization [facility] Address [address] [facility] [place] [address] Phone [phone] Care Team Providers Care Quality Assurance Specialist Name Role Phone Julia Harman MD Primary Care Provi radhika Reason for Referral * Social Care (Within 24 hrs (call dept; emergent)) - Pending Review Specialty Diagnoses / Procedures Referred By Vilma vazquez Referred To Contact Rod Buster Helper Diagnoses Chronic heart failure with preserved ejection fraction (HCC) Marcelo Marks DO [address] [place] [address] Referral ID Status Reason Start Date Expiration Date Visits Requested Visits Authorized [id number] Pending Review Specialty Services Required 4 999 999 Question Answer Referral Priority Within 24 hrs (call dept; emergent) Where should this appointment be scheduled? [facility] Role Community Health Workforce Management Consultant Community Health Workforce Management Consultant Referral Reason Home Visit Comments Is patient being transitioned from [facility] to Complex Case Management? No Urgent pt states he has no food in the home Reason for Visit * Reason Onset Date Comments [facility]: Maintenance 01/06/2024 Encounter Details Date Type Department Care Team ([facility] Contact Info) Description 01/06/2024 Telephone [facility] [address] [place] [address] Yadira Huynh, [place] [address] [place] [phone] [facility]: Maintenance Allergies Active Allergy Reactions Criticality Noted Date Comments Sulfamethoxazole-Trimethoprim Hives 2021 denies documented as of this encounter (statuses as of 01/07/2024) Medications Medication Sig Dispensed Refills Start Date End Date Status CPAP every night at bedtime. Active Vitamin D3 50 MCG (1999 UT) Oral CapsuleIndications:Vi tamin D deficiency TAKE 1 [...] the morning. 100 Tablet 3 10/21/2023 Active Zolpidem Tartrate 5 MG Oral Tablet (Ambien)Indications:I nsomnia, unspecified type TAKE 1 TABLET BY MOUTH ONCE DAILY AT BEDTIME ONLY IF NEEDED FOR SLEEP 30 Tablet 12/10/2023 Active Levocetirizine Dihydrochloride 5 MG Oral Tablet [...] to nostril. 22 g 1 01/01/2024 Active documented as of this encounter (statuses as of 01/07/2024) Active Problems Problem Noted Date Diagnosed Date [...] Overview: Added automatically from request for surgery [id number] Decreased hearing of both ears 11/11/2021 Wears [...] as of this encounter (statuses as of 01/07/2024) Resolved Problems Problem Noted Date Diagnosed Date [...] as of this encounter (statuses as of 01/07/2024) Immunizations Name Administration Dates Next Due COVID-19 mRNA, LNP-s, No Pre serve, 2-Dose Series (Moderna) 05/17/2020,04/19/2020 Pneumococcal Conjugate Vacc, 13 Valent (Prevnar) 12/09/2017,08/01/2015 Pneumococcal Conjugate Vacci ne, 20-valent ([id number]) 12/18/2023(Deferred: Patient Refused) Pneumococcal Polysaccharide PPV23 (Pneumovax) [...] as of this encounter Miscellaneous Notes * Addendum Note - Graciela Schofield LPN - 01/07/2024 2:39 PM EDTAddended by: GRACIELA SCHOFIELD on: 01/07/2024 02:39 PM Modules accepted: Orders * Telephone Encounter - Graciela Schofield LPN - 01/07/2024 2:34 PM EDT Call received from pt asking when someone is going to bring him food. Per pt he only has coffee andcreamer in his home and has no money to buy food. Advised pt referral would be placed for [facility] to assist. Referral placed for [facility] * Telephone Encounter - Yadira Huynh RN - 01/06/2024 2:57 PM EDT Phone call from patient, " when am I going to get some food" Requested additional information of what he was referring to, as I do not see anything documented in chart He was told her would get food Doesn't know if he saw a certified social workers in health care or not Asked why he missed his last meeting with [facility] nurse on 12/12,and with Karen, Care Team provider on 12/23 and again 12/29 He denied missing any visit, " nobody comes when they say they will come" Requested either nurse or Karen call him Routed to care team Yadira Huynh, RN, BSN jerkerBottler Helper [phone] option #1 documented in this encounter Plan of Treatment Upcoming Encounters Date Type Department Care Team (Late st Contact Info) Description 01/09/2024 10:00 AM EDT Appointment Cardiac Studies [facility], [facility] [address] [place] [address] 01/14/2024 2:30 PM EST [facility] Visit [facility] [address] [place] [address] Macarena Watson RN [address] [place] [address] 02/12/2024 11:40 AM EST Office Visit General Surgery [place] [phone] Av Shelby MD [address] [place] [address] 02/21/2024 3:00 PM EST Office Visit Podiatry [address] [phone] Drew Carbajal DPM [address] [place] [address] 02/24/2024 2:45 PM EST Office Visit Cardiology [address] [place] [address] Vero Gee CRNP [address] [place] [address] 03/17/2024 4:00 PM EST Office Visit [facility] 68 [place] [address] Julia Harman MD [address] [place] [address] 04/17/2024 2:30 PM EST [facility] [place] [address] [place] [address] Karen Rubin PA-C [address] [place] [address] Esperanza Graham, Community Health Workforce Management Consultant [address] [place] [address] 07/13/2024 3:20 PM EDT Office Visit [facility] [address] [place] [phone] Sandra Vuong DO [address] [place] [address] Scheduled Referrals Name Type Priority Associated Diagnoses Orde r Schedule POPULATION HEALTH REFERRAL OP Referral Within 24 hrs (call dept; emergent) Chronic heart failure with preserved ejection fraction (HCC) Ordered: 01/07/2024 Health Maintenance Due Date Last Done Comments [...] as of this encounter Visit Diagnoses Diagnosis Chronic heart failure with preserved ejection fraction (HCC)- Primary documented in this encounter Advance Directives * [...] File Name [facility] Jam Angellatesha Cousin First Alternate Health Care Agent (per Health Care Power of Lap Cutter document) Care Teams Quality Assurance Specialist Relationship Specialty Start Date End Date Julia Harman MD [address] [place] [phone] PCP - General Family Medicine 06/15/23 documented as of this encounter
--- OUTSIDE RECORDS SUMMARY | 2024-05-26 06:37 | External Medical Summary | Summary of Care ---
Author Name Unknown Organization [facility] Address [address] [place] [facility] [place] [address] Phone [phone] Care Team Providers Care Movers Name Role Phone Julia Harman MD Primary Care Provi radhika Reason for Visit * Reason Onset Date Comments [facility]: Maintenance 01/06/2024 Encounter Details Date Type Department Care Team ([facility] st Contact Info) Description 01/06/2024 Telephone [facility] [address] [facility] [place] [address] Yadira Huynh, [place] [address] [facility] [place] [address] [facility]: Maintenance Allergies Active Allergy Reactions Criticality Noted Date Comments Sulfamethoxazole-Trimethoprim Hives 2021 denies documented as of this encounter (statuses as of 01/06/2024) Medications Medication Sig Dispensed Refills Start Date [...] nostril. 22 g 1 01/01/2024 4 Active documented as of this encounter (statuses as of 01/06/2024) Active Problems Problem Noted Date Diagnosed Date [...] Overview: Added automatically from request for surgery [id number] Decreased hearing of both ears 11/11/2021 Wears [...] as of this encounter (statuses as of 01/06/2024) Resolved Problems Problem Noted Date Diagnosed Date [...] as of this encounter (statuses as of 01/06/2024) Immunizations Name Administration Dates Next Due COVID-19 mRNA, LNP-s, No Pre serve, 2-Dose Series (Moderna) 05/17/2020,04/19/2020 Pneumococcal Conjugate Vacc, 13 Valent (Prevnar) 12/09/2017,08/01/2015 Pneumococcal Conjugate Vacci ne, 20-valent ([id number]) 12/18/2023(Deferred: Patient Refused) Pneumococcal Polysaccharide PPV23 (Pneumovax) [...] encounter Miscellaneous Notes * Telephone Encounter - Yadira Huynh, RN - 01/06/2024 2:57 PM EDT Phone call from patient, " when am I going to get some food" Requested additional information of what he was referring to, as I do not see anything documented in chart He was told her would get food Doesn't know if he saw a social welfare administrator or not Asked why he missed his last meeting with [facility] nurse on 12/12,and with Karen, Care Team provider on 12/23 and again 12/29 He denied missing any visit, " nobody comes when they say they will come" Requested either nurse or Karen call him Routed to care team Yadira Huynh, RN, BSN inoculatorReservations Specialist [phone] option #1 documented in this encounter Plan of Treatment Upcoming Encounters Date Type Department Care Team (Late st Contact Info) Description 01/09/2024 10:00 AM EDT Appointment Cardiac Studies 1st Fl, [facility] [address] [place] [address] 01/14/2024 2:30 PM EST Home Visit [facility], [facility] [address] [place] [address] Macarena Watson RN [address] [place] [address] 02/12/2024 11:40 AM EST Office Visit General Surgery [address] [place] [phone] Av Shelby MD [address] [place] [address] 02/21/2024 3:00 PM EST Office Visit Podiatry [address] [place] [phone] Drew Carbajal DPM [address] [place] [address] 02/24/2024 2:45 PM EST Office Visit Cardiology [facility] [address] [facility] [address] [place] [address] Vero Gee CRNP [address] [place] [address] 03/17/2024 4:00 PM EST Office Visit Family Practice [facility] 68 [place] [phone] Julia Harman MD [address] [place] [address] 07/13/2024 3:20 PM EDT Office Visit [facility] [address] [place] [phone] Sandra Vuong, [address] [place] [address] Health Maintenance Due Date Last Done Comments [...] exists DISCUSS TOBACCO CESSATION (REFER TO SMARTSET #3298) 12/16/2024 12/17/2023 (Discussed), 08/01/2015 (Discussed) O2 ASSESSMENT [...] Agent (per Health Care Power of Speech Lang Path document) Care Teams Movers Relationship Specialty Start Date End Date Julia Harman MD [address] [place] [phone] PCP - General Family Medicine 06/15/23 documented as of this encounter
--- OUTSIDE RECORDS SUMMARY | 2024-05-26 06:37 | External Medical Summary | Summary of Care ---
Author Name Unknown Organization [facility] Address [address] [place] [address] Phone [phone] Care Team Providers Care Tire Recapping Machine Operator Name Role Phone Julia Harman MD Primary Care Provi radhika Encounter Details Date Type Department Care Team (Late st Contact Info) Description 01/06/2024 Orders Only Outcomes Research Department [address] [place] [address] Mis Mcguire CHRA Secure Ment[employer] Research Other*[id number] Allergies Active Allergy Reactions Criticality Noted Date [...] Overview: Added automatically from request for surgery [id number] Decreased hearing of both ears 11/11/2021 Wears [...] (Prevnar) 12/09/2017,08/01/2015 Pneumococcal Conjugate Vacci ne, 20-valent ([id number]) 12/18/2023(Deferred: Patient Refused) Pneumococcal Polysaccharide PPV23 (Pneumovax) [...] 01/09/2024 10:00 AM EDT [facility] [address] [place] [address] 01/14/2024 2:30 PM EST [facility] [address] [place] [address] Macarena Watson RN [address] [place] [address] 02/12/2024 11:40 AM EST Office Visit General Surgery [address] [place] [phone] Av Shelby MD [address] [place] [address] 02/21/2024 3:00 PM EST Office Visit Podiatry [address] [phone] Drew Carbajal DPM [address] [place] [address] 02/24/2024 2:45 PM EST Office Visit Cardiology [address] [place] [phone] Vero eGe CRNP [address] [place] [address] 03/17/2024 4:00 PM EST Office Visit Family Practice [address] [phone] Julia Harman MD [address] [place] [phone] 07/13/2024 3:20 PM EDT Office Visit Sleep Disorders Ctr [facility] [address] [place] [phone] Sandra Vuong, [address] [facility] [place] [address] Scheduled Orders Name Type Priority Associated Diagnoses Orde r Schedule MYCODE SUBSEQUENT ADULT Lab Routine MyCode Research Other*[id number] Every 6 Months for 2 Occurrences starting 01/06/2024 until 01/25/2025 Health Maintenance Due Date Last Done Comments [...] as of this encounter Visit Diagnoses Diagnosis MyCode Research Other*[id number] documented in this encounter Advance Directives * [...] Care Agent (per Health Care Power of Reception Agent document) Care Teams Tire Recapping Machine Operator Relationship Specialty Start Date End Date Julia Harman MD [address] [place] [phone] PCP - General Family Medicine 06/15/23 documented as of this encounter
--- OUTSIDE RECORDS SUMMARY | 2024-05-26 06:37 | External Medical Summary | Summary of Care ---
Author Name Unknown Organization [facility] Address [address] [place] [address] Phone [phone] Care Team Providers Care Faculty Research Assistant Name Role Phone Julia Harman MD Primary Care Provi radhika Reason for Visit * Reason Onset Date Comments No Show 01/01/2024 Encounter Details Date Type Department Care Team ([facility] st Contact Info) Description 01/01/2024 2:30 PM EDT Home Visit [facility] [place] [address] [place] [address] Macarena Watson, RN [address] [place] [address] NO SHOW/FAILED TO KEEP APPOINTMENT* Allergies Active Allergy Reactions Criticality Noted Date Comments Sulfamethoxazole-Trimethoprim Hives 2021 denies documented as of this encounter (statuses as of 01/01/2024) Medications Medication Sig Dispensed Refills Start Date [...] as of this encounter (statuses as of 01/01/2024) Active Problems Problem Noted Date Diagnosed Date [...] Overview: Added automatically from request for surgery [id number] Decreased hearing of both ears 11/11/2021 Wears [...] as of this encounter (statuses as of 01/01/2024) Resolved Problems Problem Noted Date Diagnosed Date [...] as of this encounter (statuses as of 01/01/2024) Immunizations Name Administration Dates Next Due COVID-19 mRNA, LNP-s, No Pre serve, 2-Dose Series (Moderna) 05/17/2020,04/19/2020 Pneumococcal Conjugate Vacc, 13 Valent (Prevnar) 12/09/2017,08/01/2015 Pneumococcal Conjugate Vacci ne, 20-valent ([id number]) 12/18/2023(Deferred: Patient Refused) Pneumococcal Polysaccharide PPV23 (Pneumovax) [...] of this encounter Progress Notes * Macarena Watson, RN - 01/01/2024 3:52 PM EDT Rang pt's [address] - pt answered unable to hear nurse. Another tenant granted nurse access into the secured building. Knocked on pt's door several times - no answer. No noise heard from apartment. TT sent to Karen Rubin PAIdrisC pt has had previous no shows. [facility] was able to see him in October. Last [facility] provider visit was no show. On reviewing chart pt continues to get out for appointments. He was just at PCP apt today. PA agreeable to graduate & transfer back to [facility] - pt is SNP. Patient failed to keep scheduled appointment. Will reschedule no show Macarena Watson RN documented in this encounter Plan of Treatment Upcoming Encounters Date Type Department Care Team (Late st Contact Info) Description 01/09/2024 10:00 AM EDT Appointment Cardiac Studies 1st Fl, [facility] [address] [address] 01/14/2024 2:30 PM EST Home Visit [facility] [place] [place] [address] [place] [address] Macarena Watson, RN [address] [facility] [place] [address] 02/12/2024 11:40 AM EST Office Visit General Surgery [address] [place] [phone] Av Shelby MD [address] [place] [address] 02/21/2024 3:00 PM EST Office Visit Podiatry [address] [place] [phone] Drew Carbajal DPM [address] [place] [address] 02/24/2024 2:45 PM EST Office Visit Cardiology [facility] [address] [facility] [address] [place] [address] Vero Gee CRNP [address] [place] [address] 03/17/2024 4:00 PM EST Office Visit Family Practice [facility] [address] [place] [phone] Julia Harman MD [address] [place] [phone] 07/13/2024 3:20 PM EDT Office Visit Sleep Disorders Ctr [facility] [address] [place] [phone] Sandra Vuong, [address] [place] [address] Health Maintenance Due Date Last Done Comments [...] as of this encounter Visit Diagnoses Diagnosis NO SHOW/FAILED TO KEEP APPOINTMENT- Primary documented in this encounter Advance Directives [...] Care Agent (per Health Care Power of Um Specialist document) Care Teams Faculty Research Assistant Relationship Specialty Start Date End Date Julia Harman MD [address] [place] [phone] PCP - General Family Medicine 06/15/23 documented as of this encounter
--- OUTSIDE RECORDS SUMMARY | 2024-05-26 06:37 | External Medical Summary | Summary of Care ---
Author Name Unknown Organization [facility] Address [address] [place] [address] Phone [phone] Care Team Providers Care Superintendent Menagerie Name Role Phone Julia Harman MD Primary Care Provi radhika Reason for Visit * Reason Comments eRx-Medication Refill Encounter Details Date Type Department Care Team ([facility] Contact Info) Description 01/07/2024 Refill Family Practice [address] [phone] Julia Harman MD [address] [place] [phone] Insomnia, unspecified type Allergies Active Allergy Reactions Criticality Noted Date Comments Sulfamethoxazole-Trimethoprim Hives 2021 denies documented as of this encounter (statuses as of 01/08/2024) Medications Medication Sig Dispensed Refills Start Date [...] Transdermal Patch 24 Hour (Nicoderm CQ)Indications:Toba account service associate use disorder One 7 mg patch [...] AT BEDTIME 100 Tablet 3 4 Active Potassium Chloride ER 10 MEQ Oral Tablet Extended Release Take 1 Tablet by mouth in the morning. 90 Tablet 4 Active Atorvastatin Calcium 40 MG Oral [...] 45 g 1 4 01/29/20 24 Active Mupirocin 2 % External Ointment (Bactroban) Apply topically to affected area 3 times a day for 14 days. To affected area for up to 14 days. Apply to nostril. 22 g 1 4 01/15/20 24 Active Zolpidem Tartrate 5 MG Oral Tablet (Ambien)Indications :Insomnia, unspecified type TAKE 1 TABLET BY MOUTH ONCE DAILY AT BEDTIME ONLY IF NEEDED FOR SLEEP 30 Tablet 4 Active Zolpidem Tartrate 5 MG Oral Tablet (Ambien)Indications :Insomnia, unspecified type TAKE 1 TABLET BY MOUTH ONCE DAILY AT BEDTIME ONLY IF NEEDED FOR SLEEP 30 Tablet 4 01/08/20 24 Discontinued documented as of this encounter (statuses as of 01/08/2024) Active Problems Problem Noted Date Diagnosed Date Hypertensive heart disease with congestive heart failure 12/30/2023 PAF (paroxysmal atrial fibrillation) 10/21/2023 Aortic root enlargement 10/21/2023 Diabetes mellitus without complication 4 Last Assessment & Plan: A1C has been [...] Overview: Added automatically from request for surgery [id number] Decreased hearing of both ears 11/11/2021 Wears [...] as of this encounter (statuses as of 01/08/2024) Resolved Problems Problem Noted Date Diagnosed Date Resolved Date SOB (shortness of breath) 10/21/2023 Acute CHF (congestive heart failure) 07/23/2023 08/09/2023 ELFEOG (acute kidney injury) 07/23/2023 Leukocytosis 07/23/2023 12/11/2023 [...] as of this encounter (statuses as of 01/08/2024) Immunizations Name Administration Dates Next Due COVID-19 mRNA, LNP-s, No Pre serve, 2-Dose Series (Moderna) 05/17/2020,04/19/2020 Pneumococcal Conjugate Vacc, 13 Valent (Prevnar) 12/09/2017,08/01/2015 Pneumococcal Conjugate Vacci ne, 20-valent ([id number]) 12/18/2023(Deferred: Patient Refused) Pneumococcal Polysaccharide PPV23 (Pneumovax) [...] Miscellaneous Notes * Telephone Encounter - Julia Harman MD - 01/08/2024 11:03 AM EDT Signed Prescriptions: Disp Refills Zolpidem Tartrate 5 MG Oral Tablet (Ambien)30 Tab*0 Sig: TAKE 1 TABLET BY MOUTH ONCE DAILY AT BEDTIME ONLY IF NEEDED FOR SLEEP Authorizing Provider: JULIA HARMAN * Telephone Encounter - [facility] - 01/08/2024 10:58 AM EDTPending Prescriptions: Disp Refills Zolpidem Tartrate 5 MG Oral Tablet [Pharma*30 Tab*0 Sig: TAKE 1 TABLET BY MOUTH ONCE DAILY AT BEDTIME ONLY IF NEEDED FOR SLEEP * Telephone Encounter - [facility] - 01/08/2024 10:58 AM EDT I have reviewed the patients controlled substance dispensing history in the Prescription Drug Monitoring Program in compliance with the [facility] regulations before prescribing a controlled substance. PDMP checked on 01/08/2024. Pending Prescriptions: Disp Refills Zolpidem Tartrate 5 MG Oral Tablet (Ambie*30 Tab*0 Sig: TAKE 1 TABLET BY MOUTH ONCE DAILY AT BEDTIME ONLY IF NEEDED FOR SLEEP Last Visit: 01/01/2024 (in office), 06/16/2020 (telemedicine) Next Visit: 03/17/2024 Date medication was last filled: 12/10/23 Date medication is due for refill: 01/08/24 Pharmacy: [id number] [address] [facility] Is this request for a controlled [...] in Results Review. Please approve if appropriate. ThanksRadha Clinical Pharmacist [facility] ([facility]) [phone] 01/08/2024, 10:58 AM documented in this encounter Plan of Treatment Upcoming Encounters Date Type Department Care Team (Late st Contact Info) Description 01/09/2024 10:00 AM EDT Appointment Cardiac Studies 1st Fl, [facility] [address] [place] [address] 01/14/2024 2:30 PM EST [facility] [place] [address] [place] [address] Macarena Watson RN [address] [place] [address] 02/12/2024 11:40 AM EST Office Visit General Surgery [address] [phone] Av Shelby MD [address] [place] [address] 02/21/2024 3:00 PM EST Office Visit Podiatry [address] [phone] Drew Carbajal DPM [address] [place], [place] [phone] 02/24/2024 2:45 PM EST Office Visit Cardiology [address] [phone] Vero Gee CRNP [address] [place] [address] 03/17/2024 4:00 PM EST Office Visit Family Practice [address] [phone] Julia Harman MD [address] [place] [phone] 04/17/2024 2:30 PM EST Home Visit [facility] [place] [address] [place] [address] Karen Rubin PA-C [address] [place] [address] Esperanza Graham, [facility] Armored Transport Service Manager [address] [place] [address] 07/13/2024 3:20 PM EDT [facility] [address] [facility] [place] [phone] Sandra Vuong, DO [address] [place] [address] Health Maintenance Due Date Last Done Comments [...] exists DISCUSS TOBACCO CESSATION (REFER TO SMARTSET #1410) 12/16/2024 12/17/2023 (Discussed), 08/01/2015 (Discussed) O2 ASSESSMENT [...] as of this encounter Visit Diagnoses Diagnosis Insomnia, unspecified type documented in this encounter [...] Agents on File Name Relationship Healthcare Agent [facility] Jam Virginie Cousin First Alternate Health Care Agent (per Health Care Power of Supervisor Border Department document) Care Teams Superintendent Menagerie Relationship Specialty Start Date End Date Julia Harman MD [address] [place] [phone] PCP - General Family Medicine 06/15/23 documented as of this encounter
--- OUTSIDE RECORDS SUMMARY | 2024-05-26 06:38 | External Medical Summary | Summary of Care ---
Author Name Unknown Organization [facility] Address [address] [place] [address] Phone [phone] Care Team Providers Care Electronic Equipment Repairmen Name Role Phone Julia Veras MD Primary Care Provi radhika Reason for Referral * Evaluate & Treat - Unlimited Visits (Within 30 days (routine)) - Pending Review Specialty Diagnoses / Procedures Referred By Contdestiney vazquez Referred To Contact General Surgery Diagnoses Prurigo Epidermoid cyst Melchor Christopher PA-C [address] [place] [address] Referral ID Status Reason Start Date Expiration Date Visits Requested Visits Authorized [id number] Pending Review Specialty Services Required [phone] Question Answer Referral Priority Within 30 days (routine) Where should this appointment be scheduled? [facility] What condition is the patient being seen for? General Surgery Conditions What condition is the patient being seen for? Skin Lesions (SubQ Nodules) Comments Cyst- R lower back Reason for Visit * Reason Comments Lesion Patient presents tod ay for itchy lesion on lower back. Encounter Details Date Type Department Care Team ([facility] Contact Info) Description 12/24/2023 1:00 PM EDT Office Visit Dermatology [address] [phone] Melchor Christopher PA-C [address] [place] [address] Prurigo*; Epidermoid cyst Allergies Active Allergy Reactions Criticality Noted Date Comments Sulfamethoxazole-Trimethoprim Hives 2021 denies documented as of this encounter (statuses as of 12/24/2023) Medications Medication Sig Dispensed Refills Start Date [...] BEFORE BREAKFAST 90 Capsule 3 04/19/2023 Active Apixaban 5 MG Oral Tablet (Eliquis)Indications: Atrial fibrillation, unspecified type (HCC) Take 1 Tablet by mouth in the morning and 1 Tablet before bedtime. 60 Tablet 5 07/02/2023 Active Nicotine 7 MG/24HR Transdermal Patch 24 [...] Additional Information Patient not taking.Reported on 11/20/2023 Metoprolol Tartrate 50 MG Oral Tablet (Lopressor)Indication s:Persistent atrial fibrillation (HCC) Take 1 Tablet by mouth in the morning and 1 Tablet before bedtime. 90 Tablet 1 08/27/2023 Active Famotidine 40 MG Oral Tablet (Pepcid)Indications:G astroesophageal [...] NEEDED FOR WHEEZING 18 g 12/17/2023 Active Hospital, Clinic, or Other Facility Administered Medication Ordered Dose Route Frequency Start Date End Date Status Triamcinolone Acetonide (Kenalog) 40 MG/ML inj 40 mgIndications:Prurigo,Epide rmoid cyst 40 mg LS ONCE 12/24/2023 12/25/2023 Active documented as of this encounter (statuses as of 12/24/2023) Active Problems Problem Noted Date Diagnosed Date PAF (paroxysmal atrial fibrillation) 10/21/2023 Aortic root [...] Overview: Added automatically from request for surgery [id number] Decreased hearing of both ears 11/11/2021 Wears [...] as of this encounter (statuses as of 12/24/2023) Resolved Problems Problem Noted Date Diagnosed Date [...] 12/03/2016 HTN, goal to be determined 04/02/2008 Overview: Modified per HTN protocol #16. Major depressive disorder Overview: ICD-10 update of inactive term documented as of this encounter (statuses as of 12/24/2023) Immunizations Name Administration Dates Next Due COVID-19 mRNA, LNP-s, No Pre serve, 2-Dose Series (Moderna) 05/17/2020,04/19/2020 Pneumococcal Conjugate Vacc, 13 Valent (Prevnar) 12/09/2017,08/01/2015 Pneumococcal Conjugate Vacci ne, 20-valent ([id number]) 12/18/2023(Deferred: Patient Refused) Pneumococcal Polysaccharide PPV23 (Pneumovax) [...] as of this encounter Progress Notes * Mahendra Lopez MD - 12/24/2023 2:02 PM EDT I have seen and examined via teledermatology review of chart note and photos the patient with Melchor Christopher PA-C. I have reviewed and agree with the assessment and plan. Mahendra Lopez MD * Melchor Christopher PA-C - 12/24/2023 1:02 PM EDT SUBJECTIVE: History of Present Illness: Gaurav Hall is a 73 year old male seen today for follow up of prurigo. Patient notes a spot on the R forearm is starting to recur. Scratching at it. Also has an itchy spot on the R lower back he would like checked. 11/14/2023 (in office) REVIEW OF SYSTEMS: SKIN: No other new or changing moles. HEME/LYMPH: No new or enlarging lumps or bumps. CONSTITUTIONAL: No nausea, vomiting, fevers, chills, diarrhea. No recent unintended weight loss, night sweats, appetite or malaise. MEDICA TIONS: Current Outpatient Medications Medication Sig Dispense Refill [...] TIME DAILY BEFORE BREAKFAST 90 Capsule 3 Apixaban 5 MG Oral Tablet (Eliquis) Take 1 Tablet by mouth in the morning and 1 Tablet before bedtime. 60 Tablet 5 Nicotine 7 MG/24HR Transdermal Patch 24 Hour (Nicoderm CQ) One 7 mg patch daily for 2 weeks; Removeold patch daily; and then stop. (Patient not taking: Reported on 11/20/2023) 14 Patch 1 Nitroglycerin 0.4 MG Sublingual Tablet Sublingual (Nitrostat) Place 1 Tablet under the tongue as needed for Pain, Chest. Maximum 3 doses. (Patient not taking: Reported on 11/20/2023) 30 Tablet 0 Metoprolol Tartrate 50 MG Oral Tablet (Lopressor) Take 1 Tablet by mouth in the morning and 1 Tablet before bedtime. 90 Tablet 1 Famotidine 40 MG Oral Tablet (Pepcid) Take [...] EVERY DAY AT BEDTIME 100 Tablet 3 Potassium Chloride ER 10 MEQ Oral Tablet Extended Release Take 1 Tablet by mouth in the morning. 90Tablet 0 Atorvastatin Calcium 40 MG Oral Tablet (Lipitor) Take 1 Tablet by mouth in the morning. 100 Tablet 3 Zolpidem Tartrate 5 MG Oral Tablet (Ambien) TAKE 1 TABLET BY MOUTH ONCE DAILY AT BEDTIME ONLY IF NEEDED FOR SLEEP 30 Tablet 0 Levocetirizine Dihydrochloride 5 MG Oral Tablet Take [...] your diuretic titration plan. 30 Tablet 3 Albuterol Sulfate HFA 108 (90 Base) MCG/ACT Inhalation Aerosol Solution INHALE TWO PUFFS BY MOUTH EVERY FOUR HOURS NEEDED FOR WHEEZING 18 g 0 No current facility-administered medications for this visit. ALLERG IES: Bactrim [sulfamethoxazole-trimethoprim] OBJECT MAGALI: GEN: Healthy, alert, no distress, appears oriented, pleasant, and cooperative. SKIN: Detailed exam of back and bilateral upper ext. (arm, hand, fingers) completed and are normal except: A. R lower back with a subcutaneous mobile nodule B. R forearm with a pink scar and distal crusted papule ASSESS MENT/PLAN: A. Favor epidermoid cyst- requests removal. Will schedule evaluation with General Surgery. B. Scar/prurigo -reiterated the need to stop picking/scratching -Triamcinolone 40 mg/ml injected intralesionally, total volume injected: 0.1cc -Patient name and MRN verified. Time out called. Area cleaned with alcohol. Injected lesion with triamcinolone using 30 gauge needle. Patient tolerated procedure well. Follow-up: as needed Patient alone today. Photo(s) taken, pt verbally consented to having photo(s) taken. Contact patient via cell phone Ok to leave results on message: Yes Patient Phone Numbers Applicable photos (if any) and chart reviewed by Dr. Mahendra Lopez Presumed diagnoses, expected natural histories, and management options discussed with the patient at length. Questions were addressed and anticipatory guidance provided. They were instructed to contact me if additional questions, concerns, or problems develop in the interim. -There were no barriers to learning and no other pain was related to today's visit. The patient and/or person accompanying patient demonstrates understanding of the visit and treatment. Ruthann Christopher PA-C 12/24/2023 1:02 PM REF: SELF NO STREET ADDRESS AVAILABLE PCP: JULIA VERAS [address] [place] [phone] documented in this encounter Nursing Notes * Christen Walton LPN - 12/24/2023 1:07 PM EDT Patient identified by name and date. Chief Complaint Patient presents with Lesion Patient presents today for itchy lesion on lower back. documented in this encounter Plan of Treatment Upcoming Encounters Date Type Department Care Team (Late Contact Info) Description 12/30/2023 8:30 AM EDT Home Visit [facility] [address] [place] [address] Karen Rubin PA-C [address] [place] [address] 12/31/2023 9:10 AM EDT Laboratory Laboratory Patient Service [address] [phone] [facility] [address] 01/01/2024 2:30 PM EDT [facility] [address] [place] [address] Macarena Watson RN [address] [place] [address] 01/09/2024 10:00 AM EDT Appointment Cardiac Studies [facility] Fl, [facility] [address] [place] [address] 02/12/2024 11:40 AM EST Office Visit General Surgery [place] [phone] Av Shelby MD [address] [place] [address] 02/21/2024 3:00 PM EST Office Visit Podiatry [address] [phone] Drew Carbajal DPM [address] [place] [address] 02/24/2024 2:45 PM EST Office Visit Cardiology [address] [phone] Vero Gee CRNP [address] [place] [address] 03/17/2024 4:00 PM EST Office Visit [facility] [address] [place] [phone] Julia Veras MD [address] [place] [phone] 07/13/2024 3:20 PM EDT Office Visit [facility] Disorders Ctr [facility] [address] [place] [phone] Sandra Vuong DO [address] [place] [address] Scheduled Referrals Name Type Priority Associated Diagnoses Orde r Schedule SURGERY REFERRAL OP Referral Within 30 da ys (routine) Prurigo Epidermoid cyst Ordered: 12/24/2023 Health Maintenance Due Date Last Done Comments [...] exists DISCUSS TOBACCO CESSATION (REFER TO SMARTSET #3078) 12/16/2024 12/17/2023 (Discussed), 08/01/2015 (Discussed) O2 ASSESSMENT COMPLETED IN PAST YEAR FOR COPD 12/16/2024 12/17/2023 Lipid Panel 07/21/2028 07/22/2023, 03/12, 08/24/2020, Additional [...] Procedure Name Priority Date/Time Associated Diagnosis Comments DERM EXAM - DERM (IMAGES ONLY, NO REPORT) Routine 12/24/2023 1:02 PM EDT Prurigo documented in this encounter Results * DERM EXAM - DERM (IMAGES ONLY, NO REPORT) (12/24/2023 1:02 PM EDT) Narrative Scheduling, Silent - 12/24/2023 1:02 PM EDT This is an imaging study not interpreted or resulted by a [facility] or [facility] contracted radiologist. Melchor Christopher PA-C RADIOLOGY (RAD GENE RAL) documented in this encounter Visit Diagnoses Diagnosis Prurigo- Primary Epidermoid cyst Sebaceous cyst documented in this encounter Advance Directives * [...] File Name Relationship Healthcare Agent [facility] Communication Jam Virginie Cousin First Alternate Health Care Agent (per Health Care Power of Divinity Teacher document) Care Teams Electronic Equipment Repairmen Relationship Specialty Start Date End Date Julia Veras MD [address] [place] [phone] PCP - General Family Medicine 06/15/23 documented as of this encounter
--- OUTSIDE RECORDS SUMMARY | 2024-05-26 06:38 | External Medical Summary | Summary of Care ---
Author Name Unknown Organization [facility] Address [address] [place] [address] Phone [phone] Care Team Providers Care Machine Technician Name Role Phone Julia Harman MD Primary Care Provi radhika Reason for Visit * Reason Onset Date Comments Appointment 12/24/2023 Encounter Details Date Type Department Care Team ([facility] st Contact Info) Description 12/24/2023 Telephone [facility] [place] [facility] [address] [place] [address] Aleyda Bush, ARMIDA [address] [place], [place] [phone] Appointment (/) Allergies Active Allergy Reactions Criticality Noted Date [...] NEEDED FOR WHEEZING 18 g 12/17/2023 Active documented as of this encounter (statuses [...] Overview: Added automatically from request for surgery [id number] Decreased hearing of both ears 11/11/2021 Wears [...] (Prevnar) 12/09/2017,08/01/2015 Pneumococcal Conjugate Vacci ne, 20-valent ([id number]) 12/18/2023(Deferred: Patient Refused) Pneumococcal Polysaccharide PPV23 (Pneumovax) [...] encounter Miscellaneous Notes * Telephone Encounter - Aleyda Bush OSA - 12/24/2023 8:12 AM EDT Request to cx the 830 appt today and rs I found 12/29@830 to rs instead and called to lm documented in this encounter Plan of Treatment Upcoming Encounters Date Type Department Care Team ([facility] Contact Info) Description 12/24/2023 1:00 PM EDT Office Visit Dermatology [address] [phone] Melchor Christopher PA-C [address] [place] [address] 12/30/2023 8:30 AM EDT [facility] Visit [facility], [facility] [address] [place] [address] Karen Rubin PA-C [address] [place] [address] 12/31/2023 9:10 AM EDT Laboratory Laboratory [facility], [address] [phone] [address] 01/01/2024 2:30 PM EDT Home Visit [facility] [place], [facility] [address] [place] [address] Macarena Watson RN [address] [place] [address] 01/09/2024 10:00 AM EDT Appointment Cardiac Studies [facility] [place], [facility] [address] [place] [address] 02/21/2024 3:00 PM EST Office Visit Podiatry [address] [phone] Drew Carbajal, LEOBARDO [address] [place] [address] 02/24/2024 2:45 PM EST Office Visit Cardiology [address] [phone] Vero Gee CRNP [address] [place] [address] 03/17/2024 4:00 PM EST Office Visit [facility] [address] [place] [address] Julia Harman MD [address] [place] [address] 07/13/2024 3:20 PM EDT Office Visit Sleep Disorders Ctr [facility] [address] [place] [phone] Sandra Vuong, [address] [place] [address] Health Maintenance Due Date Last Done Comments [...] Agents on File Name Relationship Healthcare Agent [facility] p Communication Jam Rachel Cousin First Alternate Health Care Agent (per Health Care Power of Cutting Machine Fixer document) Care Teams Machine Technician Relationship Specialty Start Date End Date Julia Harman MD [address] [place] [address] [place] [phone] PCP - General Family Medicine 06/15/23 documented as of this encounter
--- OUTSIDE RECORDS SUMMARY | 2024-05-26 06:38 | External Medical Summary | Summary of Care ---
Author Name Unknown Organization [facility] Address [address] [place] [address] Phone [phone] Care Team Providers Care Wire Stitcher Name Role Phone Julia Veras MD Primary Care Provi radhika Reason for Referral * Evaluate & Treat - Unlimited Visits (Within 30 days (routine)) - Pending Review Specialty Diagnoses / Procedures Referred By Contdestiney vazquez Referred To Contact General Surgery Diagnoses Prurigo Epidermoid cyst Melchor Christopher PA-C [address] [place] [address] Referral ID Status Reason Start Date Expiration Date Visits Requested Visits Authorized [id number] Pending Review Specialty Services Required 4 999 [...] Encounter Details Date Type Department Care Team ([facility] Contact Info) Description 12/24/2023 1:00 PM EDT Office Visit Dermatology [address] [phone] Melchor Christopher PA-C [address] [place] [address] Prurigo*; Epidermoid cyst Allergies Active Allergy Reactions [...] rmoid cyst 40 mg LS ONCE 12/24/2023 12/24/2023 Ended documented as of this encounter (statuses as [...] Overview: Added automatically from request for surgery [id number] Decreased hearing of both ears 11/11/2021 Wears [...] (Prevnar) 12/09/2017,08/01/2015 Pneumococcal Conjugate Vacci ne, 20-valent ([id number]) 12/18/2023(Deferred: Patient Refused) Pneumococcal Polysaccharide PPV23 (Pneumovax) [...] NO STREET ADDRESS AVAILABLE PCP: JULIA VERAS [address] [place] [phone] documented in this encounter Nursing Notes [...] Visit [facility] [place] [facility] [address] [place] [address] Karen Rubin PA-C [address] [place] [address] 12/31/2023 9:10 AM EDT Laboratory Laboratory Patient Service [address] [phone] [facility] [address] 01/01/2024 2:30 PM EDT [facility] Visit [facility], [facility] [address] [place] [address] Macarena Watson RN [address] [place] [address] 01/09/2024 10:00 AM EDT Appointment Cardiac Studies [facility], [facility] [address] [place] [address] 02/12/2024 11:40 AM EST Office Visit General Surgery [place] [phone] Av Shelby MD [address] [place] [address] 02/21/2024 3:00 PM EST Office Visit Podiatry [address] [address] Drew Carbajal DPM [address] [place] [address] 02/24/2024 2:45 PM EST Office Visit Cardiology [address] [phone] Vero Gee CRNP [address] [place] [address] 03/17/2024 4:00 PM EST Office [facility] [address] [place] [address] Julia Veras MD 68 [place] [phone] 07/13/2024 3:20 PM EDT Office Visit Sleep Disorders Ctr [facility] [address] [place] [phone] Sandra Vuong DO [address] [place] [address] Scheduled Referrals Name Type Priority Associated Diagnoses [...] exists DISCUSS TOBACCO CESSATION (REFER TO SMARTSET #7777) 12/16/2024 12/17/2023 (Discussed), 08/01/2015 (Discussed) O2 ASSESSMENT [...] interpreted or resulted by a [facility] or [facility] contracted radiologist. Melchor Christopher PA-C RADIOLOGY (RAD GENE RAL) documented in this encounter Visit Diagnoses Diagnosis Prurigo- Primary Epidermoid cyst Sebaceous cyst documented in this encounter Administered Medications Inactive Administered Medications - up to 3 most recent administrations Medication Order MAR Action Action Date Dose Rate Site Triamcinolone Acetonide (Kenalog) 40 MG/ML inj 40 mg 40 mg, Intralesional, ONCE, On Sat12/24/23 at 1400, For 1 dose Given 12/24/2023 2:35 PM EDT 40 mg Other -Specify documented in this encounter Advance Directives * [...] Name Relationship Healthcare Agent [facility] Communication Jam Angellatesha Cousin First Alternate Health Care Agent (per Health Care Power of Tooth Polisher document) Care Teams Wire Stitcher Relationship Specialty Start Date End Date Julia Veras MD [address] [place] [phone] PCP - General Family Medicine 06/15/23 documented as of this encounter
--- OUTSIDE RECORDS SUMMARY | 2024-05-26 06:38 | External Medical Summary | Summary of Care ---
Author Name Unknown Organization [facility] Address [address] [facility] [place] [address] Phone [phone] Care Team Providers Care Stretcher Operator Name Role Phone Julia Harman MD Primary Care Provi radhika Reason for Visit * Reason Onset Date Comments No Show 01/01/2024 Encounter Details Date Type Department Care Team ([facility] st Contact Info) Description 12/30/2023 8:30 AM EDT [facility] Visit [facility], [place] [facility] [address] [facility] [place] [address] Karen Rubin PA-C [address] [place] [address] NO SHOW/FAILED TO KEEP APPOINTMENT* Allergies Active [...] Overview: Added automatically from request for surgery [id number] Decreased hearing of both ears 11/11/2021 Wears [...] calories 12/03/2016 01/06/2018 History of hematuria 05/30/2016 09/25/2 017 Loose stools 11/19/2013 05/31/2014 Stress at [...] (Prevnar) 12/09/2017,08/01/2015 Pneumococcal Conjugate Vacci ne, 20-valent ([id number]) 12/18/2023(Deferred: Patient Refused) Pneumococcal Polysaccharide PPV23 (Pneumovax) [...] as of this encounter Progress Notes * Karen Rubin PA-C - 12/30/2023 7:33 AM EDT Attempted to call pt 3 X prior to visit, no answer. Arrived at [facility]. Rang pt's antunez to get into [facility], no answer. Patient failed to keep scheduled appointment. Karen Rubin PA-C documented in this encounter Plan of Treatment Upcoming Encounters Date Type Department Care Team ([facility] st Contact Info) Description 01/01/2024 2:00 PM EDT Office Visit [address] [phone] Aleksandr Sheriff PA-C [address] [place], [place] [address] [address] 01/01/2024 2:30 PM EDT [facility] [place] [facility] [address] [place] [address] Macarena Watson RN [address] [place] [address] 01/09/2024 10:00 AM EDT Appointment Cardiac Studies 1st Fl, [facility] [address] [place] [address] 02/12/2024 11:40 AM EST Office Visit General Surgery [place] [phone] Av Shelby MD [address] [place] [address] 02/21/2024 3:00 PM EST Office Visit Podiatry [address] Drew Carbajal, DPDarien [address] [place] [address] 02/24/2024 2:45 PM EST Office Visit Cardiology [place] [phone] Vero Gee CRNP [address] [place] [address] 03/17/2024 4:00 PM EST Office Visit Family Practice [address] [phone] Julia Harman MD [address] [place] [phone] 07/13/2024 3:20 PM EDT Office Visit Sleep Disorders Ctr [address] [place] [phone] Sandra Vuong, DO [address] [place] [address] Health Maintenance Due Date Last Done Comments [...] File Name Relationship Healthcare Agent [facility] Communication Jam Virginie Cousin First Alternate Health Care Agent (per Health Care Power of Form Maker document) Care Teams Stretcher Operator Relationship Specialty Start Date End Date Julia Harman MD [address] [place] [phone] PCP - General Family Medicine 06/15/23 documented as of this encounter
--- OUTSIDE RECORDS SUMMARY | 2024-05-26 06:38 | External Medical Summary | Summary of Care ---
Author Name Unknown Organization [facility] Address [address] [place] [address] Phone [phone] Care Team Providers Care Water Treatment Technician Name Role Phone Julia Harman MD Primary Care Provi radhika Reason for Referral * Evaluate & Treat - Unlimited Visits (Within 30 days (routine)) - Pending Review Specialty Diagnoses / Procedures Referred By Contdestiney vazquez Referred To Contact General Surgery Diagnoses Prurigo Epidermoid cyst Melchor Christopher PA-C [address] [place] [address] Referral ID Status Reason Start Date Expiration Date Visits Requested Visits Authorized [id number] Pending Review Specialty Services Required 4 999 [...] Encounter Details Date Type Department Care Team ([facility] Contact Info) Description 12/24/2023 1:00 PM EDT Office Visit Dermatology [address] [phone] Melchor Christopher PA-C [address] [place] [address] Prurigo*; Epidermoid cyst Allergies Active Allergy Reactions [...] Overview: Added automatically from request for surgery [id number] Decreased hearing of both ears 11/11/2021 Wears [...] (Prevnar) 12/09/2017,08/01/2015 Pneumococcal Conjugate Vacci ne, 20-valent ([id number]) 12/18/2023(Deferred: Patient Refused) Pneumococcal Polysaccharide PPV23 (Pneumovax) [...] as of this encounter Progress Notes * Melchor Christopher PA-C - 12/24/2023 1:02 [...] SELF NO STREET ADDRESS AVAILABLE PCP: JULIA HARMAN [address] [place] [phone] documented in this encounter Nursing Notes * Christen Walton LPN - 12/24/2023 1:07 PM EDT Patient identified by name and date. Chief Complaint Patient presents with Lesion Patient presents today for itchy lesion on lower back. documented in this encounter Plan of Treatment Upcoming Encounters Date Type Department Care Team (Late st Contact Info) Description 12/30/2023 8:30 AM EDT Home Visit [facility], [place] [address] [place] [address] Karen Rubin PA-C [address] [facility] [address] 12/31/2023 9:10 AM EDT Laboratory Laboratory Patient Service [address] [phone] Margi [facility] [address] [place] [address] 01/01/2024 2:30 PM EDT Home Visit [facility], [place] [address] [place] [address] Macarena Watson RN [address] [place] [address] 01/09/2024 10:00 AM EDT Appointment Cardiac Studies 1st Fl, [facility] [address] [place] [address] 02/12/2024 11:40 AM EST Office Visit General Surgery [place] [phone] Av Shelby MD [address] [place] [address] 02/21/2024 3:00 PM EST Office Visit Podiatry [place] [phone] Drew Carbajal DPM [address] [place] [address] 02/24/2024 2:45 PM EST Office Visit Cardiology [address] [phone] Vero Gee CRNP [address] [place] [address] 03/17/2024 4:00 PM EST Office Visit Family Practice [address] [phone] Julia Harman MD [address] [place] [phone] 07/13/2024 3:20 PM EDT Office Visit Sleep Disorders Ctr [facility] [address] [place] [phone] Sandra Vuong DO [address] [place] [address] Scheduled Referrals Name Type Priority Associated Diagnoses [...] study not interpreted or resulted by a [facility] or [facility] contracted radiologist. Melchor Christopher PA-C RADIOLOGY (RAD [facility]) documented in this encounter Visit Diagnoses Diagnosis [...] Agents on File Name Relationship Healthcare Agent [facility] p Communication Jamgeorge Rachel Cousin First Alternate Health Care Agent (per Health Care Power of Rehabilitation Center Manager document) Care Teams Water Treatment Technician Relationship Specialty Start Date End Date Julia Harman MD [address] [place] [phone] PCP - General Family Medicine 06/15/23 documented as of this encounter
--- OUTSIDE RECORDS SUMMARY | 2024-05-26 06:38 | External Medical Summary | Summary of Care ---
Author Name Unknown Organization [facility] Address [address] [place] [address] Phone [phone] Care Team Providers Care Transfer Clerk Name Role Phone Julia Veras MD Primary Care Provi radhika Reason for Visit * Reason Comments eRx-Medication Refill Encounter Details Date Type Department Care Team ([facility] Contact Info) Description 12/29/2023 Refill Family [address] [phone] Julia Veras MD [address] [place] [phone] Persistent atrial fibrillation (HCC) Allergies Active Allergy Reactions Criticality Noted Date Comments Sulfamethoxazole-Trimethoprim Hives 2021 denies documented as of this encounter (statuses as of 12/31/2023) Medications Medication Sig Dispensed Refills Start Date [...] MG/24HR Transdermal Patch 24 Hour (Nicoderm CQ)Indications:[employer] 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 100 Tablet 3 4 Active Zolpidem Tartrate 5 MG Oral Tablet (Ambien)Indications :Insomnia, unspecified type TAKE 1 TABLET BY MOUTH ONCE DAILY AT BEDTIME ONLY IF NEEDED FOR SLEEP 30 Tablet 4 Active Levocetirizine Dihydrochloride 5 MG Oral [...] before bedtime. 90 Tablet 1 4 Active Metoprolol Tartrate 50 MG Oral Tablet (Lopressor)Indicati ons:Persistent atrial fibrillation (HCC) Take 1 Tablet by mouth in the morning and 1 Tablet before bedtime. 90 Tablet 1 4 12/31/19 24 Discontinued documented as of this encounter (statuses as of 12/31/2023) Active Problems Problem Noted Date Diagnosed Date [...] Overview: Added automatically from request for surgery [id number] Decreased hearing of both ears 11/11/2021 Wears [...] as of this encounter (statuses as of 12/31/2023) Resolved Problems Problem Noted Date Diagnosed Date [...] as of this encounter (statuses as of 12/31/2023) Immunizations Name Administration Dates Next Due COVID-19 mRNA, LNP-s, No Pre serve, 2-Dose Series (Moderna) 05/17/2020,04/19/2020 Pneumococcal Conjugate Vacc, 13 Valent (Prevnar) 12/09/2017,08/01/2015 Pneumococcal Conjugate Vacci ne, 20-valent ([id number]) 12/18/2023(Deferred: Patient Refused) Pneumococcal Polysaccharide PPV23 (Pneumovax) [...] encounter Miscellaneous Notes * Telephone Encounter - Ángel Reyes [facility] - 12/31/2023 1:55 AM EDTSigned Prescriptions: Disp Refills Metoprolol Tartrate 50 MG Oral Tablet (Lop*90 Tab*1 Sig: Take 1 Tablet by mouth in the morning and 1 Tablet before bedtime.Authorizing Provider: JULIA VERAS User: ÁNGEL REYES documented in this encounter Plan of Treatment Upcoming Encounters Date Type Department Care Team ([facility] st Contact Info) Description 12/31/2023 9:10 AM EDT Laboratory Laboratory Patient Service Center, [address] [phone] [facility] [address] 12/31/2023 3:20 PM EDT Office Visit [address] [phone] Megan Coker PA-C [address] [place] [address] 01/01/2024 2:30 PM EDT Home Visit [facility] [address] [place] [address] Macarena Watson RN [address] [place] [address] 01/09/2024 10:00 AM EDT Appointment Cardiac Studies 1st Fl, [facility] [address] [place] [address] 02/12/2024 11:40 AM EST Office Visit General Surgery [address] [phone] Av Shelby MD [address] [place] [address] 02/21/2024 3:00 PM EST Office Visit Podiatry [address] [place] [phone] Drew Carbajal, DPM [address] [place] [address] 02/24/2024 2:45 PM EST Office Visit Cardiology [facility] [address] [facility] 203 [place] [phone] Vero Gee CRNP [address] [place] [address] 03/17/2024 4:00 PM EST Office Visit Family Practice [facility] 68 [place] [address] Julia Veras MD 68 [place] [address] 07/13/2024 3:20 PM EDT Office Visit Sleep Disorders Ctr [facility] [address] [facility] [place] [phone] Sandra Vuong, [address] [facility] [place] [address] Health Maintenance Due Date Last Done Comments [...] exists DISCUSS TOBACCO CESSATION (REFER TO SMARTSET #[id number]) 12/16/2024 12/17/2023 (Discussed), 08/01/2015 (Discussed) O2 ASSESSMENT [...] as of this encounter Visit Diagnoses Diagnosis Persistent atrial fibrillation (HCC) Atrial fibrillation documented [...] 10:30 AM 07/12/2022 3:05 PM This order r eflects the patients wishes and were consensually agreed upon. Question Answer Comments Discussion of Advance Directives occurred with: Patient Healthcare Agents on File Name Relationship Healthcare Agent [facility] Communication Jam Virginie Cousin First Alternate Health Care Agent (per Health Care Power of Ordering Machine Operator document) Care Teams Transfer Clerk Relationship Specialty Start Date End Date Julia Veras MD [address] [place] [phone] PCP - General Family Medicine 06/15/23 documented as of this encounter
--- OUTSIDE RECORDS SUMMARY | 2024-05-26 06:38 | External Medical Summary | Summary of Care ---
Author Name Unknown Organization [facility] Address [address] [place] [address] Phone [phone] Care Team Providers Care Franchise Sales Director Name Role Phone Julia Harman MD Primary Care Provi radhika Encounter Details Date Type Department Care Team (Latest Contact Info) Description 12/24/2023 1:02 PM EDT - 12/24/2023 11:59 PM EDT Hospital Encounter Radiology Film File [address] [place] [address] Arrived Discharge Disposition: Home - Self Care Allergies Active Allergy Reactions Criticality Noted Date Comments Sulfamethoxazole-Trimethoprim Hives 2021 denies documented as of this encounter (statuses as of 12/25/2023) Medications Medication Sig Dispensed Refills Start Date [...] as of this encounter (statuses as of 12/25/2023) Active Problems Problem Noted Date Diagnosed Date [...] Overview: Added automatically from request for surgery [id number] Decreased hearing of both ears 11/11/2021 Wears [...] as of this encounter (statuses as of 12/25/2023) Resolved Problems Problem Noted Date Diagnosed Date [...] as of this encounter (statuses as of 12/25/2023) Immunizations Name Administration Dates Next Due COVID-19 mRNA, LNP-s, No Pre serve, 2-Dose Series (Moderna) 05/17/2020,04/19/2020 Pneumococcal Conjugate Vacc, 13 Valent (Prevnar) 12/09/2017,08/01/2015 Pneumococcal Conjugate Vacci ne, 20-valent ([id number]) 12/18/2023(Deferred: Patient Refused) Pneumococcal Polysaccharide PPV23 (Pneumovax) [...] Description 12/30/2023 8:30 AM EDT Home Visit [facility] [place], [place] [address] [place] [address] Karen Rubin PA-C [address] [place] [address] 12/31/2023 9:10 AM EDT Laboratory Laboratory Patient Service Center, [address] [phone] [facility] [address] [place] [address] [place] [address] 01/01/2024 2:30 PM EDT Home Visit [facility] [place] [facility] [address] [place] [address] Macarena Watson RN [address] [place] [address] 01/09/2024 10:00 AM EDT Appointment Cardiac Studies 1st Fl, [facility] [address] [place] [address] 02/12/2024 11:40 AM EST Office Visit General Surgery [place] [phone] Av Shelby MD [address] [place] [address] 02/21/2024 3:00 PM EST Office Visit Podiatry [place] [phone] Drew Carbajal, DPDarien [address] [place] [address] 02/24/2024 2:45 PM EST Office Visit Cardiology [address] [phone] Vero Gee CRNP [address] [place] [address] 03/17/2024 4:00 PM EST Office Visit Family Practice [address] [phone] Julia Harman MD [address] [place] [phone] 07/13/2024 3:20 PM EDT Office Visit [facility] Disorders Ctr [facility] [address] [place] [phone] Sandra Vuong, DO [address] [place] [address] Health Maintenance Due Date Last Done Comments [...] study not interpreted or resulted by a [facility] or [facility] contracted radiologist. Melchor Christopher PA-C RADIOLOGY (RAD GENE RAL) documented in this encounter Advance Directives * [...] Agents on File Name Relationship Healthcare Agent [facility] Communication Jam Rachel Cousin First Alternate Health Care Agent (per Health Care Power of Clinical Research Manager document) Care Teams Franchise Sales Director Relationship Specialty Start Date End Date Julia Harman MD [address] [place] [address] [place] [phone] PCP - General Family Medicine 06/15/23 documented as of this encounter
--- OUTSIDE RECORDS SUMMARY | 2024-05-26 06:38 | External Medical Summary | Summary of Care ---
Author Name Unknown Organization [facility] Address [address] [place] [address] Phone [phone] Care Team Providers Care Sanitation Director Name Role Phone Julia Harman MD Primary Care Provi radhika Encounter Details Date Type Department Care Team ( st Contact Info) Description 12/24/2023 Population Health External Data Unspecified Department Allergies [...] Overview: Added automatically from request for surgery [id number] Decreased hearing of both ears 11/11/2021 Wears [...] (Prevnar) 12/09/2017,08/01/2015 Pneumococcal Conjugate Vacci ne, 20-valent ([id number]) 12/18/2023(Deferred: Patient Refused) Pneumococcal Polysaccharide PPV23 (Pneumovax) [...] 8:30 AM EDT [facility] [address] [place] [address] Karen Rubin PA-C [address] [place] [address] 12/31/2023 9:10 AM EDT Laboratory [facility], [address] [phone] Margi [address] [place] [address] 01/01/2024 2:30 PM EDT [facility] Visit [facility] [address] [place] [address] Macarena Watson RN [address] [place] [address] 01/09/2024 10:00 AM EDT Appointment Cardiac Studies 1st Fl, [facility] [address] [address] 02/12/2024 11:40 AM EST Office Visit General Surgery [address] Shelby MD [address] [place] [address] 02/21/2024 3:00 PM EST Office Visit Podiatry [address] Drew Carbajal DPM [address] [place] [address] 02/24/2024 2:45 PM EST Office Visit Cardiology [address] Vero Gee CRNP [address] [place] [address] 03/17/2024 4:00 PM EST Office Visit Family Practice [place] [phone] Julia Harman MD [address] [place] [phone] 07/13/2024 3:20 PM EDT Office Visit Sleep Disorders [facility] [place] [phone] Sandra Vuong, [address] [facility] [place] [address] Health Maintenance Due Date [...] [facility] Communication Jam Rachel Cousin First Alternate Health Care Agent (per Health Care Power of Pattern Repair Person document) Care Teams Sanitation Director Relationship Specialty Start Date End Date Julia Harman MD [address] [place] [phone] PCP - General Family Medicine 06/15/23 documented as of this encounter
--- OUTSIDE RECORDS SUMMARY | 2024-05-26 06:38 | External Medical Summary | Summary of Care ---
Author Name Unknown Organization [facility] Address [address] [place] [address] Phone [phone] Care Team Providers Care Cuff Setter Overlock Name Role Phone Julia Veras MD Primary Care Provi radhika Reason for Visit * Reason Comments eRx-Medication Refill Encounter Details Date Type Department Care Team ([facility] Contact Info) Description 12/28/2023 Refill Family Practice [address] [phone] Julia Veras MD [address] [place] [phone] Atrial fibrillation, unspecified type (HCC) Allergies Active Allergy Reactions Criticality Noted Date Comments Sulfamethoxazole-Trimethoprim Hives 2021 denies documented as of this encounter (statuses as of 12/30/2023) Medications Medication Sig Dispensed Refills Start Date [...] Transdermal Patch 24 Hour (Nicoderm CQ)Indications: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 90 Tablet 1 4 Active Famotidine 40 MG Oral Tablet (Pepcid)Indications [...] before bedtime. 60 Tablet 1 4 Active Apixaban 5 MG Oral Tablet (Eliquis)Indication s:Atrial fibrillation, unspecified type (HCC) Take 1 Tablet by mouth in the morning and 1 Tablet before bedtime. 60 Tablet 5 4 12/30/19 24 Discontinued documented as of this encounter (statuses as of 12/30/2023) Active Problems Problem Noted Date Diagnosed Date [...] Overview: Added automatically from request for surgery [id number] Decreased hearing of both ears 11/11/2021 Wears [...] as of this encounter (statuses as of 12/30/2023) Resolved Problems Problem Noted Date Diagnosed Date [...] as of this encounter (statuses as of 12/30/2023) Immunizations Name Administration Dates Next Due COVID-19 mRNA, LNP-s, No Pre serve, 2-Dose Series (Moderna) 05/17/2020,04/19/2020 Pneumococcal Conjugate Vacc, 13 Valent (Prevnar) 12/09/2017,08/01/2015 Pneumococcal Conjugate Vacci ne, 20-valent ([id number]) 12/18/2023(Deferred: Patient Refused) Pneumococcal Polysaccharide PPV23 (Pneumovax) [...] encounter Miscellaneous Notes * Telephone Encounter - [facility] located [facility] - 12/30/2023 10:57 AM EDTSigned Prescriptions: Disp Refills Eliquis 5 MG Oral Tablet (Apixaban) 60 Tab*1 Sig: Take 1 Tablet by mouth in the morning and 1 Tablet before bedtime. Authorizing Provider: JULIA VERAS Ordering User: TYLER TALAVERA Electronically signed by [facility] at 12/30/2023 10:57 AM EDT * Telephone Encounter - Interface, E-Rx Ss Inbound - 12/30/2023 6:02 AM EDT Pending Prescriptions: Disp Refills Eliquis 5 MG Oral Tablet [Pharmacy Med Nam*60 Tab*0 Sig: Take 1Tablet by mouth in the morning and 1 Tablet before bedtime. documented in this encounter Plan of Treatment Upcoming Encounters Date Type Department Care Team ([facility] Contact Info) Description 12/31/2023 9:10 AM EDT Laboratory Laboratory Patient Service [address] [phone] [address] 01/01/2024 2:30 PM EDT Home Visit [facility] [address] [place] [address] Macarena Watson, RN [address] [place] [address] 01/09/2024 10:00 AM EDT Appointment Cardiac Studies 1st Fl, [facility] [address] [address] 02/12/2024 11:40 AM EST Office Visit General Surgery [place] [phone] Av Shelby MD [address] [place] [address] 02/21/2024 3:00 PM EST Office Visit Podiatry [address] [phone] Drew Carbajal DPM [address] [place] [address] 02/24/2024 2:45 PM EST Office Visit Cardiology [place] [phone] Vero eGe CRNP [address] [place] [address] 03/17/2024 4:00 PM EST Office Visit Family Practice [place] [phone] Julia Veras MD [address] [place] [phone] 07/13/2024 3:20 PM EDT Office Visit Sleep Disorders Ctr [facility] [address] [place] [phone] Sandra Vuong, [address] [place] [address] Health Maintenance Due Date Last Done Comments [...] as of this encounter Visit Diagnoses Diagnosis Atrial fibrillation, unspecified type (HCC) documented in [...] Agents on File Name Relationship Healthcare Agent [facility] Communication Jam Rachel Cousin First Alternate Health Care Agent (per Health Care Power of Auto Service Station Attendant document) Care Teams Cuff Setter Overlock Relationship Specialty Start Date End Date Julia Veras MD [address] [place] [phone] PCP - General Family Medicine 06/15/23 documented as of this encounter
--- OUTSIDE RECORDS SUMMARY | 2024-05-26 06:39 | External Medical Summary | Summary of Care ---
Author Name Unknown Organization [facility] Address [address] [place] [address] Phone [phone] Care Team Providers Care Electrician Third Name Role Phone Julia Veras MD Primary Care Provi radhika Reason for Visit * Reason Comments eRx-Medication Refill Encounter Details Date Type Department Care Team ([facility] Contact Info) Description 12/13/2023 Refill Family [facility] [address] [place] [phone] Dawna Goldstein PA-C [address] [place] [address] Allergies Active Allergy Reactions Criticality Noted Date Comments Sulfamethoxazole-Trimethoprim Hives 2021 denies documented as of this encounter (statuses as of 12/16/2023) Medications Medication Sig Dispensed Refills Start Date [...] BEFORE BREAKFAST 90 Capsule 3 4 Active Apixaban 5 MG Oral Tablet (Eliquis)Indication s:Atrial fibrillation, unspecified type (HCC) Take 1 Tablet by mouth in the morning and 1 Tablet before bedtime. 60 Tablet 5 4 Active Nicotine 7 MG/24HR Transdermal Patch 24 Hour (Nicoderm CQ)Indications:Toba finisher accordion use disorder One 7 mg patch daily [...] the morning. 100 Tablet 3 4 Active Albuterol Sulfate HFA 108 (90 Base) MCG/ACT Inhalation Aerosol SolutionIndications :COPD, moderate (HCC) INHALE TWO PUFFS BY MOUTH EVERY FOUR HOURS NEEDED FOR WHEEZING 18 g 4 Active Zolpidem Tartrate 5 MG Oral Tablet (Ambien)Indications :Insomnia, unspecified type TAKE 1 TABLET BY MOUTH ONCE DAILY AT BEDTIME ONLY IF NEEDED FOR SLEEP 30 Tablet 4 Active Levocetirizine Dihydrochloride 5 MG Oral Tablet Take 0.5 Tablets by mouth every evening. 90 Tablet 1 4 Active Furosemide 40 MG Oral Tablet (Lasix) Take 1 Tablet by mouth in the morning. 30 Tablet 2 4 Active Levocetirizine Dihydrochloride 5 MG Oral Tablet Take 1 Tablet by mouth every evening. 90 Tablet 3 3 12/16/19 24 Discontinued documented as of this encounter (statuses as of 12/16/2023) Active Problems Problem Noted Date Diagnosed Date [...] Plan: Eliqus 5mg BID Metoprolol 50mg BID Prediabetes 02/21/2023 COPD, group C, by GOLD 2017 classification 06/18 Overview: Per COPD GOLD Classification Last Assessment & Plan: Symbicort 2 puffs twice daily BPH (benign prostatic hyperplasia) 05/16/2022 Overview: Added automatically from request for surgery [id number] Decreased hearing of both ears 11/11/2021 Wears [...] as of this encounter (statuses as of 12/16/2023) Resolved Problems Problem Noted Date Diagnosed Date Resolved Date SOB (shortness of breath) 10/21/2023 Acute CHF (congestive heart failure) 07/23/2023 08/09/2023 ELFEGO (acute kidney injury) 07/23/2023 Leukocytosis 07/23/2023 12/11/2023 Chest pain 07/23/2023 07/29/2023 Depression, unspecified 07/16/202307/09 Overview: A more specified dx for depression is on the PL Morbid obesity with body mas s index [...] as of this encounter (statuses as of 12/16/2023) Immunizations Name Administration Dates Next Due COVID-19 [...] Telephone Encounter - Julia Veras MD - 12/16/2023 2:44 PM EDT Signed Prescriptions: Disp Refills Levocetirizine Dihydrochloride 5 MG Oral T*90 Tab*1 Sig: Take 0.5 Tablets by mouth every evening. Authorizing Provider: JULIA VERAS * Telephone Encounter - Ivanna, E-Rx Ss Inbound - 12/15/2023 6:02 AM EDT Pending Prescriptions: Disp Refills Levocetirizine Dihydrochloride 5 MG Oral T*90 Tab*0 Sig: TAKE ONE TABLET BY MOUTH EVERY EVENING * Telephone Encounter - Ander Rosales, [facility] - 12/14/2023 2:41 PM EDT Pending Prescriptions: Disp Refills Levocetirizine Dihydrochloride 5 MG Oral T*90 Tab*0 Sig: TAKE ONE TABLET BY MOUTH EVERY EVENING * Telephone Encounter - Ander Rosales, [facility] - 12/14/2023 2:40 PM EDT Forwarding to provider for further evaluation. Please approve and authorize additional refills if you would like patient to continue this medication. Thank You, Ander Rosales, Pharm-D Clinical Pharmacist [facility] ([facility]) [phone] 12/14/2023, 2:40 PM Did you pend patient's preferred pharmacy and medication before forwarding?yes Pharmacy: [id number] [id number] [facility] Pending Prescriptions: Disp Refills Levocetirizine Dihydrochloride 5 MG Oral *90 Tab*0 Sig: TAKE ONE TABLET BY MOUTH EVERY EVENING Last Visit: 11/20/2023 (in office), 06/16/2020 (telemedicine) Next Visit: 03/17/2024 If no future appointments scheduled, and last appointment is greater than a year ago, please schedule patient for a follow-up appointment Last date the medication was ordered: 12/25/2022 Is this request for a controlled substance?No [...] Care Team (Late st Contact Info) Description 12/17/2023 4:40 PM EDT Office Visit [address] [phone] Julia Veras MD [address] [place] [phone] 12/24/2023 8:30 AM EDT [facility] [address] [place] [address] Karen Rubin PA-C [address] [place] [address] 12/24/2023 1:00 PM EDT Office Visit Dermatology [facility] [address] [place] [phone] Melchor Christopher PA-C [address] [place] [address] 01/01/2024 2:30 PM EDT [facility] Visit [facility] [address] [place] [address] Macarena Watson RN [address] [place] [address] 01/09/2024 10:00 AM EDT Appointment [facility] [place] [address] [place] [address] 02/21/2024 3:00 PM EST Office Visit Podiatry [address] [place] [address] Drew Carbajal, LEOB[place]O [address] [place] [address] 03/17/2024 4:00 PM EST Office Visit Family Practice [address] [phone] Julia Veras MD [address] [place] [phone] 07/13/2024 3:20 PM EDT Office Visit Sleep Disorders Ctr [facility] [address] [phone] Sandra Vuong, DO [address] [place] [address] Health Maintenance Due Date Last Done Comments Diabetic Foot Exam 05/20/1967 Cologuard 1994 Fecal Occult Blood Test 1994 Sigmoidoscopy 1994 Adult Wellness Visit 05/20/2015 DISCUSS TOBACCO CESSATION (REFER TO SMARTSET #3291) 07/31/2016 08/01/2015 (Discussed) Depression Monitoring 03/23/2020 03/23/2019 Diabetic Eye Exam 04/24/2022 04/24/2021, 11/03/2013 COVID-19 Vaccine ( season) 2023 05/17/2020, 04/19/2020 Influenza Vaccine (FLU shot) (#1) 2023 12/25/2022, 11/10/2021, 11/19/2020, Additional history exists HbA1c 01/23/2024 07/23/2023, 07/09, 12/25/2022, Additional history exists Albumin/Creatinine Ratio 07/21/2024 07/22/2023, 05/09 GFR 07/22/2024 07/23/2023, 07/09, 07/22/2023, Additional history exists O2 ASSESSMENT COMPLETED IN PAST YEAR FOR COPD 11/19/2024 11/20/2023 Lipid Panel 07/21/2028 07/22/2023, 03/12, 08/24/2020, Additional [...] Agents on File Name Relationship Healthcare Agent [facility] Communication Jam Rachel Cousin First Alternate Health Care Agent (per Health Care Power of Streets And Buildings Decorator document) Care Teams Electrician Third Relationship Specialty Start Date End Date Julia Veras MD [address] [place] [phone] PCP - General Family Medicine 06/15/23 documented as of this encounter
--- OUTSIDE RECORDS SUMMARY | 2024-05-26 06:39 | External Medical Summary | Summary of Care ---
Author Name Unknown Organization [facility] Address [address] [place] [address] Phone [phone] Care Team Providers Care Sponsorship Coordinator Name Role Phone Julia Veras MD Primary Care Provi radhika Reason for Visit * Reason Comments eRx-Medication Refill Encounter Details Date Type Department Care Team ([facility] Contact Info) Description 12/13/2023 Refill Family [address] [phone] Julia Veras MD [address] [place] [phone] Allergies Active Allergy Reactions Criticality Noted Date Comments Sulfamethoxazole-Trimethoprim Hives 2021 denies documented as of this encounter (statuses as of 12/16/2023) Medications Medication Sig Dispensed Refills Start Date End Date Status CPAP every night at bedtime. Active Vitamin D3 50 MCG (1999) Oral CapsuleIndications: Vitamin D deficiency TAKE 1 CAPSULE BY MOUTH ONCE DAILY 90 Capsule 3 3 Active Levocetirizine Dihydrochloride 5 MG Oral Tablet Take 1 Tablet by mouth every evening. 90 Tablet 3 3 Active amLODIPine Besylate 5 MG [...] MG/24HR Transdermal Patch 24 Hour (Nicoderm CQ)Indications:Toba accounting instructor use disorder One 7 mg patch daily [...] NEEDED FOR SLEEP 30 Tablet 4 Active Furosemide 40 MG Oral Tablet (Lasix) Take 1 Tablet by mouth in the morning. 30 Tablet 2 4 Active Furosemide 40 MG Oral Tablet (Lasix) Take 1 Tablet by mouth in the morning. 30 Tablet 2 4 12/16/19 24 Discontinued documented as of this [...] Overview: Added automatically from request for surgery [id number] Decreased hearing of both ears 11/11/2021 Wears [...] pain 07/23/2023 07/29/2023 Depression, unspecified 07/16/2023 0507/2023 Overview: A more specified dx for depression [...] Notes * Telephone Encounter - Katherine Aguirre [facility] - 12/16/2023 9:40 AM EDT Signed Prescriptions: Disp Refills Furosemide 40 MG Oral Tablet (Lasix) 30 Tab*2 Sig: Take 1 Tablet by mouth in the morning.Authorizing Provider: JULIA VERAS User: KATHERINE AGUIRRE * Telephone Encounter - Ivanna, E-Rx Ss Inbound - 12/15/2023 6:46 PM EDT Pending Prescriptions: Disp Refills Furosemide 40 MG Oral Tablet [Pharmacy Med*30 Tab*0 Sig: Take 1Tablet by mouth in the morning. documented in this encounter Plan of Treatment Upcoming Encounters Date Type Department Care Team ([facility] Contact Info) Description 12/24/2023 8:30 AM EDT [facility] Visit [facility] [address] [place] [address] Karen Rubin PA-C [address] [place] [address] 12/24/2023 1:00 PM EDT Office Visit Dermatology [address] [phone] Melchor Christopher PA-C [address] [place] [address] 01/01/2024 2:30 PM EDT [facility] Visit [facility] [address] [place] [address] Macarena Watson RN [address] [place] [address] 01/09/2024 10:00 AM EDT Appointment Cardiac Studies 1st Fl, [facility] [address] [place] [address] 02/21/2024 3:00 PM EST Office Visit Podiatry [address] [place] [phone] Drew Carbajal, LEOBARDO [address] [place] [address] 03/17/2024 4:00 PM EST Office Visit Family Practice [address] [phone] Julia Veras MD [address] [place] [phone] 07/13/2024 3:20 PM EDT Office Visit Sleep Disorders Ctr [facility] [address] [place] [phone] Sandra Vuongaret, [address] [place] [address] Health Maintenance Due Date Last Done Comments [...] Agents on File Name Relationship Healthcare Agent [facility] Communication Jam Rachel Cousin First Alternate Health Care Agent (per Health Care Power of Client Associate document) Care Teams Sponsorship Coordinator Relationship Specialty Start Date End Date Julia Veras MD [address] [place] [phone] PCP - General Family Medicine 06/15/23 documented as of this encounter
--- OUTSIDE RECORDS SUMMARY | 2024-05-26 06:39 | External Medical Summary | Summary of Care ---
Author Name Unknown Organization [facility] Address [address] [place] [address] Phone [phone] Care Team Providers Care Auto Heater Mechanic Name Role Phone Julia Harman MD Primary Care Provi radhika Reason for Visit * Reason Onset Date Comments Information 12/16/2023 Encounter Details Date Type Department Care Team ([facility] Contact Info) Description 12/16/2023 Telephone Family [address] [phone] Julia Harman MD [address] [place] [phone] Information Allergies Active Allergy Reactions Criticality Noted Date Comments Sulfamethoxazole-Trimethoprim Hives 2021 denies documented as of this encounter (statuses as of 12/18/2023) Medications Medication Sig Dispensed Refills Start Date [...] BREAKFAST 90 Capsule 3 04/19/19 24 Active Apixaban 5 MG Oral Tablet (Eliquis)Indication s:Atrial fibrillation, unspecified type (HCC) Take 1 Tablet by mouth in the morning and 1 Tablet before bedtime. 60 Tablet 5 07/02/19 24 Active Nicotine 7 MG/24HR Transdermal Patch 24 Hour (Nicoderm CQ)Indications:Toba charge accounts audit clerk use disorder One 7 mg patch daily [...] 1 Tablet before bedtime. 90 Tablet 1 08/27/19 24 Active Famotidine 40 MG Oral Tablet [...] BEDTIME 100 Tablet 3 09/18/19 24 Active Potassium Chloride ER 10 MEQ Oral Tablet Extended Release Take 1 Tablet by mouth in the morning. 90 Tablet 10/21/19 24 Active Atorvastatin Calcium 40 MG Oral Tablet (Lipitor)Indication s:SOB (shortness of breath),Aortic root enlargement (HCC) Take 1 Tablet by mouth in the morning. 100 Tablet 3 10/21/19 24 Active Zolpidem Tartrate 5 MG Oral Tablet (Ambien)Indications :Insomnia, unspecified type TAKE 1 TABLET BY MOUTH ONCE DAILY AT BEDTIME ONLY IF NEEDED FOR SLEEP 30 Tablet 12/10/19 24 Active Levocetirizine Dihydrochloride 5 MG Oral Tablet Take 0.5 Tablets by mouth every evening. 90 Tablet 1 12/16/19 24 Active Albuterol Sulfate HFA 108 (90 Base) MCG/ACT Inhalation Aerosol SolutionIndications :COPD, moderate (HCC) INHALE TWO PUFFS BY MOUTH EVERY FOUR HOURS NEEDED FOR WHEEZING 18 g 11/13/19 24 024 Discontinued(Re fill) Furosemide 40 MG Oral Tablet (Lasix) Take 1 Tablet by mouth in the morning. 30 Tablet 2 12/16/19 24 024 Discontinued documented as of this encounter (statuses as of 12/18/2023) Active Problems Problem Noted Date Diagnosed Date [...] Overview: Added automatically from request for surgery [id number] Decreased hearing of both ears 11/11/2021 Wears [...] as of this encounter (statuses as of 12/18/2023) Resolved Problems Problem Noted Date Diagnosed Date [...] as of this encounter (statuses as of 12/18/2023) Immunizations Name Administration Dates Next Due COVID-19 [...] encounter Miscellaneous Notes * Telephone Encounter - Anna Madera LPN - 12/18/2023 12:32 PM EDT Called and confirmed with pharmacy. This has been filled and they have notified patient. * Telephone Encounter - Julia Harman MD - 12/17/2023 9:37 AM EDT Yes - dose decreased to 2.5 mg. * Telephone Encounter - Megan Matta CPhT - 12/16/2023 3:49 PM EDT [facility] calling in to clarify that the dose is correct on script sent for Levocetirizine Dihydrochloride 5 MG Oral Tablet. Has the dose been decreased to 0.5? Thank you, Megan Matta Encoding Machine Operator [facility] 12/16/2023,3:53 PM documented in this encounter Plan of Treatment Upcoming Encounters Date Type Department Care Team (Late st Contact Info) Description 12/24/2023 8:30 AM EDT Home Visit [facility] at [facility], [facility] [address] [place] [address] Karen Rubin PA-C [address] [place] [address] 12/24/2023 1:00 PM EDT Office Visit Dermatology [facility] [address] [place] [phone] Melchor Christopher PA-C [address] [place] [address] 12/31/2023 9:10 AM EDT Laboratory Laboratory [facility], [address] [phone] [facility] [address] [place] [address] 01/01/2024 2:30 PM EDT Home Visit [facility] at [facility], [facility] [address] [place] [address] Macarena Watson RN [address] [place] [address] 01/09/2024 10:00 AM EDT Appointment Cardiac Studies 1st Fl, [facility] [address] [place] [address] 02/21/2024 3:00 PM EST Office Visit Podiatry [address] [place] [phone] Drew Carbajal, LEOBARDO [address] [place] [address] 02/24/2024 2:45 PM EST Office Visit Cardiology [address] [place] [phone] Vero Gee CRNP [address] [place] [address] 03/17/2024 4:00 PM EST Office Visit Family [facility] [address] [place] [address] Julia Harman MD [address] [place] [phone] 07/13/2024 3:20 PM EDT Office Visit Sleep Disorders Ctr [facility] [address] [place] [phone] Sandra Vuong, [address] [place] [address] Health Maintenance Due Date Last Done Comments [...] exists DISCUSS TOBACCO CESSATION (REFER TO SMARTSET #9800) 12/16/2024 12/17/2023 (Discussed), 08/01/2015 (Discussed) O2 ASSESSMENT [...] Agents on File Name Relationship Healthcare Agent [facility] Communication Jam Rachel Cousin First Alternate Health Care Agent (per Health Care Power of Dipper Fish document) Care Teams Auto Heater Mechanic Relationship Specialty Start Date End Date Julia Harman MD [address] [place] [phone] PCP - General Family Medicine 06/15/23 documented as of this encounter
--- OUTSIDE RECORDS SUMMARY | 2024-05-26 06:39 | External Medical Summary | Summary of Care ---
Author Name Unknown Organization [facility] Address [address] [place] [address] Phone [phone] Care Team Providers Care Home Theater Experience Expert Name Role Phone Julia Harman MD Primary Care Provi radhika Reason for Visit * Reason Comments Emergency Department Follow-Up Encounter Details Date Type Department Care Team (Latest Contact Info) Description 12/17/2023 4:40 PM EDT Office Visit [address] [phone] Julia Harman MD [address] [place] [phone] Chronic heart failure with preserved ejection fraction (HCC)*; COPD, group C, by GOLD 2017 classification (HCC); COPD, moderate (HCC); Diabetes mellitus without complication (HCC); Need for vaccination; Tobacco use Allergies Active Allergy Reactions Criticality Noted Date [...] MG/24HR Transdermal Patch 24 Hour (Nicoderm CQ)Indications:Toba forensic accountant use disorder One 7 mg patch [...] FOR WHEEZING 18 g 12/17/19 24 Active Albuterol Sulfate HFA 108 [...] mass index (BMI) 40.0-44.9, adult 05/07/202 4 Last Assessment & Plan: Pt has [...] Overview: Added automatically from request for surgery [id number] Decreased hearing of both ears 11/11/2021 Wears [...] (Prevnar) 12/09/2017,08/01/2015 Pneumococcal Conjugate Vacci ne, 20-valent (Osgwaoc23) 12/18/2023(Deferred: Patient Refused) Pneumococcal Polysaccharide PPV23 (Pneumovax) [...] Sign Reading Time Taken Comments Blood Pressure 132/78 12/17/2023 4:36 PM EDT Pulse 84 12/17/2023 4:36 PM EDT Temperature 36.1 C (97 F) 12/17/2023 4:36 PM EDT Respiratory Rate 20 12/17/2023 4:36 PM EDT Oxygen Saturation 96% 12/17/2023 4:36 PM EDT Inhaled Oxygen Concentration - - Weight 119.7 kg (264 lb) 12/17/2023 4:36 PM EDT Height - - Body Mass Index 42.61 08/16/2023 8:54 AM EDT documented in this encounter Functional Status Functional [...] No 07/23/2023 documented as of this encounter Patient Instructions * Patient Instructions* Julia Harman MD - 12/17/2023 4:53 PM EDT With your history of heart failure, your healthcare provider has recommended increasing your diuretic if your weight is: Greater than or equal to 3 pounds in 24 hours over your baseline weight OR Greater than or equal to 5 pounds in 3 days over your baseline weight Increase your dose of your daily diuretic to furosemide 60 mg twice daily for 3 days (take 3 extra pills of furosemide for 3 days) Call the clinic if: 1. Your weight does not return to baseline. 2. Your urine output becomes less than half of the usual amount. 3. You experience nausea, muscle cramps, dizziness, fainting, chest pain, worsening cough, worsening shortness of breath or worsening swelling. documented in this encounter Progress Notes * Julia Harman MD - 12/17/2023 4:40 PM EDT Images from the original note were not included. History of Present Illness Gaurav Hall is a 73 year old male with HFpEF, aortic root enlargement, ascending aortic aneurysm, hypertension, atrial fibrillation, type 2 diabetes, COPD, hyperlipidemia that presents for Emergency Department Follow-Up Presents today for ER follow up. Went to [facility] on 12/14/2023 due to shortness of breath.Vitals were stable without hypoxia. Work up showed unremarkable CBC, CMP, negative troponin, BNP of288, negative RVP. Chest xray with mild cardiomegaly, otherwise clear. He was given solumedrol, a duoneb, and IV lasix with improvement in symptoms. He was told to double his lasix on discharge, but he has pill packs and says he couldn't double them without a prescription. Minimal edema today. Weight is stable. Still feeling SOB. No chest pain. Has stress test scheduled 01/08. No cardiology follow up scheduled. Smoking 2 cigarettes per day. He eats TV dinners every night. Did not know there was salt in them. Does not drink much water during the day. Physical Exam Vitals: 12/17/23 1636 Temp: 36.1 C (97 F) Pulse: 84 Resp: 20 SpO2: 96% BP: 132/78 Wt Readings from Last 3 Encounters: 12/17/23 119.7 kg (264 lb) 11/20/23 119.2 kg (262 lb 12.8 oz) 10/21/23 120.2 kg (265 lb) Physical Exam Vitals and nursing note reviewed. Constitutional: General: He is not in acute distress. Appearance: Normal appearance. He is not toxic-appearing. HENT: Head: Normocephalic and atraumatic. Mouth/Throat: Mouth: Mucous membranes are moist. Pharynx: Oropharynx is clear. Cardiovascular: Rate and Rhythm: Normal rate and regular rhythm. Pulses: Normal pulses. Heart sounds: Normal heart sounds. No murmur heard. Pulmonary: Effort: Pulmonary effort is normal. No respiratory distress. Breath sounds: Normal breath sounds. Musculoskeletal: Right lower leg: Edema present. Left lower leg: Edema present. Comments: Trace edema to ankles bilaterally Skin: General: Skin is warm and dry. Capillary Refill: Capillary refill takes less than 2 seconds. Findings: No rash. Neurological: General: No focal deficit present. Mental Status: He is alert and oriented to person, place, and time. Mental status is at baseline. Psychiatric: Mood and Affect: Mood normal. Behavior: Behavior normal. I have reviewed the following results: EKG, chest xray, echo, CMP, Lipid Panel, Hemoglobin A1C, andCBC Assessment and Plan Chronic heart failure with preserved ejection fraction (HCC) Reviewed low salt diet (low sodium TV dinners) and fluid restriction. Increase lasix to 60 mg daily. Reviewed DTP with patient both verbally with teach back and in written instructions. Labs 2 weeks.Schedule f/u with cardiology and reminded to complete stress test. - Furosemide 40 MG Oral Tablet (Lasix); Take 1.5 Tablets by mouth in the morning. - Furosemide 20 MG Oral Tablet (Lasix); Take 3 Tablets by mouth daily as needed (Edema, weight gain). Take NEEDED for weight gain or leg swelling as described in your diuretic titration plan. - COMPREHENSIVE METABOLIC PANEL; Future COPD, group C, by GOLD 2017 classification (HCC) COPD, moderate (HCC) Refilled. Counseled on smoking cessation - Albuterol Sulfate HFA 108 (90 Base) MCG/ACT Inhalation Aerosol Solution; INHALE TWO PUFFS BY MOUTH EVERY FOUR HOURS NEEDED FOR WHEEZING Diabetes mellitus without complication (HCC) Update labs. Schedule eye exam - CBC WITH WBC DIFFERENTIAL; Future - COMPREHENSIVE METABOLIC PANEL; Future - HEMOGLOBIN A1C; Future - LIPID PANEL WITH DIRECT LDL IF TG IS HIGH; Future - ALBUMIN / CREATININE RATIO, URINE; Future Need for vaccination - PNEUMOCOCCAL VACC, PCV20, IM ([id number]) - INFLUENZA VAC., TRIVALENT, HD, PF, 65 AND ABOVE, 0.5 ML IM (FLUZONE HD) Tobacco use Counseled Wrap-Up Follow Up: Return in about 3 months (around 03/18/2024) for Return with Physician. | For: Return withPhysician | Check-out note: Needs to schedule cardiology follow up Labs 2 weeks Time: I spent a total of 20-29 minutes (exact time 28 mins) on the date of service in preparation, delivery, and documentation of the care provided to Gaurav Hall excluding any time spent in the performance of separately billed services. documented in this encounter Nursing Notes * Pamela Mims MED ASSIST - 12/17/2023 4:37 PM EDT The patient has been properly identified by confirmation of name and date of . Chief Complaint Patient presents with Emergency Department Follow-Up Pt c/o not being able to fall asleep at night. Wants a prescription for an inhaler. Wants to know why he keeps filling up with fluid. documented in this encounter Plan of Treatment Upcoming Encounters Date Type Department Care Team (Late st Contact Info) Description 12/24/2023 8:30 AM EDT [facility] Visit [facility] [address] [place] [address] Karen Rubin PA-C [address] [place] [address] 12/24/2023 1:00 PM EDT Office Visit Dermatology [facility] [address] [place] [phone] Melchor Christopher PA-C [address] [place] [address] 12/31/2023 9:10 AM EDT Laboratory [facility], [address] [phone] Margi Lab [facility] [address] [place] [address] 01/01/2024 2:30 PM EDT Home Visit [facility] [address] [place] [address] Macarena Watsno RN [address] [place] [address] 01/09/2024 10:00 AM EDT Appointment Cardiac Studies 1st Fl, [facility] [address] [place] [address] 02/21/2024 3:00 PM EST Office Visit Podiatry [address] [place] [phone] Drew Carbajal, DPDarien [address] [place] [address] 02/24/2024 2:45 PM EST Office Visit Cardiology [address] [place] [phone] Vero Gee CRNP [address] [place] [address] 03/17/2024 4:00 PM EST Office Visit [facility] [address] [place] [phone] Julia Harman MD [address] [place] [phone] 07/13/2024 3:20 PM EDT Office Visit [facility] [address] [place] [place] [phone] Sandra Vuong DO [address] [address] Scheduled Orders Name Type Priority Associated Diagnoses Orde r Schedule CBC WITH WBC DIFFERENTIAL Lab Routine Diabetes mellitus without complication (HCC) Expected: 12/31/2023 (Approximate), Expires: 12/16/2024 COMPREHENSIVE METABOLIC PANEL Lab Routine Chronic heart failure with preserved ejection fraction (HCC) Diabetes mellitus without complication (HCC) Expected: 12/31/2023 (Approximate), Expires: 12/16/2024 HEMOGLOBIN A1C Lab Routine Diabetes mellitus without complication (HCC) Expected: 12/31/2023 (Approximate), Expires: 12/16/2024 LIPID PANEL WITH DIRECT LDL IF TG IS HIGH Lab Routine Diabetes mellitus without complication (HCC) Expected: 12/31/2023 (Approximate), Expires: 12/16/2024 ALBUMIN / CREATININE RATIO, URINE Lab Routine Diabetes mellitus without complication (HCC) Expected: 12/31/2023 (Approximate), Expires: 12/16/2024 Health Maintenance Due Date Last Done Comments [...] failure with preserved ejection fraction (HCC)- Primary COPD, group C, by GOLD 2017 classification (HCC) COPD, moderate (HCC) Chronic airway obstruction, not elsewhere classified Diabetes mellitus without complication (HCC) Type II or unspecified type diabetes mellitus without mention of complication, not stated as uncontrolled Need for vaccination Need for prophylactic vaccination and inoculation against unspecified single disease Tobacco use Tobacco use disorder documented in this encounter Advance Directives * [...] Care Agent (per Health Care Power of Traffic Control Supervisor document) Care Teams Home Theater Experience Expert Relationship Specialty Start Date End Date Julia Harman MD [address] [place] [phone] PCP - General Family Medicine 06/15/23 documented as of this encounter"
--- OUTSIDE RECORDS SUMMARY | 2024-05-26 06:40 | External Medical Summary | Summary of Care ---
Author Name Unknown Organization [facility] Address [address] [place] [address] Phone [phone] Care Team Providers Care Studio Designer Name Role Phone Julia Harman MD Primary Care Provi radhika Reason for Visit * Reason Comments eRx-Medication Refill Encounter Details Date Type Department Care Team ([facility] Contact Info) Description 12/04/2023 Refill Family [address] [phone] Julia Harman MD [address] [place] [phone] Insomnia, unspecified type Allergies Active Allergy Reactions Criticality Noted Date Comments Sulfamethoxazole-Trimethoprim Hives 2021 denies documented as of this encounter (statuses as of 12/10/2023) Medications Medication Sig Dispensed Refills Start Date [...] MG/24HR Transdermal Patch 24 Hour (Nicoderm CQ)Indications: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 90 Tablet 3 4 Active Furosemide 40 MG Oral Tablet (Lasix) Take 1 Tablet by mouth in the morning. 30 Tablet 2 4 Active Montelukast Sodium 10 MG Oral [...] IF NEEDED FOR SLEEP 30 Tablet 4 12/10/19 24 Discontinued documented as of this encounter (statuses as of 12/10/2023) Active Problems Problem Noted Date Diagnosed Date PAF (paroxysmal atrial fibrillation) 10/21/2023 Aortic root enlargement 10/21/2023 SOB (shortness of breath) 10/21/2023 Diabetes mellitus without complication Last Assessment & Plan: A1C has been slowly trending up. Now at 7.0 Ascending aortic aneurysm 08/09/2023 Nonrheumatic aortic valve insufficiency 08/09/19 24 Chronic heart failure with preserved ejection fr action 08/09/2023 Last Assessment & Plan: Lasix 40mg daily Leukocytosis 07/23/2023 Body mass index (BMI) 40.0-44.9, adult 4 [...] Overview: Added automatically from request for surgery [id number] Decreased hearing of both ears 11/11/2021 Wears [...] as of this encounter (statuses as of 12/10/2023) Resolved Problems Problem Noted Date Diagnosed Date Resolved Date Acute CHF (congestive heart failure) 07/23/2023 08/09/2023 ELFEGO (acute kidney injury) 07/23/2023 Chest pain 07/23/2023 07/29/2023 Depression, unspecified 07/16/202307/09 [...] as of this encounter (statuses as of 12/10/2023) Immunizations Name Administration Dates Next Due COVID-19 mRNA, LNP-s, No Pre serve, 2-Dose Series (Moderna) 05/17/2020,04/19/2020 Pneumococcal Conjugate Vacc, 13 Valent (Prevnar) 12/09/2017,08/01/2015 Pneumococcal Polysaccharide PPV23 (Pneumovax) 12/15/2018,02/14/2013 Seasonal Influenza, PF, 6 M & above, IM , (FluLaval or Fluzone) 12/03/2016 Seasonal Influenza, Quadriva lent Hd (Fluzone Hd) 12/25/2022,11/10/2021,11/19/2020 Seasonal Influenza, Quadriva lent Hd, 65+ Yrs 12/18/2019 Seasonal Influenza, Quadriva lent, No Preserve, IM 12/09/2014 Seasonal Influenza, Trivalen t, (IIV3), with Preserv, (Fluzone) 12/01/2013,11/23/2012 Seasonal Influenza, Trivalen t, Adjuvanted, 65+ YRS, [...] Telephone Encounter - Julia Harman MD - 12/10/2023 7:38 AM EDT Signed Prescriptions: Disp Refills Zolpidem Tartrate 5 MG Oral Tablet (Ambien)30 Tab*0 Sig: TAKE 1 TABLET BY MOUTH ONCE DAILY AT BEDTIME ONLY IF NEEDED FOR SLEEP Authorizing Provider: JULIA HARMAN * Telephone Encounter - Ivanna, E-Rx Ss Inbound - 12/08/2023 5:26 PM EDT Pending Prescriptions: Disp Refills Zolpidem Tartrate 5 MG Oral Tablet [Pharma*30 Tab*0 Sig: TAKE 1 TABLET BY MOUTH ONCE DAILY AT BEDTIME ONLY IF NEEDED FOR SLEEP * Telephone Encounter - Interface, E-Rx Ss Inbound - 12/06/2023 5:25 PM EDT Pending Prescriptions: Disp Refills Zolpidem Tartrate 5 MG Oral Tablet [Pharma*30 Tab*0 Sig: TAKE 1 TABLET BY MOUTH ONCE DAILY AT BEDTIME ONLY IF NEEDED FOR SLEEP * Telephone Encounter - Carol Jacob [facility] - 12/05/2023 5:13 PM EDT Pending Prescriptions: Disp Refills Zolpidem Tartrate 5 MG Oral Tablet [Pharma*30 Tab*0 Sig: TAKE 1 TABLET BY MOUTH ONCE DAILY AT BEDTIME ONLY IF NEEDED FOR SLEEP Electronically signed by Carol Jacob [facility] at 12/05/2023 5:13 PM EDT * Telephone Encounter - Carol Jacob [facility] - 12/05/2023 5:13 PM EDT I have reviewed the patients controlled substance dispensing history in the Prescription Drug Monitoring Program in compliance with the [facility] regulations before prescribing a controlled substance. PDMP checked on 12/05/2023. Pending Prescriptions: Disp Refills Zolpidem Tartrate 5 MG Oral Tablet (Ambie*30 Tab*0 Sig: TAKE 1 TABLET BY MOUTH ONCE DAILY AT BEDTIME ONLY IF NEEDED FOR SLEEP Last Visit: 11/20/2023 (in office), 06/16/2020 (telemedicine) Next Visit: 03/17/2024 Date medication was last filled: 11/06/23 Date medication is due for refill: 12/05/23 Pharmacy: [id number] [address] [facility] Is this request for a controlled substance? Yes and Urine Drug Screen was completed Toxicology results: Results for orders placed [...] Results Review. Please approve if appropriate. Thank you, Carol Jacob, PharmD Clinical Pharmacist [facility] ([facility]) 12/05/23 5:13 PM [phone] documented in this encounter Plan of Treatment Upcoming Encounters Date Type Department Care Team (Late st Contact Info) Description 12/24/2023 8:30 AM EDT Home Visit [facility] [place] [address] [place] [address] Kaern Rubin PA-C [address] [place] [address] 12/24/2023 1:00 PM EDT Office Visit Dermatology [facility] [address] [place] [phone] Melchor Christopher PA-C [address] [place] [address] 01/01/2024 2:30 PM EDT Home Visit [facility] [address] [place] [address] Macarena Watson RN [address] [place] [address] 01/09/2024 10:00 AM EDT Appointment Cardiac Studies [facility] [address] [place] [address] 02/21/2024 3:00 PM EST Office Visit Podiatry [facility] [address] [facility] [address] [place] [phone] Drew Carbajal, DPM [address] [place] [address] 03/17/2024 4:00 PM EST Office Visit Family Practice [facility] [address] [place] [address] Julia Harman MD [address] [place] [phone] 07/13/2024 3:20 PM EDT Office Visit [facility] [address] [place] [phone] Sandra Vuong, [address] [address] Health Maintenance Due Date Last Done Comments [...] File Name Relationship [facility] Communication Jam Rachel Cousin First Alternate Health Care Agent (per Health Care Power of Typewriter Aligner document) Care Teams Studio Designer Relationship Specialty Start Date End Date Julia Harman MD [address] [place] [phone] PCP - General Family Medicine 06/15/23 documented as of this encounter
--- OUTSIDE RECORDS SUMMARY | 2024-05-26 06:40 | External Medical Summary ---
Author Name Unknown Address Unknown Organization R4[facility] [address] [address] Laboratory Report Ordering Provider Test Date Status MI AUDREYASHLEYJOSÉ MIGUELNINI 12/14/2023 18:08:00 Final Observation Date Value Abnormality Reference (Units ) Status Prothrombin Time 12/14/2023 18:33 15.9 Above high garcia l 11.9-14.5 (Sec) Final INR 12/14/2023 18:33 1.3 Fin al Performing Location [facility] [address] [address]
--- OUTSIDE RECORDS SUMMARY | 2024-05-26 06:40 | External Medical Summary ---
Author Name Unknown Address Unknown Organization [facility] [address] [id number] Laboratory Report Ordering Provider Test Date Status IMELDA LEE 12/14/2023 18:08:00 Final Observation Date Value Abnormality Reference (Units ) Status High Sensitivity Troponin I 12/14/2023 18:47 3 <18 (ng/L) Final AuralityCoulter Access hs-Tro ponin I assay Performing Location [facility] [address] [address]
--- OUTSIDE RECORDS SUMMARY | 2024-05-26 06:40 | External Medical Summary | Summary of Care ---
Author Name Unknown Organization [facility] Address [address] [place] [address] Phone [phone] Care Team Providers Care Anthropologist Name Role Phone Julia Harman MD Primary Care Provi radhika Reason for Visit * Reason Onset Date Comments Appointment 12/09/2023 Encounter Details Date Type Department Care Team ([facility] st Contact Info) Description 12/09/2023 Telephone [facility] [place] [address] [place] [address] Juwan Chang, ARMIDA [address] [place], [place] [phone] Appointment Allergies Active Allergy Reactions Criticality Noted Date Comments Sulfamethoxazole-Trimethoprim Hives 2021 denies documented as of this encounter (statuses as of 12/09/2023) Medications Medication Sig Dispensed Refills Start Date End Date Status CPAP every night at bedtime. Active Vitamin D3 50 MCG (1999) Oral CapsuleIndications:Vi tamin D deficiency TAKE 1 CAPSULE BY MOUTH ONCE DAILY 90 Capsule 3 11/30/2022 Active Levocetirizine Dihydrochloride 5 MG Oral Tablet Take 1 Tablet by mouth every evening. 90 Tablet 3 12/25/2022 Active amLODIPine Besylate 5 MG Oral Tablet [...] the morning. 90 Tablet 3 09/10/2023 Active Furosemide 40 MG Oral Tablet (Lasix) Take 1 Tablet by mouth in the morning. 30 Tablet 2 09/13/2023 Active Montelukast Sodium 10 MG Oral Tablet [...] ONLY IF NEEDED FOR SLEEP 30 Tablet 11/06/2023 Active Albuterol Sulfate HFA 108 (90 Base) MCG/ACT Inhalation Aerosol SolutionIndications:C OPD, moderate (HCC) INHALE TWO PUFFS BY MOUTH EVERY FOUR HOURS NEEDED FOR WHEEZING 18 g 11/13/2023 Active documented as of this encounter (statuses as of 12/09/2023) Active Problems Problem Noted Date Diagnosed Date [...] 07/23/2023 Body mass index (BMI) 40.0-44.9, adult Last [...] Overview: Added automatically from request for surgery [id number] Decreased hearing of both ears 11/11/2021 Wears [...] as of this encounter (statuses as of 12/09/2023) Resolved Problems Problem Noted Date Diagnosed Date [...] as of this encounter (statuses as of 12/09/2023) Immunizations Name Administration Dates Next Due COVID-19 [...] No 03/14/2023 Does the household have a [facility] source of income? (Household - for ages [...] encounter Miscellaneous Notes * Telephone Encounter - Juwan Chang OSA - 12/09/2023 9:32 AM EDT Template request to rs RN appt 12/12. Appt rs 12/31. Called and LMOM with appt details and call backif appt does not work for pt. documented in this encounter Plan of Treatment Upcoming Encounters Date Type Department Care Team ([facility] st Contact Info) Description 12/24/2023 8:30 AM EDT Home Visit [facility] [address] [address] Karen Rubin PA-C [address] [place] [address] 12/24/2023 1:00 PM EDT Office Visit Dermatology [address] [phone] Melchor Christopher PA-C [address] [place] [address] 01/01/2024 2:30 PM EDT [facility], [address] [place] [address] Macarena Watson RN [address] [place] [address] 01/09/2024 10:00 AM EDT Appointment Cardiac Studies 1st Fl, [facility] [address] [place] [address] 02/21/2024 3:00 PM EST Office Visit Podiatry [facility] [address] [facility] [address] [place] [address] Drew Carbajal, DPM [address] [place] [address] 03/17/2024 4:00 PM EST Office Visit Family Practice [facility] [address] [place] [phone] Julia Harman MD [address] [place] [phone] 07/13/2024 3:20 PM EDT Office Visit [facility] [address] [place] [phone] Sandra Vuong, [address] [facility] [address] [address] Health Maintenance Due Date Last Done Comments [...] Relationship Healthcare Agent [facility] Communication Jam Lorrilyly Cousin First Alternate Health Care Agent (per Health Care Power of Wood Room Supervisor document) Care Teams Anthropologist Relationship Specialty Start Date End Date Julia Harman MD [address] [place] [phone] PCP - General Family Medicine 06/15/23 documented as of this encounter
--- OUTSIDE RECORDS SUMMARY | 2024-05-26 06:40 | External Medical Summary | Summary of Care ---
Author Name Unknown Organization [facility] Address [address] [place] [address] Phone [phone] Care Team Providers Care Centrifugal Wax Molder Name Role Phone Julia Harman MD Primary Care Provi radhika Encounter Details Date Type Department Care Team (Late st Contact Info) Description 11/28/2023 Population Health External Data Unspecified Department Allergies Active Allergy Reactions Criticality Noted Date Comments Sulfamethoxazole-Trimethoprim Hives 2021 denies documented as of this encounter (statuses as of 12/02/2023) Medications Medication Sig Dispensed Refills Start Date [...] as of this encounter (statuses as of 12/02/2023) Active Problems Problem Noted Date Diagnosed Date [...] Overview: Added automatically from request for surgery [id number] Decreased hearing of both ears 11/11/2021 Wears dentures 01/01/2020 Anxiety state 03/17/2019 Last Assessment & Plan: Luvox 100mg QHS Moderate episode of recurrent major depressive d isorder 01/06/2018 Last Assessment & Plan: Currently on Luvox 100mg daily Hyperlipidemia with target LDL less than 130 12/ Overview: ICD-10 update of inactive term ARMIDA (obstructive sleep apnea) 02/20/2013 Insomnia 02/20/2013 HTN, GOAL BELOW 140/90 01/31/2009 Overview: Modified per HTN protocol #16. Gastroesophageal reflux disease without esophagi tis Last Assessment & Plan: Esomeprazole and Pepcid daily Tobacco use disorder Last Assessment & Plan: Claims that he is trying to quit smoking. documented as of this encounter (statuses as of 12/02/2023) Resolved Problems Problem Noted Date Diagnosed Date [...] as of this encounter (statuses as of 12/02/2023) Immunizations Name Administration Dates Next Due COVID-19 [...] No 03/14/2023 Does the household have a [facility] source of income? (Household - for ages [...] Care Team (Late st Contact Info) Description 12/13/2023 2:30 PM EDT Home Visit [facility] [address] [place] [address] Macarena Watson RN [address] [place] [address] 12/24/2023 8:30 AM EDT Home Visit [facility] [address] [place] [address] Karen Rubin PA-C [address] [place] [address] 12/24/2023 1:00 PM EDT Office Visit Dermatology [facility] [address] [place] [phone] Melchor Christopher PA-C [address] [place] [address] 01/09/2024 10:00 AM EDT Appointment Cardiac Studies 1st Fl, [facility] [address] [place] [address] 02/21/2024 3:00 PM EST Office Visit Podiatry [address] [place] [phone] Drew Carbajal, DPDarien [address] [place] [address] 03/17/2024 4:00 PM EST Office Visit Family Practice [facility] [address] [place] [address] Julia Harman MD [address] [place] [address], [place] [phone] 07/13/2024 3:20 PM EDT Office Visit [facility] Disorders [facility] [address] [place] [phone] Sandra Vuong, [address] [place] [address] Health Maintenance Due Date Last Done Comments [...] Agents on File Name Relationship Healthcare Agent [facility] p Communication Jam Virginie Cousin First Alternate Health Care Agent (per Health Care Power of Director Pharmaceutical document) Care Teams Centrifugal Wax Molder Relationship Specialty Start Date End Date Julia Harman MD [address] [place] [phone] PCP - General Family Medicine 06/15/23 documented as of this encounter
--- OUTSIDE RECORDS SUMMARY | 2024-05-26 06:40 | External Medical Summary ---
Author Name Unknown Address Unknown Organization R4LH:[facility] [address] [place] [address] Laboratory Report Ordering Provider Test Date Status IMELDA LEE 12/14/2023 18:08:00 Final Observation Date Value Abnormality Reference (Units ) Status aPTT 12/14/2023 18:34 33.8 22.6-34.3 (SE C) Final Performing Location [facility] [address] [place] [address]
--- OUTSIDE RECORDS SUMMARY | 2024-05-26 06:40 | External Medical Summary ---
Author Name Unknown Address Unknown Organization R4LH:[facility] [address] [place] [address] Laboratory Report Ordering Provider Test Date Status MI AUDREYIMELDA 12/14/2023 18:08:00 Final Observation Date Value Abnormality Reference (Units ) Status B-Type Natriuretic Peptide 12/14/2023 18:57 288 Above high normal <100 (pg/mL) Final Less than 100 pg/mL: heart f ailure is improbable. Greater than 100 pg/mL; heart failure is increasingly probable. At levels greater than 500 pg/mL; heart failure is the most likely diagnosis. BNP results should always be interpreted in the context of other clinical information, especially in the range between 100 and 500 pg/mL. *NEJM 350, No.7; [id number]; 04/22/03 Performing Location [facility] [address] [place] [address]
--- OUTSIDE RECORDS SUMMARY | 2024-05-26 06:40 | External Medical Summary | Summary of Care ---
Author Name Unknown Organization [facility] Address [address] [place] [address] Phone [phone] Care Team Providers Care Laborer Orchard Name Role Phone Julia Harman MD Primary Care Provi radhika Encounter Details Date Type Department Care Team (Late st Contact Info) Description 12/16/2023 Population Health External Data Unspecified Department Allergies [...] the morning. 100 Tablet 3 10/21/2023 Active Albuterol Sulfate HFA 108 (90 Base) MCG/ACT Inhalation Aerosol SolutionIndications:C OPD, moderate (HCC) INHALE TWO PUFFS BY MOUTH EVERY FOUR HOURS NEEDED FOR WHEEZING 18 g 11/13/2023 Active Zolpidem Tartrate 5 MG Oral Tablet (Ambien)Indications:I nsomnia, unspecified type TAKE 1 TABLET BY MOUTH ONCE DAILY AT BEDTIME ONLY IF NEEDED FOR SLEEP 30 Tablet 12/10/2023 Active documented as of this encounter (statuses [...] Overview: Added automatically from request for surgery [id number] Decreased hearing of both ears 11/11/2021 Wears [...] ([facility] st Contact Info) Description 12/24/2023 8:30 AM EDT [facility] Visit [facility] [address] [place] [address] Karen Rubin PA-C [address] [place] [address] 12/24/2023 1:00 PM EDT Office Visit Dermatology [address] [phone] Melchor Christopher PA-C [address] [place] [address] 01/01/2024 2:30 PM EDT [facility] [address] [place] [address] Macarena Watson RN [address] [place] [address] 01/09/2024 10:00 AM EDT Appointment Cardiac Studies 1st Fl, [facility] [address] [place] [address] 02/21/2024 3:00 PM EST Office Visit Podiatry [address] [place] [phone] Drew Carbajal, DPDarien [address] [place] [address] 03/17/2024 4:00 PM EST Office Visit Family [facility] [address] [place] [phone] Julia Harman MD [address] [place] [phone] 07/13/2024 3:20 PM EDT Office Visit [facility] Disorders [facility] [address] [place] [phone] Sandra Vuong, [address] [place] [address] Health Maintenance Due Date Last Done Comments [...] Agents on File Name Relationship Healthcare Agent [facility] Communication Jam Rachel Cousin First Alternate Health Care Agent (per Health Care Power of Transformer Assembly Supervisor document) Care Teams Laborer Orchard Relationship Specialty Start Date End Date Julia Harman MD [address] [place] [phone] PCP - General Family Medicine 06/15/23 documented as of this encounter
--- OUTSIDE RECORDS SUMMARY | 2024-05-26 06:40 | External Medical Summary ---
Author Name Unknown Address Unknown Organization R4LH:[facility] [address] [place] [address] Laboratory Report Ordering Provider Test Date Status IMELDA LEE 12/14/2023 18:08:00 Final Observation Date Value Abnormality Reference (Units ) Status Lactic Acid 12/14/2023 19:00 1.6 0.4-2.0 (mm ol/L) Final Performing Location [facility] [address] [place] [address]
--- OUTSIDE RECORDS SUMMARY | 2024-05-26 06:40 | External Medical Summary ---
Author Name Unknown Address Unknown Organization R4H:[facility] [address] [place] [address] Laboratory Report Ordering Provider Test Date Status IMELDA LEE 12/14/2023 18:08:00 Final Observation Date Value Abnormality Reference (Units ) Status Glucose 12/14/2023 18:40 140 Above high normal 70-99 (mg/dL) Final BUN 12/14/2023 18:40 21 Above high normal 7-18 (mg/dL) Final Creatinine 12/14/2023 18:40 1.07 0.60-1.30 (m g/dL) Final eGFR 12/14/2023 18:40 73 >59 (mL/min/1 .73m2) Final eGFR = 142 X [min(Scr/k,1)]* *a [max(Scr/k,1)-1.200x0.9938age X 1.012 [if female] Where Scr is serum creatinine; k is 0.7 for females and 0.9 males; a is -0.241 for females and -0.302 for males; min indicates the minimum of Scr/k or 1, max indicates the maximum of Scr/k or 1 Sodium 12/14/2023 18:40 136 136-145 (mmol /L) Final Potassium 12/14/2023 18:40 3.9 3.6-5.0 (mmol /L) Final Chloride 12/14/2023 18:40 105 101-111 (mmol /L) Final CO2 12/14/2023 18:40 23 21-31 (mmol/L ) Final Anion Gap 12/14/2023 18:40 12 6-16 (mmol/L) Final Calcium 12/14/2023 18:40 8.6 8.4-10.5 (mg/ dL) Final Total Protein 12/14/2023 18:40 6.8 6.0-8.3 ( g/dL) Final Albumin 12/14/2023 18:40 3.5 3.2-5.5 (g/dL ) Final Bilirubin, Total 12/14/2023 18:40 0.6 0.2-1. 0 (mg/dL) Final AST 12/14/2023 18:40 15 10-42 (U/L) F inal ALT 12/14/2023 18:40 13 10-60 (U/L) F inal Alkaline Phosphatase 12/14/2023 18:40 100 42 -121 (U/L) Final Performing Location [facility] [address] [place] [address]
--- OUTSIDE RECORDS SUMMARY | 2024-05-26 06:40 | External Medical Summary ---
Author Name Unknown Address Unknown Organization R4LH:[facility] [address] [place] [address] Laboratory Report Ordering Provider Test Date Status IMELDA LEE 12/14/2023 19:08:00 Final Observation Date Value Abnormality Reference (Units ) Status High Sensitivity Troponin I 12/14/2023 20:12 3 <18 (ng/L) Final Five [employer] Access hs-Tro ponin I assay Performing Location [facility] [address] [place] [address]
--- OUTSIDE RECORDS SUMMARY | 2024-05-26 06:40 | External Medical Summary ---
Author Name Unknown Address Unknown Organization R4H:[facility] [address] [place] [address] Laboratory Report Ordering Provider Test Date Status IMELDA LEE 12/14/2023 18:08:00 Final Observation Date Value Abnormality Reference (Units ) Status WBC 12/14/2023 18:22 11.0 Above high normal 4.0-9.1 (X10E+09/L) Final RBC 12/14/2023 18:22 4.16 Below low normal 4.6-6.1 (X10E+12/L) Final Hemoglobin 12/14/2023 18:22 11.4 Below low normal 13.4-17.5 (g/dL) Final Hematocrit 12/14/2023 18:22 34.5 Below low normal 40-51 (%) Final MCV 12/14/2023 18:22 83.0 79-92 (fL) Final MCH 12/14/2023 18:22 27.4 26.0-32.0 (pg) Final MCHC 12/14/2023 18:22 33.0 32-37 (g/dL) Final Platelets 12/14/2023 18:22 206 150-330 (X10E+09/L) Final RDW 12/14/2023 18:22 16.4 Above high normal 11.6-14.4 (%) Final Neutrophils 12/14/2023 18:22 58.9 34.0-67.9 (%) Final Lymphocytes 12/14/2023 18:22 28.7 21.8-53.1 (%) Final Monocytes 12/14/2023 18:22 8.9 5.3-12.2 (%) Final Eosinophils 12/14/2023 18:22 3.0 0.8-7.0 (%) Final Basophils 12/14/2023 18:22 0.5 0.1-1.2 (%) Final Absolute Neutrophils 12/14/2023 18:22 6.50 Above high normal 1.8-5.4 (X10E+09/L) Final Absolute Lymphocytes 12/14/2023 18:22 3.20 1.3-3.6 (X10E+09/L) Final Absolute Monocytes 12/14/2023 18:22 1.00 Above high normal 0.3-0.8 (X10E+09/L) Final Absolute Eosinophils 12/14/2023 18:22 0.30 0.0-0.5 (X10E+09/L) Final Absolute Basophils 12/14/2023 18:22 0.00 0.0-0.1 (X10E+09/L) Final Performing Location [facility] [address] [place], [place] [address]
--- OUTSIDE RECORDS SUMMARY | 2024-05-26 06:40 | External Medical Summary ---
Author Name Unknown Address Unknown Organization R4LH:[facility] [address] [place] [address] Laboratory Report Ordering Provider Test Date Status IMELDA LEE 12/14/2023 20:06:00 Final Observation Date Value Abnormality Reference (Units ) Status UA Culture Screen 12/14/2023 20:18 Negative screen. Culture not indicated. Final Urine Clarity 12/14/2023 20:18 Clear CLER Final Urine Color 12/14/2023 20:18 Yellow YELL Final Specific [place], Urine 12/14/2023 20:18 1.020 1.000-1.025 Final Urine pH 12/14/2023 20:18 5.5 5.0-8.0 Final Urine Leukocyte Esterase 12/14/2023 20:18 Negative NEGAT Final Urine Nitrites 12/14/2023 20:18 Negative NEGAT Final Protein, Urine 12/14/2023 20:18 Negative NEGAT (mg/dL) Final Glucose, Urine 12/14/2023 20:18 Negative NEGAT (mg/dL) Final Urine Ketones 12/14/2023 20:18 Negative NEGAT Final Urine Urobilinogen 12/14/2023 20:18 0.2 0.0-1.0 (mg/dL) Final Urine Bilirubin 12/14/2023 20:18 Negative NEGAT Final Blood, Urine 12/14/2023 20:18 Negative NEGAT Final Urine Source 12/14/2023 20:06 Clean Catch Urine Final Performing Location [facility] [address] [place] [address]
--- OUTSIDE RECORDS SUMMARY | 2024-05-26 06:40 | External Medical Summary ---
Author Name Unknown Address Unknown Organization R1WR:[facility] [address] [place] [address] Laboratory Report Ordering Provider Test Date Status IMELDA STARK 12/14/2023 18:20:00 Final Observation Date Value Abnormality Reference (Units ) Status Specimen Description 12/14/2023 18:11 Blood Left Hand Final Special Requests 12/14/2023 18:11 None Final Culture 12/20/2023 06:42 No Growth 5 Days Final Report Status 12/20/2023 06:42 Final Result 12/20/2023 Final Performing Location [facility] [address] [place] [address]
--- OUTSIDE RECORDS SUMMARY | 2024-05-26 06:40 | External Medical Summary ---
Author Name Unknown Address Unknown Organization R1WR:[facility] [address] [place] [address] Laboratory Report Ordering Provider Test Date Status IMELDA STARK 12/14/2023 18:25:00 Final Observation Date Value Abnormality Reference (Units ) Status Specimen Description 12/14/2023 18:11 Blood Right Hand Final Special Requests 12/14/2023 18:11 None Final Culture 12/20/2023 06:42 No Growth 5 Days Final Report Status 12/20/2023 06:42 Final Result 12/20/2023 Final Performing Location [facility] [address] [place] [address]
--- OUTSIDE RECORDS SUMMARY | 2024-05-26 06:40 | External Medical Summary | Summary of Care ---
Author Name Unknown Organization [facility] Address [address] [place] [address] Phone [phone] Care Team Providers Care Intake Worker Name Role Phone Julia Harman MD Primary Care Provi radhika Encounter Details Date Type Department Care Team (Latest Contact Info) Description 12/12/2023 Medication Management [facility] [address] [place], [place] [phone] Radha Nuñez, [facility] [address] [place] [address] Referred for medication therapy management* Allergies Active Allergy Reactions Criticality Noted Date Comments Sulfamethoxazole-Trimethoprim Hives 2021 denies documented as of this encounter (statuses as of 12/12/2023) Medications Medication Sig Dispensed Refills Start Date [...] as of this encounter (statuses as of 12/12/2023) Active Problems Problem Noted Date Diagnosed Date [...] Overview: Added automatically from request for surgery [id number] Decreased hearing of both ears 11/11/2021 Wears [...] as of this encounter (statuses as of 12/12/2023) Resolved Problems Problem Noted Date Diagnosed Date [...] as of this encounter (statuses as of 12/12/2023) Immunizations Name Administration Dates Next Due COVID-19 [...] No 03/14/2023 Does the household have a [facility] source [facility] income? 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 TMR Interventions TMR Needs Drug Therapy - DARBY Monotherapy: ALBUTEROL AER HFA;ALBUTEROL NEB 0.083% Incomplete Encounter MTPs No medication therapy recommendations to display Complete Encounter MTPs Referred for medication therapy management Current Medication: Budesonide-Formoterol Fumarate 160-4.5 MCG/ACT Inhalation Aerosol (Symbicort) Rationale: Untreated condition - Needs additional medication therapy - Indication Recommendation: Provide Education Status: No Longer Relevant Note: TMR for DARBY monotherapy. Patient uses a maintenance inhaler daily. Assessment & Plan Indication, effectiveness, safety and convenience of his medications were reviewed today. The patient's medical conditions were assessed, evaluated, and deemed meeting goals of drug therapy, with thefollowing exceptions. SERGEY Bland Tech 12/12/2023, 8:13 PM documented in this encounter Plan of Treatment Upcoming Encounters Date Type Department Care Team (Late st Contact Info) Description 12/24/2023 8:30 AM EDT Home Visit [facility] [place] [place] [address] [place] [address] [place] [address] Karen Rubin PA-C [address] [place] [address] 12/24/2023 1:00 PM EDT Office Visit Dermatology [facility] [address] [place] [phone] Melchor Christopher PA-C [address] [place] [address] 01/01/2024 2:30 PM EDT Home Visit [facility], [facility] [address] [place] [address] Macarena Watson RN [address] [place] [address] 01/09/2024 10:00 AM EDT Appointment Cardiac Studies [facility], [facility] [address] [place] [address] 02/21/2024 3:00 PM EST Office Visit Podiatry [facility] [address] [facility] [address] [place] [phone] Drew Carbajal, DPM [address] [place] [address] 03/17/2024 4:00 PM EST Office Visit Family Practice [facility] [address] [place] [address] Julia Harman MD [address] [place] [phone] 07/13/2024 3:20 PM EDT Office Visit [facility] [address] [place] [phone] Sandra Vuong, [address] [facility] [place] [phone] Health Maintenance Due Date Last Done Comments Diabetic Foot Exam 05/20/1967 Cologuard 1994 Fecal Occult Blood Test 1994 Sigmoidoscopy 1994 Adult Wellness Visit 05/20/2015 DISCUSS TOBACCO CESSATION (REFER TO SMARTSET #7368) 07/31/2016 08/01/2015 (Discussed) Depression Monitoring 03/23/2020 03/23/2019 [...] as of this encounter Visit Diagnoses Diagnosis Referred for medication therapy management- Primary Encounter for long-term (current) use [...] File Name Relationship Healthcare Agent [facility] p Communication Jam [facility] Cousin First Alternate Health Care Agent (per Health Care Power of Paper Cutter document) Care Teams Intake Worker Relationship Specialty Start Date End Date Julia Harman MD [address] [place] [phone] PCP - General Family Medicine 06/15/23 documented as of this encounter
[2024-05-26] MEDS ORDERED: ACETAMINOPHEN 325 MG TAB PO PRN (07:24)
[2024-05-26] MEDS ORDERED: SODIUM CHLORIDE 0.65% NA SOLN 45 ML (OCEAN) PRN (07:24)
[2024-05-26] MEDS ORDERED: NITROGLYCERIN SL 0.4 MG/TAB TAB SL PRN (07:24)
[2024-05-26] MEDS ORDERED: LABETALOL HCL IV 5 MG/ML 20ML IV PRN (07:24)
[2024-05-26] MEDS ORDERED: GLUCOSE 40% GEL 15 GM TUBE PO PRN (07:24)
[2024-05-26] MEDS ORDERED: LEVALBUTEROL 1.25 MG/3 ML NEB NEB PRN (07:24)
[2024-05-26] MEDS ORDERED: ALBUTEROL HFA 8 GM INHALER INH PRN (07:24)
[2024-05-26] MEDS ORDERED: CARBOHYDRATES FOR HYPOGLYCEMIA PO PRN (07:24)
[2024-05-26] MEDS ORDERED: GLUCAGON FOR INJ 1 MG VIAL SQ PRN (07:24)
[2024-05-26] MEDS ORDERED: GLUCOSE 10 TAB/TUBE PO PRN (07:24)
[2024-05-26] MEDS ORDERED: REMDESIVIR 200 MG in SODIUM CHLORIDE 0.9% 210 ML IV STA (07:24)
[2024-05-26] MEDS ORDERED: POLYETHYLENE (MIRALAX) 17 GM PACK PO PRN (07:24)
[2024-05-26] MEDS ORDERED: DEXTROSE 50% 50 ML SYRINGE IV PRN (07:24)
[2024-05-26 08:52] LABS: Iron 23 mcg/dl (35-175); Transferrin 386 mg/dl (200-360)
[2024-05-26] MEDS: PANTOprazole 40 MG TAB PO SCH (08:54)
[2024-05-26] MEDS: REMDESIVIR 200 MG in SODIUM CHLORIDE 0.9% 210 ML IV STA (08:54)
[2024-05-26 08:55] LABS: Total Iron Binding Cap Calc 540 mcg/dl (250-450); Transferrin (FE) Percent Satur 4 % (20-50)
[2024-05-26] MEDS: METOPROLOL TARTRATE 50 MG TAB PO SCH (08:55)
[2024-05-26] MEDS: APIXABAN 5 MG TABLET PO SCH (08:55)
[2024-05-26] MEDS: ATORVASTATIN 40 MG TAB PO SCH (08:55)
[2024-05-26] MEDS: FUROSEMIDE 20 MG TAB PO SCH (08:55)
[2024-05-26] MEDS: FOLIC ACID 1 MG TAB PO SCH (08:55)
[2024-05-26] MEDS: NYSTATIN POWDER 15GM BTL EXT SCH (08:56)
[2024-05-26] MEDS: dexAMETHasone 6 MG in SYRINGE 0 ML IV SCH (08:56)
[2024-05-26] MEDS: amLODIPine BESYLATE 5 MG TAB PO SCH (08:58)
[2024-05-26] MEDS: POTASSIUM CHLORIDE 10 MEQ TABCR PO SCH (08:58)
[2024-05-26 09:23] LABS: Folate (Folic Acid),Ser orPlas > 22.30 ng/ml (>5.38); Vitamin B12 454 pg/ml (180-914)
[2024-05-26] MEDS: INSULIN ASPART PER UNIT CHARGE SC SCH (09:49)
[2024-05-26] MEDS: FLUTICASONE/VILANTEROL 100/25MCG 14 PUFFS/INHALER INH SCH (09:50)
[2024-05-26] MEDS: LEVALBUTEROL 1.25 MG/3 ML NEB NEB SCH (09:50)
--- NOTE | 2024-05-26 11:15 | Communication Note ---
Date of Service: May 26, 2024 Patient seen and examined Reports cough and SOB Reports that he went to hospital in [facility] on Saturday and they told him he did not have COVID then Currently on remdesivir Patient is currently on room air. Change dexa to prednisone for COPD exacerbation Continue nebs and supportive care Other plans as detailed in H/P this AM
--- NOTE | 2024-05-26 14:49 | Electrocardiogram Report ---
Test Reason : Blood Pressure : */* mmHG Vent. Rate : 86 BPM Atrial Rate : * BPM P-R Int : * ms QRS Dur : 96 ms QT Int : 370 ms P-R-T Axes : * 53 49 degrees QTcB Int : 442 ms Atrial fibrillation Abnormal ECG When compared with ECG of 01-Jul-2015 09:58, Atrial fibrillation has replaced Sinus rhythm Confirmed by Surya Veras ([id number]) on 05/26/2024 2:49:38 PM Referred By: REFERRED SELF Confirmed By: Surya Veras
[2024-05-26] MEDS: MELATONIN 3 MG TAB PO PRN (20:45)
[2024-05-26] MEDS: fluvoxaMINE MALEATE 50 MG TAB PO SCH (20:45)
[2024-05-26] MEDS: MONTELUKAST SODIUM 10 MG TABLET PO SCH (20:46)
[2024-05-26] MEDS: QUEtiapine FUMARATE 25 MG TABLET PO SCH (20:46)
[2024-05-26] MEDS: CETIRIZINE HCL 10 MG TABLET PO SCH (20:46)
[2024-05-26] MEDS: FAMOTIDINE 40 MG TABLET PO SCH (20:46)
[2024-05-27] MEDS ORDERED: REMDESIVIR 100 MG in SODIUM CHLORIDE 0.9% 230 ML IV SCH (06:15)
[2024-05-27 06:36] LABS: Basophils # (auto) 0.01 K/uL (0.00-0.20); Eosinophils # (auto) 0.02 K/uL (0.00-0.50); Eosinophils % (auto) 0.1 %; Hematocrit (blood only) 31.3 % (42.0-52.0); Hemoglobin 9.6 g/dl (14.0-18.0); Immature Granulocytes # (auto) 0.14 K/uL (0.01-0.20); Immature Granulocytes % (auto) 0.7 %; Lymphocytes % (auto) 12.3 %; Mean Corpuscular Hemoglobin 23.6 pg (25.0-34.0); Mean Corpuscular Hgb Conc 30.7 g/dL (32.0-36.0); Mean Corpuscular Volume 77.1 fL (80.0-100.0); Mean Platelet Volume 9.4 fL (9.4-12.4); Monocytes # (auto) 1.54 K/uL (0.11-0.59); Monocytes % (auto) 7.6 %; Neutrophils # (auto) 16.15 K/uL (1.40-6.50); Neutrophils % (auto) 79.3 %; Platelet Count 337 K/uL (130-400); RDW Coefficient of Variation 16.6 % (11.5-14.5); RDW Standard Deviation 46.8 fL (36.4-46.3); Red Blood Count 4.06 M/uL (4.70-6.10); White Blood Count 20.36 K/ul (4.8-10.8)
[2024-05-27 07:02] LABS: Albumin Level 3.8 gm/dl (3.4-5.0); BUN Creatinine Ratio 32.7 (10-20); Bilirubin Direct 0.1 mg/dl (0-0.2); Bilirubin,Total 0.8 mg/dl (0.2-1.0); Calcium 9.4 mg/dl (8.6-10.3); Creatinine Clr Calc Pharmacy 71.1 ml/min; Magnesium 2.4 mg/dl (1.7-2.4); Potassium 4.6 mmol/L (3.5-5.1); Total Protein 7.2 gm/dl (6.0-8.3)
[2024-05-27] MEDS: predniSONE 20 MG TAB PO SCH (08:05)
[2024-05-27] MEDS: REMDESIVIR 100 MG in SODIUM CHLORIDE 0.9% 230 ML IV SCH (11:22)
[2024-05-27 13:39] LABS: Estimated Average Glucose 174 mg/dl; Hemoglobin A1C 7.7 % (4.5-5.6)
--- NOTE | 2024-05-27 15:56 | Hospitalist Progress Note ---
Date of Service May 27, 2024 Assessment & Plan (1) COVID: Plan: per previous hospitalist notes with addendum: 74-year-old male with past medical history significant for hyperlipidemia, diabetes, COPD, obstructive sleep apnea, chronic heart failure with preserved ejection fraction, paroxysmal atrial fibrillation, aortic root enlargement, ascending aortic aneurysm, hypertension, nonrheumatic aortic valve insufficiency, GERD, obesity, BPH, decreased hearing of both ears, tobacco use disorder, insomnia, depression, anxiety presents with ongoing cough and found to have COVID. Looking at the epic he also had COVID-positive on April 16, 2024. Patient was having cough and congestion and went to [facility] clinic on 05/14/2024 and was prescribed azithromycin and prednisone. Seems patient did not tolerated the azithromycin. Patient says he has an antibiotic at home, 750 mg tablet possibly Levaquin. He comes t today because of feeling weak and short of breath and ongoing cough per er. in the ER received Solu-Medrol, Lasix and nebs and Nitropaste. Currently patient sitting in the chair. Very hard of hearing. Says his main complaint is cough. Sometimes bringing up phlegm. He is not getting better. Currently denies any shortness of breath. Denies chest pain. Denies headache. Denies runny nose or sore throat. Denies abdominal pain. Denies body aches. States appetite is good. Normal bowel and bladder movements. Hemodynamics are okay. COVID Has cough Seems initially complained of shortness of breath and weak CTA chest no PE and no acute findings Because of his COVID conditions we will do remdesivir possibly short course and follow remdesivir labs IV Decadron 6 mg daily COVID precautions Close monitor 05/27 Add Mucinex, spirometry, flutter valve, Tessalon Perles Continue remdesivir, prednisone already on Eliquis twice daily Possible COPD exacerbation Continue home inhalers Nebs as needed Prednisone PO Heart failure with preserved ejection fraction Has some edema in the legs Please a dose of IV Lasix 40 mg in the ER Continue home Lasix 60 mg daily potassium supplement - no leg edema today monitor Atrial fibrillation On metoprolol tartrate and Eliquis Hypertension Continue amlodipine, Lasix and metoprolol tartrate IV labetalol as needed Anemia Hemoglobin 9.2 Hemoglobin was 12.2 on 07/2023 on outpatient labs Will check stool for Hemoccult Will follow iron studies, vitamin B12 folate levels Follow labs. Leukocytosis Recent steroid His baseline WBC seems 13-15 on outpatient labs Possibly from smoking Follow labs Diabetes Not on meds Insulin sliding scale Closely monitor while on steroids Follow HbA1c levels A1c 7.7 Will order patient educator BSG elevated secondary to prednisone Continue insulin sliding scale Depression Anxiety Insomnia On Seroquel, fluvoxamine GERD Esomeprazole and famotidine Hyperlipidemia Statin Ongoing tobacco abuse Counseling DVT prophylaxis Eliquis Disposition Med/telemetry Full code Disposition Lives at home Admission and Anticipated Discharge Date Admission Date: May 26, 2024 Subjective Follow-up for COVID-19 infection, COPD exacerbation, etc. Seen resting in bedside chair, comfortable, no distress States he is still having cough, but breathing is improving No chest pain, palpitations, dizziness, nausea vomiting, diarrhea No other new symptoms Review of Systems Review of Systems: all noted and negative except for above Physical Exam Physical Exam: General- oriented x 3, not in distress, speaks in sentences with no effort or accessory muscle use Eyes- anicteric Neck- no JVD Lungs- Very faint wheeze on the left, clear on the right No crackles Heart- normal rate, regular rhythm; no murmurs Abdomen- normal bowel sounds, nondistended, soft, nontender Extremities- no pretibial edema, no calf tenderness Neuro- alert, oriented x 3; no gross focal neurologic deficits Skin- warm & dry Results & Data Results & Data Vital Signs (Past 12 Hours) Vital Signs Temp Pulse Pulse Resp BP BP Pulse Ox 05/27/24 15:32 82 18 95 05/27/24 15:08 36.9 C 66 20 168/79 H 92 05/27/24 13:00 65 05/27/24 12:05 36.3 C L 70 20 137/75 94 05/27/24 07:39 36.3 C L 65 20 160/79 H 95 05/27/24 07:34 68 18 94 05/27/24 07:24 05/27/24 05:44 63 O2 Del Method 05/27/24 15:32 Room Air 05/27/24 15:08 Room Air 05/27/24 13:00 05/27/24 12:05 Room Air 05/27/24 07:39 Room Air 05/27/24 07:34 Room Air 05/27/24 07:24 Room Air 05/27/24 05:44 all noted and reviewed including below
[2024-05-27] MEDS: BENZONATATE 100 MG CAPSULE PO PRN (16:41)
[2024-05-27] MEDS: guaiFENesin 600 MG TABCR PO SCH (16:41)
[2024-05-28 07:31] LABS: Alanine Aminotransferase 15 U/L (7-52); Aspartate Aminotransferase 12 U/L (13-39)
--- NOTE | 2024-05-28 13:37 | Hospitalist Progress Note ---
Date of Service May 28, 2024 Assessment & Plan (1) COVID: Plan: per previous hospitalist notes with addendum: 74-year-old male with past medical history significant for hyperlipidemia, diabetes, COPD, obstructive sleep apnea, chronic heart failure with preserved ejection fraction, paroxysmal atrial fibrillation, aortic root enlargement, ascending aortic aneurysm, hypertension, nonrheumatic aortic valve insufficiency, GERD, obesity, BPH, decreased hearing of both ears, tobacco use disorder, insomnia, depression, anxiety presents with ongoing cough and found to have COVID. Looking at the epic he also had COVID-positive on April 16, 2024. Patient was having cough and congestion and went to [facility] clinic on 05/14/2024 and was prescribed azithromycin and prednisone. Seems patient did not tolerated the azithromycin. Patient says he has an antibiotic at home, 750 mg tablet possibly Levaquin. He comes t today because of feeling weak and short of breath and ongoing cough per er. in the ER received Solu-Medrol, Lasix and nebs and Nitropaste. Currently patient sitting in the chair. Very hard of hearing. Says his main complaint is cough. Sometimes bringing up phlegm. He is not getting better. Currently denies any shortness of breath. Denies chest pain. Denies headache. Denies runny nose or sore throat. Denies abdominal pain. Denies body aches. States appetite is good. Normal bowel and bladder movements. Hemodynamics are okay. COVID Has cough Seems initially complained of shortness of breath and weak CTA chest no PE and no acute findings Because of his COVID conditions we will do remdesivir possibly short course and follow remdesivir labs IV Decadron 6 mg daily COVID precautions Close monitor 05/27 Add Mucinex, spirometry, flutter valve, Tessalon Perles Continue remdesivir, prednisone already on Eliquis twice daily 05/28 continues to improve continue present regimen labs tomorrow AM Possible COPD exacerbation Continue home inhalers Nebs as needed Prednisone PO, last day tomorrow Heart failure with preserved ejection fraction Has some edema in the legs Please a dose of IV Lasix 40 mg in the ER Continue home Lasix 60 mg daily potassium supplement - no leg edema today monitor Atrial fibrillation On metoprolol tartrate and Eliquis Hypertension Continue amlodipine, Lasix and metoprolol tartrate IV labetalol as needed Anemia Hemoglobin 9.2 Hemoglobin was 12.2 on 07/2023 on outpatient labs Will check stool for Hemoccult Will follow iron studies, vitamin B12 folate levels Follow labs. Leukocytosis Recent steroid His baseline WBC seems 13-15 on outpatient labs Possibly from smoking Follow labs Diabetes Not on meds Insulin sliding scale Closely monitor while on steroids Follow HbA1c levels A1c 7.7 Will order clinical trial educator BSG elevated secondary to prednisone Continue insulin sliding scale Depression Anxiety Insomnia On Seroquel, fluvoxamine GERD Esomeprazole and famotidine Hyperlipidemia Statin Ongoing tobacco abuse Counseling DVT prophylaxis Eliquis Disposition Med/telemetry Full code Disposition Lives at home possible dc tomorrow Admission and Anticipated Discharge Date Admission Date: May 26, 2024 Subjective ff up for covid 19 infection, etc Seen sitting up in bed, comfortable, in good spirits On room air States he continues to feel improved overall Still having some cough but improved No shortness of breath, chest pain, palpitations, dizziness, nausea vomiting Review of Systems Review of Systems: all noted and negative except for above Physical Exam Physical Exam: General- oriented x 3, not in distress, speaks in sentences with no effort or accessory muscle use Eyes- anicteric Neck- no JVD Lungs- mild intermittent rhonchi R clear on the L Heart- normal rate, regular rhythm; no murmurs Abdomen- normal bowel sounds, nondistended, soft, nontender Extremities- no pretibial edema, no calf tenderness Neuro- alert, oriented x 3; no gross focal neurologic deficits Skin- warm & dry Results & Data Results & Data Vital Signs (Past 12 Hours) Vital Signs Temp Pulse Pulse Resp BP BP Pulse Ox 05/28/24 11:09 36.4 C L 59 L 20 128/77 96 05/28/24 07:46 36.4 C L 64 20 112/75 96 05/28/24 07:28 46 L 22 95 05/28/24 07:24 05/28/24 05:53 63 05/28/24 03:47 36.3 C L 71 20 127/70 95 O2 Del Method 05/28/24 11:09 Room Air 05/28/24 07:46 Room Air 05/28/24 07:28 Room Air 05/28/24 07:24 Room Air 05/28/24 05:53 05/28/24 03:47 Room Air all noted and reviewed including below
[2024-05-29 06:36] LABS: Calcium 8.5 mg/dl (8.6-10.3); Creatinine Clr Calc Pharmacy 72.1 ml/min; Potassium 4.2 mmol/L (3.5-5.1)
--- NOTE | 2024-05-29 13:23 | Hospitalist Progress Note ---
Date of Service May 29, 2024 Assessment & Plan (1) COVID: Plan: per previous hospitalist notes with addendum: 74-year-old male with past medical history significant for hyperlipidemia, diabetes, COPD, obstructive sleep apnea, chronic heart failure with preserved ejection fraction, paroxysmal atrial fibrillation, aortic root enlargement, ascending aortic aneurysm, hypertension, nonrheumatic aortic valve insufficiency, GERD, obesity, BPH, decreased hearing of both ears, tobacco use disorder, insomnia, depression, anxiety presents with ongoing cough and found to have COVID. Looking at the epic he also had COVID-positive on April 16, 2024. Patient was having cough and congestion and went to [facility] clinic on 05/14/2024 and was prescribed azithromycin and prednisone. Seems patient did not tolerated the azithromycin. Patient says he has an antibiotic at home, 750 mg tablet possibly Levaquin. He comes t today because of feeling weak and short of breath and ongoing cough per er. in the ER received Solu-Medrol, Lasix and nebs and Nitropaste. Currently patient sitting in the chair. Very hard of hearing. Says his main complaint is cough. Sometimes bringing up phlegm. He is not getting better. Currently denies any shortness of breath. Denies chest pain. Denies headache. Denies runny nose or sore throat. Denies abdominal pain. Denies body aches. States appetite is good. Normal bowel and bladder movements. Hemodynamics are okay. COVID Has cough Seems initially complained of shortness of breath and weak CTA chest no PE and no acute findings Because of his COVID conditions we will do remdesivir possibly short course and follow remdesivir labs IV Decadron 6 mg daily COVID precautions Close monitor 05/27 Add Mucinex, spirometry, flutter valve, Tessalon Perles Continue remdesivir, prednisone already on Eliquis twice daily 05/28 continues to improve continue present regimen labs tomorrow AM 05/29 improving continue present regimen decrease Prednisone to 20mg po daily Possible COPD exacerbation Continue home inhalers Nebs as needed Prednisone PO- 20mg po Heart failure with preserved ejection fraction Has some edema in the legs Please a dose of IV Lasix 40 mg in the ER Continue home Lasix 60 mg daily potassium supplement - no leg edema today monitor Atrial fibrillation On metoprolol tartrate and Eliquis Hypertension Continue amlodipine, Lasix and metoprolol tartrate IV labetalol as needed Anemia Hemoglobin 9.2 Hemoglobin was 12.2 on 07/2023 on outpatient labs Will check stool for Hemoccult Will follow iron studies, vitamin B12 folate levels Follow labs. Leukocytosis Recent steroid His baseline WBC seems 13-15 on outpatient labs Possibly from smoking Follow labs Diabetes Not on meds Insulin sliding scale Closely monitor while on steroids Follow HbA1c levels A1c 7.7 Will order wellness educator BSG elevated secondary to prednisone Continue insulin sliding scale Depression Anxiety Insomnia On Seroquel, fluvoxamine GERD Esomeprazole and famotidine Hyperlipidemia Statin Ongoing tobacco abuse Counseling DVT prophylaxis Eliquis Disposition Lives at home possible dc tomorrow Admission and Anticipated Discharge Date Admission Date: May 26, 2024 Subjective ff up for covid infection, copd exacerbation, etc seen resting in bed, comfortable states he continues to feel better overall still has cough but improving no fever/chills, chest pain no other symptoms Review of Systems Review of Systems: all noted and negative except for above Physical Exam Physical Exam: General- oriented x 3, not in distress, speaks in sentences with no effort or accessory muscle use Eyes- anicteric Neck- no JVD Lungs- very faint scattered wheeze BL Heart- normal rate, regular rhythm; no murmurs Abdomen- normal bowel sounds, nondistended, soft, nontender Extremities- no pretibial edema, no calf tenderness Neuro- alert, oriented x 3; no gross focal neurologic deficits Skin- warm & dry Results & Data Results & Data Vital Signs (Past 12 Hours) Vital Signs Temp Pulse Pulse Resp BP BP Pulse Ox 05/29/24 11:27 36.3 C L 56 L 20 104/61 99 05/29/24 07:37 36.2 C L 52 L 18 102/63 18 L 05/29/24 07:14 05/29/24 07:09 69 16 97 05/29/24 05:46 48 L 05/29/24 04:00 36.5 C 59 L 20 115/66 92 O2 Del Method 05/29/24 11:27 Room Air 05/29/24 07:37 Room Air 05/29/24 07:14 Room Air 05/29/24 07:09 Room Air 05/29/24 05:46 05/29/24 04:00 Room Air all noted and reviewed including below
[2024-05-30 07:37] LABS: Alanine Aminotransferase 15 U/L (7-52); Aspartate Aminotransferase 13 U/L (13-39)
[2024-05-30 08:12] VITALS: RESP 20
[2024-05-30] MEDS: predniSONE 20 MG TAB PO SCH (08:14)
[2024-05-30 11:20] VITALS: TEMP 97.3; O2SAT 97
--- NOTE | 2024-05-30 15:50 | Discharge Summary ---
Discharge Summary Date of Service May 30, 2024 delayed entry date of service noted above Principal Dx & Hospital Course #1 = Principal Diagnosis (1) COVID: per previous hospitalist notes with addendum: 74-year-old male with past medical history significant for hyperlipidemia, diabetes, COPD, obstructive sleep apnea, chronic heart failure with preserved ejection fraction, paroxysmal atrial fibrillation, aortic root enlargement, ascending aortic aneurysm, hypertension, nonrheumatic aortic valve insufficiency, GERD, obesity, BPH, decreased hearing of both ears, tobacco use disorder, insomnia, depression, anxiety presents with ongoing cough and found to have COVID. Looking at the epic he also had COVID-positive on April 16, 2024. Patient was having cough and congestion and went to [facility] on 05/14/2024 and was prescribed azithromycin and prednisone. Seems patient did not tolerated the azithromycin. Patient says he has an antibiotic at home, 750 mg tablet possibly Levaquin. He comes t today because of feeling weak and short of breath and ongoing cough per er. in the ER received Solu-Medrol, Lasix and nebs and Nitropaste. Currently patient sitting in the chair. Very hard of hearing. Says his main complaint is cough. Sometimes bringing up phlegm. He is not getting better. Currently denies any shortness of breath. Denies chest pain. Denies headache. Denies runny nose or sore throat. Denies abdominal pain. Denies body aches. States appetite is good. Normal bowel and bladder movements. Hemodynamics are okay. COVID Has cough Seems initially complained of shortness of breath and weak CTA chest no PE and no acute findings Patient placed on IV remdesivir, Decadron which was transitioned to prednisone course Also given supportive care including nebs, Mucinex, etc. Patient did well, remained on room air Completed 5-day course of IV remdesivir and prednisone Cleared for discharge to home Continue Mucinex, Tessalon Brigid at home Also instructed to use incentive spirometry, flutter valve frequently at home and also ambulate frequently Patient verbalized understanding and agreement Possible COPD exacerbation Management as per above Heart failure with preserved ejection fraction Acute HFpEF treated resolved with IV Lasix Has some edema in the legs received a dose of IV Lasix 40 mg in the ER Continue home Lasix 60 mg daily potassium supplement - no leg edema since monitor Atrial fibrillation On metoprolol tartrate and Eliquis Hypertension Continue amlodipine, Lasix and metoprolol tartrate IV labetalol as needed Abnormal CT findings- Atherosclerotic calcifications Chest CTA: The aortic arch and descending thoracic aorta are unremarkable apart from atherosclerotic vascular calcifications Coronary artery calcifications are seen. The heart size appears enlarged. Reflux of contrast is seen in the IVC. will need Aspirin once anemia work up completed and GI bleed ruled out Further work up, management, and ff up as outpatient Anemia Hemoglobin 9.2 Hemoglobin was 12.2 on 07/2023 on outpatient labs Iron level 23 Ferrous sulfate ordered Iron B12 and folate level normal Will need repeat CBC on follow-up with PCP Will need further evaluation as an outpatient Leukocytosis Recent steroid His baseline WBC seems 13-15 on outpatient labs Possibly from smoking Repeat CBC in 1 week Diabetes A1c 7.7 BSG elevated secondary to prednisone Will need further evaluation and management with PCP follow-up visit Depression Anxiety Insomnia On Seroquel, fluvoxamine GERD Esomeprazole and famotidine Hyperlipidemia Statin Ongoing tobacco abuse Counseling DVT prophylaxis Eliquis Disposition DC home PCP follow-up in 1 week Notes For Next Care Provider Medication Changes From Visit Still on p.o., Mucinex, melatonin, ferrous sulfate Admission HPI Per Admitting Provider 74-year-old male with past medical history significant for hyperlipidemia, diabetes, COPD, obstructive sleep apnea, chronic heart failure with preserved ejection fraction, paroxysmal atrial fibrillation, aortic root enlargement, ascending aortic aneurysm, hypertension, nonrheumatic aortic valve insufficiency, GERD, obesity, BPH, decreased hearing of both ears, tobacco use disorder, insomnia, depression, anxiety presents with ongoing cough and found to have COVID. Looking at the epic he also had COVID-positive on April 16, 2024. Patient was having cough and congestion and went to [facility] clinic on 05/14/2024 and was prescribed azithromycin and prednisone. Seems patient did not tolerated the azithromycin. Patient says he has an antibiotic at home, 750 mg tablet possibly Levaquin. He comes t today because of feeling weak and short of breath and ongoing cough per er. in the ER received Solu-Medrol, Lasix and nebs and Nitropaste. Currently patient sitting in the chair. Very hard of hearing. Says his main complaint is cough. Sometimes bringing up phlegm. He is not getting better. Currently denies any shortness of breath. Denies chest pain. Denies headache. Denies runny nose or sore throat. Denies abdominal pain. Denies body aches. States appetite is good. Normal bowel and bladder movements. Hemodynamics are okay. Past medical history. As mentioned above Past surgical history. Colonoscopy cystoscopy EGD. EGD with endoscopic ultrasound. DC cardioversion. Vein stripping. Knee arthroscopies. Nasal polypectomy. Appendectomy. TURP. Tonsillectomy and adenoidectomy. Social history. Smokes 1.5 pack a day for last 30 years. No alcohol use. No drug use. Family history. Mother had diabetes. Father had stroke. Admission Exam Per Admitting Provider General- Not in distress Head- atraumatic Eyes- PERRL. ENT- oropharynx clear Neck- supple, no JVD. Lungs- clear to auscultation mild b/l rhonchi Heart- regular rhythm; no murmur, no gallop. Abdomen- normal bowel sounds, soft, nontender, no distension Extremities- b/l pretibial edema present, no erythema seen Neuro- alert, oriented PERRL, no facial palsy; no dysarthria; moves extremities Discharge Exam General- oriented x 3, not in distress, speaks in sentences with no effort or accessory muscle use Eyes- anicteric Neck- no JVD Lungs- clear breath sounds bilaterally, no rales/wheezes Heart- normal rate, regular rhythm; no murmurs Abdomen- normal bowel sounds, nondistended, soft, nontender Extremities- no pretibial edema, no calf tenderness Neuro- alert, oriented x 3; no gross focal neurologic deficits Skin- warm & dry Updated Medication List Medication Instructions Recorded Confirmed Type albuterol sulfate 90 mcg/actuation 2 puff inhalation Q4H PRN Wheezing 05/26/24 05/26/24 History aerosol inhaler amlodipine 5 mg tablet 5 mg PO QAM 05/26/24 05/26/24 History apixaban 5 mg tablet (Eliquis) 5 mg PO BID 05/26/24 05/26/24 History atorvastatin 40 mg tablet 40 mg PO QAM 05/26/24 05/26/24 History budesonide-formoterol HFA 160 2 puff inhalation BID 05/26/24 05/26/24 History mcg-4.5 mcg/actuation aerosol inhaler (Symbicort) esomeprazole magnesium 40 mg 40 mg PO DAILYBB 05/26/24 05/26/24 History capsule,delayed release famotidine 40 mg tablet 40 mg PO HS 05/26/24 05/26/24 History fluvoxamine 100 mg tablet 100 mg PO HS 05/26/24 05/26/24 History folic acid 1 mg tablet 1 mg PO QAM 05/26/24 05/26/24 History furosemide 40 mg tablet (Lasix) 60 mg PO QAM 05/26/24 05/26/24 History levocetirizine 5 mg tablet (Xyzal) 2.5 mg PO PM 05/26/24 05/26/24 History metoprolol tartrate 50 mg tablet 50 mg PO BID 05/26/24 05/26/24 History montelukast 10 mg tablet 10 mg PO HS 05/26/24 05/26/24 History (Singulair) mupirocin 2 % topical ointment 1 applic topical BID PRN Skin 05/26/24 05/26/24 History Irritation nitroglycerin 0.4 mg sublingual 0.4 mg sublingual DIRECTED PRN 05/26/24 05/26/24 History tablet (Nitrostat) Chest Pain nystatin 100,000 unit/gram topical 1 applic topical TID 05/26/24 05/26/24 History powder ondansetron 4 mg disintegrating 4 mg PO Q8H PRN NAUSEA/VOMITING 05/26/24 05/26/24 History tablet potassium chloride 10 mEq 10 meq PO QAM 05/26/24 05/26/24 History tablet,extended release quetiapine 25 mg tablet (Seroquel) 50 mg PO HS 05/26/24 05/26/24 History sodium chloride 0.65 % nasal spray 1 spray intranasal DIRECTED PRN 05/26/24 05/26/24 History aerosol (Saline Nasal) Congestion benzonatate 100 mg capsule 100 mg PO TID PRN cough #20 caps 05/30/24 Rx guaifenesin 600 mg tablet, 600 mg PO Q12 4 days #8 tabs 05/30/24 Rx extended release 12 hr (Mucinex) melatonin 3 mg tablet 3 mg PO HS PRN sleep 30 days #30 05/30/24 Rx tabs Hospital Stay Data Consultations 05/26/24 01:57 ED Decision to Admit Stat Diagnostic Imagining Performed Laboratory Results WBC 20.36 K/ul (4.8-10.8) H 05/27/24 05:27 RBC 4.06 M/uL (4.70-6.10) L 05/27/24 05:27 Hgb 9.6 g/dl (14.0-18.0) L 05/27/24 05:27 Hct 31.3 % (42.0-52.0) L 05/27/24 05:27 MCV 77.1 fL (80.0-100.0) L 05/27/24 05:27 MCH 23.6 pg (25.0-34.0) L 05/27/24 05:27 MCHC 30.7 g/dL (32.0-36.0) L 05/27/24 05:27 RDW Std Deviation 46.8 fL (36.4-46.3) H 05/27/24 05:27 RDW Coeff of [place]ena 16.6 % (11.5-14.5) H 05/27/24 05:27 Plt Count 337 K/uL (130-400) 05/27/24 05:27 MPV 9.4 fL (9.4-12.4) 05/27/24 05:27 Immature Gran % (Auto) 0.7 % 05/27/24 05:27 Neut % (Auto) 79.3 % 05/27/24 05:27 Lymph % (Auto) 12.3 % 05/27/24 05:27 [place] % (Auto) 7.6 % 05/27/24 05:27 Eos % (Auto) 0.1 % 05/27/24 05:27 Baso % (Auto) 0.0 % 05/27/24 05:27 Neut # (Auto) 16.15 K/uL (1.40-6.50) H 05/27/24 05:27 Lymph # (Auto) 2.50 K/uL (1.20-3.40) 05/27/24 05:27 [place] # (Auto) 1.54 K/uL (0.11-0.59) H 05/27/24 05:27 Eos # (Auto) 0.02 K/uL (0.00-0.50) 05/27/24 05:27 Baso # (Auto) 0.01 K/uL (0.00-0.20) 05/27/24 05:27 Immature Gran # (Auto) 0.14 K/uL (0.01-0.20) 05/27/24 05:27 PT 11.9 Seconds (9.0-12.0) 05/25/24 22:11 INR 1.1 (0.9-1.1) 05/25/24 22:11 APTT 26 Seconds (21-31) 05/25/24 22:11 PTT Ratio 1.0 05/25/24 22:11 VBG pH 7.42 (7.36-7.41) H 05/25/24 22:25 VBG pCO2 40 mmHg (38-50) 05/25/24 22: VBG pO2 51 mmHg 05/25/24: VBG HCO3 26 mmol/L 05/25/24: VBG O2 Saturation 83.8 % 05/25/24 22: VBG Base Excess 1.3 mEq/L 05/25/24 22: Sodium 135 mmol/L (136-145) L 05/29/24 05:47 Potassium 4.2 mmol/L (3.5-5.1) 05/29/24 05:47 Chloride 106 mmol/L (98-107) 05/29/24 05:47 Carbon Dioxide 25 mmol/L (21-32) 05/29/24 05:47 Anion Gap 4 (3-11) 05/29/24 05:47 BUN 40 mg/dl (6-23) H 05/29/24 05:47 Creatinine 1.08 mg/dl (0.6-1.4) 05/29/24 05:47 Est Cr Clr Drug Dosing 72.1 ml/min 05/29/24 05:47 eGFR 71.56 05/29/24 05:47 BUN/Creatinine Ratio 37.0 (10-20) H 05/29/24 05:47 Glucose 127 mg/dl (70-99(Fasting)) H 05/29/24 05:47 POC Glucose 135 mg/dl (70-99) H 05/30/24 12:11 Estimat Average Glucose 174 mg/dl 05/27/24 05:27 Hemoglobin A1c 7.7 % (4.5-5.6) H 05/27/24 05:27 Calcium 8.5 mg/dl (8.6-10.3) L 05/29/24 05:47 Magnesium 2.4 mg/dl (1.7-2.4) 05/27/24 05:27 Iron 23 mcg/dl (35-175) L 05/26/24 07:50 TIBC 540 mcg/dl (250-450) H 05/26/24 07:50 Transferrin 386 mg/dl (200-360) H 05/26/24 07:50 Transferrin % Sat 4 % (20-50) L 05/26/24 07:50 Total Bilirubin 0.8 mg/dl (0.2-1.0) D 05/27/24 05:27 Direct Bilirubin 0.1 mg/dl (0-0.2) 05/27/24 05:27 AST 13 U/L (13-39) 05/30/24 06:59 ALT 15 U/L (7-52) 05/30/24 06:59 Alkaline Phosphatase 85 U/L (34-104) 05/27/24 05:27 Troponin I High Sens 7.9 pg/ml (0-20) 05/25/24 22:11 B-Natriuretic Peptide 532 pg/ml (0-100) H 05/25/24 22:11 Total Protein 7.2 gm/dl (6.0-8.3) 05/27/24 05:27 Albumin 3.8 gm/dl (3.4-5.0) 05/27/24 05:27 Globulin 3.4 gm/dl (2.5-4.0) 05/25/24 22:11 Albumin/Globulin Ratio 1.2 (0.9-2) 05/25/24 22:11 Vitamin B12 454 pg/ml (180-914) 05/26/24 07:50 Folate > 22.30 ng/ml (>5.38) 05/26/24 07:50 Urine Color Yellow 05/26/24 00:26 Urine Appearance Clear (Clear) 05/26/24 00:26 Urine pH 7.5 (4.5-7.5) 05/26/24 00:26 Ur Specific [place] 1.011 (1.000-1.030) 05/26/24 00:26 Urine Protein Negative (Negative) 05/26/24 00:26 Urine Glucose (UA) Negative (Negative) 05/26/24 00:26 Urine Ketones Negative (Negative) 05/26/24 00:26 Urine Blood 1+ (Negative) H 05/26/24 00:26 Urine Nitrite Negative (Negative) 05/26/24 00:26 Urine Bilirubin Negative (Negative) 05/26/24 00:26 Urine Urobilinogen Negative (Negative) 05/26/24 00:26 Ur Leukocyte Esterase Negative (Negative) 05/26/24 00:26 Urine WBC (Auto) 0-5 /hpf (0-5) 05/26/24 00:26 Urine RBC (Auto) 11-20 /hpf (0-2) H 05/26/24 00:26 U Hyaline Cast (Auto) 0-2 /lpf (0-2) 05/26/24 00:26 U Epithel Cells (Auto) 0-2 /hpf (0-2) 05/26/24 00:26 Urine Bacteria (Auto) None Seen (None Seen) 05/26/24 00:26 Adenovirus (PCR) Not Detected (NotDetected) 05/25/24 22:11 B. pertussis DNA (PCR) Not Detected (NotDetected) 05/25/24 22:11 B.parapertussis DNA PCR Not Detected (NotDetected) 05/25/24 22:11 C. pneumoniae DNA (PCR) Not Detected (NotDetected) 05/25/24 22:11 Coronavirus OC43 (PCR) Not Detected (NotDetected) 05/25/24 22:11 Coronavirus HKU1 (PCR) Not Detected (NotDetected) 05/25/24 22:11 Coronavirus 229E (PCR) Not Detected (NotDetected) 05/25/24 22:11 SARS-CoV-2 (PCR) DETECTED (NotDetected) A 05/25/24 22:11 Coronavirus NL63 (PCR) Not Detected (NotDetected) 05/25/24 22:11 Human Metapneumovir PCR Not Detected (NotDetected) 05/25/24 22:11 Influenza Type A (PCR) Not Detected (NotDetected) 05/25/24 22:11 Influenza Type B (PCR) Not Detected (NotDetected) 05/25/24 22:11 M. pneumoniae (PCR) Not Detected (NotDetected) 05/25/24 22:11 Parainfluenza 1 (PCR) Not Detected (NotDetected) 05/25/24 22:11 Parainfluenza 2 (PCR) Not Detected (NotDetected) 05/25/24 22:11 Parainfluenza 3 (PCR) Not Detected (NotDetected) 05/25/24 22:11 Parainfluenza 4 (PCR) Not Detected (NotDetected) 05/25/24 22:11 RSV (PCR) Not Detected (NotDetected) 05/25/24 22:11 Entero/Rhino (PCR) Not Detected (NotDetected) 05/25/24 22:11 Impressions Chest X-Ray 05/25/24 22:06 Exam(s): XR CXR 1 VIEW EXAM: XR Chest, 1 View CLINICAL HISTORY: Reason for exam: Dyspnea. TECHNIQUE: Frontal view of the chest. COMPARISON: January 05, 2013. FINDINGS: Lungs: Generalized prominence of interstitial vascular markings likely representing mild CHF. No focal pulmonary consolidation. No pulmonary mass. Pleural space: Unremarkable. No pneumothorax or pleural fluid. Heart: Cardiomegaly. Mediastinum: Unremarkable. Normal mediastinal contour. Bones/joints: No acute findings. IMPRESSION: Generalized prominence of interstitial vascular markings likely representing mild CHF. Cardiomegaly. Electronically signed by: Jc Storey MD 05/26/24 00:52 AM Chest CTA 05/25/24 23:24 EXAM: CT angio chest PE protocol CLINICAL HISTORY: PE. CHEST PAIN WITH COUGH TECHNIQUE: Contiguous 3.[address] angiographic images of the chest were acquired with the administration of intravenous contrast. Coronal and sagittal reconstructions were obtained. 118 ml optiray 320 intravenous contrast was administered for post-contrast images. One of these 3D techniques was utilized: Maximum Intensity Pixel (MIP), 3D Reconstructed Images, Volume Rendered Images, Surface Shaded Rendering. One of the following dose reduction techniques was utilized for this exam: Automated exposure control, adjustment of the mA and/or kV according to patient size, and use of iterative reconstruction. DLP: 933.97 mGy-cm COMPARISON: None. FINDINGS: Aorta: The thoracic aorta is normal in caliber. No evidence of an aneurysm, or dissection. The aortic arch and descending thoracic aorta are unremarkable apart from atherosclerotic vascular calcifications Pulmonary Arteries: Pulmonary arteries are normal in size and opacification. No evidence of pulmonary embolism. No stenosis or filling defects. Superior Vena Cava (SVC) and Inferior Vena Cava (IVC): Normal opacification and caliber. No evidence of thrombus or obstruction. Reflux of contrast is seen in the IVC. Coronary Arteries: Coronary artery calcifications are seen. Mediastinum: Subcentimeter mediastinal lymph nodes are seen. Heart: The heart size appears enlarged. No pericardial effusion. Lungs: Lungs are clear with no evidence of consolidation, nodules, or masses. Paraseptal emphysematous changes are seen in the apical regions. No pleural effusion or thickening. Atelectatic changes in the lingula and right middle lobe. The evaluation is limited due to motion-related artifacts. Bones: Degenerative changes in the visualized spine. Soft Tissues: Normal appearance of the visualized soft tissues. No abnormal masses or fluid collections. IMPRESSION: 1. No evidence of acute pulmonary embolism. 2. The evaluation is limited due to motion-related artifacts. 3. Reflux of contrast is seen in the IVC. 4. Atherosclerotic aortic and coronary artery calcifications. 5. Paraseptal emphysematous changes are seen in the apical regions. 6. Atelectatic changes in the lingula and right middle lobe. Electronically signed by Drew Sands 05-26-2024 01:58 AM Pending Results Patient Have Any Pending Studies at Discharge: No Discharge Instructions Given to Patient (Per Discharging Provider) PLEASE REFER TO YOUR NEW MEDICATION LIST AND FOLLOW INSTRUCTIONS CAREFULLY. YOUR NEW MEDICATIONS INCLUDE: Mucinex-for cough Melatonin-as needed for sleep Continue using incentive spirometer and flutter valve at home for at least 1 week. Ambulate frequently at home to prevent blood clots PLEASE CALL YOUR PRIMARY CARE PHYSICIAN OR RETURN TO THE ER IF WITH WORSENING OF SYMPTOMS, INCLUDING Shortness of breath, cough, chest pain, fevers or chills, leg pain, etc. FOLLOW UP WITH PRIMARY CARE PHYSICIAN OUTLINED ABOVE. Total Time Total Time Spent Total Time Spent (In Minutes): 40 minutes
[2024-05-30 16:02] VITALS: BP 129/70; PULSE 95
== END 2024-05-30 16:27 | disposition home health service (06) | DRG 177 ==
LOC: ED 21:58 → SUATTDRO 05-26 06:06 → EDINP 05-26 06:06 → 2W 05-26 07:24